=== PATIENT | female | born 1945 | race Caucasian/White ===

== ENCOUNTER 2016-12-29 17:15 | Inpatient (IN) | payer MEDICARE, OTHER ==
[2016-12-29] MEDS ORDERED: Diltiazem 25 MG/5 ML SDV IVPUSH ONE (17:26)
[2016-12-29] MEDS ORDERED: Diltiazem 100 MG in Sodium Chloride 0.9% 100 ML IV SCH (17:30)
[2016-12-29] MEDS: Sodium Chloride 0.9% 10 ML Syringe FLUSH PRN (18:00)
--- NOTE | 2016-12-29 19:02 | EDM.PDOC ---
ED HISTORY OF PRESENT ILLNESS - General Chief Complaint: Cardiovascular Problem Stated Complaint: [facility] Time Seen by Provider: 12/29/16 17:20 Source of Information: Reports: Patient, Family, Provider History Limitations: Reports: No limitations - History of Present Illness INITIAL COMMENTS - FREE TEXT/NARRATIVE: The patient presents with shortness of breath and generalized weakness for about 3 days. She went to [facility] and they found she has new onset A-fib at a rapid rate. They sent her here for further management and treatment. She denies any chest pain. She has no fever, chills or cough. She has no congestion or runny nose. She has no abdominal pain, nausea or vomiting. She has no other medical problems. She has never had trouble with her heart. Timing/Duration: Reports: Day(s): (3) Severity: moderate Improves with: Reports: None Worsens with: Reports: None Associated Symptoms (General): Reports: shortness of breath. 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 Denies: fever, chills HEENT: Reports: No symptoms Respiratory: Reports: shortness of breath Cardiovascular: Reports: No symptoms Endocrine: Reports: no symptoms GI/Abdominal: Reports: No symptoms : Reports: no symptoms Musculoskeletal: Reports: no symptoms Skin: Reports: no symptoms Neurological: Reports: no symptoms ED EXAM, GENERAL - Physical Exam Exam: See Below Exam Limited By: No limitations General Appearance: alert, no apparent distress Ears: normal external exam Nose: normal inspection Head: atraumatic, normocephalic Neck: normal inspection Respiratory/Chest: no respiratory distress, lungs clear, normal breath sounds Cardiovascular: no edema, no murmur, irregularly irregular GI/Abdominal: soft, non tender, no organomegaly, no mass Back Exam: normal inspection Extremities: normal inspection Neurological: alert, oriented, no motor/sensory deficits EKG INTERPRETATION EKG Date: 12/29/16 Time: 17:22 Rhythm: a-fib Rate (beats/min): 123 [place]: normal P-wave: absent QRS: normal ST-T: depressed (V1-V3) QT: normal Course - Vital Signs Last Recorded V/S: Last Vital Signs Temp 97.6 F 12/29/16 17:21 Pulse 114 H 12/29/16 18:01 Resp 31 H 12/29/16 17:21 BP 124/75 12/29/16 18:01 Pulse Ox 93 L 12/29/16 17:28 - Orders/Labs/Meds Orders: Active Orders 24 hr Category Date Time Status Cardiac Monitoring [RC] . DIRECTED Care 12/29/16 17:20 Active EKG Documentation Completion [RC] STAT Care 12/29/16 17:21 Active Oxygen Therapy [RC] PRN Care 12/29/16 17:20 Active Peripheral IV Care [RC] . DIRECTED Care 12/29/16 17:21 Active Ang Chest [CT] Stat Exams 12/29/16 19:18 Taken Chest 1V Frontal [CR] Stat Exams 12/29/16 17:21 Taken UA W/MICROSCOPIC [URIN] Stat Lab 12/29/16 17:20 Uncollected Diltiazem [Cardizem] 100 mg Med 12/29/16 17:30 Active Sodium Chloride 0.9% [Normal Saline] 100 ml IV TITRATE Diltiazem [Cardizem] 100 mg Med 12/29/16 19:15 Active Sodium Chloride 0.9% [Normal Saline] 100 ml IV TITRATE Sodium Chloride 0.9% [Normal Saline] 100 ml Med 12/29/16 20:00 Active IV ASDIRECTED Sodium Chloride 0.9% [Saline Flush] Med 12/29/16 17:20 Active 10 ml FLUSH ASDIRECTED PRN Sodium Chloride 0.9% [Saline Flush] Med 12/29/16 19:46 Active 10 ml FLUSH ONETIME PRN Peripheral IV Insertion Adult [OM.PC] Stat Oth 12/29/16 17:20 Ordered Medication Orders Diltiazem HCl 100 mg/ Sodium (Chloride) 100 mls @ 10 mls/hr IV TITRATE MIRNA; 10 MG/HR PRN Reason: Protocol Last Admin: 12/29/16 18:01 Dose: 10 mg/hr, 10 mls/hr Diltiazem HCl 100 mg/ Sodium (Chloride) 100 mls @ 5 mls/hr IV TITRATE MIRNA; 5 MG /HR PRN Reason: Protocol Sodium Chloride (Normal Saline) 100 mls @ 65 mls/hr IV ASDIRECTED MIRNA Last Admin: 12/29/16 20:11 Dose: 65 mls/hr Sodium Chloride (Saline Flush) 10 ml FLUSH ASDIRECTED PRN PRN Reason: Keep Vein Open Last Admin: 12/29/16 18:00 Dose: 10 ml Sodium Chloride (Saline Flush) 10 ml FLUSH ONETIME PRN PRN Reason: IV FLUSH Last Admin: 12/29/16 20:11 Dose: 10 ml Labs: Laboratory Tests 12/29/16 12/29/16 12/29/16 Range/Units 18:20 18:20 18:30 WBC 13.30 H (3.98-10.04) K/mm3 RBC 5.51 H (3.98-5.22) M/mm3 Hgb 15.8 H (11.2-15.7) gm/L Hct 50.9 H (34.1-44.9) % MCV 92.4 (79.4-94.8) fl MCH 28.7 (25.6-32.2) pg MCHC 31.0 L (32.2-35.5) g/dl RDW Std Deviation 47.4 H (36.4-46.3) fL Plt Count 350 (182-369) K/mm3 MPV 11.6 (9.4-12.3) fl Neut % (Auto) 81.6 H (34.0-71.1) % Lymph % (Auto) 9.8 L (19.3-51.7) % [place] % (Auto) 8.0 (4.7-12.5) % Eos % (Auto) 0.2 L (0.7-5.8) Baso % (Auto) 0.2 (0.1-1.2) % Neut # 10.85 H (1.56-6.13) K/mm3 Lymph # 1.30 (1.18-3.74) K/mm3 [place] # 1.07 H (0.24-0.36) K/mm3 Eos # 0.03 L (0.04-0.36) K/mm3 Baso # 0.02 (0.01-0.08) K/mm3 Manual Slide Review Abnormal smear D-Dimer, Quantitative 0.77 H (0.19-0.59) mg/L Sodium 140 (136-145) mEq/L Potassium 4.0 (3.5-5.1) mEq/L Chloride 97 L (98-107) mEq/L Carbon Dioxide 37 H (21-32) mEq/L Anion Gap 10.0 (5-15) BUN 23 H (7-18) mg/dL Creatinine 0.9 (0.55-1.02) mg/dL Est Cr Clr Drug Dosing 50.94 mL/min Estimated GFR (MDRD) > 60 (>60) mL/min BUN/Creatinine Ratio 25.6 H (14-18) Glucose 120 H (80-115) mg/dL Calcium 9.0 (8.5-10.1) mg/dL Total Bilirubin 0.4 (0.2-1.0) mg/dL AST 23 (15-37) U/L ALT 33 (14-59) U/L Alkaline Phosphatase 99 (46-116) U/L Troponin I 0.019 (0.00-0.056) ng/mL Total Protein 7.3 (6.4-8.2) g/dl Albumin 3.3 L (3.4-5.0) g/dl Globulin 4.0 gm/dL Albumin/Globulin Ratio 0.8 L (1-2) TSH 3rd Generation 3.406 (0.358-3.74) uIU/mL Meds: Medications Generic Name Dose Route Start Last Admin Trade Name Freq PRN Reason Stop Dose Admin Diltiazem HCl 100 mg/ Sodium 100 mls @ 10 mls/hr 12/29/16 17:30 12/29/16 18: 01 Chloride IV 10 mg/hr TITRATE MIRNA 10 mls/hr Protocol Administration 10 MG/HR Diltiazem HCl 100 mg/ Sodium 100 mls @ 5 mls/hr 12/29/16 19:15 Chloride IV TITRATE MIRNA Protocol 5 MG/HR Sodium Chloride 100 mls @ 65 mls/hr 12/29/16 20:00 12/29/16 20:11 Normal Saline IV 65 mls/hr ASDIRECTED MIRNA Administration Sodium Chloride 10 ml 12/29/16 17:20 12/29/16 18:00 Saline Flush FLUSH 10 ml ASDIRECTED PRN Administration Keep Vein Open Sodium Chloride 10 ml 12/29/16 19:46 12/29/16 20:11 Saline Flush FLUSH 10 ml ONETIME PRN Administration IV FLUSH Discontinued Medications Generic Name Dose Route Start Last Admin Trade Name Freq PRN Reason Stop Dose Admin Diltiazem HCl 10 mg 12/29/16 17:26 12/29/16 17:48 Diltiazem IVPUSH 12/29/16 17:27 10 mg ONETIME ONE Administration Iopamidol 100 ml 12/29/16 19:46 12/29/16 20:11 [id number] (76%) IVPUSH 12/29/16 19:47 100 ml ONETIME ONE Administration Iopamidol 50 ml 12/29/16 19:46 12/29/16 20:11 Isovue-370 (76%) IVPUSH 12/29/16 19:47 50 ml ONETIME ONE Administration - Re-Assessments/Exams Free Text/Narrative Re-Assessment/Exam: 12/29/16 19:02 I ordered oxygen and an IV. Her EKG shows she is in A-fib with no acute changes but at a rapid rate. I ordered a cardizem bolus of 10mg IV and a drip at 10mg/her. Her CXR shows cardiomegaly. 12/29/16 20:36 Her WBC was elevated at 13.3. Her Hgb was elevated at 15.8. Her D-dimer is elevated at 0.77. Her creatinine is good at 0.9. Her glucose was 120. Her troponin and TSH are negative. I have ordered a CT angio of her chest. Her rate is better in the low 100s. Her BP went down in the 90s so I slowed her cardizem rate to 5mg/hr. 12/29/16 21:[address] angio shows no PE. Moderate size right pleural effusion and compressive atelectasis. Suspected mild vascular congestion, correlate clinically. I feel she needs to be admitted. I called Dr Penny and he agreed to the admission. Departure - Departure Time of Disposition: 21:05 Disposition: Admitted As Inpatient 68 Condition: fair Clinical Impression: Atrial fibrillation with RVR, Pleural effusion, right Forms: ED Department Discharge - My Orders Last 24 Hours: My Active Orders 12/29/16 17:20 Cardiac Monitoring [RC] . DIRECTED Oxygen Therapy [RC] PRN UA W/MICROSCOPIC [URIN] Stat Sodium Chloride 0.9% [Saline Flush] 10 ml FLUSH ASDIRECTED PRN Peripheral IV Insertion Adult [OM.PC] Stat 12/29/16 17:21 EKG Documentation Completion [RC] STAT Peripheral IV Care [RC] . DIRECTED Chest 1V Frontal [CR] Stat 12/29/16 17:30 Diltiazem [Cardizem] 100 mg Sodium Chloride 0.9% [Normal Saline] 100 ml IV TITRATE 12/29/16 19:15 Diltiazem [Cardizem] 100 mg Sodium Chloride 0.9% [Normal Saline] 100 ml IV TITRATE 12/29/16 19:18 Ang Chest [CT] Stat 12/29/16 19:46 Sodium Chloride 0.9% [Saline Flush] 10 ml FLUSH ONETIME PRN 12/29/16 20:00 Sodium Chloride 0.9% [Normal Saline] 100 ml IV ASDIRECTED - Assessment/Plan Last 24 Hours: My Active Orders 12/29/16 17:20 Cardiac Monitoring [RC] . DIRECTED Oxygen Therapy [RC] PRN UA W/MICROSCOPIC [URIN] Stat Sodium Chloride 0.9% [Saline Flush] 10 ml FLUSH ASDIRECTED PRN Peripheral IV Insertion Adult [OM.PC] Stat 12/29/16 17:21 EKG Documentation Completion [RC] STAT Peripheral IV Care [RC] . DIRECTED Chest 1V Frontal [CR] Stat 12/29/16 17:30 Diltiazem [Cardizem] 100 mg Sodium Chloride 0.9% [Normal Saline] 100 ml IV TITRATE 12/29/16 19:15 Diltiazem [Cardizem] 100 mg Sodium Chloride 0.9% [Normal Saline] 100 ml IV TITRATE 12/29/16 19:18 Ang Chest [CT] Stat 12/29/16 19:46 Sodium Chloride 0.9% [Saline Flush] 10 ml FLUSH ONETIME PRN 12/29/16 20:00 Sodium Chloride 0.9% [Normal Saline] 100 ml IV ASDIRECTED
[2016-12-29] MEDS ORDERED: Iopamidol 755 Mg/ML 100 ML Bottle IVPUSH ONE (19:46)
[2016-12-29] MEDS ORDERED: Sodium Chloride 0.9% 10 ML Syringe FLUSH PRN (19:46)
[2016-12-29] MEDS ORDERED: Iopamidol 755 MG/ML 50 ML Bottle IVPUSH ONE (19:46)
[2016-12-29] MEDS ORDERED: Sodium Chloride 0.9% 100 ML IV SCH (20:00)
--- NOTE | 2016-12-29 22:45 | PCM.HP ---
H&P History of Present Illness - General Date of Service: 12/29/16 Admit Problem/Dx: Admission Diagnosis/Problem Admission Diagnosis/Problem Atrial fibrillation Source of Information: Patient, Old records, Provider, RN notes reviewed History Limitations: Reports: No limitations - History of Present Illness Initial Comments - Free Text/Narative: This is a 71 yo Morbidly Obese white female with no significant past medical hx/ o except for OA, Anxiety and Depression who comes to us with c/o 3 day hx/o shortness of breath associated with generalized weakness. She was initially seen at a local clinic in [place] and was diagnosed with new onset of A-fib with RVR in the 130s. Patient was sent to ED for further evaluation and management. Patient reports no previous hx/o it in the past. She has no active cardiac or lung disease. She denies any fever, chills or coughs. No nausea, vomiting or diarrhea. She further denies taking any OTC decongestant or drinks caffeinated products. Her initial work up in ED shows WBC 13.30, Hgb 15.8, Hct 50.9, and Platelet 350. Her chemistry is remarkable for Cl 97, CO2 37, BUN 23, Cr 0.9, BS 120, Albumin 3.3. D-Dimer 0.77 and TSH 3.4. Her initial EKG shows A-fib with rate of 123. Chest CTA shows no PE but with mild size right sided pleural effusion and compressive atelectasis. CXR shows pulmonary vascular congestion. Patient received initial treatment in ED before she was sent to me for further medical treatment. She is full code. 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 Denies: fever, chills HEENT: Reports: no symptoms Pulmonary: Reports: shortness of breath Cardiovascular: Reports: edema. Denies: chest pain, palpitations, dyspnea on exertion, lightheadedness, syncope Gastrointestinal: Denies: Abdominal pain, Constipation, Diarrhea, Nausea, Vomiting Genitourinary: Reports: no symptoms Musculoskeletal: Reports: no symptoms Skin: Reports: no symptoms. Denies: cyanosis, pruritis, rash, erythema Psychiatric: Denies: depression, anxiety Neurological: Denies: confusion Hematologic/Lymphatic: Reports: no symptoms Immunologic: Reports: no symptoms Exam - Exam Exam: See Below - Vital Signs Vital Signs: Last Vital Signs Temp 36.4 C 12/29/16 17:21 Pulse 114 H 12/29/16 18:01 Resp 31 H 12/29/16 17:21 BP 124/75 12/29/16 18:01 Pulse Ox 93 L 12/29/16 17:28 Weight: 155.401 kg - Exam General: alert, oriented, cooperative, other (Morbidly Obese). No: mild distress HEENT: Conjunctiva clear, EACs clear, Mucosa moist & pink, Nares patent, Posterior pharynx clear, Pupils equal Neck: supple, trachea midline, 2+ carotid pulse wo bruit, full range of motion, other (Short and thick) Lungs: Normal respiratory effort, Decreased breath sounds, Crackles Cardiovascular: irregular rhythm, other (irregular rate) Abdomen: normal bowel sounds, soft, other (Obese). No: organomegaly (Female) Exam: Deferred Rectal (Female) Exam: Deferred Back Exam: normal inspection, decreased range of motion Extremities: normal inspection, normal pulses, edema. No: clubbing, cyanosis, calf tenderness Peripheral Pulses: 2+: dorsalis pedis (L), dorsalis pedis (R) Skin: warm, dry, intact Neuro Extensive - Mental Status: oriented x3, normal cognition, memory intact Neuro Extensive - Motor, Sensory, Reflexes: CN II-XII intact, normal gait Psychiatric: alert, normal affect, normal mood - Patient Data Result Diagrams: 12/29/16 18:20 12/29/16 18:20 EKG INTERPRETATION EKG Date: 12/29/16 Time: 17:22 Rhythm: a-fib Rate (beats/min): 123 P-wave: absent *Q Meaningful Use (ADM) - VTE *Q VTE Criteria *Q: - Stroke *Q Stroke Criteria *Q: - AMI *Q AMI Criteria *Q: Problem List Initiated/Reviewed/Updated: Yes Orders Last 24hrs: Medication Orders Diltiazem HCl 100 mg/ Sodium (Chloride) 100 mls @ 10 mls/hr IV TITRATE MIRNA; 10 MG/HR PRN Reason: Protocol Last Admin: 12/29/16 18:01 Dose: 10 mg/hr, 10 mls/hr Diltiazem HCl 100 mg/ Sodium (Chloride) 100 mls @ 5 mls/hr IV TITRATE MIRNA; 5 MG /HR PRN Reason: Protocol Sodium Chloride (Normal Saline) 100 mls @ 65 mls/hr IV ASDIRECTED MIRNA Last Admin: 12/29/16 20:11 Dose: 65 mls/hr Sodium Chloride (Saline Flush) 10 ml FLUSH ASDIRECTED PRN PRN Reason: Keep Vein Open Last Admin: 12/29/16 18:00 Dose: 10 ml Sodium Chloride (Saline Flush) 10 ml FLUSH ONETIME PRN PRN Reason: IV FLUSH Last Admin: 12/29/16 20:11 Dose: 10 ml Assessment/Plan Comment:: Assessment/Plan Acute: A-Fib with RVR at 130s - No previous hx in the past - LAVONNE VASC Score: 0 Low risk of thromboembolic event. 1.9% risk of event per year if no coumadin. The adjusted stroke rate was the expected stroke rate per 100 person-years derived from the multivariable model assuming that aspirin was not taken - Currently on Cardizem drip - Cardizem 360 mg po daily once off drip - FT4 in am - 2D echo in AM Right Sided Pleural Effusion - Small-Moderate Size - 2D echo to assess cardiac function - Monitor - Medical management for now Leukoctyosis - WBC 13.30 - Likely stress - She likely has MICHAEL Secondary Polycythemia - Hgb 15.8 - This likely related to extreme obesity and MICHAEL/OHS - Monitor Morbid Obesity with BMI 58.8 - Dietary consult for weight management Chronic: OA/DJD Anxiety Depression Plan: Admit to ICU Routine AM Labs Resume Home Meds Fall Precautions Discussed anticoagulations PT/TO consult SW/CM for d/c planning Code Status: 1
[2016-12-29] MEDS ORDERED: Acetaminophen/HYDROcodone 325-5 MG Tab PO PRN (23:15)
[2016-12-29] MEDS ORDERED: HYDROmorphone 1 MG/ML Syringe IVPUSH PRN (23:15)
[2016-12-29] MEDS ORDERED: Ondansetron 4 MG/2 ML SDV IV PRN (23:15)
[2016-12-29] MEDS ORDERED: Temazepam 15 MG Cap PO PRN (23:15)
[2016-12-29] MEDS ORDERED: LORazepam 2 MG/ML MDV IV PRN (23:15)
[2016-12-29] MEDS ORDERED: Polyethylene Glycol 3350 Powder 17 GM Packet PO PRN (23:15)
[2016-12-29] MEDS ORDERED: Promethazine 12.5 MG in Sodium Chloride 0.9% 50 ML IV PRN (23:15)
[2016-12-29] MEDS ORDERED: Acetaminophen 325 MG Tab PO PRN (23:15)
[2016-12-29] MEDS ORDERED: Enoxaparin 150 MG/1 ML Syringe SUBCUT ONE (23:20)
--- NOTE | 2016-12-30 07:21 | CT ---
CT chest Technique: Multiple axial sections through the chest were obtained. Intravenous contrast was utilized. Study performed as a pulmonary angiogram protocol. Findings: Pulmonary arteries are well-opacified. No filling defects are seen to indicate pulmonary embolism. Visualized upper abdominal structures are within normal limits. Heart is mildly enlarged. No pericardial thickening is identified. Mediastinum and hilar regions show no adenopathy or mass. Small right sided pleural effusion is seen with adjacent compressive type atelectasis. Minimal scattered ground-glass appearance is seen raising the possibility of mild pulmonary vascular congestion. Bone window settings show scattered degenerative endplate spurring within the spine. Impression: 1. No findings of pulmonary embolism. 2. Small right sided pleural effusion with adjacent compressive type atelectasis. 3. Minimal ground-glass appearance raising the possibility of mild pulmonary vascular congestion. Diagnostic code #3 I agree with preliminary report issued by [employer] (preliminary report dictated on 12/29/16, 9:59 PM Central Time)
--- NOTE | 2016-12-30 07:21 | CR ---
Chest: Portable view of the chest was obtained. Comparison: No previous study. Heart is mildly enlarged. Pulmonary vessels are minimally congested. Lungs otherwise are clear. Bony structures are grossly intact. Impression: 1. Heart mildly enlarged with minimal pulmonary vascular congestion. Diagnostic code #3
[2016-12-30] MEDS ORDERED: Enoxaparin 40 MG/0.4 ML Syringe SUBCUT SCH (09:00)
[2016-12-30] MEDS ORDERED: Sertraline 50 MG Tab PO SCH (09:00)
[2016-12-30] MEDS ORDERED: Enoxaparin 150 MG/1 ML Syringe SUBCUT SCH (10:04)
[2016-12-30] MEDS: Sertraline 50 MG Tab PO SCH (10:08)
[2016-12-30] MEDS: Hydrochlorothiazide/Triamterene 25-37.5 Tab PO SCH (10:08)
[2016-12-30] MEDS: Diltiazem 100 MG in Sodium Chloride 0.9% 100 ML IV SCH ×2 (10:09→20:14)
[2016-12-30] MEDS: ALPRAZolam 0.5 MG Tab PO SCH ×4 (10:09→20:09)
[2016-12-30] MEDS ORDERED: HYDROmorphone 0.5 MG/0.5 ML Syringe IVPUSH PRN (12:18)
[2016-12-30] MEDS: BRINZOLAMIDE EYEBOTH SCH ×2 (12:40→20:10)
[2016-12-30] MEDS: Diltiazem 180 MG Cap.CD PO SCH (15:59)
--- NOTE | 2016-12-30 17:00 | PCM.PN ---
- General Info Date of Service: 12/30/16 Admission Dx/Problem (Free Text): Admission Diagnosis/Problem Admission Diagnosis/Problem Atrial fibrillation Subjective Update: Follow Up Functional Status: Reports: pain controlled, tolerating diet, urinating. Denies : new symptoms - Review of Systems General: Denies: fever, malaise HEENT: Reports: no symptoms Pulmonary: Denies: shortness of breath Cardiovascular: Denies: chest pain, palpitations, dyspnea on exertion, edema Gastrointestinal: Denies: Abdominal pain, Nausea, Vomiting Genitourinary: Reports: no symptoms Musculoskeletal: Reports: no symptoms Skin: Reports: no symptoms Neurological: Denies: confusion Psychiatric: Denies: confusion, anxiety Systems Review Comment:: No overnight or acute issues. She did not sleep well, she just could not get comfortable. She is still on cardizem drip. She has no new complaints. - Patient Data Vitals - most recent: Last Vital Signs Temp 36.6 C 12/30/16 03:00 Pulse 124 H 12/30/16 10:09 Resp 27 H 12/30/16 08:00 BP 121/86 12/30/16 10:09 Pulse Ox 95 12/30/16 08:00 Weight - most recent: 155.401 kg I&O - last 24 hours: Intake & Output 12/30/16 12/30/16 12/30/16 06:59 14:59 22:59 Intake Total 29 120 320 Output Total 650 Balance -621 120 320 Lab Results last 24 hrs: Laboratory Results - last 24 hr 12/30/16 12/30/16 12/30/16 Range/Units 05:53 05:53 05:53 WBC 12.24 H (3.98-10.04) K/mm3 RBC 5.38 H (3.98-5.22) M/mm3 Hgb 15.6 (11.2-15.7) gm/L Hct 50.9 H (34.1-44.9) % MCV 94.6 (79.4-94.8) fl MCH 29.0 (25.6-32.2) pg MCHC 30.6 L (32.2-35.5) g/dl RDW Std Deviation 49.3 H (36.4-46.3) fL Plt Count 330 (182-369) K/mm3 MPV 11.7 (9.4-12.3) fl Neut % (Auto) 74.0 H (34.0-71.1) % Lymph % (Auto) 11.4 L (19.3-51.7) % [place] % (Auto) 13.2 H (4.7-12.5) % Eos % (Auto) 1.0 (0.7-5.8) Baso % (Auto) 0.2 (0.1-1.2) % Neut # 9.06 H (1.56-6.13) K/mm3 Lymph # 1.40 (1.18-3.74) K/mm3 [place] # 1.61 H (0.24-0.36) K/mm3 Eos # 0.12 (0.04-0.36) K/mm3 Baso # 0.02 (0.01-0.08) K/mm3 Manual Slide Review Normal smear Sodium 141 (136-145) mEq/L Potassium 3.7 (3.5-5.1) mEq/L Chloride 96 L (98-107) mEq/L Carbon Dioxide 38 H (21-32) mEq/L Anion Gap 10.7 (5-15) BUN 24 H (7-18) mg/dL Creatinine 0.9 (0.55-1.02) mg/dL Est Cr Clr Drug Dosing 50.94 mL/min Estimated GFR (MDRD) > 60 (>60) mL/min BUN/Creatinine Ratio 26.7 H (14-18) Glucose 105 (80-115) mg/dL Hemoglobin A1c 6.20 (4.50-6.20) % Calcium 8.8 (8.5-10.1) mg/dL Magnesium 2.3 (1.8-2.4) mg/dl B-Natriuretic Peptide (0-100) pg/mL Free T4 1.00 (0.76-1.46) ng/dL 12/30/16 Range/Units 05:53 WBC (3.98-10.04) K/mm3 RBC (3.98-5.22) M/mm3 Hgb (11.2-15.7) gm/L Hct (34.1-44.9) % MCV (79.4-94.8) fl MCH (25.6-32.2) pg MCHC (32.2-35.5) g/dl RDW Std Deviation (36.4-46.3) fL Plt Count (182-369) K/mm3 MPV (9.4-12.3) fl Neut % (Auto) (34.0-71.1) % Lymph % (Auto) (19.3-51.7) % [place] % (Auto) (4.7-12.5) % Eos % (Auto) (0.7-5.8) Baso % (Auto) (0.1-1.2) % Neut # (1.56-6.13) K/mm3 Lymph # (1.18-3.74) K/mm3 [place] # (0.24-0.36) K/mm3 Eos # (0.04-0.36) K/mm3 Baso # (0.01-0.08) K/mm3 Manual Slide Review Sodium (136-145) mEq/L Potassium (3.5-5.1) mEq/L Chloride (98-107) mEq/L Carbon Dioxide (21-32) mEq/L Anion Gap (5-15) BUN (7-18) mg/dL Creatinine (0.55-1.02) mg/dL Est Cr Clr Drug Dosing mL/min Estimated GFR (MDRD) (>60) mL/min BUN/Creatinine Ratio (14-18) Glucose (80-115) mg/dL Hemoglobin A1c (4.50-6.20) % Calcium (8.5-10.1) mg/dL Magnesium (1.8-2.4) mg/dl B-Natriuretic Peptide 334 H (0-100) pg/mL Free T4 (0.76-1.46) ng/dL Med Orders - Current: Current Medications Acetaminophen (Tylenol) 650 mg PO Q4H PRN PRN Reason: Pain (Mild 1-3)/fever Acetaminophen/Hydrocodone Bitart ([place] 325-5 Mg) 1 tab PO Q4H PRN PRN Reason: Pain (moderate 4-6) Albuterol/Ipratropium (Duoneb 3.0-0.5 Mg/3 Ml) 3 ml NEB Q4H PRN PRN Reason: Shortness Of Breath/wheezing Alprazolam (Xanax) 0.5 mg PO QID PENDING SALE TO [facility] Last Admin: 12/30/16 16:04 Dose: 0.5 mg Apixaban (Eliquis) 5 mg PO BID PENDING S[facility] TO [facility] Bisacodyl (Dulcolax) 5 mg PO DAILY PRN PRN Reason: Constipation Diltiazem HCl (Cardizem Cd) 360 mg PO DAILY PENDING [facility] TO [facility] Last Admin: 12/30/16 15:59 Dose: Not Given Hydromorphone HCl (Dilaudid) 0.25 mg IVPUSH Q2H PRN PRN Reason: Pain (severe 7-10) Diltiazem HCl 100 mg/ Sodium (Chloride) 100 mls @ 5 mls/hr IV TITRATE MIRNA; 5 MG /HR PRN Reason: Protocol Last Titration: 12/30/16 10:35 Dose: 7.5 mg/hr, 7.5 mls/hr Promethazine HCl 12.5 mg/ (Sodium Chloride) 50.5 mls @ 100 mls/hr IV Q6H PRN PRN Reason: Nausea/Vomiting Lorazepam (Ativan) 1 mg IV Q6H PRN PRN Reason: Nausea/Vomiting Ondansetron HCl (Zofran) 4 mg IV Q6H PRN PRN Reason: Nausea/Vomiting Brinzolamide (Azopt (Opth Suspension)) 0 each EYEBOTH BID PENDING [facility]ALE TO [facility] Last Admin: 12/30/16 12:40 Dose: 1 each Polyethylene Glycol (Miralax) 17 gm PO DAILY PRN PRN Reason: Constipation Senna/Docusate Sodium (Senna Plus) 1 tab PO BID PRN PRN Reason: Constipation Sertraline HCl (Zoloft) 100 mg PO DAILY [facility] Last Admin: 12/30/16 10:08 Dose: 100 mg Sodium Chloride (Saline Flush) 10 ml FLUSH ASDIRECTED PRN PRN Reason: Keep Vein Open Last Admin: 12/29/16 18:00 Dose: 10 ml Sodium Chloride (Saline Flush) 10 ml FLUSH ONETIME PRN PRN Reason: IV FLUSH Last Admin: 12/29/16 20:11 Dose: 10 ml Temazepam (Restoril) 30 mg PO BEDTIME PRN PRN Reason: Sleep Triamterene/HCTZ (Maxzide 25-37.5 Mg) 1 each PO DAILY [facility]ENDING [facility] TO [facility] Last Admin: 12/30/16 10:08 Dose: 1 each Discontinued Medications Diltiazem HCl (Diltiazem) 10 mg IVPUSH ONETIME ONE Stop: 12/29/16 17:27 Last Admin: 12/29/16 17:48 Dose: 10 mg Enoxaparin Sodium (Lovenox) 150 mg SUBCUT Q12HR MIRNA Enoxaparin Sodium (Lovenox) 150 mg SUBCUT ONETIME ONE Stop: 12/29/16 23:21 Last Admin: 12/29/16 23:41 Dose: 150 mg Enoxaparin Sodium (Lovenox) 150 mg SUBCUT Q12HR [facility]ENDING [facility] TO [facility] Last Admin: 12/30/16 10:36 Dose: 150 mg Hydromorphone HCl (Dilaudid) 0.25 mg IVPUSH Q2H PRN PRN Reason: Pain (severe 7-10) Diltiazem HCl 100 mg/ Sodium (Chloride) 100 mls @ 10 mls/hr IV TITRATE MIRNA; 10 MG/HR PRN Reason: Protocol Last Admin: 12/29/16 18:01 Dose: 10 mg/hr, 10 mls/hr Sodium Chloride (Normal Saline) 100 mls @ 65 mls/hr IV ASDIRECTED MIRNA Last Admin: 12/29/16 20:11 Dose: 65 mls/hr Iopamidol (Isovue-370 (76%)) 100 ml IVPUSH ONETIME ONE Stop: 12/29/16 19:47 Last Admin: 12/29/16 20:11 Dose: 100 ml Iopamidol (Isovue-370 (76%)) 50 ml IVPUSH ONETIME ONE Stop: 12/29/16 19:47 Last Admin: 12/29/16 20:11 Dose: 50 ml Sertraline HCl (Zoloft) 100 mg PO QID MIRNA Temazepam (Restoril) 30 mg PO BEDTIME PRN PRN Reason: Sleep - Exam General: alert, oriented, cooperative, no acute distress HEENT: Pupils equal, Pupils reactive, EOMI, Mucous membr. moist/pink Neck: supple, trachea midline, no JVD, no thyromegaly Lungs: Normal respiratory effort, Decreased breath sounds Cardiovascular: irregular rhythm Abdomen: bowel sounds present, soft, no tenderness, no distension (Female) Exam: Deferred Back Exam: decreased range of motion Extremities: normal pulses, no tenderness/swelling, no clubbing, no cyanosis, edema Peripheral Pulses: 2+: dorsalis pedis (L), dorsalis pedis (R) Skin: warm, dry, intact Neurological: no new focal deficit Psy/Mental Status: alert, normal affect, normal mood - Problem List Review Problem List Initiated/Reviewed/Updated: Yes - My Orders Last 24 Hours: My Active Orders 12/29/16 23:12 Height and Weight [RC] 04 Up With Assistance [RC] ASDIRECTED Up ad Shani [RC] ASDIRECTED Resuscitation Status Routine 12/29/16 23:14 Intake and Output [RC] 04,16 12/29/16 23:15 VTE/DVT Education [RC] PER UNIT ROUTINE Consult to Case Management [CONS] Routine Consult to Lab Systems Analyst [CONS] Routine Consult to [employer]olesale Parts Advisor [CONS] Routine OT Evaluation and Treatment [CONS] Routine PT Evaluation and Treatment [CONS] Routine Acetaminophen [Tylenol] 650 mg PO Q4H PRN Acetaminophen/HYDROcodone [[place] 325-5 MG] 1 tab PO Q4H PRN Albuterol/Ipratropium [DuoNeb 3.0-0.5 MG/3 ML] 3 ml NEB Q4H PRN Bisacodyl [Dulcolax] 5 mg PO DAILY PRN Docusate Sodium/Sennosides [Senna Plus] 1 tab PO BID PRN LORazepam [Ativan] 1 mg IV Q6H PRN Ondansetron [Zofran] 4 mg IV Q6H PRN Polyethylene Glycol 3350 [MiraLAX] 17 gm PO DAILY PRN Promethazine [Phenergan] 12.5 mg Sodium Chloride 0.9% [Normal Saline] 50 ml IV Q6H 12/29/16 23:16 RT Aerosol Therapy [RC] ASDIRECTED 12/29/16 Dinner Regular Diet [DIET] 12/30/16 09:00 ALPRAZolam [Xanax] 0.5 mg PO QID Diltiazem [Cardizem CD] 360 mg PO DAILY HCTZ/Triamterene [Maxzide 25-37.5 MG] 1 each PO DAILY Patient's Own Medication [Ptom] 0 each EYEBOTH BID 12/30/16 09:15 Sertraline [Zoloft] 100 mg PO DAILY 12/30/16 12:18 HYDROmorphone [Dilaudid] 0.25 mg IVPUSH Q2H PRN 12/30/16 12:19 Temazepam [Restoril] 30 mg PO BEDTIME PRN 12/30/16 21:00 Apixaban [Eliquis] 5 mg PO BID 12/31/16 07:00 CBC W/O DIFF,HEMOGRAM [HEME] MOTH@00 01/04/17 07:00 CBC W/O DIFF,HEMOGRAM [HEME] MOTH@69901/07/17 07:00 CBC W/O DIFF,HEMOGRAM [HEME] MOTH@69901/11/17 07:00 CBC W/O DIFF,HEMOGRAM [HEME] MOTH@69901/14/17 07:00 CBC W/O DIFF,HEMOGRAM [HEME] MOTH@69901/18/17 07:00 CBC W/O DIFF,HEMOGRAM [HEME] MOTH@699 - Plan Plan:: Assessment/Plan Acute: A-Fib with RVR at 130s, HR now in the low teens to 120s - No previous hx in the past - LAVONNE VASC Score: 0 Low risk of thromboembolic event. 1.9% risk of event per year if no coumadin. The adjusted stroke rate was the expected stroke rate per 100 person-years derived from the multivariable model assuming that aspirin was not taken - Still on Cardizem drip - Cardizem 360 mg po daily once off drip - FT4 is 1: wnl - 2D echo: Pending Right Sided Pleural Effusion - Small-Moderate Size - 2D echo to assess cardiac function - Medical management for now - Follow up CXR in AM Leukoctyosis - WBC 13.30--> 12.24 - Likely stress - She likely has MICHAEL Secondary Polycythemia - Hgb 15.8--> 15.6: wnl - This likely related to extreme obesity and MICHAEL/OHS - Monitor Morbid Obesity with BMI 58.8 - Dietary consult for weight management Chronic: OA/DJD Anxiety Depression Plan: Continue current treatment Routine AM Labs Fall Precautions Metoprolol 25 mg po BID first dose tonight Discussed anticoagulations: she elected camelia, pharmacy to dose for stroke ppx Continue PT/TO SW/CM for d/c planning Additional orders as above Code Status: 1
[2016-12-30] MEDS: Apixaban 5 MG Tab PO SCH (20:09)
[2016-12-30] MEDS: Metoprolol Tartrate 25 MG Tab PO SCH (20:09)
[2016-12-30] MEDS: cefTRIAXone 1 GM in Sodium Chloride 0.9% 100 ML IV SCH (21:35)
[2016-12-31] MEDS: ALPRAZolam 0.5 MG Tab PO SCH (09:26)
[2016-12-31] MEDS: Diltiazem 180 MG Cap.CD PO SCH (09:26)
[2016-12-31] MEDS: Metoprolol Tartrate 25 MG Tab PO SCH ×3 (09:27→20:26)
[2016-12-31] MEDS: Hydrochlorothiazide/Triamterene 25-37.5 Tab PO SCH (09:27)
[2016-12-31] MEDS: Apixaban 5 MG Tab PO SCH ×3 (09:32→20:27)
[2016-12-31] MEDS: BRINZOLAMIDE EYEBOTH SCH ×2 (09:42→20:26)
[2016-12-31] MEDS: Modafinil 200 MG Tab PO SCH (10:02)
--- NOTE | 2016-12-31 12:18 | CR ---
Chest: Two views of the chest were obtained. Comparison: Previous chest CT dated 12/29/16 and chest x-ray performed on 12/29/16. Heart is enlarged. Lungs are clear with no acute infiltrates. Pleural effusion noted on prior chest CT is small to see by chest x-ray. Bony structures are grossly intact. Impression: 1. Cardiomegaly. Nothing acute is appreciated on two-view chest x-ray. No pleural effusion is seen. Diagnostic code #2
[2016-12-31] MEDS: Sertraline 50 MG Tab PO SCH ×3 (14:40→20:26)
--- NOTE | 2016-12-31 17:04 | PCM.PN ---
- General Info Date of Service: 12/31/16 Admission Dx/Problem (Free Text): Admission Diagnosis/Problem Admission Diagnosis/Problem Atrial fibrillation Subjective Update: Follow Up Functional Status: Reports: pain controlled, tolerating diet, urinating. Denies : new symptoms - Review of Systems General: Reports: fatigue. Denies: fever, weakness, malaise, chills HEENT: Denies: contact lenses Pulmonary: Reports: shortness of breath Cardiovascular: Reports: dyspnea on exertion, edema. Denies: chest pain, palpitations Gastrointestinal: Denies: Abdominal pain, Nausea, Vomiting Genitourinary: Reports: no symptoms Musculoskeletal: Reports: neck pain Skin: Reports: no symptoms Neurological: Denies: confusion, weakness Psychiatric: Denies: depression, anxiety, hallucinations Systems Review Comment:: No overnight or acute issues. She is doing relatively well. Her heart rate is now in the 80s to low teens. Her 2D echo has competed. reports she appears slow and somewhat confused w/ a blank stare at times. - Patient Data Vitals - most recent: Last Vital Signs Temp 37.1 C 12/31/16 16:15 Pulse 99 12/31/16 16:15 Resp 18 12/31/16 16:15 BP 108/79 12/31/16 16:15 Pulse Ox 96 12/31/16 16:15 Weight - most recent: 155.384 kg I&O - last 24 hours: Intake & Output 12/31/16 12/31/16 12/31/16 06:59 14:59 22:59 Intake Total 433 780 888 Output Total 50 850 Balance 383 780 38 Lab Results last 24 hrs: Laboratory Results - last 24 hr 12/30/16 12/31/16 12/31/16 Range/Units 16:40 06:16 09:26 WBC 13.59 H (3.98-10.04) K/mm3 RBC 5.51 H (3.98-5.22) M/mm3 Hgb 15.8 H (11.2-15.7) gm/L Hct 53.0 H (34.1-44.9) % MCV 96.2 H (79.4-94.8) fl MCH 28.7 (25.6-32.2) pg MCHC 29.8 L (32.2-35.5) g/dl RDW Std Deviation 49.3 H (36.4-46.3) fL Plt Count 344 (182-369) K/mm3 MPV 11.4 (9.4-12.3) fl Sodium 139 (136-145) mEq/L Potassium 4.6 (3.5-5.1) mEq/L Chloride 94 L (98-107) mEq/L Carbon Dioxide 36 H (21-32) mEq/L Anion Gap 13.6 (5-15) BUN 31 H (7-18) mg/dL Creatinine 1.1 H (0.55-1.02) mg/dL Est Cr Clr Drug Dosing 41.68 mL/min Estimated GFR (MDRD) 49 (>60) mL/min BUN/Creatinine Ratio 28.2 H (14-18) Glucose 126 H (80-115) mg/dL Calcium 9.0 (8.5-10.1) mg/dL Magnesium 2.6 H (1.8-2.4) mg/dl C-Reactive Protein < 0.2 (<1.0) mg/dL Urine Color Yellow (Yellow) Urine Appearance Slt cloudy H (Clear) Urine pH 6.0 (5.0-8.0) Ur Specific [place] 1.025 (1.005-1.030) Urine Protein 1+ H (Negative) Urine Glucose (UA) Negative (Negative) Urine Ketones Negative (Negative) Urine Occult Blood 2+ H (Negative) Urine Nitrite Negative (Negative) Urine Bilirubin Negative (Negative) Urine Urobilinogen 0.2 (0.2-1.0) Ur Leukocyte Esterase 1+ H (Negative) Urine RBC 5-10 H (0-5) /hpf Urine WBC 5-10 H (0-5) /hpf Urine WBC Clumps Not seen (NOT SEEN) /hpf Ur Epithelial Cells 10-20 H (0-5) /hpf Ur Transition Epith Cell 5-10 H (0-5) Ur Renal Epithelial Cell 0-5 (0-5) /hpf Amorphous Sediment Few H (NOT SEEN) /hpf Urine Bacteria Many H (FEW) /hpf Urine Mucus Not seen (FEW) /hpf Urine Yeast Not seen (NOT SEEN) Med Orders - Current: Current Medications Acetaminophen (Tylenol) 650 mg PO Q4H PRN PRN Reason: Pain (Mild 1-3)/fever Acetaminophen/Hydrocodone Bitart ([place] 325-5 Mg) 1 tab PO Q4H PRN PRN Reason: Pain (moderate 4-6) Albuterol/Ipratropium (Duoneb 3.0-0.5 Mg/3 Ml) 3 ml NEB Q4H PRN PRN Reason: Shortness Of Breath/wheezing Alprazolam (Xanax) 0.5 mg PO QID [facility] Last Admin: 12/31/16 09:26 Dose: Not Given Apixaban (Eliquis) 5 mg PO BID [facility] Last Admin: 12/31/16 09:32 Dose: 5 mg Bisacodyl (Dulcolax) 5 mg PO DAILY PRN PRN Reason: Constipation Diltiazem HCl (Cardizem Cd) 360 mg PO DAILY [facility] Last Admin: 12/31/16 09:26 Dose: 360 mg Flunisolide (Nasalide Nasal [place]) 0 ml NASBOTH BID [facility] Last Admin: 12/31/16 11:42 Dose: 1 squirt Hydromorphone HCl (Dilaudid) 0.25 mg IVPUSH Q2H PRN PRN Reason: Pain (severe 7-10) Diltiazem HCl 100 mg/ Sodium (Chloride) 100 mls @ 5 mls/hr IV TITRATE MIRNA; 5 MG /HR PRN Reason: Protocol Last Titration: 12/31/16 10:03 Dose: 0 mg/hr, 0 mls/hr Promethazine HCl 12.5 mg/ (Sodium Chloride) 50.5 mls @ 100 mls/hr IV Q6H PRN PRN Reason: Nausea/Vomiting Ceftriaxone Sodium 1 gm/ (Sodium Chloride) 100 mls @ 200 mls/hr IV Q24H [facility] Last Admin: 12/30/16 21:35 Dose: 200 mls/hr Metoprolol Tartrate (Lopressor) 25 mg PO Q12HR [facility] Last Admin: 12/31/16 09:27 Dose: 25 mg Modafinil (Provigil) 200 mg PO DAILY [facility] Last Admin: 12/31/16 10:02 Dose: 200 mg Ondansetron HCl (Zofran) 4 mg IV Q6H PRN PRN Reason: Nausea/Vomiting Brinzolamide (Azopt (Opth Suspension)) 0 each EYEBOTH BID [facility] Last Admin: 12/31/16 09:42 Dose: 1 each Polyethylene Glycol (Miralax) 17 gm PO DAILY PRN PRN Reason: Constipation Senna/Docusate Sodium (Senna Plus) 1 tab PO BID PRN PRN Reason: Constipation Sertraline HCl (Zoloft) 100 mg PO BEDTIME MIRNA Sodium Chloride (Saline Flush) 10 ml FLUSH ASDIRECTED PRN PRN Reason: Keep Vein Open Last Admin: 12/29/16 18:00 Dose: 10 ml Sodium Chloride (Saline Flush) 10 ml FLUSH ONETIME PRN PRN Reason: IV FLUSH Last Admin: 12/29/16 20:11 Dose: 10 ml Temazepam (Restoril) 30 mg PO BEDTIME PRN PRN Reason: Sleep Triamterene/HCTZ (Maxzide 25-37.5 Mg) 1 each PO DAILY MIRNA Last Admin: 12/31/16 09:27 Dose: 1 each Discontinued Medications Diltiazem HCl (Diltiazem) 10 mg IVPUSH ONETIME ONE Stop: 12/29/16 17:27 Last Admin: 12/29/16 17:48 Dose: 10 mg Enoxaparin Sodium (Lovenox) 150 mg SUBCUT Q12HR MIRNA Last Admin: 12/30/16 20:09 Dose: Not Given Enoxaparin Sodium (Lovenox) 150 mg SUBCUT ONETIME ONE Stop: 12/29/16 23:21 Last Admin: 12/29/16 23:41 Dose: 150 mg Enoxaparin Sodium (Lovenox) 150 mg SUBCUT Q12HR MIRNA Last Admin: 12/30/16 10:36 Dose: 150 mg Hydromorphone HCl (Dilaudid) 0.25 mg IVPUSH Q2H PRN PRN Reason: Pain (severe 7-10) Diltiazem HCl 100 mg/ Sodium (Chloride) 100 mls @ 10 mls/hr IV TITRATE MIRNA; 10 MG/HR PRN Reason: Protocol Last Admin: 12/29/16 18:01 Dose: 10 mg/hr, 10 mls/hr Sodium Chloride (Normal Saline) 100 mls @ 65 mls/hr IV ASDIRECTED MIRNA Last Admin: 12/29/16 20:11 Dose: 65 mls/hr Iopamidol (Isovue-370 (76%)) 100 ml IVPUSH ONETIME ONE Stop: 12/29/16 19:47 Last Admin: 12/29/16 20:11 Dose: 100 ml Iopamidol (Isovue-370 (76%)) 50 ml IVPUSH ONETIME ONE Stop: 12/29/16 19:47 Last Admin: 12/29/16 20:11 Dose: 50 ml Lorazepam (Ativan) 1 mg IV Q6H PRN PRN Reason: Nausea/Vomiting Sertraline HCl (Zoloft) 100 mg PO QID [facility] Last Admin: 12/30/16 20:10 Dose: Not Given Sertraline HCl (Zoloft) 100 mg PO DAILY [facility] Last Admin: 12/31/16 14:40 Dose: Not Given Temazepam (Restoril) 30 mg PO BEDTIME PRN PRN Reason: Sleep - Exam Quality Assessment: supplemental oxygen General: alert, oriented, cooperative, no acute distress, other (Morbidly Obese) HEENT: Pupils equal, Pupils reactive, EOMI, Mucous membr. moist/pink Neck: supple, trachea midline, no JVD, no thyromegaly, other (short and thick) Lungs: Normal respiratory effort, Decreased breath sounds, Crackles Cardiovascular: regular rate, regular rhythm Abdomen: bowel sounds present, soft, no tenderness, no distension, other (Obese) (Female) Exam: Deferred Back Exam: normal inspection, decreased range of motion Extremities: normal pulses, no tenderness/swelling, no clubbing, no cyanosis, no calf tenderness, edema Peripheral Pulses: 2+: dorsalis pedis (L), dorsalis pedis (R) Skin: warm, dry, intact Neurological: no new focal deficit Psy/Mental Status: alert, normal affect, normal mood - Problem List Review Problem List Initiated/Reviewed/Updated: Yes - My Orders Last 24 Hours: My Active Orders 12/30/16 20:30 cefTRIAXone [Rocephin] 1 gm Sodium Chloride 0.9% [Normal Saline] 100 ml IV Q24H 12/30/16 21:00 Apixaban [Eliquis] 5 mg PO BID Metoprolol Tartrate [Lopressor] 25 mg PO Q12HR 12/31/16 09:04 CULTURE URINE [RM] Stat 12/31/16 10:00 Modafinil [Provigil] 200 mg PO DAILY 12/31/16 10:45 Flunisolide [Nasalide Nasal [place]] 0 ml NASBOTH BID 12/31/16 13:19 Admission Status [Patient Status] [ADT] Routine 12/31/16 21:00 Sertraline [Zoloft] 100 mg PO BEDTIME 01/01/17 05:11 BMP [BASIC METABOLIC PANEL,BMP] [CHEM] AM CRP [C-REACTIVE PROTEIN] [CHEM] AM MG [MAGNESIUM] [CHEM] AM 01/02/17 05:11 BMP [BASIC METABOLIC PANEL,BMP] [CHEM] AM CRP [C-REACTIVE PROTEIN] [CHEM] AM MG [MAGNESIUM] [CHEM] AM 01/03/17 05:11 BMP [BASIC METABOLIC PANEL,BMP] [CHEM] AM CRP [C-REACTIVE PROTEIN] [CHEM] AM MG [MAGNESIUM] [CHEM] AM 01/04/17 05:11 BMP [BASIC METABOLIC PANEL,BMP] [CHEM] AM CRP [C-REACTIVE PROTEIN] [CHEM] AM MG [MAGNESIUM] [CHEM] AM 01/04/17 07:00 CBC W/O DIFF,HEMOGRAM [HEME] MOTH@0700 01/07/17 07:00 CBC W/O DIFF,HEMOGRAM [HEME] MOTH@0700 01/11/17 07:00 CBC W/O DIFF,HEMOGRAM [HEME] MOTH@0700 01/14/17 07:00 CBC W/O DIFF,HEMOGRAM [HEME] MOTH@0700 01/18/17 07:00 CBC W/O DIFF,HEMOGRAM [HEME] MOTH@0700 - Plan Plan:: Assessment/Plan Acute: New onset of A-Fib - No previous hx in the past - LAVONNE VASC Score: 0 Low risk of thromboembolic event. 1.9% risk of event per year if no coumadin. The adjusted stroke rate was the expected stroke rate per 100 person-years derived from the multivariable model assuming that aspirin was not taken - Now off Cardizem drip - Continue Cardizem 360 mg po daily and Metoprolol 25 mg po BID - She is on Eliquis 5 mg po BID for stroke prophylaxis - FT4 is 1: wnl - 2D echo: LVEF 35-40% Acute Heart Failure with Reduced EF at 35-40% - Right Sided Pleural Effusion on CT scan - Small-Moderate Size - 2D echo: as noted above - Follow up CXR: persistent pleural effusion - HF: protocol: salt/fluid restriction, daily weights, lasix and acei - Follow up Cardiology after discharge Leukoctyosis - WBC 13.30--> 12.24--> 13.59 - Likely stress - She likely has MICHAEL Secondary Polycythemia - Hgb 15.8--> 15.6: wnl--> 15.8 - This likely related to extreme obesity and MICHAEL/OHS - Monitor Morbid Obesity with BMI 58.8 - Dietary consult for weight management Mental Sluggishness/Slow Attention Span - On Xanax Q4 daily, will d/c it - Thyroid panel is normal - Provigil 200 mg po daily Probable MICHAEL - Recommend Sleep Study after discharge - Advised to lose weight Mild Left Sided Nose Bleed - Will trim nasal prongs - She is on mckenna-supplemental O2 - Saline spray BID on each nostril Chronic: OA/DJD Anxiety Depression Plan: Continue current treatment Routine AM Labs Fall Precautions Continue PT/TO SW/CM for d/c planning Additional orders as above Code Status: 1
[2016-12-31] MEDS: cefTRIAXone 1 GM in Sodium Chloride 0.9% 100 ML IV SCH (19:53)
[2016-12-31] MEDS: Temazepam 30 MG Cap PO PRN (22:44)
[2017-01-01] MEDS: Furosemide 40 MG Tab PO SCH ×2 (06:23→14:38)
[2017-01-01] MEDS: Modafinil 200 MG Tab PO SCH (09:23)
[2017-01-01] MEDS: Diltiazem 180 MG Cap.CD PO SCH (09:23)
[2017-01-01] MEDS: Metoprolol Tartrate 25 MG Tab PO SCH ×2 (09:24→20:20)
[2017-01-01] MEDS: Lisinopril 10 MG Tab PO SCH (09:24)
[2017-01-01] MEDS: Apixaban 5 MG Tab PO SCH ×2 (09:24→20:20)
[2017-01-01] MEDS: BRINZOLAMIDE EYEBOTH SCH ×2 (09:25→20:24)
--- NOTE | 2017-01-01 12:50 | PCM.PN ---
- General Info Date of Service: 01/01/17 Admission Dx/Problem (Free Text): Admission Diagnosis/Problem Admission Diagnosis/Problem Atrial fibrillation Subjective Update: Follow Up Functional Status: Reports: pain controlled, tolerating diet, ambulating, urinating. Denies: new symptoms - Review of Systems General: Denies: fever, weakness, fatigue, malaise, chills HEENT: Reports: no symptoms Pulmonary: Denies: shortness of breath Cardiovascular: Reports: edema. Denies: chest pain, palpitations, dyspnea on exertion, lightheadedness Gastrointestinal: Denies: Abdominal pain, Nausea, Vomiting Genitourinary: Reports: no symptoms Musculoskeletal: Reports: no symptoms Skin: Reports: bruising. Denies: rash Neurological: Denies: confusion, dizziness, headache, seizure, syncope, difficulty walking, gait disturbance Psychiatric: Denies: depression, anxiety, hallucinations Systems Review Comment:: No overnight or acute issues. - Patient Data Vitals - most recent: Last Vital Signs Temp 36.4 C 01/01/17 12:09 Pulse 92 01/01/17 09:24 Resp 22 H 01/01/17 12:09 BP 107/49 L 01/01/17 12:09 Pulse Ox 93 L 01/01/17 12:09 Weight - most recent: 156.092 kg I&O - last 24 hours: Intake & Output 12/31/16 01/01/17 01/01/17 22:59 06:59 14:59 Intake Total 1208 280 0 Output Total 850 100 Balance 358 180 0 Lab Results last 24 hrs: Laboratory Results - last 24 hr 01/01/17 Range/Units 07:30 Sodium 135 L (136-145) mEq/L Potassium 4.9 (3.5-5.1) mEq/L Chloride 94 L (98-107) mEq/L Carbon Dioxide 37 H (21-32) mEq/L Anion Gap 8.9 (5-15) BUN 42 H (7-18) mg/dL Creatinine 1.5 H (0.55-1.02) mg/dL Est Cr Clr Drug Dosing 30.79 mL/min Estimated GFR (MDRD) 34 (>60) mL/min BUN/Creatinine Ratio 28.0 H (14-18) Glucose 125 H (80-115) mg/dL Calcium 8.7 (8.5-10.1) mg/dL Magnesium 2.8 H (1.8-2.4) mg/dl C-Reactive Protein 1.5 H* (<1.0) mg/dL Charly Results last 24 hrs: Microbiology 12/30/16 16:40 Urine Culture - Preliminary Urine, Clean Catch Proteus Species Gram Positive Cocci Med Orders - Current: Current Medications Acetaminophen (Tylenol) 650 mg PO Q4H PRN PRN Reason: Pain (Mild 1-3)/fever Acetaminophen/Hydrocodone Bitart ([place] 325-5 Mg) 1 tab PO Q4H PRN PRN Reason: Pain (moderate 4-6) Albuterol/Ipratropium (Duoneb 3.0-0.5 Mg/3 Ml) 3 ml NEB Q4H PRN PRN Reason: Shortness Of Breath/wheezing Alprazolam (Xanax) 0.5 mg PO QID [facility] Last Admin: 12/31/16 09:26 Dose: Not Given Apixaban (Eliquis) 5 mg PO BID [facility] Last Admin: 01/01/17 09:24 Dose: 5 mg Bisacodyl (Dulcolax) 5 mg PO DAILY PRN PRN Reason: Constipation Diltiazem HCl (Cardizem Cd) 360 mg PO DAILY [facility] Last Admin: 01/01/17 09:23 Dose: 360 mg Flunisolide (Nasalide Nasal [place]) 0 ml NASBOTH BID [facility] Last Admin: 01/01/17 09:24 Dose: 1 squirt Furosemide (Lasix) 40 mg PO BIDDIURETIC [facility] Last Admin: 01/01/17 06:23 Dose: 40 mg Hydromorphone HCl (Dilaudid) 0.25 mg IVPUSH Q2H PRN PRN Reason: Pain (severe 7-10) Promethazine HCl 12.5 mg/ (Sodium Chloride) 50.5 mls @ 100 mls/hr IV Q6H PRN PRN Reason: Nausea/Vomiting Ceftriaxone Sodium 1 gm/ (Sodium Chloride) 100 mls @ 200 mls/hr IV Q24H [facility] Last Admin: 12/31/16 19:53 Dose: 200 mls/hr Lisinopril (Prinivil) 20 mg PO DAILY [facility] Last Admin: 01/01/17 09:24 Dose: 20 mg Metoprolol Tartrate (Lopressor) 25 mg PO Q12HR [facility] Last Admin: 01/01/17 09:24 Dose: 25 mg Modafinil (Provigil) 200 mg PO DAILY [facility] Last Admin: 01/01/17 09:23 Dose: 200 mg Ondansetron HCl (Zofran) 4 mg IV Q6H PRN PRN Reason: Nausea/Vomiting Brinzolamide (Azopt (Opth Suspension)) 0 each EYEBOTH BID [facility] Last Admin: 01/01/17 09:25 Dose: 1 each Polyethylene Glycol (Miralax) 17 gm PO DAILY PRN PRN Reason: Constipation Senna/Docusate Sodium (Senna Plus) 1 tab PO BID PRN PRN Reason: Constipation Sertraline HCl (Zoloft) 100 mg PO BEDTIME [facility] Last Admin: 12/31/16 20:26 Dose: Not Given Sodium Chloride (Saline Flush) 10 ml FLUSH ASDIRECTED PRN PRN Reason: Keep Vein Open Last Admin: 12/29/16 18:00 Dose: 10 ml Temazepam (Restoril) 30 mg PO BEDTIME PRN PRN Reason: Sleep Last Admin: 12/31/16 22:44 Dose: 30 mg Discontinued Medications Diltiazem HCl (Diltiazem) 10 mg IVPUSH ONETIME ONE Stop: 12/29/16 17:27 Last Admin: 12/29/16 17:48 Dose: 10 mg Enoxaparin Sodium (Lovenox) 150 mg SUBCUT Q12HR [facility] Last Admin: 12/30/16 20:09 Dose: Not Given Enoxaparin Sodium (Lovenox) 150 mg SUBCUT ONETIME ONE Stop: 12/29/16 23:21 Last Admin: 12/29/16 23:41 Dose: 150 mg Enoxaparin Sodium (Lovenox) 150 mg SUBCUT Q12HR [facility] Last Admin: 12/30/16 10:36 Dose: 150 mg Hydromorphone HCl (Dilaudid) 0.25 mg IVPUSH Q2H PRN PRN Reason: Pain (severe 7-10) Diltiazem HCl 100 mg/ Sodium (Chloride) 100 mls @ 10 mls/hr IV TITRATE MIRNA; 10 MG/HR PRN Reason: Protocol Last Admin: 12/29/16 18:01 Dose: 10 mg/hr, 10 mls/hr Diltiazem HCl 100 mg/ Sodium (Chloride) 100 mls @ 5 mls/hr IV TITRATE MIRNA; 5 MG /HR PRN Reason: Protocol Last Titration: 12/31/16 10:03 Dose: 0 mg/hr, 0 mls/hr Sodium Chloride (Normal Saline) 100 mls @ 65 mls/hr IV ASDIRECTED [facility] Last Admin: 12/29/16 20:11 Dose: 65 mls/hr Iopamidol (Isovue-370 (76%)) 100 ml IVPUSH ONETIME ONE Stop: 12/29/16 19:47 Last Admin: 12/29/16 20:11 Dose: 100 ml Iopamidol (Isovue-370 (76%)) 50 ml IVPUSH ONETIME ONE Stop: 12/29/16 19:47 Last Admin: 12/29/16 20:11 Dose: 50 ml Lorazepam (Ativan) 1 mg IV Q6H PRN PRN Reason: Nausea/Vomiting Sertraline HCl (Zoloft) 100 mg PO QID [facility] Last Admin: 12/30/16 20:10 Dose: Not Given Sertraline HCl (Zoloft) 100 mg PO DAILY [facility] Last Admin: 12/31/16 14:40 Dose: Not Given Sodium Chloride (Saline Flush) 10 ml FLUSH ONETIME PRN PRN Reason: IV FLUSH Last Admin: 12/29/16 20:11 Dose: 10 ml Temazepam (Restoril) 30 mg PO BEDTIME PRN PRN Reason: Sleep Triamterene/HCTZ (Maxzide 25-37.5 Mg) 1 each PO DAILY [facility] Last Admin: 12/31/16 09:27 Dose: 1 each - Exam Quality Assessment: supplemental oxygen General: alert, oriented, cooperative, no acute distress, other (Morbdily Obese) HEENT: Pupils equal, Pupils reactive, EOMI, Mucous membr. moist/pink Neck: supple, trachea midline, no JVD, no thyromegaly, other (short and thick) Lungs: Clear to auscultation, Normal respiratory effort Cardiovascular: irregular rhythm, other (irregular rate) Abdomen: bowel sounds present, soft, no tenderness, no distension (Female) Exam: Deferred Back Exam: normal inspection, decreased range of motion Extremities: normal pulses, no tenderness/swelling, no clubbing, no cyanosis, no calf tenderness, edema Peripheral Pulses: 2+: dorsalis pedis (L), dorsalis pedis (R) Skin: warm, dry, intact Neurological: no new focal deficit Psy/Mental Status: alert, normal affect, normal mood - Problem List Review Problem List Initiated/Reviewed/Updated: Yes - My Orders Last 24 Hours: My Active Orders 12/31/16 13:19 Admission Status [Patient Status] [ADT] Routine 12/31/16 21:00 Sertraline [Zoloft] 100 mg PO BEDTIME 01/01/17 06:00 Furosemide [Lasix] 40 mg PO BIDDIURETIC 01/01/17 09:00 Lisinopril [Prinivil] 20 mg PO DAILY 01/02/17 05:11 BMP [BASIC METABOLIC PANEL,BMP] [CHEM] AM CRP [C-REACTIVE PROTEIN] [CHEM] AM MG [MAGNESIUM] [CHEM] AM 01/03/17 05:11 BMP [BASIC METABOLIC PANEL,BMP] [CHEM] AM CRP [C-REACTIVE PROTEIN] [CHEM] AM MG [MAGNESIUM] [CHEM] AM 01/04/17 05:11 BMP [BASIC METABOLIC PANEL,BMP] [CHEM] AM CRP [C-REACTIVE PROTEIN] [CHEM] AM MG [MAGNESIUM] [CHEM] AM 01/04/17 07:00 CBC W/O DIFF,HEMOGRAM [HEME] MOTH@0700 01/07/17 07:00 CBC W/O DIFF,HEMOGRAM [HEME] MOTH@0700 01/11/17 07:00 CBC W/O DIFF,HEMOGRAM [HEME] MOTH@0700 01/14/17 07:00 CBC W/O DIFF,HEMOGRAM [HEME] MOTH@0700 01/18/17 07:00 CBC W/O DIFF,HEMOGRAM [HEME] MOTH@0700 - Plan Plan:: Assessment/Plan Acute: New onset of A-Fib, HR is controlled - No previous hx in the past - LAVONNE VASC Score: 0 Low risk of thromboembolic event. 1.9% risk of event per year if no coumadin. The adjusted stroke rate was the expected stroke rate per 100 person-years derived from the multivariable model assuming that aspirin was not taken - Now off Cardizem drip - Continue Cardizem 360 mg po daily and Metoprolol 25 mg po BID - She is on Eliquis 5 mg po BID for stroke prophylaxis - FT4 is 1: wnl - 2D echo: LVEF 35-40% Acute Heart Failure with Reduced EF at 35-40% - Right Sided Pleural Effusion on CT scan - Small-Moderate Size - 2D echo: as noted above - Follow up CXR: persistent pleural effusion - HF: protocol: salt/fluid restriction, daily weights, lasix and acei - Follow up Cardiology after discharge Leukoctyosis - WBC 13.30--> 12.24--> 13.59 - Likely stress vs UTI - She likely has MICHAEL Acute Cystitis - UA pos UTI - On IV Rocephin 1 gram daily - CRP 1.5 - CX: GPC Secondary Polycythemia - Hgb 15.8--> 15.6: wnl--> 15.8 - This likely related to extreme obesity and MICHAEL/OHS - Monitor Morbid Obesity with BMI 58.8 - Dietary consult for weight management Mental Sluggishness/Slow Attention Span - On Xanax Q4 daily, will resume it bid - Thyroid panel is normal - Provigil 200 mg po daily - Improved Probable MICHAEL - Recommend Sleep Study after discharge - Advised to lose weight Resolved: S/p Mild Left Sided Nose Bleed - Will trim nasal prongs - She is on mckenna-supplemental O2 - Saline spray BID on each nostril Chronic: OA/DJD Anxiety Depression Plan: Continue current treatment Routine AM Labs Fall Precautions Continue PT/TO SW/CM for d/c planning Additional orders as above D/c Pending UA Cx/Sx Code Status: 1
[2017-01-01] MEDS ORDERED: Midodrine 5 MG Tab PO ONE (15:06)
[2017-01-01] MEDS ORDERED: Sodium Chloride 0.9% 1,000 ML ONE (15:21)
[2017-01-01] MEDS ORDERED: Sodium Chloride 0.9% 500 ML IV ONE (15:29)
[2017-01-01] MEDS: Norepinephrine 4 MG in Dextrose 5% in Water 246 ML IV SCH ×2 (16:48)
[2017-01-01] MEDS: ALPRAZolam 0.5 MG Tab PO SCH ×2 (16:59→20:25)
[2017-01-01] MEDS ORDERED: Sodium Chloride 0.9% 1,000 ML IV SCH (18:00)
[2017-01-01] MEDS: cefTRIAXone 1 GM in Sodium Chloride 0.9% 100 ML IV SCH (20:20)
[2017-01-01] MEDS: Sertraline 50 MG Tab PO SCH (20:26)
[2017-01-02] MEDS: Temazepam 30 MG Cap PO PRN (01:15)
[2017-01-02] MEDS: Albuterol/Ipratropium 3.0-0.5 MG/3 ML Neb Soln NEB PRN (01:35)
[2017-01-02] MEDS: Furosemide 40 MG Tab PO SCH (05:01)
--- NOTE | 2017-01-02 07:56 | PCM.PN ---
- General Info Date of Service: 01/02/17 Admission Dx/Problem (Free Text): Admission Diagnosis/Problem Admission Diagnosis/Problem Atrial fibrillation Subjective Update: Follow Up Functional Status: Reports: pain controlled, tolerating diet, ambulating, urinating. Denies: new symptoms - Review of Systems General: Denies: fever, chills HEENT: Reports: no symptoms Pulmonary: Reports: shortness of breath (on 1L NC) Cardiovascular: Denies: chest pain, palpitations, dyspnea on exertion Gastrointestinal: Denies: Abdominal pain, Decreased appetite, Diarrhea, Difficulty swallowing, Nausea, Vomiting Genitourinary: Reports: no symptoms Musculoskeletal: Reports: no symptoms Skin: Reports: bruising Neurological: Reports: confusion, other (lethargic and slow attention life span) Psychiatric: Denies: depression, anxiety, hallucinations, suicidal ideation Systems Review Comment:: Her BP still on the borderline low range on pressor. She is lethargic this am but arousable. She got Restoril at about 1 am this morning as well as her morning scheduled low dose Xanax. No no other acute issues. Her sodium 134, Cr is 2.7 (1.5), Mg 2.8, and CRP 1.2. Her UA shows GPC but still w/o Sx. - Patient Data Vitals - most recent: Last Vital Signs Temp 36.2 C 01/02/17 04:00 Pulse 69 01/01/17 20:20 Resp 18 01/02/17 05:00 BP 110/95 H 01/02/17 07:00 Pulse Ox 92 L 01/02/17 07:00 Weight - most recent: 160.345 kg I&O - last 24 hours: Intake & Output 01/01/17 01/02/17 01/02/17 22:59 06:59 14:59 Intake Total 120 495 Balance 120 495 Lab Results last 24 hrs: Laboratory Results - last 24 hr 01/02/17 Range/Units 07:05 Sodium 134 L (136-145) mEq/L Potassium 4.8 (3.5-5.1) mEq/L Chloride 93 L (98-107) mEq/L Carbon Dioxide 34 H (21-32) mEq/L Anion Gap 11.8 (5-15) BUN 57 H (7-18) mg/dL Creatinine 2.7 H (0.55-1.02) mg/dL Est Cr Clr Drug Dosing 16.98 mL/min Estimated GFR (MDRD) 17 (>60) mL/min BUN/Creatinine Ratio 21.1 H (14-18) Glucose 124 H (80-115) mg/dL Calcium 8.3 L (8.5-10.1) mg/dL Magnesium 2.8 H (1.8-2.4) mg/dl C-Reactive Protein 1.2 H* (<1.0) mg/dL Charly Results last 24 hrs: Microbiology 12/30/16 16:40 Urine Culture - Preliminary Urine, Clean Catch Proteus Species Gram Positive Cocci Med Orders - Current: Current Medications Acetaminophen (Tylenol) 650 mg PO Q4H PRN PRN Reason: Pain (Mild 1-3)/fever Acetaminophen/Hydrocodone Bitart ([place] 325-5 Mg) 1 tab PO Q4H PRN PRN Reason: Pain (moderate 4-6) Albuterol/Ipratropium (Duoneb 3.0-0.5 Mg/3 Ml) 3 ml NEB Q4H PRN PRN Reason: Shortness Of Breath/wheezing Last Admin: 01/02/17 01:35 Dose: 3 ml Alprazolam (Xanax) 0.5 mg PO BID [facility] Last Admin: 01/01/17 20:25 Dose: Not Given Apixaban (Eliquis) 5 mg PO BID [facility] Last Admin: 01/01/17 20:20 Dose: 5 mg Bisacodyl (Dulcolax) 5 mg PO DAILY PRN PRN Reason: Constipation Diltiazem HCl (Cardizem Cd) 300 mg PO DAILY [facility] Flunisolide (Nasalide Nasal [place]) 0 ml NASBOTH BID [facility] Last Admin: 01/01/17 20:23 Dose: 1 squirt Furosemide (Lasix) 40 mg PO DAILY [facility] Hydromorphone HCl (Dilaudid) 0.25 mg IVPUSH Q2H PRN PRN Reason: Pain (severe 7-10) Promethazine HCl 12.5 mg/ (Sodium Chloride) 50.5 mls @ 100 mls/hr IV Q6H PRN PRN Reason: Nausea/Vomiting Ceftriaxone Sodium 1 gm/ (Sodium Chloride) 100 mls @ 200 mls/hr IV Q24H [facility] Last Admin: 01/01/17 20:20 Dose: 200 mls/hr Norepinephrine Bitartrate 4 mg (/ Dextrose/Water) 250 mls @ 7.5 mls/hr IV TITRATE MIRNA; 2 MCG/MIN PRN Reason: Protocol Last Titration: 01/02/17 07:20 Dose: 0 mcg/min, 0 mls/hr Sodium Chloride (Normal Saline) 1,000 mls @ 25 mls/hr IV ASDIRECTED [facility] Last Admin: 01/01/17 18:30 Dose: 25 mls/hr Lisinopril (Prinivil) 20 mg PO DAILY [facility] Last Admin: 01/01/17 09:24 Dose: 20 mg Metoprolol Tartrate (Lopressor) 25 mg PO Q12HR [facility] Last Admin: 01/01/17 20:20 Dose: Not Given Modafinil (Provigil) 200 mg PO DAILY [facility] Last Admin: 01/01/17 09:23 Dose: 200 mg Ondansetron HCl (Zofran) 4 mg IV Q6H PRN PRN Reason: Nausea/Vomiting Brinzolamide (Azopt (Opth Suspension)) 0 each EYEBOTH BID [facility] Last Admin: 01/01/17 20:24 Dose: 1 each Polyethylene Glycol (Miralax) 17 gm PO DAILY PRN PRN Reason: Constipation Senna/Docusate Sodium (Senna Plus) 1 tab PO BID PRN PRN Reason: Constipation Sertraline HCl (Zoloft) 100 mg PO BEDTIME [facility] Last Admin: 01/01/17 20:26 Dose: 100 mg Sodium Chloride (Saline Flush) 10 ml FLUSH ASDIRECTED PRN PRN Reason: Keep Vein Open Last Admin: 12/29/16 18:00 Dose: 10 ml Temazepam (Restoril) 30 mg PO BEDTIME PRN PRN Reason: Sleep Last Admin: 01/02/17 01:15 Dose: 30 mg Discontinued Medications Alprazolam (Xanax) 0.5 mg PO QID [facility] Last Admin: 12/31/16 09:26 Dose: Not Given Diltiazem HCl (Diltiazem) 10 mg IVPUSH ONETIME ONE Stop: 12/29/16 17:27 Last Admin: 12/29/16 17:48 Dose: 10 mg Diltiazem HCl (Cardizem Cd) 360 mg PO DAILY [facility] Last Admin: 01/01/17 09:23 Dose: 360 mg Enoxaparin Sodium (Lovenox) 150 mg SUBCUT Q12HR [facility] Last Admin: 12/30/16 20:09 Dose: Not Given Enoxaparin Sodium (Lovenox) 150 mg SUBCUT ONETIME ONE Stop: 12/29/16 23:21 Last Admin: 12/29/16 23:41 Dose: 150 mg Enoxaparin Sodium (Lovenox) 150 mg SUBCUT Q12HR [facility] Last Admin: 12/30/16 10:36 Dose: 150 mg Furosemide (Lasix) 40 mg PO BIDDIURETIC [facility] Last Admin: 01/02/17 05:01 Dose: 40 mg Hydromorphone HCl (Dilaudid) 0.25 mg IVPUSH Q2H PRN PRN Reason: Pain (severe 7-10) Diltiazem HCl 100 mg/ Sodium (Chloride) 100 mls @ 10 mls/hr IV TITRATE MIRNA; 10 MG/HR PRN Reason: Protocol Last Admin: 12/29/16 18:01 Dose: 10 mg/hr, 10 mls/hr Diltiazem HCl 100 mg/ Sodium (Chloride) 100 mls @ 5 mls/hr IV TITRATE MIRNA; 5 MG /HR PRN Reason: Protocol Last Titration: 12/31/16 10:03 Dose: 0 mg/hr, 0 mls/hr Sodium Chloride (Normal Saline) 100 mls @ 65 mls/hr IV ASDIRECTED [facility] Last Admin: 12/29/16 20:11 Dose: 65 mls/hr Sodium Chloride (Normal Saline) Confirm Administered Dose 1,000 mls @ as directed .ROUTE .STK-MED ONE Stop: 01/01/17 15:22 Last Admin: 01/01/17 15:31 Dose: 250 ml Sodium Chloride (Normal Saline) 500 mls @ 250 mls/hr IV .BOLUS ONE Stop: 01/01/17 17:28 Last Admin: 01/01/17 16:59 Dose: 250 mls/hr Iopamidol (Isovue-370 (76%)) 100 ml IVPUSH ONETIME ONE Stop: 12/29/16 19:47 Last Admin: 12/29/16 20:11 Dose: 100 ml Iopamidol (Isovue-370 (76%)) 50 ml IVPUSH ONETIME ONE Stop: 12/29/16 19:47 Last Admin: 12/29/16 20:11 Dose: 50 ml Lorazepam (Ativan) 1 mg IV Q6H PRN PRN Reason: Nausea/Vomiting Midodrine (Midodrine) 5 mg PO STAT ONE Stop: 01/01/17 15:07 Last Admin: 01/01/17 15:10 Dose: 5 mg Sertraline HCl (Zoloft) 100 mg PO QID [facility] Last Admin: 12/30/16 20:10 Dose: Not Given Sertraline HCl (Zoloft) 100 mg PO DAILY [facility] Last Admin: 12/31/16 14:40 Dose: Not Given Sodium Chloride (Saline Flush) 10 ml FLUSH ONETIME PRN PRN Reason: IV FLUSH Last Admin: 12/29/16 20:11 Dose: 10 ml Temazepam (Restoril) 30 mg PO BEDTIME PRN PRN Reason: Sleep Triamterene/HCTZ (Maxzide 25-37.5 Mg) 1 each PO DAILY [facility] Last Admin: 12/31/16 09:27 Dose: 1 each - Exam Quality Assessment: supplemental oxygen General: no acute distress, lethargic, other (Morbidly Obese) HEENT: Pupils equal, Pupils reactive (but sluggish) Neck: supple, trachea midline, no JVD, no thyromegaly, +2 carotid pulse wo bruit Lungs: Clear to auscultation, Normal respiratory effort Cardiovascular: irregular rhythm Abdomen: bowel sounds present, soft, no tenderness, no distension, other (Obese) (Female) Exam: Deferred Back Exam: normal inspection, decreased range of motion Extremities: normal pulses, no tenderness/swelling, no clubbing, no cyanosis, no calf tenderness, edema (improved) Peripheral Pulses: 2+: dorsalis pedis (L), dorsalis pedis (R) Skin: warm, dry, intact Neurological: no new focal deficit Psy/Mental Status: depressed, other (she is somnolent) - Problem List Review Problem List Initiated/Reviewed/Updated: Yes - My Orders Last 24 Hours: My Active Orders 01/01/17 09:00 Lisinopril [Prinivil] 20 mg PO DAILY 01/01/17 15:14 ALPRAZolam [Xanax] 0.5 mg PO BID 01/01/17 16:26 Patient Status [ADT] Routine Cardiac Monitoring [RC] . DIRECTED 01/01/17 16:30 Norepinephrine [Levophed] 4 mg Dextrose 5% in Water 246 ml IV TITRATE 01/01/17 18:00 Sodium Chloride 0.9% [Normal Saline] 1,000 ml IV ASDIRECTED 01/02/17 09:00 Diltiazem [Cardizem CD] 300 mg PO DAILY Furosemide [Lasix] 40 mg PO DAILY 01/03/17 05:11 BMP [BASIC METABOLIC PANEL,BMP] [CHEM] AM CRP [C-REACTIVE PROTEIN] [CHEM] AM MG [MAGNESIUM] [CHEM] AM 01/04/17 05:11 BMP [BASIC METABOLIC PANEL,BMP] [CHEM] AM CRP [C-REACTIVE PROTEIN] [CHEM] AM MG [MAGNESIUM] [CHEM] AM 01/04/17 07:00 CBC W/O DIFF,HEMOGRAM [HEME] MOTH@0700 01/07/17 07:00 CBC W/O DIFF,HEMOGRAM [HEME] MOTH@0700 01/11/17 07:00 CBC W/O DIFF,HEMOGRAM [HEME] MOTH@0700 01/14/17 07:00 CBC W/O DIFF,HEMOGRAM [HEME] MOTH@0700 01/18/17 07:00 CBC W/O DIFF,HEMOGRAM [HEME] MOTH@0700 - Plan Plan:: Assessment/Plan Acute: New onset of A-Fib, HR is controlled in the 60s-70s - No previous hx in the past - LAVONNE VASC Score: 0 Low risk of thromboembolic event. 1.9% risk of event per year if no coumadin. The adjusted stroke rate was the expected stroke rate per 100 person-years derived from the multivariable model assuming that aspirin was not taken - Now off Cardizem drip - Continue Cardizem 240 mg po daily and Metoprolol 25 mg po BID - She is on Eliquis 5 mg po BID for stroke prophylaxis - FT4 is 1: wnl - 2D echo: LVEF 35-40% Acute Heart Failure with Reduced EF at 35-40% - Right Sided Pleural Effusion on CT scan - Small-Moderate Size - 2D echo: as noted above - Follow up CXR: persistent pleural effusion - HF: protocol: salt/fluid restriction, daily weights, lasix and acei - Follow up Cardiology after discharge - Follow Up CXR this am Right Sided Pleural Effusion - Stable - Follow CXR this am Acute Kidney Injury - 2/2 Intravscualr Volume Depletion: poor oral intake, fluid restriction and over diurese - Will re-start IVF - May consider giving her 500 ml bolus x 1 if her CXR is stable w/o worsening Pleural Effusion Acute Cystitis - UA pos UTI - On IV Rocephin 1 gram daily - CRP 1.5 - CX: GPC, awaiting Sx Leukoctyosis - WBC 13.30--> 12.24--> 13.59 - Likely stress vs UTI - She likely has MICHAEL Hypotension - Drug Induced vs Sepsis - Currently on IV pressor - Will trim down dose of her current BP/Rate control medications - Blood Culture and LA AMS/Slow Attention Span - Likely from cobined Restoril and Xanax she got - On Xanax Q4 daily, will resume it bid - Thyroid panel is normal - Provigil 200 mg po daily - Head CT scan to r/o Stroke - D/c Restoril Secondary Polycythemia - Hgb 15.8--> 15.6: wnl--> 15.8 - This likely related to extreme obesity and MICHAEL/OHS - Monitor Morbid Obesity with BMI 58.8 - Dietary consult for weight management Probable MICHAEL - Recommend Sleep Study after discharge - Advised to lose weight Resolved: S/p Mild Left Sided Nose Bleed - Will trim nasal prongs - She is on mckenna-supplemental O2 - Saline spray BID on each nostril Chronic: OA/DJD Anxiety Depression Plan: Continue current treatment Routine AM Labs Blood Culture ro r/o Sepsis Fall Precautions Continue PT/TO SW/CM for d/c planning Additional orders as above Code Status: 1 LOS > 96 hrs due to complexity current medical illness, patient requires more time with treatment
[2017-01-02] MEDS ORDERED: Furosemide 40 MG Tab PO SCH (09:00)
[2017-01-02] MEDS ORDERED: Diltiazem 300 MG Cap.CD PO SCH (09:00)
[2017-01-02] MEDS: Modafinil 200 MG Tab PO SCH (09:07)
[2017-01-02] MEDS: Apixaban 5 MG Tab PO SCH ×2 (09:09→20:04)
[2017-01-02] MEDS: ALPRAZolam 0.5 MG Tab PO SCH ×2 (09:09→20:05)
[2017-01-02] MEDS: Lisinopril 10 MG Tab PO SCH (09:10)
[2017-01-02] MEDS: BRINZOLAMIDE EYEBOTH SCH ×2 (09:11→20:08)
[2017-01-02] MEDS: Metoprolol Tartrate 25 MG Tab PO SCH ×2 (09:44→20:06)
--- NOTE | 2017-01-02 11:07 | CT ---
Head CT Technique: Multiple axial sections through the brain were obtained. Intravenous contrast was not utilized. Comparison: No previous intracranial imaging. Findings: Ventricles along with basal cisterns and sulci over the convexities are within normal limits for the patient's age. No abnormal parenchymal densities are seen. No evidence of intracranial hemorrhage. No midline shift or mass effect is seen. Bone window settings were reviewed which shows the visualized sinuses to appear clear. Mastoid sinuses and middle ear cavities are also clear. No acute calvarial abnormality is appreciated. Impression: 1. No acute intracranial abnormality is appreciated on noncontrast head CT study. Diagnostic code #1
--- NOTE | 2017-01-02 12:36 | CR ---
Chest: Portable view of the chest was obtained. Comparison: Previous chest x-ray of 12/31/16. Film technique is light causing accentuation of the lung markings. Findings are felt to be stable from prior exam. Heart is enlarged. Bony structures are grossly intact. Impression: 1. Light technique. Within this limitation, no significant change is felt to be present from prior chest x-ray. Diagnostic code #2
[2017-01-02] MEDS ORDERED: Sodium Chloride 0.9% 500 ML IV SCH (13:30)
[2017-01-02] MEDS: Norepinephrine 4 MG in Dextrose 5% in Water 246 ML IV SCH ×2 (15:16)
[2017-01-02] MEDS: Sertraline 50 MG Tab PO SCH (20:04)
[2017-01-02] MEDS: cefTRIAXone 1 GM in Sodium Chloride 0.9% 100 ML IV SCH (20:21)
[2017-01-02] MEDS: Sodium Chloride 0.9% 1,000 ML IV SCH (20:38)
[2017-01-03] MEDS: Sodium Chloride 0.9% 1,000 ML IV SCH ×5 (01:55→23:20)
[2017-01-03] MEDS: Albuterol/Ipratropium 3.0-0.5 MG/3 ML Neb Soln NEB PRN ×2 (05:23→20:07)
--- NOTE | 2017-01-03 07:36 | PCM.PN ---
- General Info Date of Service: 01/03/17 Admission Dx/Problem (Free Text): Admission Diagnosis/Problem Admission Diagnosis/Problem Atrial fibrillation Subjective Update: Follow Up Functional Status: Reports: pain controlled, tolerating diet, urinating. Denies : new symptoms - Review of Systems General: Denies: fever, weakness, fatigue, malaise, chills HEENT: Reports: no symptoms Pulmonary: Denies: shortness of breath Cardiovascular: Denies: chest pain Gastrointestinal: Denies: Abdominal pain, Nausea, Vomiting Genitourinary: Reports: retention Musculoskeletal: Denies: neck pain Skin: Reports: bruising. Denies: cyanosis, jaundice, mottled, pallor Neurological: Reports: confusion, weakness Psychiatric: Denies: depression, anxiety Systems Review Comment:: She id not rest all night. Her renal function further decreased despite fluid challenge (1250 ml bolus plus IVS at 125cc/hr). UOP is zero. She has not voided. per nurse patient had 2 episode of bloody vaginal discharge which normal to her per . She is still on levophed at 6.5 ml. UA sensitivity is now available for review. She is less responsive this am. She is trying to sleep from being up most of the night. - Patient Data Vitals - most recent: Last Vital Signs Temp 35.8 C 01/03/17 03:15 Pulse 89 01/03/17 02:00 Resp 15 01/03/17 05:00 BP 105/90 01/03/17 05:00 Pulse Ox 96 01/03/17 05:25 Weight - most recent: 162.023 kg I&O - last 24 hours: Intake & Output 01/02/17 01/03/17 01/03/17 22:59 06:59 14:59 Intake Total 858 2784 Balance 858 2784 Lab Results last 24 hrs: Laboratory Results - last 24 hr 01/02/17 01/02/17 01/02/17 Range/Units 07:05 17:25 17:55 Sodium 134 L 133 L (136-145) mEq/L Potassium 4.8 4.8 (3.5-5.1) mEq/L Chloride 93 L 94 L (98-107) mEq/L Carbon Dioxide 34 H 35 H (21-32) mEq/L Anion Gap 11.8 8.8 (5-15) BUN 57 H 60 H (7-18) mg/dL Creatinine 2.7 H 2.8 H (0.55-1.02) mg/dL Est Cr Clr Drug Dosing 16.98 16.37 mL/min Estimated GFR (MDRD) 17 17 (>60) mL/min BUN/Creatinine Ratio 21.1 H 21.4 H (14-18) Glucose 124 H 135 H (80-115) mg/dL Lactic Acid 1.3 (0.4-2.0) mmol/L Calcium 8.3 L 8.5 (8.5-10.1) mg/dL Magnesium 2.8 H 2.8 H (1.8-2.4) mg/dl C-Reactive Protein 1.2 H* (<1.0) mg/dL Charly Results last 24 hrs: Microbiology 12/30/16 16:40 Urine Culture - Preliminary Urine, Clean Catch Proteus Mirabilis Gram Positive Cocci Med Orders - Current: Current Medications Acetaminophen (Tylenol) 650 mg PO Q4H PRN PRN Reason: Pain (Mild 1-3)/fever Acetaminophen/Hydrocodone Bitart ([place] 325-5 Mg) 1 tab PO Q4H PRN PRN Reason: Pain (moderate 4-6) Albuterol/Ipratropium (Duoneb 3.0-0.5 Mg/3 Ml) 3 ml NEB Q4H PRN PRN Reason: Shortness Of Breath/wheezing Last Admin: 01/03/17 05:23 Dose: 3 ml Alprazolam (Xanax) 0.5 mg PO BID [facility] Last Admin: 01/02/17 20:05 Dose: Not Given Apixaban (Eliquis) 5 mg PO BID [facility] Last Admin: 01/02/17 20:04 Dose: 5 mg Bisacodyl (Dulcolax) 5 mg PO DAILY PRN PRN Reason: Constipation Diltiazem HCl (Dilacor Xr) 240 mg PO DAILY [facility] Flunisolide (Nasalide Nasal [place]) 0 ml NASBOTH BID [facility] Last Admin: 01/02/17 20:05 Dose: 1 squirt Furosemide (Lasix) 20 mg PO DAILY [facility] Hydromorphone HCl (Dilaudid) 0.25 mg IVPUSH Q2H PRN PRN Reason: Pain (severe 7-10) Promethazine HCl 12.5 mg/ (Sodium Chloride) 50.5 mls @ 100 mls/hr IV Q6H PRN PRN Reason: Nausea/Vomiting Ceftriaxone Sodium 1 gm/ (Sodium Chloride) 100 mls @ 200 mls/hr IV Q24H [facility] Last Admin: 01/02/17 20:21 Dose: 200 mls/hr Norepinephrine Bitartrate 4 mg (/ Dextrose/Water) 250 mls @ 7.5 mls/hr IV TITRATE MIRNA; 2 MCG/MIN PRN Reason: Protocol Last Titration: 01/03/17 07:30 Dose: 5.5 mcg/min, 20.62 mls/hr Sodium Chloride (Normal Saline) 1,000 mls @ 25 mls/hr IV ASDIRECTED [facility] Last Admin: 01/01/17 18:30 Dose: 25 mls/hr Sodium Chloride (Normal Saline) 1,000 mls @ 125 mls/hr IV ASDIRECTED [facility] Last Admin: 01/03/17 01:55 Dose: 125 mls/hr Lisinopril (Prinivil) 20 mg PO DAILY [facility] Last Admin: 01/02/17 09:10 Dose: Not Given Metoprolol Tartrate (Lopressor) 25 mg PO Q12HR [facility] Last Admin: 01/02/17 20:06 Dose: Not Given Modafinil (Provigil) 200 mg PO DAILY [facility] Last Admin: 01/02/17 09:07 Dose: 200 mg Ondansetron HCl (Zofran) 4 mg IV Q6H PRN PRN Reason: Nausea/Vomiting Brinzolamide (Azopt (Opth Suspension)) 0 each EYEBOTH BID [facility] Last Admin: 01/02/17 20:08 Dose: 1 each Polyethylene Glycol (Miralax) 17 gm PO DAILY PRN PRN Reason: Constipation Senna/Docusate Sodium (Senna Plus) 1 tab PO BID PRN PRN Reason: Constipation Sertraline HCl (Zoloft) 100 mg PO BEDTIME [facility] Last Admin: 01/02/17 20:04 Dose: 100 mg Sodium Chloride (Saline Flush) 10 ml FLUSH ASDIRECTED PRN PRN Reason: Keep Vein Open Last Admin: 12/29/16 18:00 Dose: 10 ml Discontinued Medications Alprazolam (Xanax) 0.5 mg PO QID [facility] Last Admin: 12/31/16 09:26 Dose: Not Given Diltiazem HCl (Diltiazem) 10 mg IVPUSH ONETIME ONE Stop: 12/29/16 17:27 Last Admin: 12/29/16 17:48 Dose: 10 mg Diltiazem HCl (Cardizem Cd) 360 mg PO DAILY MIRNA Last Admin: 01/01/17 09:23 Dose: 360 mg Diltiazem HCl (Cardizem Cd) 300 mg PO DAILY MIRNA Last Admin: 01/02/17 09:45 Dose: 300 mg Enoxaparin Sodium (Lovenox) 150 mg SUBCUT Q12HR MIRNA Last Admin: 12/30/16 20:09 Dose: Not Given Enoxaparin Sodium (Lovenox) 150 mg SUBCUT ONETIME ONE Stop: 12/29/16 23:21 Last Admin: 12/29/16 23:41 Dose: 150 mg Enoxaparin Sodium (Lovenox) 150 mg SUBCUT Q12HR MIRNA Last Admin: 12/30/16 10:36 Dose: 150 mg Furosemide (Lasix) 40 mg PO BIDDIURETIC MIRNA Last Admin: 01/02/17 05:01 Dose: 40 mg Furosemide (Lasix) 40 mg PO DAILY MIRNA Furosemide (Lasix) 40 mg PO DAILY MIRNA Hydromorphone HCl (Dilaudid) 0.25 mg IVPUSH Q2H PRN PRN Reason: Pain (severe 7-10) Diltiazem HCl 100 mg/ Sodium (Chloride) 100 mls @ 10 mls/hr IV TITRATE MIRNA; 10 MG/HR PRN Reason: Protocol Last Admin: 12/29/16 18:01 Dose: 10 mg/hr, 10 mls/hr Diltiazem HCl 100 mg/ Sodium (Chloride) 100 mls @ 5 mls/hr IV TITRATE MIRNA; 5 MG /HR PRN Reason: Protocol Last Titration: 12/31/16 10:03 Dose: 0 mg/hr, 0 mls/hr Sodium Chloride (Normal Saline) 100 mls @ 65 mls/hr IV ASDIRECTED MIRNA Last Admin: 12/29/16 20:11 Dose: 65 mls/hr Sodium Chloride (Normal Saline) Confirm Administered Dose 1,000 mls @ as directed .ROUTE .STK-MED ONE Stop: 01/01/17 15:22 Last Admin: 01/01/17 15:31 Dose: 250 ml Sodium Chloride (Normal Saline) 500 mls @ 250 mls/hr IV .BOLUS ONE Stop: 01/01/17 17:28 Last Admin: 01/01/17 16:59 Dose: 250 mls/hr Sodium Chloride (Normal Saline) 500 mls @ 500 mls/hr IV ASDIRECTED MIRNA Stop: 01/02/17 14:29 Last Admin: 01/02/17 13:35 Dose: 500 mls/hr Iopamidol (Isovue-370 (76%)) 100 ml IVPUSH ONETIME ONE Stop: 12/29/16 19:47 Last Admin: 12/29/16 20:11 Dose: 100 ml Iopamidol (Isovue-370 (76%)) 50 ml IVPUSH ONETIME ONE Stop: 12/29/16 19:47 Last Admin: 12/29/16 20:11 Dose: 50 ml Lorazepam (Ativan) 1 mg IV Q6H PRN PRN Reason: Nausea/Vomiting Midodrine (Midodrine) 5 mg PO STAT ONE Stop: 01/01/17 15:07 Last Admin: 01/01/17 15:10 Dose: 5 mg Sertraline HCl (Zoloft) 100 mg PO QID [facility] Last Admin: 12/30/16 20:10 Dose: Not Given Sertraline HCl (Zoloft) 100 mg PO DAILY [facility] Last Admin: 12/31/16 14:40 Dose: Not Given Sodium Chloride (Saline Flush) 10 ml FLUSH ONETIME PRN PRN Reason: IV FLUSH Last Admin: 12/29/16 20:11 Dose: 10 ml Temazepam (Restoril) 30 mg PO BEDTIME PRN PRN Reason: Sleep Temazepam (Restoril) 30 mg PO BEDTIME PRN PRN Reason: Sleep Last Admin: 01/02/17 01:15 Dose: 30 mg Triamterene/HCTZ (Maxzide 25-37.5 Mg) 1 each PO DAILY [facility] Last Admin: 12/31/16 09:27 Dose: 1 each - Exam Quality Assessment: supplemental oxygen General: cooperative, no acute distress, other (Morbidly Obese) HEENT: Pupils equal, Mucous membr. moist/pink Neck: supple, trachea midline, no JVD Cardiovascular: irregular rhythm Abdomen: bowel sounds present, soft, no tenderness, no distension, other (Obese) (Female) Exam: Deferred Back Exam: normal inspection, decreased range of motion Extremities: normal pulses, no tenderness/swelling, no clubbing, no cyanosis, no calf tenderness, edema Peripheral Pulses: 2+: dorsalis pedis (L), dorsalis pedis (R) Skin: warm, dry, intact Neurological: no new focal deficit Psy/Mental Status: other (lethargic but arousable) - Problem List Review Problem List Initiated/Reviewed/Updated: Yes - My Orders Last 24 Hours: My Active Orders 01/02/17 09:41 CULTURE BLOOD [BC] Stat Blood Culture x2 Reflex Set [OM.PC] Stat 01/02/17 09:42 Consult to Physician [CONS] Routine 01/02/17 09:43 Notify Provider Consults [RC] ASDIRECTED 01/02/17 19:45 Sodium Chloride 0.9% [Normal Saline] 1,000 ml IV ASDIRECTED 01/03/17 06:45 BMP [BASIC METABOLIC PANEL,BMP] [CHEM] AM CRP [C-REACTIVE PROTEIN] [CHEM] AM MG [MAGNESIUM] [CHEM] AM 01/03/17 09:00 Diltiazem [Dilacor XR] 240 mg PO DAILY Furosemide [Lasix] 20 mg PO DAILY 01/04/17 05:11 BMP [BASIC METABOLIC PANEL,BMP] [CHEM] AM CRP [C-REACTIVE PROTEIN] [CHEM] AM MG [MAGNESIUM] [CHEM] AM 01/04/17 07:00 CBC W/O DIFF,HEMOGRAM [HEME] MOTH@0700 01/07/17 07:00 CBC W/O DIFF,HEMOGRAM [HEME] MOTH@0700 01/11/17 07:00 CBC W/O DIFF,HEMOGRAM [HEME] MOTH@0700 01/14/17 07:00 CBC W/O DIFF,HEMOGRAM [HEME] MOTH@0700 01/18/17 07:00 CBC W/O DIFF,HEMOGRAM [HEME] MOTH@0700 - Plan Plan:: Assessment/Plan Acute: New onset of A-Fib, HR is controlled in the 60s-70s - No previous hx in the past - LAVONNE VASC Score: 0 Low risk of thromboembolic event. 1.9% risk of event per year if no coumadin. The adjusted stroke rate was the expected stroke rate per 100 person-years derived from the multivariable model assuming that aspirin was not taken - Now off Cardizem drip - Discontinue Cardizem 240 mg po daily and continue Metoprolol 25 mg po BID - Change Eliquis to 2.5 mg po BID for stroke prophylaxis due to decreased renal function - FT4 is 1: wnl - 2D echo: LVEF 35-40% Acute Heart Failure with Reduced EF at 35-40% - Right Sided Pleural Effusion on CT scan - Small-Moderate Size - 2D echo: as noted above - Follow up CXR: persistent pleural effusion - HF: protocol: salt/fluid restriction, daily weights, lasix and acei - Follow up Cardiology after discharge Right Sided Pleural Effusion - Stable - Follow CXR in am Oliguric-Acute Kidney Injury w/ Urinary Retention - 2/2 Intravascular Volume Depletion: poor oral intake, fluid restriction and over diurese - Received 1250 ml bolus and was on 125 cc/hr overnight - Will bolus 2L NS and run maintenance at 150 cc/hr - Renal U/S - Atkins catheter for strict Is/OS - Repeat lab this afternoon Acute Cystitis - UA pos UTI - CRP 1.5 - CX: Proteus Mirabilis and Group B Strep - Group B Strep sensitive to Levaquin - D/c Rocephin and will Start Low dose Levaquin Leukoctyosis - WBC 13.30--> 12.24--> 13.59 - Likely stress vs UTI - She likely has MICHAEL Hypotension - Drug Induced vs Sepsis - Currently on IV pressor - Will trim down dose of her current BP/Rate control medications - Blood Culture and LA (normal) AMS/Slow Attention Span - Likely from cobined Restoril and Xanax she got - On Xanax Q4 daily, will resume it bid - Thyroid panel is normal - Provigil 200 mg po daily - Head CT scan to r/o Stroke - D/c Restoril Secondary Polycythemia - Hgb 15.8--> 15.6: wnl--> 15.8 - This likely related to extreme obesity and MICHAEL/OHS - Monitor Morbid Obesity with BMI 58.8 - Dietary consult for weight management Probable MICHAEL - Recommend Sleep Study after discharge - Advised to lose weight Resolved: S/p Mild Left Sided Nose Bleed - Will trim nasal prongs - She is on mckenna-supplemental O2 - Saline spray BID on each nostril Chronic: OA/DJD Anxiety Depression Plan: Continue current treatment Routine AM Labs D/c Cardizem and ACEI Continue BB for rate control Blood Culture ro r/o Sepsis Fall Precautions Continue PT/TO SW/CM for d/c planning Additional orders as above Code Status: 1 Prognosis: Serious-Critical LOS > 96 hrs due to complexity current medical illness, patient requires more time with treatment
[2017-01-03] MEDS: Sodium Chloride 0.9% 1,000 ML IV ONE ×2 (08:15→09:10)
[2017-01-03] MEDS ORDERED: Furosemide 40 MG Tab PO SCH (09:00)
[2017-01-03] MEDS ORDERED: Diltiazem 240 MG Cap.ER PO SCH (09:00)
[2017-01-03] MEDS ORDERED: Furosemide 20 MG Tab PO SCH (09:00)
[2017-01-03] MEDS: Metoprolol Tartrate 25 MG Tab PO SCH ×2 (09:30→21:03)
[2017-01-03] MEDS: Apixaban 5 MG Tab PO SCH ×2 (09:30→21:04)
[2017-01-03] MEDS: Modafinil 200 MG Tab PO SCH (09:30)
[2017-01-03] MEDS: BRINZOLAMIDE EYEBOTH SCH ×2 (09:30→21:05)
--- NOTE | 2017-01-03 10:25 | US ---
Renal ultrasound: Multiple real-time images of the kidneys were obtained. Comparison: No previous renal imaging. Technologist's note: Very limited study due to body habitus and patient inability to cooperate or communicate Bladder is empty with Atkins catheter in place. Kidneys show no hydronephrosis. Parapelvic cyst is identified within the upper right kidney measuring 2.5 cm in size. Cortices of the kidneys are somewhat echogenic suggesting nonspecific renal medical disease. Right kidney length: 10.4 cm Left kidney length: 11.6 cm Impression: 1. No hydronephrosis. Other findings as described above. Diagnostic code #2
[2017-01-03] MEDS: Levofloxacin/Dextrose 5%-Water 250 MG in Premix Bag 1 BAG IV SCH (13:37)
[2017-01-03] MEDS: Norepinephrine 4 MG in Dextrose 5% in Water 246 ML IV SCH ×2 (15:38)
[2017-01-03] MEDS: Sertraline 50 MG Tab PO SCH (21:03)
[2017-01-03] MEDS: Sodium Chloride 0.9% 10 ML Syringe FLUSH PRN (21:06)
[2017-01-04] MEDS: Sodium Chloride 0.9% 1,000 ML IV SCH (06:22)
[2017-01-04] MEDS: Apixaban 5 MG Tab PO SCH ×2 (08:16→20:39)
[2017-01-04] MEDS: Modafinil 200 MG Tab PO SCH (08:16)
[2017-01-04] MEDS: BRINZOLAMIDE EYEBOTH SCH ×2 (08:17→20:41)
--- NOTE | 2017-01-04 08:35 | PCM.PN ---
- General Info Date of Service: 01/04/17 Admission Dx/Problem (Free Text): Admission Diagnosis/Problem Admission Diagnosis/Problem Atrial fibrillation Subjective Update: Follow Up Functional Status: Reports: pain controlled, tolerating diet, urinating. Denies : ambulating, new symptoms - Review of Systems General: Denies: fever, weakness, fatigue, malaise, chills HEENT: Reports: no symptoms Pulmonary: Denies: shortness of breath Cardiovascular: Reports: edema. Denies: chest pain, dyspnea on exertion, lightheadedness Gastrointestinal: Denies: Abdominal pain, Nausea, Vomiting Genitourinary: Reports: no symptoms Musculoskeletal: Reports: no symptoms Skin: Denies: cyanosis Neurological: Reports: other Psychiatric: Denies: anxiety, hallucinations Systems Review Comment:: No overnight issues. She is less alert this am. Her HR fluctuates in the 90s- low teens. Her BB was held. Her urine had picked up. She is not longer on pressor and her BPs are hold up real well. Her urine output has started to pick up attendant really good. - Patient Data Vitals - most recent: Last Vital Signs Temp 36.6 C 01/04/17 08:00 Pulse 95 01/03/17 21:03 Resp 14 01/04/17 08:00 BP 120/89 01/04/17 08:00 Pulse Ox 95 01/04/17 08:00 Weight - most recent: 166.922 kg I&O - last 24 hours: Intake & Output 01/03/17 01/04/17 01/04/17 22:59 06:59 14:59 Intake Total 3695 2676 Output Total 185 300 100 Balance 3510 2376 -100 Lab Results last 24 hrs: Laboratory Results - last 24 hr 01/03/17 01/03/17 01/03/17 Range/Units 11:35 18:25 18:38 WBC 14.07 H (3.98-10.04) K/mm3 RBC 5.13 (3.98-5.22) M/mm3 Hgb 14.9 (11.2-15.7) gm/L Hct 49.7 H (34.1-44.9) % MCV 96.9 H (79.4-94.8) fl MCH 29.0 (25.6-32.2) pg MCHC 30.0 L (32.2-35.5) g/dl RDW Std Deviation 51.3 H (36.4-46.3) fL Plt Count 307 (182-369) K/mm3 MPV 11.3 (9.4-12.3) fl Neut % (Auto) 86.8 H (34.0-71.1) % Lymph % (Auto) 3.9 L (19.3-51.7) % Greenlee % (Auto) 8.8 (4.7-12.5) % Eos % (Auto) 0.1 L (0.7-5.8) Baso % (Auto) 0.1 (0.1-1.2) % Neut # 12.21 H (1.56-6.13) K/mm3 Lymph # 0.55 L (1.18-3.74) K/mm3 Greenlee # 1.24 H (0.24-0.36) K/mm3 Eos # 0.02 L (0.04-0.36) K/mm3 Baso # 0.01 (0.01-0.08) K/mm3 Manual Slide Review Normal smear Sodium 132 L (136-145) mEq/L Potassium 4.9 (3.5-5.1) mEq/L Chloride 95 L (98-107) mEq/L Carbon Dioxide 28 (21-32) mEq/L Anion Gap 13.9 (5-15) BUN 66 H (7-18) mg/dL Creatinine 3.0 H (0.55-1.02) mg/dL Est Cr Clr Drug Dosing 15.28 mL/min Estimated GFR (MDRD) 15 (>60) mL/min BUN/Creatinine Ratio 22.0 H (14-18) Glucose 116 H (80-115) mg/dL Lactic Acid 1.4 (0.4-2.0) mmol/L Calcium 8.0 L (8.5-10.1) mg/dL Phosphorus 7.2 H (2.6-4.7) mg/dL Magnesium (1.8-2.4) mg/dl C-Reactive Protein (<1.0) mg/dL Albumin 2.9 L (3.4-5.0) g/dl 01/04/17 01/04/17 Range/Units 07:15 07:15 WBC 11.48 H (3.98-10.04) K/mm3 RBC 5.10 (3.98-5.22) M/mm3 Hgb 14.7 (11.2-15.7) gm/L Hct 48.8 H (34.1-44.9) % MCV 95.7 H (79.4-94.8) fl MCH 28.8 (25.6-32.2) pg MCHC 30.1 L (32.2-35.5) g/dl RDW Std Deviation 49.9 H (36.4-46.3) fL Plt Count 283 (182-369) K/mm3 MPV 11.4 (9.4-12.3) fl Neut % (Auto) (34.0-71.1) % Lymph % (Auto) (19.3-51.7) % Greenlee % (Auto) (4.7-12.5) % Eos % (Auto) (0.7-5.8) Baso % (Auto) (0.1-1.2) % Neut # (1.56-6.13) K/mm3 Lymph # (1.18-3.74) K/mm3 Greenlee # (0.24-0.36) K/mm3 Eos # (0.04-0.36) K/mm3 Baso # (0.01-0.08) K/mm3 Manual Slide Review Sodium 133 L (136-145) mEq/L Potassium 4.9 (3.5-5.1) mEq/L Chloride 95 L (98-107) mEq/L Carbon Dioxide 29 (21-32) mEq/L Anion Gap 13.9 (5-15) BUN 63 H (7-18) mg/dL Creatinine 2.9 H (0.55-1.02) mg/dL Est Cr Clr Drug Dosing 15.81 mL/min Estimated GFR (MDRD) 16 (>60) mL/min BUN/Creatinine Ratio 21.7 H (14-18) Glucose 108 (80-115) mg/dL Lactic Acid (0.4-2.0) mmol/L Calcium 8.1 L (8.5-10.1) mg/dL Phosphorus (2.6-4.7) mg/dL Magnesium 2.6 H (1.8-2.4) mg/dl C-Reactive Protein 1.6 H* (<1.0) mg/dL Albumin (3.4-5.0) g/dl Charly Results last 24 hrs: Microbiology 01/02/17 09:41 Aerobic Blood Culture - Preliminary Blood - Venous NO GROWTH AFTER 1 DAY Anaerobic Blood Culture - Final 12/30/16 16:40 Urine Culture - Preliminary Urine, Clean Catch Proteus Mirabilis Streptococcus Agalactiae Grp B Med Orders - Current: Current Medications Acetaminophen (Tylenol) 650 mg PO Q4H PRN PRN Reason: Pain (Mild 1-3)/fever Acetaminophen/Hydrocodone Bitart ([place] 325-5 Mg) 1 tab PO Q4H PRN PRN Reason: Pain (moderate 4-6) Albuterol/Ipratropium (Duoneb 3.0-0.5 Mg/3 Ml) 3 ml NEB Q4H PRN PRN Reason: Shortness Of Breath/wheezing Last Admin: 01/03/17 20:07 Dose: 3 ml Alprazolam (Xanax) 0.5 mg PO BID [facility] Last Admin: 01/02/17 20:05 Dose: Not Given Apixaban (Eliquis) 2.5 mg PO BID [facility] Last Admin: 01/04/17 08:16 Dose: 2.5 mg Bisacodyl (Dulcolax) 5 mg PO DAILY PRN PRN Reason: Constipation Flunisolide (Nasalide Nasal [place]) 0 ml NASBOTH BID [facility] Last Admin: 01/04/17 08:18 Dose: 1 squirt Hydromorphone HCl (Dilaudid) 0.25 mg IVPUSH Q2H PRN PRN Reason: Pain (severe 7-10) Promethazine HCl 12.5 mg/ (Sodium Chloride) 50.5 mls @ 100 mls/hr IV Q6H PRN PRN Reason: Nausea/Vomiting Norepinephrine Bitartrate 4 mg (/ Dextrose/Water) 250 mls @ 7.5 mls/hr IV TITRATE MIRNA; 2 MCG/MIN PRN Reason: Protocol Last Titration: 01/04/17 03:09 Dose: 0 mcg/min, 0 mls/hr Sodium Chloride (Normal Saline) 1,000 mls @ 150 mls/hr IV ASDIRECTED [facility] Last Admin: 01/04/17 06:22 Dose: 150 mls/hr Levofloxacin/Dextrose 250 mg/ (Premix) 50 mls @ 50 mls/hr IV Q48H [facility] Last Admin: 01/03/17 13:37 Dose: 50 mls/hr Metoprolol Tartrate (Lopressor) 25 mg PO Q12HR [facility] Last Admin: 01/03/17 21:03 Dose: 25 mg Modafinil (Provigil) 200 mg PO DAILY [facility] Last Admin: 01/04/17 08:16 Dose: 200 mg Ondansetron HCl (Zofran) 4 mg IV Q6H PRN PRN Reason: Nausea/Vomiting Brinzolamide (Azopt (Opth Suspension)) 0 each EYEBOTH BID [facility] Last Admin: 01/04/17 08:17 Dose: 1 each Polyethylene Glycol (Miralax) 17 gm PO DAILY PRN PRN Reason: Constipation Senna/Docusate Sodium (Senna Plus) 1 tab PO BID PRN PRN Reason: Constipation Sertraline HCl (Zoloft) 100 mg PO BEDTIME [facility] Last Admin: 01/03/17 21:03 Dose: 100 mg Sodium Chloride (Saline Flush) 10 ml FLUSH ASDIRECTED PRN PRN Reason: Keep Vein Open Last Admin: 01/03/17 21:06 Dose: 10 ml Discontinued Medications Alprazolam (Xanax) 0.5 mg PO QID [facility] Last Admin: 12/31/16 09:26 Dose: Not Given Apixaban (Eliquis) 5 mg PO BID [facility] Last Admin: 01/02/17 20:04 Dose: 5 mg Diltiazem HCl (Diltiazem) 10 mg IVPUSH ONETIME ONE Stop: 12/29/16 17:27 Last Admin: 12/29/16 17:48 Dose: 10 mg Diltiazem HCl (Cardizem Cd) 360 mg PO DAILY [facility] Last Admin: 01/01/17 09:23 Dose: 360 mg Diltiazem HCl (Cardizem Cd) 300 mg PO DAILY [facility] Last Admin: 01/02/17 09:45 Dose: 300 mg Diltiazem HCl (Dilacor Xr) 240 mg PO DAILY [facility] Enoxaparin Sodium (Lovenox) 150 mg SUBCUT Q12HR [facility] Last Admin: 12/30/16 20:09 Dose: Not Given Enoxaparin Sodium (Lovenox) 150 mg SUBCUT ONETIME ONE Stop: 12/29/16 23:21 Last Admin: 12/29/16 23:41 Dose: 150 mg Enoxaparin Sodium (Lovenox) 150 mg SUBCUT Q12HR [facility] Last Admin: 12/30/16 10:36 Dose: 150 mg Furosemide (Lasix) 40 mg PO BIDDIURETIC [facility] Last Admin: 01/02/17 05:01 Dose: 40 mg Furosemide (Lasix) 40 mg PO DAILY [facility] Furosemide (Lasix) 40 mg PO DAILY [facility] Furosemide (Lasix) 20 mg PO DAILY [facility] Hydromorphone HCl (Dilaudid) 0.25 mg IVPUSH Q2H PRN PRN Reason: Pain (severe 7-10) Diltiazem HCl 100 mg/ Sodium (Chloride) 100 mls @ 10 mls/hr IV TITRATE MIRNA; 10 MG/HR PRN Reason: Protocol Last Admin: 12/29/16 18:01 Dose: 10 mg/hr, 10 mls/hr Diltiazem HCl 100 mg/ Sodium (Chloride) 100 mls @ 5 mls/hr IV TITRATE MIRNA; 5 MG /HR PRN Reason: Protocol Last Titration: 12/31/16 10:03 Dose: 0 mg/hr, 0 mls/hr Sodium Chloride (Normal Saline) 100 mls @ 65 mls/hr IV ASDIRECTED [facility] Last Admin: 12/29/16 20:11 Dose: 65 mls/hr Ceftriaxone Sodium 1 gm/ (Sodium Chloride) 100 mls @ 200 mls/hr IV Q24H [facility] Last Admin: 01/02/17 20:21 Dose: 200 mls/hr Sodium Chloride (Normal Saline) Confirm Administered Dose 1,000 mls @ as directed .ROUTE .STK-MED ONE Stop: 01/01/17 15:22 Last Admin: 01/01/17 15:31 Dose: 250 ml Sodium Chloride (Normal Saline) 500 mls @ 250 mls/hr IV .BOLUS ONE Stop: 01/01/17 17:28 Last Admin: 01/01/17 16:59 Dose: 250 mls/hr Sodium Chloride (Normal Saline) 1,000 mls @ 25 mls/hr IV ASDIRECTED [facility] Last Admin: 01/01/17 18:30 Dose: 25 mls/hr Sodium Chloride (Normal Saline) 500 mls @ 500 mls/hr IV ASDIRECTED [facility] Stop: 01/02/17 14:29 Last Admin: 01/02/17 13:35 Dose: 500 mls/hr Sodium Chloride (Normal Saline) 1,000 mls @ 125 mls/hr IV ASDIRECTED [facility] Last Admin: 01/03/17 10:10 Dose: 125 mls/hr Sodium Chloride (Normal Saline) 1,000 mls @ 999 mls/hr IV ONETIME ONE Stop: 01/03/17 09:08 Last Admin: 01/03/17 09:10 Dose: 999 mls/hr Iopamidol (Isovue-370 (76%)) 100 ml IVPUSH ONETIME ONE Stop: 12/29/16 19:47 Last Admin: 12/29/16 20:11 Dose: 100 ml Iopamidol (Isovue-370 (76%)) 50 ml IVPUSH ONETIME ONE Stop: 12/29/16 19:47 Last Admin: 12/29/16 20:11 Dose: 50 ml Lisinopril (Prinivil) 20 mg PO DAILY [facility] Last Admin: 01/02/17 09:10 Dose: Not Given Lorazepam (Ativan) 1 mg IV Q6H PRN PRN Reason: Nausea/Vomiting Midodrine (Midodrine) 5 mg PO STAT ONE Stop: 01/01/17 15:07 Last Admin: 01/01/17 15:10 Dose: 5 mg Sertraline HCl (Zoloft) 100 mg PO QID [facility] Last Admin: 12/30/16 20:10 Dose: Not Given Sertraline HCl (Zoloft) 100 mg PO DAILY [facility] Last Admin: 12/31/16 14:40 Dose: Not Given Sodium Chloride (Saline Flush) 10 ml FLUSH ONETIME PRN PRN Reason: IV FLUSH Last Admin: 12/29/16 20:11 Dose: 10 ml Temazepam (Restoril) 30 mg PO BEDTIME PRN PRN Reason: Sleep Temazepam (Restoril) 30 mg PO BEDTIME PRN PRN Reason: Sleep Last Admin: 01/02/17 01:15 Dose: 30 mg Triamterene/HCTZ (Maxzide 25-37.5 Mg) 1 each PO DAILY [facility] Last Admin: 12/31/16 09:27 Dose: 1 each - Exam General: cooperative, no acute distress, other (Morbidly Obese) HEENT: Pupils equal, Pupils reactive, EOMI, Mucous membr. moist/pink Neck: supple, trachea midline Lungs: Normal respiratory effort, Decreased breath sounds Cardiovascular: irregular rhythm, other (irregular rate) Abdomen: bowel sounds present, soft, no tenderness, no distension, other (Obese) (Female) Exam: Other (indwelling garcia catheter) Back Exam: normal inspection, decreased range of motion Extremities: normal pulses, no tenderness/swelling, no clubbing, no cyanosis, no calf tenderness, edema Peripheral Pulses: 2+: dorsalis pedis (L), dorsalis pedis (R) Skin: warm, dry, intact Neurological: no new focal deficit Psy/Mental Status: other (lethargic) - Problem List Review Problem List Initiated/Reviewed/Updated: Yes - My Orders Last 24 Hours: My Active Orders 01/03/17 08:10 Apixaban [Eliquis] 2.5 mg PO BID 01/03/17 08:25 Urinary Catheter Assessment [RC] Q4HR 01/03/17 08:30 Insert Urinary Catheter [OM.PC] Q24H 01/03/17 11:00 Sodium Chloride 0.9% [Normal Saline] 1,000 ml IV ASDIRECTED 01/03/17 12:18 Levofloxacin/Dextrose 5%-Water [Levaquin in D5W 250 MG/50 ML] 250 mg Premix Bag 1 bag IV Q48H 01/07/17 07:00 CBC W/O DIFF,HEMOGRAM [HEME] MOTH@0700 01/11/17 07:00 CBC W/O DIFF,HEMOGRAM [HEME] MOTH@0700 01/14/17 07:00 CBC W/O DIFF,HEMOGRAM [HEME] MOTH@0700 01/18/17 07:00 CBC W/O DIFF,HEMOGRAM [HEME] MOTH@0700 - Plan Plan:: Assessment/Plan Acute: Sepsis with Hypotension - 2/2 UA - Proteus Mirabilis and Group B strep - Both sensitive to Levaquin - Continue Levaquin - Patient just came off pressor New onset of A-Fib, HR is is starting to creep up in the low 100s - No previous hx in the past - LAVONNE VASC Score: 0 Low risk of thromboembolic event. 1.9% risk of event per year if no coumadin. The adjusted stroke rate was the expected stroke rate per 100 person-years derived from the multivariable model assuming that aspirin was not taken - Now off Cardizem drip - Her Metoprolol 25 mg po BID was inadvertently put on hold - Change Eliquis to 2.5 mg po BID for stroke prophylaxis due to decreased renal function - FT4 is 1: wnl - 2D echo: LVEF 35-40% - Resume Metoprolol Acute Heart Failure with Reduced EF at 35-40% - Right Sided Pleural Effusion on CT scan - Small-Moderate Size - 2D echo: as noted above - Follow up CXR: persistent pleural effusion - HF: protocol: salt/fluid restriction, daily weights, lasix and acei - Follow up Cardiology after discharge - Bumex 0.5 mg IVP x1, she is picking up more edema now Right Sided Pleural Effusion - Stable - Follow CXR in am Acute Kidney Injury w/ Urinary Retention - 2/2 Intravascular Volume Depletion: poor oral intake, fluid restriction and over diurese - Will decrease IVF rate to prevent volume overload - Renal U/S: noted for medical renal disease - Garcia catheter for strict Is/OS - Her urine output is picking up as expected Acute Cystitis - UA pos UTI - CRP 1.5 - CX: Proteus Mirabilis and Group B Strep - Group B Strep sensitive to Levaquin - D/c Rocephin and will Start Low dose Levaquin Leukoctyosis - WBC 13.30--> 12.24--> 13.59--> 11.48 - Likely stress vs UTI - She likely has MICHAEL - Improving AMS/Slow Attention Span/Delirium - This is now 2/2 critical illness - On Xanax Q4 daily, will resume it bid - Thyroid panel is normal - Provigil 200 mg po daily - Head CT scan to r/o Stroke - D/c Restoril Morbid Obesity with BMI 58.8 - Dietary consult for weight management Probable MICHAEL - Recommend Sleep Study after discharge - Advised to lose weight Resolved: S/p Mild Left Sided Nose Bleed - Will trim nasal prongs - She is on mckenna-supplemental O2 - Saline spray BID on each nostril S/p Secondary Polycythemia - Hgb 15.8--> 15.6: wnl--> 15.8--> 14/7 - This likely related to extreme obesity and MICHAEL/OHS - Monitor S/p Hypotension - Drug Induced vs Sepsis - Currently on IV pressor - Will trim down dose of her current BP/Rate control medications - Blood Culture and LA (normal) Chronic: OA/DJD Anxiety Depression Plan: She is clinically improving but slowly Continue current treatment Routine AM Labs Continue BB for rate control Blood Culture: negative so far Fall Precautions Continue PT/TO SW/CM for d/c planning Recommend SNF/Rehab after discharge Additional orders as above Code Status: 1 Prognosis: Guarded LOS > 96 hrs due to complexity of current medical illness, patient requires more time with treatment
[2017-01-04] MEDS ORDERED: Bumetanide 1 MG/4 ML MDV IVPUSH ONE (11:48)
[2017-01-04] MEDS: Metoprolol Tartrate 25 MG Tab PO SCH ×2 (11:55→20:40)
[2017-01-04] MEDS ORDERED: Sodium Chloride 0.9% 1,000 ML IV SCH (12:00)
[2017-01-04] MEDS: Metoprolol Tartrate 5 MG/5 ML SDV IVPUSH PRN (13:18)
[2017-01-04] MEDS ORDERED: ALPRAZolam 0.5 MG Tab PO PRN (16:45)
[2017-01-04] MEDS: Bisacodyl 5 MG Tab PO PRN (17:07)
[2017-01-04] MEDS ORDERED: Flumazenil 0.1 MG/ML 5 ML MDV IVPUSH ONE (19:45)
[2017-01-04] MEDS: Sertraline 50 MG Tab PO SCH (20:40)
--- NOTE | 2017-01-05 06:44 | PCM.PN ---
- General Info Date of Service: 01/05/17 Admission Dx/Problem (Free Text): Admission Diagnosis/Problem Admission Diagnosis/Problem Atrial fibrillation Subjective Update: Follow Up Functional Status: Reports: pain controlled, tolerating diet, urinating. Denies : new symptoms - Review of Systems General: Denies: fever, chills HEENT: Reports: no symptoms Pulmonary: Reports: shortness of breath. Denies: cough Cardiovascular: Reports: edema. Denies: chest pain, palpitations, dyspnea on exertion Gastrointestinal: Denies: Abdominal pain, Nausea, Vomiting Genitourinary: Reports: no symptoms Musculoskeletal: Reports: no symptoms Skin: Denies: bruising, pruritis, rash Neurological: Reports: confusion Psychiatric: Denies: other (She is lethargic ) Systems Review Comment:: No overnight issues. She is now off pressor drip. Her labs are painting a good clinical impression. Her total output is over 24hrs 1365 ml. She is lethargic this am. - Patient Data Vitals - most recent: Last Vital Signs Temp 36.4 C 01/05/17 04:00 Pulse 113 H 01/05/17 05:58 Resp 20 01/05/17 04:00 BP 94/65 01/05/17 05:58 Pulse Ox 95 01/05/17 04:00 Weight - most recent: 171.775 kg I&O - last 24 hours: Intake & Output 01/04/17 01/04/17 01/05/17 14:59 22:59 06:59 Intake Total 1036 1180 620 Output Total 700 425 240 Balance 336 755 380 Lab Results last 24 hrs: Laboratory Results - last 24 hr 01/04/17 01/04/17 Range/Units 07:15 07:15 WBC 11.48 H (3.98-10.04) K/mm3 RBC 5.10 (3.98-5.22) M/mm3 Hgb 14.7 (11.2-15.7) gm/L Hct 48.8 H (34.1-44.9) % MCV 95.7 H (79.4-94.8) fl MCH 28.8 (25.6-32.2) pg MCHC 30.1 L (32.2-35.5) g/dl RDW Std Deviation 49.9 H (36.4-46.3) fL Plt Count 283 (182-369) K/mm3 MPV 11.4 (9.4-12.3) fl Sodium 133 L (136-145) mEq/L Potassium 4.9 (3.5-5.1) mEq/L Chloride 95 L (98-107) mEq/L Carbon Dioxide 29 (21-32) mEq/L Anion Gap 13.9 (5-15) BUN 63 H (7-18) mg/dL Creatinine 2.9 H (0.55-1.02) mg/dL Est Cr Clr Drug Dosing 15.81 mL/min Estimated GFR (MDRD) 16 (>60) mL/min BUN/Creatinine Ratio 21.7 H (14-18) Glucose 108 (80-115) mg/dL Calcium 8.1 L (8.5-10.1) mg/dL Magnesium 2.6 H (1.8-2.4) mg/dl C-Reactive Protein 1.6 H* (<1.0) mg/dL Charly Results last 24 hrs: Microbiology 01/02/17 09:41 Aerobic Blood Culture - Preliminary Blood - Venous NO GROWTH AFTER 2 DAYS Anaerobic Blood Culture - Final 12/30/16 16:40 Urine Culture - Final Urine, Clean Catch Proteus Mirabilis Beta Streptococcus Group B Med Orders - Current: Current Medications Acetaminophen (Tylenol) 650 mg PO Q4H PRN PRN Reason: Pain (Mild 1-3)/fever Acetaminophen/Hydrocodone Bitart ([place] 325-5 Mg) 1 tab PO Q4H PRN PRN Reason: Pain (moderate 4-6) Albuterol/Ipratropium (Duoneb 3.0-0.5 Mg/3 Ml) 3 ml NEB Q4H PRN PRN Reason: Shortness Of Breath/wheezing Last Admin: 01/03/17 20:07 Dose: 3 ml Alprazolam (Xanax) 0.5 mg PO BID [facility] Last Admin: 01/02/17 20:05 Dose: Not Given Apixaban (Eliquis) 2.5 mg PO BID [facility] Last Admin: 01/04/17 20:39 Dose: 2.5 mg Bisacodyl (Dulcolax) 5 mg PO DAILY PRN PRN Reason: Constipation Last Admin: 01/04/17 17:07 Dose: 5 mg Flunisolide (Nasalide Nasal [place]) 0 ml NASBOTH BID [facility] Last Admin: 01/04/17 20:41 Dose: 1 squirt Hydromorphone HCl (Dilaudid) 0.25 mg IVPUSH Q2H PRN PRN Reason: Pain (severe 7-10) Promethazine HCl 12.5 mg/ (Sodium Chloride) 50.5 mls @ 100 mls/hr IV Q6H PRN PRN Reason: Nausea/Vomiting Norepinephrine Bitartrate 4 mg (/ Dextrose/Water) 250 mls @ 7.5 mls/hr IV TITRATE MIRNA; 2 MCG/MIN PRN Reason: Protocol Last Titration: 01/05/17 04:28 Dose: 0 mcg/min, 0 mls/hr Levofloxacin/Dextrose 250 mg/ (Premix) 50 mls @ 50 mls/hr IV Q48H [facility] Last Admin: 01/03/17 13:37 Dose: 50 mls/hr Sodium Chloride (Normal Saline) 1,000 mls @ 100 mls/hr IV ASDIRECTED [facility] Last Admin: 01/04/17 13:22 Dose: 100 mls/hr Metoprolol Tartrate (Lopressor) 25 mg PO Q12HR [facility] Last Admin: 01/04/17 20:40 Dose: 25 mg Metoprolol Tartrate (Lopressor) 5 mg IVPUSH Q4H PRN PRN Reason: Tachycardia Last Admin: 01/04/17 13:18 Dose: 5 mg Modafinil (Provigil) 200 mg PO DAILY [facility] Last Admin: 01/04/17 08:16 Dose: 200 mg Ondansetron HCl (Zofran) 4 mg IV Q6H PRN PRN Reason: Nausea/Vomiting Brinzolamide (Azopt (Opth Suspension)) 0 each EYEBOTH BID [facility] Last Admin: 01/04/17 20:41 Dose: 1 each Polyethylene Glycol (Miralax) 17 gm PO DAILY PRN PRN Reason: Constipation Senna/Docusate Sodium (Senna Plus) 1 tab PO BID PRN PRN Reason: Constipation Sertraline HCl (Zoloft) 150 mg PO BEDTIME [facility] Last Admin: 01/04/17 20:40 Dose: 150 mg Sodium Chloride (Saline Flush) 10 ml FLUSH ASDIRECTED PRN PRN Reason: Keep Vein Open Last Admin: 01/03/17 21:06 Dose: 10 ml Discontinued Medications Alprazolam (Xanax) 0.5 mg PO QID [facility] Last Admin: 12/31/16 09:26 Dose: Not Given Alprazolam (Xanax) 0.5 mg PO BID PRN PRN Reason: Anxiety Last Admin: 01/04/17 17:08 Dose: 0.5 mg Apixaban (Eliquis) 5 mg PO BID [facility] Last Admin: 01/02/17 20:04 Dose: 5 mg Bumetanide (Bumex) 0.5 mg IVPUSH ONETIME ONE Stop: 01/04/17 11:49 Last Admin: 01/04/17 12:11 Dose: 0.5 mg Diltiazem HCl (Diltiazem) 10 mg IVPUSH ONETIME ONE Stop: 12/29/16 17:27 Last Admin: 12/29/16 17:48 Dose: 10 mg Diltiazem HCl (Cardizem Cd) 360 mg PO DAILY [facility] Last Admin: 01/01/17 09:23 Dose: 360 mg Diltiazem HCl (Cardizem Cd) 300 mg PO DAILY [facility] Last Admin: 01/02/17 09:45 Dose: 300 mg Diltiazem HCl (Dilacor Xr) 240 mg PO DAILY [facility] Enoxaparin Sodium (Lovenox) 150 mg SUBCUT Q12HR [facility] Last Admin: 12/30/16 20:09 Dose: Not Given Enoxaparin Sodium (Lovenox) 150 mg SUBCUT ONETIME ONE Stop: 12/29/16 23:21 Last Admin: 12/29/16 23:41 Dose: 150 mg Enoxaparin Sodium (Lovenox) 150 mg SUBCUT Q12HR [facility] Last Admin: 12/30/16 10:36 Dose: 150 mg Flumazenil (Romazicon) 0.2 mg IVPUSH ONETIME ONE Stop: 01/04/17 19:46 Last Admin: 01/04/17 20:41 Dose: 0.2 mg Furosemide (Lasix) 40 mg PO BIDDIURETIC [facility] Last Admin: 01/02/17 05:01 Dose: 40 mg Furosemide (Lasix) 40 mg PO DAILY [facility] Furosemide (Lasix) 40 mg PO DAILY [facility] Furosemide (Lasix) 20 mg PO DAILY [facility] Hydromorphone HCl (Dilaudid) 0.25 mg IVPUSH Q2H PRN PRN Reason: Pain (severe 7-10) Diltiazem HCl 100 mg/ Sodium (Chloride) 100 mls @ 10 mls/hr IV TITRATE MIRNA; 10 MG/HR PRN Reason: Protocol Last Admin: 12/29/16 18:01 Dose: 10 mg/hr, 10 mls/hr Diltiazem HCl 100 mg/ Sodium (Chloride) 100 mls @ 5 mls/hr IV TITRATE MIRNA; 5 MG /HR PRN Reason: Protocol Last Titration: 12/31/16 10:03 Dose: 0 mg/hr, 0 mls/hr Sodium Chloride (Normal Saline) 100 mls @ 65 mls/hr IV ASDIRECTED MIRNA Last Admin: 12/29/16 20:11 Dose: 65 mls/hr Ceftriaxone Sodium 1 gm/ (Sodium Chloride) 100 mls @ 200 mls/hr IV Q24H MIRNA Last Admin: 01/02/17 20:21 Dose: 200 mls/hr Sodium Chloride (Normal Saline) Confirm Administered Dose 1,000 mls @ as directed .ROUTE .STK-MED ONE Stop: 01/01/17 15:22 Last Admin: 01/01/17 15:31 Dose: 250 ml Sodium Chloride (Normal Saline) 500 mls @ 250 mls/hr IV .BOLUS ONE Stop: 01/01/17 17:28 Last Admin: 01/01/17 16:59 Dose: 250 mls/hr Sodium Chloride (Normal Saline) 1,000 mls @ 25 mls/hr IV ASDIRECTED MIRNA Last Admin: 01/01/17 18:30 Dose: 25 mls/hr Sodium Chloride (Normal Saline) 500 mls @ 500 mls/hr IV ASDIRECTED MIRNA Stop: 01/02/17 14:29 Last Admin: 01/02/17 13:35 Dose: 500 mls/hr Sodium Chloride (Normal Saline) 1,000 mls @ 125 mls/hr IV ASDIRECTED MIRNA Last Admin: 01/03/17 10:10 Dose: 125 mls/hr Sodium Chloride (Normal Saline) 1,000 mls @ 999 mls/hr IV ONETIME ONE Stop: 01/03/17 09:08 Last Admin: 01/03/17 09:10 Dose: 999 mls/hr Sodium Chloride (Normal Saline) 1,000 mls @ 150 mls/hr IV ASDIRECTED [facility] Last Infusion: 01/04/17 11:59 Dose: 100 mls/hr Iopamidol (Isovue-370 (76%)) 100 ml IVPUSH ONETIME ONE Stop: 12/29/16 19:47 Last Admin: 12/29/16 20:11 Dose: 100 ml Iopamidol (Isovue-370 (76%)) 50 ml IVPUSH ONETIME ONE Stop: 12/29/16 19:47 Last Admin: 12/29/16 20:11 Dose: 50 ml Lisinopril (Prinivil) 20 mg PO DAILY [facility] Last Admin: 01/02/17 09:10 Dose: Not Given Lorazepam (Ativan) 1 mg IV Q6H PRN PRN Reason: Nausea/Vomiting Metoprolol Tartrate (Lopressor) 25 mg PO Q12HR [facility] Last Admin: 01/03/17 21:03 Dose: 25 mg Midodrine (Midodrine) 5 mg PO STAT ONE Stop: 01/01/17 15:07 Last Admin: 01/01/17 15:10 Dose: 5 mg Sertraline HCl (Zoloft) 100 mg PO QID [facility] Last Admin: 12/30/16 20:10 Dose: Not Given Sertraline HCl (Zoloft) 100 mg PO DAILY [facility] Last Admin: 12/31/16 14:40 Dose: Not Given Sertraline HCl (Zoloft) 100 mg PO BEDTIME [facility] Last Admin: 01/03/17 21:03 Dose: 100 mg Sodium Chloride (Saline Flush) 10 ml FLUSH ONETIME PRN PRN Reason: IV FLUSH Last Admin: 12/29/16 20:11 Dose: 10 ml Temazepam (Restoril) 30 mg PO BEDTIME PRN PRN Reason: Sleep Temazepam (Restoril) 30 mg PO BEDTIME PRN PRN Reason: Sleep Last Admin: 01/02/17 01:15 Dose: 30 mg Triamterene/HCTZ (Maxzide 25-37.5 Mg) 1 each PO DAILY [facility] Last Admin: 12/31/16 09:27 Dose: 1 each - Exam General: no acute distress, lethargic, other (Obese) HEENT: Pupils equal, Pupils reactive Neck: supple, trachea midline, no JVD Lungs: Normal respiratory effort, Decreased breath sounds, Rales Cardiovascular: irregular rhythm, other (irregular rate) Abdomen: bowel sounds present, soft, no tenderness, no distension, other (Obese) (Female) Exam: Other (indwelling garcia catheter) Back Exam: normal inspection, decreased range of motion Extremities: normal pulses, no tenderness/swelling, no clubbing, no cyanosis, no calf tenderness, edema Peripheral Pulses: 2+: dorsalis pedis (L), dorsalis pedis (R) Skin: warm, dry, intact Neurological: no new focal deficit Psy/Mental Status: other (lethargic) - Problem List Review Problem List Initiated/Reviewed/Updated: Yes - My Orders Last 24 Hours: My Active Orders 01/04/17 12:00 Metoprolol Tartrate [Lopressor] 25 mg PO Q12HR Sodium Chloride 0.9% [Normal Saline] 1,000 ml IV ASDIRECTED 01/04/17 12:39 Metoprolol Tartrate [Lopressor] 5 mg IVPUSH Q4H PRN 01/04/17 15:31 Sertraline [Zoloft] 150 mg PO BEDTIME 01/05/17 06:43 BMP [BASIC METABOLIC PANEL,BMP] [CHEM] Urgent 01/05/17 06:44 MG [MAGNESIUM] [CHEM] Urgent 01/06/17 05:11 BMP [BASIC METABOLIC PANEL,BMP] [CHEM] AM MG [MAGNESIUM] [CHEM] AM 01/07/17 05:11 BMP [BASIC METABOLIC PANEL,BMP] [CHEM] AM MG [MAGNESIUM] [CHEM] AM 01/07/17 07:00 CBC W/O DIFF,HEMOGRAM [HEME] MOTH@0700 01/11/17 07:00 CBC W/O DIFF,HEMOGRAM [HEME] MOTH@0700 01/14/17 07:00 CBC W/O DIFF,HEMOGRAM [HEME] MOTH@0700 01/18/17 07:00 CBC W/O DIFF,HEMOGRAM [HEME] MOTH@0700 - Plan Plan:: Assessment/Plan Acute: Sepsis with Hypotension - 2/2 UA - Proteus Mirabilis and Group B strep - Both sensitive to Levaquin - D/c Levaquin - PRN pressor if needed - Stable at the moment New onset of A-Fib, HR is controlled in the 90s to low 100s - No previous hx in the past - LAVONNE VASC Score: 0 Low risk of thromboembolic event. 1.9% risk of event per year if no coumadin. The adjusted stroke rate was the expected stroke rate per 100 person-years derived from the multivariable model assuming that aspirin was not taken - Continue Eliquis to 2.5 mg po BID for stroke prophylaxis due to decreased renal function - FT4 is 1: wnl - 2D echo: LVEF 35-40% - Resume Metoprolol for rate control Acute Heart Failure with Reduced EF at 35-40% - Right Sided Pleural Effusion on CT scan - Small-Moderate Size - 2D echo: as noted above - Follow up CXR: persistent pleural effusion - HF: protocol: salt/fluid restriction, daily weights, lasix and acei - Follow up Cardiology after discharge - Bumex 0.5 mg IVP x 1 for peripheral edema Right Sided Pleural Effusion - Stable - Follow CXR: stable mild cardiomegaly and pulmonary congestion Acute Kidney Injury w/ Urinary Retention - 2/2 Intravascular Volume Depletion: poor oral intake, fluid restriction and over diurese - Will decrease IVF rate to prevent volume overload - Renal U/S: noted for medical renal disease - Garcia catheter for strict Is/OS - Her urine output is picking up as expected - Renal function continuous to improve Leukoctyosis - WBC 13.30--> 12.24--> 13.59--> 11.48 - Likely stress vs UTI - She likely has MICHAEL - Improving AMS/Slow Attention Span/Delirium - This is now 2/2 critical illness - On Xanax Q4 daily, will resume it bid - Thyroid panel is normal - Provigil 200 mg po daily - Head CT scan to r/o Stroke - D/c Restoril Morbid Obesity with BMI 58.8 - Dietary consult for weight management Probable MICHAEL - Recommend Sleep Study after discharge - Advised to lose weight Resolved: S/p Mild Left Sided Nose Bleed - Will trim nasal prongs - She is on mckenna-supplemental O2 - Saline spray BID on each nostril S/p Secondary Polycythemia - Hgb 15.8--> 15.6: wnl--> 15.8--> 14/7 - This likely related to extreme obesity and MICHAEL/OHS - Monitor S/p Acute Cystitis - UA pos UTI - CRP 1.5 - CX: Proteus Mirabilis and Group B Strep - Group B Strep sensitive to Levaquin - D/c Rocephin and will Start Low dose Levaquin Chronic: OA/DJD Anxiety Depression Plan: She appears to be clinically improving Continue current treatment Routine AM Labs Fall Precautions Continue PT/TO SW/CM for d/c planning Recommend SNF/Rehab after discharge Additional orders as above Code Status: 1 Prognosis: Guarded LOS > 96 hrs due to complexity of current medical illness, patient requires more time with treatment
[2017-01-05] MEDS: BRINZOLAMIDE EYEBOTH SCH ×2 (08:50→20:48)
[2017-01-05] MEDS: Apixaban 5 MG Tab PO SCH ×2 (08:51→20:47)
[2017-01-05] MEDS: Modafinil 200 MG Tab PO SCH (08:51)
[2017-01-05] MEDS: Metoprolol Tartrate 25 MG Tab PO SCH (08:51)
[2017-01-05] MEDS: Sodium Chloride 0.9% 10 ML Syringe FLUSH PRN (08:52)
[2017-01-05] MEDS: Bisacodyl 5 MG Tab PO PRN (08:52)
[2017-01-05] MEDS ORDERED: Bumetanide 1 MG/4 ML MDV IVPUSH SCH (09:00)
--- NOTE | 2017-01-05 09:59 | CR ---
Chest: Portable view of the chest was obtained. Comparison: Previous chest x-ray of 12/31/16. Heart is mildly enlarged. Upper mediastinum is within normal limits for portable technique. Pulmonary vessels are felt to be slightly congested which appear to be fairly similar to prior study when allowing for differences in technique. No alveolar type infiltrates are seen. Bony structures are grossly intact. Impression: 1. Cardiomegaly and mild pulmonary vascular congestion. Diagnostic code #3
[2017-01-05] MEDS: Norepinephrine 4 MG in Dextrose 5% in Water 246 ML IV SCH ×2 (10:05)
[2017-01-05] MEDS: Levofloxacin/Dextrose 5%-Water 250 MG in Premix Bag 1 BAG IV SCH (11:41)
[2017-01-05] MEDS ORDERED: Sodium Chloride 0.9% 1,000 ML IV SCH (12:00)
[2017-01-05] MEDS: Sertraline 50 MG Tab PO SCH (20:48)
[2017-01-06] MEDS: BRINZOLAMIDE EYEBOTH SCH ×2 (09:30→21:00)
[2017-01-06] MEDS ORDERED: Phenylephrine/Normal Saline 100 MCG/ML 10 ML Syringe IV PRN (10:27)
[2017-01-06] MEDS ORDERED: Dextrose 5%-0.9% NaCl 1,000 ML IV SCH (10:45)
[2017-01-06] MEDS ORDERED: Enoxaparin 30 MG/0.3 ML Syringe SUBCUT SCH (10:45)
[2017-01-06] MEDS ORDERED: SODIUM CHLORIDE 0.9% IV SCH (11:30)
[2017-01-06] MEDS ORDERED: PHENYLEPHRINE IV SCH (11:30)
[2017-01-06] MEDS ORDERED: cefTRIAXone 1 GM in Sodium Chloride 0.9% 100 ML IV SCH (12:45)
[2017-01-06] MEDS ORDERED: Bumetanide 1 MG/4 ML MDV IVPUSH SCH (13:00)
[2017-01-06] MEDS: Insulin Aspart 100 Units/ML 3 ML Pen SUBCUT SCH ×3 (14:02→23:45)
[2017-01-06] MEDS ORDERED: Sodium Chloride 0.9% 50 ML SDV ONE ×3 (16:22→17:11)
--- NOTE | 2017-01-06 16:37 | PCM.PREANE ---
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 Respiratory: Reports: no symptoms Cardiovascular: Reports: no symptoms GI: Reports: no symptoms Other: Reports: none - PHYSICAL ASSESSMENT HR: 95 O2 Sat by Pulse Oximetry: 99 RR: 19 BP: 102/67 Temp: 35.9 C Vital Signs: Last Vital Signs Temp 35.9 C 01/06/17 08:00 Pulse 104 H 01/06/17 08:00 Resp 19 01/06/17 08:00 BP 94/49 L 01/06/17 08:00 Pulse Ox 99 01/06/17 08:00 Height: 1.63 m Weight: 170.188 kg NPO Status Date: 01/04/17 NPO Status Time: 12:00 ASA Class: 4E Mental Status: other Dentition: Reports: normal dentition ROM/Head Extension: full Respiratory Status: lungs clear to auscultation bilaterally Cardiovascular Status: blood pressure WNL, irregular pulse - LAB Values: Laboratory Last Values WBC 13.01 K/mm3 (3.98-10.04) H 01/06/17 05:30 RBC 4.92 M/mm3 (3.98-5.22) 01/06/17 05:30 Hgb 14.4 gm/L (11.2-15.7) 01/06/17 05:30 Hct 48.3 % (34.1-44.9) H 01/06/17 05:30 MCV 98.2 fl (79.4-94.8) H 01/06/17 05:30 MCH 29.3 pg (25.6-32.2) 01/06/17 05:30 MCHC 29.8 g/dl (32.2-35.5) L 01/06/17 05:30 RDW Std Deviation 51.4 fL (36.4-46.3) H 01/06/17 05:30 Plt Count 234 K/mm3 (182-369) 01/06/17 05:30 MPV 11.8 fl (9.4-12.3) 01/06/17 05:30 Neut % (Auto) 85.8 % (34.0-71.1) H 01/06/17 05:30 Lymph % (Auto) 3.8 % (19.3-51.7) L 01/06/17 05:30 [place] % (Auto) 9.6 % (4.7-12.5) 01/06/17 05:30 Eos % (Auto) 0.2 (0.7-5.8) L 01/06/17 05:30 Baso % (Auto) 0.1 % (0.1-1.2) 01/06/17 05:30 Neut # 11.16 K/mm3 (1.56-6.13) H 01/06/17 05:30 Lymph # 0.49 K/mm3 (1.18-3.74) L 01/06/17 05:30 [place] # 1.25 K/mm3 (0.24-0.36) H 01/06/17 05:30 Eos # 0.03 K/mm3 (0.04-0.36) L 01/06/17 05:30 Baso # 0.01 K/mm3 (0.01-0.08) 01/06/17 05:30 Manual Slide Review Abnormal smear 01/06/17 05:30 D-Dimer, Quantitative 0.77 mg/L (0.19-0.59) H 12/29/16 18:30 Puncture Site Rt radial 01/06/17 14:30 ABG pH 7.21 (7.35-7.45) L 01/06/17 14:30 ABG pCO2 77.1 mmHg (35.0-45.0) H* 01/06/17 14:30 ABG pO2 66.0 mmHg (80.0-100.0) L 01/06/17 14:30 ABG HCO3 29.8 meq/L (22.0-26.0) H 01/06/17 14:30 ABG O2 Saturation 92.0 % (96.0-97.0) L 01/06/17 14:30 ABG Base Excess -0.4 (-2-2.0) 01/06/17 14:30 A-a Gradient 40 mmHg 01/06/17 14:30 O2 Delivery Device Bipap 10/1301/06/17 14:30 Oxygen Flow Rate 2.0 01/06/17 12:31 FiO2 30.00 % (21.00-100.00) 01/06/17 14:30 Sodium 137 mEq/L (136-145) 01/06/17 05:30 Potassium 5.2 mEq/L (3.5-5.1) H 01/06/17 05:30 Chloride 99 mEq/L (98-107) 01/06/17 05:30 Carbon Dioxide 31 mEq/L (21-32) 01/06/17 05:30 Anion Gap 12.2 (5-15) 01/06/17 05:30 BUN 83 mg/dL (7-18) H 01/06/17 05:30 Creatinine 2.0 mg/dL (0.55-1.02) H 01/06/17 05:30 Est Cr Clr Drug Dosing 22.92 mL/min 01/06/17 05:30 Estimated GFR (MDRD) 25 mL/min (>60) 01/06/17 05:30 BUN/Creatinine Ratio 41.5 (14-18) H 01/06/17 05:30 Glucose 107 mg/dL (80-115) 01/06/17 05:30 POC Glucose 109 mg/dL (80-115) 01/06/17 13:28 Hemoglobin A1c 6.20 % (4.50-6.20) 12/30/16 05:53 Lactic Acid 1.4 mmol/L (0.4-2.0) 01/03/17 11:35 Calcium 8.3 mg/dL (8.5-10.1) L 01/06/17 05:30 Phosphorus 7.2 mg/dL (2.6-4.7) H 01/03/17 18:25 Magnesium 2.6 mg/dl (1.8-2.4) H 01/06/17 05:30 Total Bilirubin 0.4 mg/dL (0.2-1.0) 12/29/16 18:20 AST 23 U/L (15-37) 12/29/16 18:20 ALT 33 U/L (14-59) 12/29/16 18:20 Alkaline Phosphatase 99 U/L (46-116) 12/29/16 18:20 CK-MB (CK-2) 1.3 ng/ml (0-3.6) 01/06/17 09:46 Troponin I < 0.017 ng/mL (0.00-0.056) 01/06/17 09:47 C-Reactive Protein 2.1 mg/dL (<1.0) H* 01/06/17 09:46 B-Natriuretic Peptide 811 pg/mL (0-100) H 01/06/17 05:30 Total Protein 7.3 g/dl (6.4-8.2) 12/29/16 18:20 Albumin 2.9 g/dl (3.4-5.0) L 01/03/17 18:25 Globulin 4.0 gm/dL 12/29/16 18:20 Albumin/Globulin Ratio 0.8 (1-2) L 12/29/16 18:20 Free T4 1.00 ng/dL (0.76-1.46) 12/30/16 05:53 TSH 3rd Generation 3.406 uIU/mL (0.358-3.74) 12/29/16 18:20 Urine Color Yellow (Yellow) 01/06/17 13:50 Urine Appearance Clear (Clear) 01/06/17 13:50 Urine pH 6.0 (5.0-8.0) 01/06/17 13:50 Ur Specific [place] 1.020 (1.005-1.030) 01/06/17 13:50 Urine Protein 1+ (Negative) H 01/06/17 13:50 Urine Glucose (UA) Negative (Negative) 01/06/17 13:50 Urine Ketones Negative (Negative) 01/06/17 13:50 Urine Occult Blood 3+ (Negative) H 01/06/17 13:50 Urine Nitrite Negative (Negative) 01/06/17 13:50 Urine Bilirubin Negative (Negative) 01/06/17 13:50 Urine Urobilinogen 0.2 (0.2-1.0) 01/06/17 13:50 Ur Leukocyte Esterase 2+ (Negative) H 01/06/17 13:50 Urine RBC 40-50 /hpf (0-5) H 01/06/17 13:50 Urine WBC 20-30 /hpf (0-5) H 01/06/17 13:50 Urine WBC Clumps Few /hpf (NOT SEEN) 01/06/17 13:50 Ur Epithelial Cells Not seen /hpf (0-5) 01/06/17 13:50 Ur Squamous Epith Cells 0-5 /hpf (0-5) 01/06/17 13:50 Ur Transition Epith Cell 5-10 (0-5) H 12/30/16 16:40 Ur Renal Epithelial Cell 0-5 /hpf (0-5) 12/30/16 16:40 Amorphous Sediment Few /hpf (NOT SEEN) H 12/30/16 16:40 Urine Bacteria Few /hpf (FEW) 01/06/17 13:50 Urine Mucus Not seen /hpf (FEW) 01/06/17 13:50 Urine Yeast Not seen (NOT SEEN) 12/30/16 16:40 Ur Yeast w Hyphae Few (NOT SEEN) H 01/06/17 13:50 Urine Yeast (Budding) Few (NOT SEEN) H 01/06/17 13:50 - IMAGING/EKG Impressions: Atrial Fibrillation - ALLERGIES Allergies/Adverse Reactions: Allergies Allergy/AdvReac Type Severity Reaction Status Date / Time Penicillins Allergy Rash Verified 12/29/16 17:21 - BLOOD Blood Available: No - ANESTHESIA PLAN Preop Beta Hitesh: No Anesthesia Type Planned: MAC (patient confused and unable to answer questions, family answered questions, unable to do airway assessment with BIPAP in place ) - ACKNOWLEDGEMENTS Pt an appropriate candidate for the planned anesthesia: Yes Alternatives and risks of anesthesia discussed w pt/guardian: Yes Pt/Guardian understands and agree with anesthesia plan: Yes PreAnesthesia Questionnaire HEENT History: Reports: Cataract Cardiovascular History: Reports: High cholesterol, Hypertension 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: , 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 (see below) Other OB/BYN History: 2 c sections Musculoskeletal History: Reports: Arthritis Psychiatric History: Reports: Anxiety, Depression - Past Surgical History HEENT Surgical History: Reports: Cataract surgery Cardiovascular Surgical History: Reports: None GI Surgical History: Reports: Appendectomy, Cholecystectomy - SUBSTANCE USE Smoking Status *Q: Never Smoker Second Hand Smoke Exposure: No Recreational Drug Use History: No - HOME MEDS Home Medications: Home Meds ALPRAZolam [Xanax] 0.5 mg PO QID 12/30/16 [History] Brinzolamide [Azopt 1% Ophth Susp] 1 drop EYEBOTH BID 12/30/16 [History] HCTZ/Triamterene [Maxzide 25-37.5 MG] 25 - 37.5 mg PO DAILY 12/30/16 [History] Sertraline HCl [Zoloft] 100 mg PO DAILY 12/30/16 [History] - CURRENT (IN HOUSE) MEDS Current Meds: Current Medications Acetaminophen (Tylenol) 650 mg PO Q4H PRN PRN Reason: Pain (Mild 1-3)/fever Acetaminophen/Hydrocodone Bitart ([place] 325-5 Mg) 1 tab PO Q4H PRN PRN Reason: Pain (moderate 4-6) Albuterol/Ipratropium (Duoneb 3.0-0.5 Mg/3 Ml) 3 ml NEB Q4H PRN PRN Reason: Shortness Of Breath/wheezing Last Admin: 01/03/17 20:07 Dose: 3 ml Bisacodyl (Dulcolax) 5 mg PO DAILY PRN PRN Reason: Constipation Last Admin: 01/05/17 08:52 Dose: 5 mg Bumetanide (Bumex) 0.5 mg IVPUSH Q12HR [facility] Enoxaparin Sodium (Lovenox) 30 mg SUBCUT DAILY [facility] Last Admin: 01/06/17 11:40 Dose: 30 mg Flunisolide (Nasalide Nasal [place]) 0 ml NASBOTH BID [facility] Last Admin: 01/06/17 14:02 Dose: Not Given Hydromorphone HCl (Dilaudid) 0.25 mg IVPUSH Q2H PRN PRN Reason: Pain (severe 7-10) Dextrose/Sodium Chloride (Dextrose 5%-Normal Saline) 1,000 mls @ 70 mls/hr IV ASDIRECTED [facility] Last Admin: 01/06/17 13:16 Dose: 70 mls/hr Phenylephrine HCl 50 mg/ (Sodium Chloride) 250 mls @ 2 mls/min IV ASDIRECTED [facility] Ceftriaxone Sodium 1 gm/ (Sodium Chloride) 100 mls @ 200 mls/hr IV Q24H [facility] Last Admin: 01/06/17 13:27 Dose: 200 mls/hr Insulin Aspart (Novolog) 0 unit SUBCUT Q6H MIRNA PRN Reason: Protocol Last Admin: 01/06/17 14:02 Dose: Not Given Metoprolol Tartrate (Lopressor) 5 mg IVPUSH Q4H PRN PRN Reason: Tachycardia Last Admin: 01/04/17 13:18 Dose: 5 mg Ondansetron HCl (Zofran) 4 mg IV Q6H PRN PRN Reason: Nausea/Vomiting Brinzolamide (Azopt (Opth Suspension)) 0 each EYEBOTH BID [facility] Last Admin: 01/06/17 09:30 Dose: 1 each Polyethylene Glycol (Miralax) 17 gm PO DAILY PRN PRN Reason: Constipation Senna/Docusate Sodium (Senna Plus) 1 tab PO BID PRN PRN Reason: Constipation Last Admin: 01/05/17 08:52 Dose: 1 tab Sertraline HCl (Zoloft) 150 mg PO BEDTIME [facility] Last Admin: 01/05/17 20:48 Dose: 150 mg Sodium Chloride (Saline Flush) 10 ml FLUSH ASDIRECTED PRN PRN Reason: Keep Vein Open Last Admin: 01/05/17 08:52 Dose: 10 ml Discontinued Medications Alprazolam (Xanax) 0.5 mg PO QID [facility] Last Admin: 12/31/16 09:26 Dose: Not Given Alprazolam (Xanax) 0.5 mg PO BID [facility] Last Admin: 01/02/17 20:05 Dose: Not Given Alprazolam (Xanax) 0.5 mg PO BID PRN PRN Reason: Anxiety Last Admin: 01/04/17 17:08 Dose: 0.5 mg Apixaban (Eliquis) 5 mg PO BID [facility] Last Admin: 01/02/17 20:04 Dose: 5 mg Apixaban (Eliquis) 2.5 mg PO BID [facility] Last Admin: 01/05/17 20:47 Dose: 2.5 mg Bumetanide (Bumex) 0.5 mg IVPUSH ONETIME ONE Stop: 01/04/17 11:49 Last Admin: 01/04/17 12:11 Dose: 0.5 mg Bumetanide (Bumex) 0.5 mg IVPUSH DAILY [facility] Last Admin: 01/05/17 09:14 Dose: 0.5 mg Bumetanide (Bumex) 0.5 mg IVPUSH DAILY@1300 [facility] Last Admin: 01/06/17 13:27 Dose: 0.5 mg Diltiazem HCl (Diltiazem) 10 mg IVPUSH ONETIME ONE Stop: 12/29/16 17:27 Last Admin: 12/29/16 17:48 Dose: 10 mg Diltiazem HCl (Cardizem Cd) 360 mg PO DAILY [facility] Last Admin: 01/01/17 09:23 Dose: 360 mg Diltiazem HCl (Cardizem Cd) 300 mg PO DAILY [facility] Last Admin: 01/02/17 09:45 Dose: 300 mg Diltiazem HCl (Dilacor Xr) 240 mg PO DAILY [facility] Enoxaparin Sodium (Lovenox) 150 mg SUBCUT Q12HR MIRNA Last Admin: 12/30/16 20:09 Dose: Not Given Enoxaparin Sodium (Lovenox) 150 mg SUBCUT ONETIME ONE Stop: 12/29/16 23:21 Last Admin: 12/29/16 23:41 Dose: 150 mg Enoxaparin Sodium (Lovenox) 150 mg SUBCUT Q12HR MIRNA Last Admin: 12/30/16 10:36 Dose: 150 mg Flumazenil (Romazicon) 0.2 mg IVPUSH ONETIME ONE Stop: 01/04/17 19:46 Last Admin: 01/04/17 20:41 Dose: 0.2 mg Furosemide (Lasix) 40 mg PO BIDDIURETIC MIRNA Last Admin: 01/02/17 05:01 Dose: 40 mg Furosemide (Lasix) 40 mg PO DAILY [facility] Furosemide (Lasix) 40 mg PO DAILY [facility] Furosemide (Lasix) 20 mg PO DAILY [facility]NA Hydromorphone HCl (Dilaudid) 0.25 mg IVPUSH Q2H PRN PRN Reason: Pain (severe 7-10) Diltiazem HCl 100 mg/ Sodium (Chloride) 100 mls @ 10 mls/hr IV TITRATE MIRNA; 10 MG/HR PRN Reason: Protocol Last Admin: 12/29/16 18:01 Dose: 10 mg/hr, 10 mls/hr Diltiazem HCl 100 mg/ Sodium (Chloride) 100 mls @ 5 mls/hr IV TITRATE MIRNA; 5 MG /HR PRN Reason: Protocol Last Titration: 12/31/16 10:03 Dose: 0 mg/hr, 0 mls/hr Sodium Chloride (Normal Saline) 100 mls @ 65 mls/hr IV ASDIRECTED [facility]NA Last Admin: 12/29/16 20:11 Dose: 65 mls/hr Promethazine HCl 12.5 mg/ (Sodium Chloride) 50.5 mls @ 100 mls/hr IV Q6H PRN PRN Reason: Nausea/Vomiting Ceftriaxone Sodium 1 gm/ (Sodium Chloride) 100 mls @ 200 mls/hr IV Q24H [facility] Last Admin: 01/02/17 20:21 Dose: 200 mls/hr Sodium Chloride (Normal Saline) Confirm Administered Dose 1,000 mls @ as directed .ROUTE .STK-MED ONE Stop: 01/01/17 15:22 Last Admin: 01/01/17 15:31 Dose: 250 ml Sodium Chloride (Normal Saline) 500 mls @ 250 mls/hr IV .BOLUS ONE Stop: 01/01/17 17:28 Last Admin: 01/01/17 16:59 Dose: 250 mls/hr Norepinephrine Bitartrate 4 mg (/ Dextrose/Water) 250 mls @ 7.5 mls/hr IV TITRATE MIRNA; 2 MCG/MIN PRN Reason: Protocol Last Titration: 01/05/17 17:22 Dose: 0 mcg/min, 0 mls/hr Sodium Chloride (Normal Saline) 1,000 mls @ 25 mls/hr IV ASDIRECTED MIRNA Last Admin: 01/01/17 18:30 Dose: 25 mls/hr Sodium Chloride (Normal Saline) 500 mls @ 500 mls/hr IV ASDIRECTED MIRNA Stop: 01/02/17 14:29 Last Admin: 01/02/17 13:35 Dose: 500 mls/hr Sodium Chloride (Normal Saline) 1,000 mls @ 125 mls/hr IV ASDIRECTED MIRNA Last Admin: 01/03/17 10:10 Dose: 125 mls/hr Sodium Chloride (Normal Saline) 1,000 mls @ 999 mls/hr IV ONETIME ONE Stop: 01/03/17 09:08 Last Admin: 01/03/17 09:10 Dose: 999 mls/hr Sodium Chloride (Normal Saline) 1,000 mls @ 150 mls/hr IV ASDIRECTED MIRNA Last Infusion: 01/04/17 11:59 Dose: 100 mls/hr Levofloxacin/Dextrose 250 mg/ (Premix) 50 mls @ 50 mls/hr IV Q48H [facility]NA Last Admin: 01/05/17 11:41 Dose: 50 mls/hr Sodium Chloride (Normal Saline) 1,000 mls @ 100 mls/hr IV ASDIRECTED MIRNA Last Admin: 01/04/17 13:22 Dose: 100 mls/hr Sodium Chloride (Normal Saline) 1,000 mls @ 25 mls/hr IV ASDIRECTED [facility] Iopamidol (Isovue-370 (76%)) 100 ml IVPUSH ONETIME ONE Stop: 12/29/16 19:47 Last Admin: 12/29/16 20:11 Dose: 100 ml Iopamidol (Isovue-370 (76%)) 50 ml IVPUSH ONETIME ONE Stop: 12/29/16 19:47 Last Admin: 12/29/16 20:11 Dose: 50 ml Lisinopril (Prinivil) 20 mg PO DAILY [facility] Last Admin: 01/02/17 09:10 Dose: Not Given Lorazepam (Ativan) 1 mg IV Q6H PRN PRN Reason: Nausea/Vomiting Metoprolol Tartrate (Lopressor) 25 mg PO Q12HR [facility] Last Admin: 01/03/17 21:03 Dose: 25 mg Metoprolol Tartrate (Lopressor) 25 mg PO Q12HR [facility] Last Admin: 01/05/17 08:51 Dose: 25 mg Midodrine (Midodrine) 5 mg PO STAT ONE Stop: 01/01/17 15:07 Last Admin: 01/01/17 15:10 Dose: 5 mg Modafinil (Provigil) 200 mg PO DAILY [facility] Last Admin: 01/05/17 08:51 Dose: 200 mg Phenylephrine HCl (Phenylephrine In Ns 100 Mcg/Ml) 0 mg IV SEECOMMENT PRN; Protocol PRN Reason: Hypotension Sertraline HCl (Zoloft) 100 mg PO QID [facility] Last Admin: 12/30/16 20:10 Dose: Not Given Sertraline HCl (Zoloft) 100 mg PO DAILY [facility] Last Admin: 12/31/16 14:40 Dose: Not Given Sertraline HCl (Zoloft) 100 mg PO BEDTIME [facility] Last Admin: 01/03/17 21:03 Dose: 100 mg Sodium Chloride (Saline Flush) 10 ml FLUSH ONETIME PRN PRN Reason: IV FLUSH Last Admin: 12/29/16 20:11 Dose: 10 ml Temazepam (Restoril) 30 mg PO BEDTIME PRN PRN Reason: Sleep Temazepam (Restoril) 30 mg PO BEDTIME PRN PRN Reason: Sleep Last Admin: 01/02/17 01:15 Dose: 30 mg Triamterene/HCTZ (Maxzide 25-37.5 Mg) 1 each PO DAILY MIRNA Last Admin: 12/31/16 09:27 Dose: 1 each
[2017-01-06] MEDS ORDERED: Sodium Chloride 0.9% 1,000 ML ONE ×3 (17:14→22:21)
[2017-01-06] MEDS ORDERED: Lidocaine 1% 50 ML MDV ONE (17:36)
--- NOTE | 2017-01-06 18:50 | CR ---
Chest: Portable view of the chest was obtained. Comparison: Previous chest x-ray of 01/05/17. Heart is enlarged. Pulmonary vessels are mildly congested. No central line is appreciated. Impression: 1. Findings as noted above which are stable from previous study. 2. No central line is appreciated. No portable evidence of pneumothorax. Diagnostic code #3
--- NOTE | 2017-01-06 19:26 | PCM.PN ---
- General Info Date of Service: 01/06/17 Functional Status: Reports: urinating - Review of Systems General: Reports: No Symptoms HEENT: Reports: no symptoms Pulmonary: Reports: shortness of breath Cardiovascular: Reports: No Symptoms Gastrointestinal: Reports: No symptoms Genitourinary: Reports: no symptoms Musculoskeletal: Reports: no symptoms Skin: Reports: no symptoms Neurological: Reports: No Symptoms Psychiatric: Reports: no symptoms - Patient Data Vitals - most recent: Last Vital Signs Temp 35.9 C 01/06/17 16:38 Pulse 95 01/06/17 16:38 Resp 19 01/06/17 16:38 BP 102/67 01/06/17 16:38 Pulse Ox 99 01/06/17 16:38 Weight - most recent: 170.188 kg I&O - last 24 hours: Intake & Output 01/06/17 01/06/17 01/06/17 06:59 14:59 22:59 Intake Total 363 0 Output Total 195 610 210 Balance -195 -247 -210 Lab Results last 24 hrs: Laboratory Results - last 24 hr 01/06/17 01/06/17 01/06/17 Range/Units 05:30 05:30 05:30 WBC 13.01 H (3.98-10.04) K/mm3 RBC 4.92 (3.98-5.22) M/mm3 Hgb 14.4 (11.2-15.7) gm/L Hct 48.3 H (34.1-44.9) % MCV 98.2 H (79.4-94.8) fl MCH 29.3 (25.6-32.2) pg MCHC 29.8 L (32.2-35.5) g/dl RDW Std Deviation 51.4 H (36.4-46.3) fL Plt Count 234 (182-369) K/mm3 MPV 11.8 (9.4-12.3) fl Neut % (Auto) 85.8 H (34.0-71.1) % Lymph % (Auto) 3.8 L (19.3-51.7) % Wallace % (Auto) 9.6 (4.7-12.5) % Eos % (Auto) 0.2 L (0.7-5.8) Baso % (Auto) 0.1 (0.1-1.2) % Neut # 11.16 H (1.56-6.13) K/mm3 Lymph # 0.49 L (1.18-3.74) K/mm3 Wallace # 1.25 H (0.24-0.36) K/mm3 Eos # 0.03 L (0.04-0.36) K/mm3 Baso # 0.01 (0.01-0.08) K/mm3 Manual Slide Review Abnormal smear Puncture Site ABG pH (7.35-7.45) ABG pCO2 (35.0-45.0) mmHg ABG pO2 (80.0-100.0) mmHg ABG HCO3 (22.0-26.0) meq/L ABG O2 Saturation (96.0-97.0) % ABG Base Excess (-2-2.0) A-a Gradient mmHg O2 Delivery Device Oxygen Flow Rate FiO2 (21.00-100.00) % Sodium 137 (136-145) mEq/L Potassium 5.2 H (3.5-5.1) mEq/L Chloride 99 (98-107) mEq/L Carbon Dioxide 31 (21-32) mEq/L Anion Gap 12.2 (5-15) BUN 83 H (7-18) mg/dL Creatinine 2.0 H (0.55-1.02) mg/dL Est Cr Clr Drug Dosing 22.92 mL/min Estimated GFR (MDRD) 25 (>60) mL/min BUN/Creatinine Ratio 41.5 H (14-18) Glucose 107 (80-115) mg/dL POC Glucose (80-115) mg/dL Calcium 8.3 L (8.5-10.1) mg/dL Magnesium 2.6 H (1.8-2.4) mg/dl CK-MB (CK-2) (0-3.6) ng/ml Troponin I (0.00-0.056) ng/mL C-Reactive Protein (<1.0) mg/dL B-Natriuretic Peptide 811 H (0-100) pg/mL Urine Color (Yellow) Urine Appearance (Clear) Urine pH (5.0-8.0) Ur Specific [place] (1.005-1.030) Urine Protein (Negative) Urine Glucose (UA) (Negative) Urine Ketones (Negative) Urine Occult Blood (Negative) Urine Nitrite (Negative) Urine Bilirubin (Negative) Urine Urobilinogen (0.2-1.0) Ur Leukocyte Esterase (Negative) Urine RBC (0-5) /hpf Urine WBC (0-5) /hpf Urine WBC Clumps (NOT SEEN) /hpf Ur Epithelial Cells (0-5) /hpf Ur Squamous Epith Cells (0-5) /hpf Urine Bacteria (FEW) /hpf Urine Mucus (FEW) /hpf Ur Yeast w Hyphae (NOT SEEN) Urine Yeast (Budding) (NOT SEEN) 01/06/17 01/06/17 01/06/17 Range/Units 09:46 09:46 09:47 WBC (3.98-10.04) K/mm3 RBC (3.98-5.22) M/mm3 Hgb (11.2-15.7) gm/L Hct (34.1-44.9) % MCV (79.4-94.8) fl MCH (25.6-32.2) pg MCHC (32.2-35.5) g/dl RDW Std Deviation (36.4-46.3) fL Plt Count (182-369) K/mm3 MPV (9.4-12.3) fl Neut % (Auto) (34.0-71.1) % Lymph % (Auto) (19.3-51.7) % Wallace % (Auto) (4.7-12.5) % Eos % (Auto) (0.7-5.8) Baso % (Auto) (0.1-1.2) % Neut # (1.56-6.13) K/mm3 Lymph # (1.18-3.74) K/mm3 Wallace # (0.24-0.36) K/mm3 Eos # (0.04-0.36) K/mm3 Baso # (0.01-0.08) K/mm3 Manual Slide Review Puncture Site ABG pH (7.35-7.45) ABG pCO2 (35.0-45.0) mmHg ABG pO2 (80.0-100.0) mmHg ABG HCO3 (22.0-26.0) meq/L ABG O2 Saturation (96.0-97.0) % ABG Base Excess (-2-2.0) A-a Gradient mmHg O2 Delivery Device Oxygen Flow Rate FiO2 (21.00-100.00) % Sodium (136-145) mEq/L Potassium (3.5-5.1) mEq/L Chloride (98-107) mEq/L Carbon Dioxide (21-32) mEq/L Anion Gap (5-15) BUN (7-18) mg/dL Creatinine (0.55-1.02) mg/dL Est Cr Clr Drug Dosing mL/min Estimated GFR (MDRD) (>60) mL/min BUN/Creatinine Ratio (14-18) Glucose (80-115) mg/dL POC Glucose (80-115) mg/dL Calcium (8.5-10.1) mg/dL Magnesium (1.8-2.4) mg/dl CK-MB (CK-2) 1.3 (0-3.6) ng/ml Troponin I < 0.017 (0.00-0.056) ng/mL C-Reactive Protein 2.1 H* (<1.0) mg/dL B-Natriuretic Peptide (0-100) pg/mL Urine Color (Yellow) Urine Appearance (Clear) Urine pH (5.0-8.0) Ur Specific [place] (1.005-1.030) Urine Protein (Negative) Urine Glucose (UA) (Negative) Urine Ketones (Negative) Urine Occult Blood (Negative) Urine Nitrite (Negative) Urine Bilirubin (Negative) Urine Urobilinogen (0.2-1.0) Ur Leukocyte Esterase (Negative) Urine RBC (0-5) /hpf Urine WBC (0-5) /hpf Urine WBC Clumps (NOT SEEN) /hpf Ur Epithelial Cells (0-5) /hpf Ur Squamous Epith Cells (0-5) /hpf Urine Bacteria (FEW) /hpf Urine Mucus (FEW) /hpf Ur Yeast w Hyphae (NOT SEEN) Urine Yeast (Budding) (NOT SEEN) 01/06/17 01/06/17 01/06/17 Range/Units 12:31 13:28 13:50 WBC (3.98-10.04) K/mm3 RBC (3.98-5.22) M/mm3 Hgb (11.2-15.7) gm/L Hct (34.1-44.9) % MCV (79.4-94.8) fl MCH (25.6-32.2) pg MCHC (32.2-35.5) g/dl RDW Std Deviation (36.4-46.3) fL Plt Count (182-369) K/mm3 MPV (9.4-12.3) fl Neut % (Auto) (34.0-71.1) % Lymph % (Auto) (19.3-51.7) % Wallace % (Auto) (4.7-12.5) % Eos % (Auto) (0.7-5.8) Baso % (Auto) (0.1-1.2) % Neut # (1.56-6.13) K/mm3 Lymph # (1.18-3.74) K/mm3 Wallace # (0.24-0.36) K/mm3 Eos # (0.04-0.36) K/mm3 Baso # (0.01-0.08) K/mm3 Manual Slide Review Puncture Site Rt radial ABG pH 7.18 L* (7.35-7.45) ABG pCO2 82.9 H* (35.0-45.0) mmHg ABG pO2 75.0 L (80.0-100.0) mmHg ABG HCO3 29.5 H (22.0-26.0) meq/L ABG O2 Saturation 93.4 L (96.0-97.0) % ABG Base Excess -1.5 (-2-2.0) A-a Gradient 10 mmHg O2 Delivery Device Nasal cannula Oxygen Flow Rate 2.0 FiO2 28.00 (21.00-100.00) % Sodium (136-145) mEq/L Potassium (3.5-5.1) mEq/L Chloride (98-107) mEq/L Carbon Dioxide (21-32) mEq/L Anion Gap (5-15) BUN (7-18) mg/dL Creatinine (0.55-1.02) mg/dL Est Cr Clr Drug Dosing mL/min Estimated GFR (MDRD) (>60) mL/min BUN/Creatinine Ratio (14-18) Glucose (80-115) mg/dL POC Glucose 109 (80-115) mg/dL Calcium (8.5-10.1) mg/dL Magnesium (1.8-2.4) mg/dl CK-MB (CK-2) (0-3.6) ng/ml Troponin I (0.00-0.056) ng/mL C-Reactive Protein (<1.0) mg/dL B-Natriuretic Peptide (0-100) pg/mL Urine Color Yellow (Yellow) Urine Appearance Clear (Clear) Urine pH 6.0 (5.0-8.0) Ur Specific [place] 1.020 (1.005-1.030) Urine Protein 1+ H (Negative) Urine Glucose (UA) Negative (Negative) Urine Ketones Negative (Negative) Urine Occult Blood 3+ H (Negative) Urine Nitrite Negative (Negative) Urine Bilirubin Negative (Negative) Urine Urobilinogen 0.2 (0.2-1.0) Ur Leukocyte Esterase 2+ H (Negative) Urine RBC 40-50 H (0-5) /hpf Urine WBC 20-30 H (0-5) /hpf Urine WBC Clumps Few (NOT SEEN) /hpf Ur Epithelial Cells Not seen (0-5) /hpf Ur Squamous Epith Cells 0-5 (0-5) /hpf Urine Bacteria Few (FEW) /hpf Urine Mucus Not seen (FEW) /hpf Ur Yeast w Hyphae Few H (NOT SEEN) Urine Yeast (Budding) Few H (NOT SEEN) 01/06/17 01/06/17 Range/Units 14:30 18:42 WBC (3.98-10.04) K/mm3 RBC (3.98-5.22) M/mm3 Hgb (11.2-15.7) gm/L Hct (34.1-44.9) % MCV (79.4-94.8) fl MCH (25.6-32.2) pg MCHC (32.2-35.5) g/dl RDW Std Deviation (36.4-46.3) fL Plt Count (182-369) K/mm3 MPV (9.4-12.3) fl Neut % (Auto) (34.0-71.1) % Lymph % (Auto) (19.3-51.7) % Wallace % (Auto) (4.7-12.5) % Eos % (Auto) (0.7-5.8) Baso % (Auto) (0.1-1.2) % Neut # (1.56-6.13) K/mm3 Lymph # (1.18-3.74) K/mm3 Wallace # (0.24-0.36) K/mm3 Eos # (0.04-0.36) K/mm3 Baso # (0.01-0.08) K/mm3 Manual Slide Review Puncture Site Rt radial Rt radial ABG pH 7.21 L 7.21 L (7.35-7.45) ABG pCO2 77.1 H* 77.8 H* (35.0-45.0) mmHg ABG pO2 66.0 L 62.0 L (80.0-100.0) mmHg ABG HCO3 29.8 H 30.3 H (22.0-26.0) meq/L ABG O2 Saturation 92.0 L 91.9 L (96.0-97.0) % ABG Base Excess -0.4 0.0 (-2-2.0) A-a Gradient 40 43 mmHg O2 Delivery Device Bipap 12/6 Bipap 12/6 Oxygen Flow Rate FiO2 30.00 30.00 (21.00-100.00) % Sodium (136-145) mEq/L Potassium (3.5-5.1) mEq/L Chloride (98-107) mEq/L Carbon Dioxide (21-32) mEq/L Anion Gap (5-15) BUN (7-18) mg/dL Creatinine (0.55-1.02) mg/dL Est Cr Clr Drug Dosing mL/min Estimated GFR (MDRD) (>60) mL/min BUN/Creatinine Ratio (14-18) Glucose (80-115) mg/dL POC Glucose (80-115) mg/dL Calcium (8.5-10.1) mg/dL Magnesium (1.8-2.4) mg/dl CK-MB (CK-2) (0-3.6) ng/ml Troponin I (0.00-0.056) ng/mL C-Reactive Protein (<1.0) mg/dL B-Natriuretic Peptide (0-100) pg/mL Urine Color (Yellow) Urine Appearance (Clear) Urine pH (5.0-8.0) Ur Specific [place] (1.005-1.030) Urine Protein (Negative) Urine Glucose (UA) (Negative) Urine Ketones (Negative) Urine Occult Blood (Negative) Urine Nitrite (Negative) Urine Bilirubin (Negative) Urine Urobilinogen (0.2-1.0) Ur Leukocyte Esterase (Negative) Urine RBC (0-5) /hpf Urine WBC (0-5) /hpf Urine WBC Clumps (NOT SEEN) /hpf Ur Epithelial Cells (0-5) /hpf Ur Squamous Epith Cells (0-5) /hpf Urine Bacteria (FEW) /hpf Urine Mucus (FEW) /hpf Ur Yeast w Hyphae (NOT SEEN) Urine Yeast (Budding) (NOT SEEN) Charly Results last 24 hrs: Microbiology 01/02/17 09:41 Aerobic Blood Culture - Preliminary Blood - Venous NO GROWTH AFTER 4 DAYS Anaerobic Blood Culture - Final Med Orders - Current: Current Medications Acetaminophen (Tylenol) 650 mg PO Q4H PRN PRN Reason: Pain (Mild 1-3)/fever Acetaminophen/Hydrocodone Bitart ([place] 325-5 Mg) 1 tab PO Q4H PRN PRN Reason: Pain (moderate 4-6) Albuterol/Ipratropium (Duoneb 3.0-0.5 Mg/3 Ml) 3 ml NEB Q4H PRN PRN Reason: Shortness Of Breath/wheezing Last Admin: 01/03/17 20:07 Dose: 3 ml Bisacodyl (Dulcolax) 5 mg PO DAILY PRN PRN Reason: Constipation Last Admin: 01/05/17 08:52 Dose: 5 mg Bumetanide (Bumex) 0.5 mg IVPUSH Q12HR [facility] Enoxaparin Sodium (Lovenox) 30 mg SUBCUT DAILY [facility] Last Admin: 01/06/17 11:40 Dose: 30 mg Flunisolide (Nasalide Nasal Percy) 0 ml NASBOTH BID [facility] Last Admin: 01/06/17 14:02 Dose: Not Given Hydromorphone HCl (Dilaudid) 0.25 mg IVPUSH Q2H PRN PRN Reason: Pain (severe 7-10) Dextrose/Sodium Chloride (Dextrose 5%-Normal Saline) 1,000 mls @ 70 mls/hr IV ASDIRECTED [facility] Last Admin: 01/06/17 13:16 Dose: 70 mls/hr Phenylephrine HCl 50 mg/ (Sodium Chloride) 250 mls @ 2 mls/min IV ASDIRECTED [facility] Ceftriaxone Sodium 1 gm/ (Sodium Chloride) 100 mls @ 200 mls/hr IV Q24H [facility] Last Admin: 01/06/17 13:27 Dose: 200 mls/hr Insulin Aspart (Novolog) 0 unit SUBCUT Q6H MIRNA PRN Reason: Protocol Last Admin: 01/06/17 14:02 Dose: Not Given Metoprolol Tartrate (Lopressor) 5 mg IVPUSH Q4H PRN PRN Reason: Tachycardia Last Admin: 01/04/17 13:18 Dose: 5 mg Ondansetron HCl (Zofran) 4 mg IV Q6H PRN PRN Reason: Nausea/Vomiting Brinzolamide (Azopt (Opth Suspension)) 0 each EYEBOTH BID [facility] Last Admin: 01/06/17 09:30 Dose: 1 each Polyethylene Glycol (Miralax) 17 gm PO DAILY PRN PRN Reason: Constipation Senna/Docusate Sodium (Senna Plus) 1 tab PO BID PRN PRN Reason: Constipation Last Admin: 01/05/17 08:52 Dose: 1 tab Sertraline HCl (Zoloft) 150 mg PO BEDTIME [facility] Last Admin: 01/05/17 20:48 Dose: 150 mg Sodium Chloride (Saline Flush) 10 ml FLUSH ASDIRECTED PRN PRN Reason: Keep Vein Open Last Admin: 01/05/17 08:52 Dose: 10 ml Discontinued Medications Alprazolam (Xanax) 0.5 mg PO QID [facility] Last Admin: 12/31/16 09:26 Dose: Not Given Alprazolam (Xanax) 0.5 mg PO BID [facility] Last Admin: 01/02/17 20:05 Dose: Not Given Alprazolam (Xanax) 0.5 mg PO BID PRN PRN Reason: Anxiety Last Admin: 01/04/17 17:08 Dose: 0.5 mg Apixaban (Eliquis) 5 mg PO BID [facility] Last Admin: 01/02/17 20:04 Dose: 5 mg Apixaban (Eliquis) 2.5 mg PO BID [facility] Last Admin: 01/05/17 20:47 Dose: 2.5 mg Bumetanide (Bumex) 0.5 mg IVPUSH ONETIME ONE Stop: 01/04/17 11:49 Last Admin: 01/04/17 12:11 Dose: 0.5 mg Bumetanide (Bumex) 0.5 mg IVPUSH DAILY [facility] Last Admin: 01/05/17 09:14 Dose: 0.5 mg Bumetanide (Bumex) 0.5 mg IVPUSH DAILY@1300 MIRNA Last Admin: 01/06/17 13:27 Dose: 0.5 mg Diltiazem HCl (Diltiazem) 10 mg IVPUSH ONETIME ONE Stop: 12/29/16 17:27 Last Admin: 12/29/16 17:48 Dose: 10 mg Diltiazem HCl (Cardizem Cd) 360 mg PO DAILY [facility] Last Admin: 01/01/17 09:23 Dose: 360 mg Diltiazem HCl (Cardizem Cd) 300 mg PO DAILY [facility] Last Admin: 01/02/17 09:45 Dose: 300 mg Diltiazem HCl (Dilacor Xr) 240 mg PO DAILY [facility] Enoxaparin Sodium (Lovenox) 150 mg SUBCUT Q12HR [facility] Last Admin: 12/30/16 20:09 Dose: Not Given Enoxaparin Sodium (Lovenox) 150 mg SUBCUT ONETIME ONE Stop: 12/29/16 23:21 Last Admin: 12/29/16 23:41 Dose: 150 mg Enoxaparin Sodium (Lovenox) 150 mg SUBCUT Q12HR [facility] Last Admin: 12/30/16 10:36 Dose: 150 mg Flumazenil (Romazicon) 0.2 mg IVPUSH ONETIME ONE Stop: 01/04/17 19:46 Last Admin: 01/04/17 20:41 Dose: 0.2 mg Furosemide (Lasix) 40 mg PO BIDDIURETIC [facility] Last Admin: 01/02/17 05:01 Dose: 40 mg Furosemide (Lasix) 40 mg PO DAILY [facility]IR[facility] Furosemide (Lasix) 40 mg PO DAILY MIR[facility] Furosemide (Lasix) 20 mg PO DAILY [facility] Hydromorphone HCl (Dilaudid) 0.25 mg IVPUSH Q2H PRN PRN Reason: Pain (severe 7-10) Diltiazem HCl 100 mg/ Sodium (Chloride) 100 mls @ 10 mls/hr IV TITRATE MIRNA; 10 MG/HR PRN Reason: Protocol Last Admin: 12/29/16 18:01 Dose: 10 mg/hr, 10 mls/hr Diltiazem HCl 100 mg/ Sodium (Chloride) 100 mls @ 5 mls/hr IV TITRATE MIRNA; 5 MG /HR PRN Reason: Protocol Last Titration: 12/31/16 10:03 Dose: 0 mg/hr, 0 mls/hr Sodium Chloride (Normal Saline) 100 mls @ 65 mls/hr IV ASDIRECTED MIRNA Last Admin: 12/29/16 20:11 Dose: 65 mls/hr Promethazine HCl 12.5 mg/ (Sodium Chloride) 50.5 mls @ 100 mls/hr IV Q6H PRN PRN Reason: Nausea/Vomiting Ceftriaxone Sodium 1 gm/ (Sodium Chloride) 100 mls @ 200 mls/hr IV Q24H MIRNA Last Admin: 01/02/17 20:21 Dose: 200 mls/hr Sodium Chloride (Normal Saline) Confirm Administered Dose 1,000 mls @ as directed .ROUTE .STK-MED ONE Stop: 01/01/17 15:22 Last Admin: 01/01/17 15:31 Dose: 250 ml Sodium Chloride (Normal Saline) 500 mls @ 250 mls/hr IV .BOLUS ONE Stop: 01/01/17 17:28 Last Admin: 01/01/17 16:59 Dose: 250 mls/hr Norepinephrine Bitartrate 4 mg (/ Dextrose/Water) 250 mls @ 7.5 mls/hr IV TITRATE MIRNA; 2 MCG/MIN PRN Reason: Protocol Last Titration: 01/05/17 17:22 Dose: 0 mcg/min, 0 mls/hr Sodium Chloride (Normal Saline) 1,000 mls @ 25 mls/hr IV ASDIRECTED MIRNA Last Admin: 01/01/17 18:30 Dose: 25 mls/hr Sodium Chloride (Normal Saline) 500 mls @ 500 mls/hr IV ASDIRECTED MIRNA Stop: 01/02/17 14:29 Last Admin: 01/02/17 13:35 Dose: 500 mls/hr Sodium Chloride (Normal Saline) 1,000 mls @ 125 mls/hr IV ASDIRECTED MIRNA Last Admin: 01/03/17 10:10 Dose: 125 mls/hr Sodium Chloride (Normal Saline) 1,000 mls @ 999 mls/hr IV ONETIME ONE Stop: 01/03/17 09:08 Last Admin: 01/03/17 09:10 Dose: 999 mls/hr Sodium Chloride (Normal Saline) 1,000 mls @ 150 mls/hr IV ASDIRECTED MIRNA Last Infusion: 01/04/17 11:59 Dose: 100 mls/hr Levofloxacin/Dextrose 250 mg/ (Premix) 50 mls @ 50 mls/hr IV Q48H [facility] Last Admin: 01/05/17 11:41 Dose: 50 mls/hr Sodium Chloride (Normal Saline) 1,000 mls @ 100 mls/hr IV ASDIRECTED [facility] Last Admin: 01/04/17 13:22 Dose: 100 mls/hr Sodium Chloride (Normal Saline) 1,000 mls @ 25 mls/hr IV ASDIRECTED [facility] Sodium Chloride (Normal Saline) Confirm Administered Dose 1,000 mls @ as directed .ROUTE .[facility] ONE Stop: 01/06/17 17:15 Sodium Chloride (Normal Saline) Confirm Administered Dose 1,000 mls @ as directed .ROUTE .[facility] ONE Stop: 01/06/17 18:54 Iopamidol (Isovue-370 (76%)) 100 ml IVPUSH ONETIME ONE Stop: 12/29/16 19:47 Last Admin: 12/29/16 20:11 Dose: 100 ml Iopamidol (Isovue-370 (76%)) 50 ml IVPUSH ONETIME ONE Stop: 12/29/16 19:47 Last Admin: 12/29/16 20:11 Dose: 50 ml Lidocaine HCl (Xylocaine 1%) Confirm Administered Dose 50 ml .ROUTE .[facility] ONE Stop: 01/06/17 17:37 Lisinopril (Prinivil) 20 mg PO DAILY [facility] Last Admin: 01/02/17 09:10 Dose: Not Given Lorazepam (Ativan) 1 mg IV Q6H PRN PRN Reason: Nausea/Vomiting Metoprolol Tartrate (Lopressor) 25 mg PO Q12HR [facility] Last Admin: 01/03/17 21:03 Dose: 25 mg Metoprolol Tartrate (Lopressor) 25 mg PO Q12HR [facility] Last Admin: 01/05/17 08:51 Dose: 25 mg Midodrine (Midodrine) 5 mg PO STAT ONE Stop: 01/01/17 15:07 Last Admin: 01/01/17 15:10 Dose: 5 mg Modafinil (Provigil) 200 mg PO DAILY [facility] Last Admin: 01/05/17 08:51 Dose: 200 mg Phenylephrine HCl (Phenylephrine In Ns 100 Mcg/Ml) 0 mg IV SEECOMMENT PRN; Protocol PRN Reason: Hypotension Sertraline HCl (Zoloft) 100 mg PO QID [facility] Last Admin: 12/30/16 20:10 Dose: Not Given Sertraline HCl (Zoloft) 100 mg PO DAILY [facility] Last Admin: 12/31/16 14:40 Dose: Not Given Sertraline HCl (Zoloft) 100 mg PO BEDTIME [facility] Last Admin: 01/03/17 21:03 Dose: 100 mg Sodium Chloride (Saline Flush) 10 ml FLUSH ONETIME PRN PRN Reason: IV FLUSH Last Admin: 12/29/16 20:11 Dose: 10 ml Sodium Chloride (Normal Saline) Confirm Administered Dose 50 ml .ROUTE .STK-MED ONE Stop: 01/06/17 16:23 Sodium Chloride (Normal Saline) Confirm Administered Dose 50 ml .ROUTE .STK-MED ONE Stop: 01/06/17 16:56 Sodium Chloride (Normal Saline) Confirm Administered Dose 50 ml .ROUTE .STK-MED ONE Stop: 01/06/17 17:12 Temazepam (Restoril) 30 mg PO BEDTIME PRN PRN Reason: Sleep Temazepam (Restoril) 30 mg PO BEDTIME PRN PRN Reason: Sleep Last Admin: 01/02/17 01:15 Dose: 30 mg Triamterene/HCTZ (Maxzide 25-37.5 Mg) 1 each PO DAILY [facility] Last Admin: 12/31/16 09:27 Dose: 1 each - Exam Quality Assessment: supplemental oxygen, urine catheter, DVT prophylaxis General: lethargic HEENT: Pupils equal, Pupils reactive Neck: trachea midline Lungs: Decreased breath sounds, Rhonchi, Wheezing Cardiovascular: Irregular Rhythm, Tachycardia Abdomen: bowel sounds present, soft, tenderness (RUQ) (Female) Exam: Deferred Extremities: normal pulses, edema (bilatreal LE) Skin: warm Neurological: no new focal deficit Psy/Mental Status: other (spontaneous eye opening) - Problem List Review Problem List Initiated/Reviewed/Updated: Yes - My Orders Last 24 Hours: My Active Orders 01/06/17 07:04 CA 125 [REF] Routine 01/06/17 10:33 Antiembolic Devices [RC] PER UNIT ROUTINE Sequential Compression Device [OM.PC] Routine 01/06/17 10:34 Consult to Physician [CONS] Routine 01/06/17 10:35 Notify Provider Consults [RC] ASDIRECTED Abdomen Pelvis wo Cont [CT] Routine 01/06/17 10:36 Consult to Speech Language Pathology [FLIGHT MECHANIC Evaluation and Treatment] [CONS] Routine 01/06/17 10:45 Dextrose 5%-0.9% NaCl [Dextrose 5%-Normal Saline] 1,000 ml IV ASDIRECTED Enoxaparin [Lovenox] 30 mg SUBCUT DAILY 01/06/17 11:30 Phenylephrine [Shaw-Synephrine] 50 mg Sodium Chloride 0.9% [Normal Saline] 245 ml IV ASDIRECTED 01/06/17 12:00 Blood Glucose Check, Bedside [RC] Q6HR Insulin Aspart [NovoLOG] See Protocol SUBCUT Q6H 01/06/17 12:45 cefTRIAXone [Rocephin] 1 gm Sodium Chloride 0.9% [Normal Saline] 100 ml IV Q24H 01/06/17 13:40 BiPAP [RESPCARE] Routine 01/06/17 14:10 RT BiPAP/CPAP [RC] ASDIRECTED 01/06/17 18:00 CEA [REF] Routine D Dimer [D-DIMER QUANTITATIVE] [COAG] Routine 01/06/17 Lunch NPO [Nothing Per Oral Diet] [DIET] 01/07/17 01:00 Bumetanide [Bumex] 0.5 mg IVPUSH Q12HR 01/07/17 07:00 CBC W/O DIFF,HEMOGRAM [HEME] MOTH@0700 01/07/17 08:00 Transvaginal Non OB [US] Routine 01/11/17 07:00 CBC W/O DIFF,HEMOGRAM [HEME] MOTH@0700 01/14/17 07:00 CBC W/O DIFF,HEMOGRAM [HEME] MOTH@0700 01/18/17 07:00 CBC W/O DIFF,HEMOGRAM [HEME] MOTH@0700 01/21/17 07:00 CBC W/O DIFF,HEMOGRAM [HEME] MOTH@0700 01/25/17 07:00 CBC W/O DIFF,HEMOGRAM [HEME] MOTH@0700 - Plan Plan:: Assessment/Plan Acute: Sepsis with Hypotension - 2/2 UA - Proteus Mirabilis and Group B strep - Both sensitive to Levaquin - Pressor as needed, tittrate to MAP 65 New onset of A-Fib, HR is controlled in the 90s to low 100s - No previous hx in the past - LAVONNE VASC Score: 0 Low risk of thromboembolic event. 1.9% risk of event per year if no coumadin. The adjusted stroke rate was the expected stroke rate per 100 person-years derived from the multivariable model assuming that aspirin was not taken - Continue Eliquis to 2.5 mg po BID for stroke prophylaxis due to decreased renal function - FT4 is 1: wnl - 2D echo: LVEF 35-40% - Metoprolol for rate control Acute Heart Failure with Reduced EF at 35-40% - Right Sided Pleural Effusion on CT scan - Small-Moderate Size - 2D echo: as noted above - Follow up CXR: persistent pleural effusion - HF: protocol: - Follow up Cardiology after discharge - Bumex 0.5 mg IVP, support diuresis Right Sided Pleural Effusion - Stable - Follow CXR: stable mild cardiomegaly and pulmonary congestion Acute Kidney Injury w/ Urinary Retention - 2/2 Intravascular Volume Depletion: poor oral intake, fluid restriction and over diurese - Maintain IVF rate - Renal U/S: noted for medical renal disease - Atkins catheter for strict Is/OS Leukoctyosis - WBC 13.30--> 12.24--> 13.59--> 11.48 - UTI - MICHAEL AMS/Slow Attention Span/Delirium - This is now 2/2 critical illness - On Xanax Q4 daily, will resume it bid - Thyroid panel is normal - Provigil 200 mg po daily, stopped - Head CT scan to r/o Stroke - D/c Restoril Morbid Obesity with BMI 64.4 - Dietary consult for weight management Probable MICHAEL - Recommend Sleep Study after discharge - Advised to lose weight Resolved: S/p Mild Left Sided Nose Bleed - Will trim nasal prongs - She is on mckenna-supplemental O2 - Saline spray BID on each nostril S/p Secondary Polycythemia - Hgb 15.8--> 15.6: wnl--> 15.8--> 14/7 - This likely related to extreme obesity and MICHAEL/OHS - Monitor S/p Acute Cystitis - UA pos UTI - CRP 1.5 - CX: Proteus Mirabilis and Group B Strep - Group B Strep sensitive to Levaquin - D/c Rocephin and will Start Low dose Levaquin Chronic: OA/DJD Anxiety Depression Plan: Worsening hemodynamic picture, will call for possible transfer to [facility] Continue current treatment, stable as much as possible; address possibility of intubation with family. Family to be arranged. Routine AM Labs Continue PT/OT NPO for now except meds, aspiration precautions SW/CM for d/c planning Recommend SNF/Rehab after discharge Additional orders as above Code Status: 1 Prognosis: Guarded LOS > 96 hrs due to complexity of current medical illness, patient requires more time with treatment
--- NOTE | 2017-01-06 19:43 | PCM48HPAN ---
Post Anesthesia Note - EVALUATION WITHIN 48HRS OF ANESTHETIC Vital Signs in Normal Range: Yes Patient Participated in Evaluation: No (patient confused preoperatively ) Respiratory Function Stable: Yes (stable on bipap, same condition as preop ) Airway Patent: Yes Cardiovascular Function Stable: Yes (A.fib RVR preop ) Hydration Status Stable: Yes Pain Control Satisfactory: Yes Nausea and Vomiting Control Satisfactory: Yes Mental Status Recovered: Yes (same as preop )
[2017-01-06] MEDS: Metoprolol Tartrate 5 MG/5 ML SDV IVPUSH PRN (20:09)
[2017-01-06] MEDS: Sertraline 50 MG Tab PO SCH (21:00)
--- NOTE | 2017-01-06 21:30 | PCM.SN ---
- Free Text/Narrative Note: [id number] Multiple attempts under ultrasound guidance to place a PICC line right upper arm by 2 PERMIT AGENT's at bedside in patient's ICU room. Unable to get flash back of blood return. Provider requested arterial line. Pulse palpated. Flash back of blood with arrow catheter, threaded catheter. No waveform on monitor. Appeared to be in a vein. Unable to salvage catheter to utilize as a PIV. Pressure applied to site once catheter removed. Gauze with pressured tape applied to site. Informed at bedside of events that occurred and unability to secure venous or arterial access. - Baldo Ramos CRNA & Alycia Hernandez CRNA
[2017-01-06] MEDS ORDERED: Sodium Chloride 0.9% 1,000 ML IV SCH (22:30)
[2017-01-06] MEDS ORDERED: Succinylcholine 200 MG/10 ML MDV ONE (23:00)
[2017-01-06] MEDS ORDERED: Propofol 200 MG/20 ML SDV ONE (23:00)
[2017-01-06] MEDS ORDERED: Ketamine 500 mg/10 ML MDV ONE (23:00)
[2017-01-07] MEDS ORDERED: Bumetanide 1 MG/4 ML MDV IVPUSH SCH (01:00)
[2017-01-07 02:02] VITALS: BP 121/61
--- NOTE | 2017-01-07 08:22 | PCM.PRNOTE ---
- Free Text/Narrative Note: Procedure: Endotracheal intubation date of procedure: January 06, 2017 22:00 Indications: Respiratory failure, acidosis, marked CO2 retention, and anticipating transfer to a tertiary care center. Examination: Patient is tachycardic with pulse around 110 systolic blood pressure of around 100. Her urine output has been adequate recently but was diminished early on in her admission. The patient is morbidly obese. At the time of my exam she was on noninvasive ventilatory support. This was removed exam of the oropharynx revealed a Mallampati score of IV. Potentially difficult intubation was anticipated. Procedure: The patient had her oxygen in her right chest wall on noninvasive support and maintained 100% saturation for several minutes. The patient was positioned to optimize the situation with several rolls of towels behind her upper back. Rapid sequence intubation medications included ketamine and Succinylcholine . The patient had a peripheral IV and a IO at the left humerus. She was given 1 mg per kilogram of ketamine followed by a milligram per kilo of Succinylcholine . Initially satisfactory paralyzation was not obtained and a second dose had to be given. Using a #3 glidescope initially had some mucinous debris get caught in the lens while in the mouth, this was rapidly cleared reinserted cords visualized. 7.5 ET tube was placed with direct visualization. Stylette removed cuff inflated while still under direct visualization. Placement reconfirmed with color change and bilateral breath sounds. Complications: None. Patient tolerated the procedure without a significant drop in her blood pressure or other complications her O2 saturation remained satisfactory.
--- NOTE | 2017-01-07 10:01 | CR ---
Chest: Frontal view of the chest was obtained. Comparison: Previous chest x-ray of 01/06/17 at 6:29 PM Heart size mildly enlarged. Pulmonary vessels are congested. Slight atelectasis adjacent to the right minor fissure is noted. Endotracheal tube is seen with tip lying midway between the clavicle and bear. Nasogastric tube is seen with distal tip appearing within the proximal stomach and should be advanced. Impression: 1. Tip of endotracheal tube appears satisfactory in position. 2. Tip of nasogastric tube lies within the proximal stomach and should be advanced. 3. Mild cardiomegaly and mild pulmonary vascular congestion as well as minimal right midlung atelectasis. Diagnostic code #3 Agree with preliminary report issued by [facility] (with several additional nodes as noted above), ([facility] report dictated on 01/06/17, 11:45 PM Central Time)
--- NOTE | 2017-01-07 12:54 | CT ---
CT abdomen and pelvis Technique: Multiple axial sections were obtained from above the dome of the diaphragm inferiorly through the pubic symphysis. Intravenous and oral contrast not utilized which diminishes details of the study. Findings: Body wall edema identified mostly on the right side within the subcutaneous fat. Small bilateral pleural effusions are seen causing bibasilar atelectasis. Noncontrast appearance of the liver and spleen shows no discrete abnormality. Adrenal glands show no nodule. Slightly prominent fluid-filled structure within the right kidney most likely due to parapelvic cyst. No ureteral dilatation is seen. No pelvic mass or adenopathy noted. Scattered stool within the colon is incidentally noted. Degenerative change is seen throughout the spine. No ascites is seen. No bowel dilatation is seen. Several fat-containing anterior abdominal wall hernias are seen around the umbilicus area. Impression: 1. Small bilateral pleural effusions causing bibasilar atelectasis. 2. Other incidental findings as noted above. Nothing acute is definitely appreciated within the abdomen or pelvis on this exam. Diagnostic code #2 Agree with preliminary report issued by [facility] ([facility] report dictated on 01/06/17, 11:45 PM Central Time)
--- NOTE | 2017-01-08 10:17 | PCM.SN ---
- Free Text/Narrative Note: Note for Exam in OR 01/05/[address] Whittaker also attempting to place central line. I was asked to consult on patient by Dr Ríos, and Dr Whittaker offered and patient agreed to pelvic exam in OR while panniculus retracted back for central line placement. Exam revaeled vaginal bleeding. Unalble to feel cervix or uterus or adnexa due to body habitus. Patient was to be seen Wednesday01/06/2017 for completion of consult but transferred to [place] due to her medical condition. Postmenopausal bleeding N95.0
--- NOTE | 2017-01-09 12:41 | PCM.OPNOTE ---
- General Post-Op/Procedure Note Date of Surgery/Procedure: 01/06/17 Operative Procedure(s): Attempted central line placement Pre Op Diagnosis: Respiratory failure, tachyarrythmia, inability to obtain adequate IV access Anesthesia Technique: Local (20 mL), Other (see below) Primary Surgeon: Carina Whittaker Anesthesia Provider: Gibran Ramos Fluid Replacement, Intraop: 600 EBL in mLs: 15 Complications: None Condition: Good Free Text/Narrative:: Indication for procedure: Patient is a 71-year-old woman who I was asked to see in consultation by Dr. Priscilla Ríos for central venous access. The patient has been admitted for quite a few days and is extremely difficult IV start. She now has one peripheral IV. She has a tachyarrhythmia, suspected be atrial fibrillation with RVR, she also has respiratory failure and is currently on BiPAP. The patient is morbidly obese with a BMI of approximately 65. They are attempting to not have to intubate the patient, however they require improved IV access for further medical therapy. The patient is also essentially on therapeutic anticoagulation and she received Eliquis yesterday and has decreased creatinine clearance at this time as well as received a dose of Lovenox this morning. I discussed with the patient's family at length attempting to place a central venous catheter, we discussed risks including pain, bleeding, pneumothorax, hematoma, failure to obtain access, and they agreed to proceed. The provided written consent. We had the patient evaluated by anesthesia for a possible PICC line placement, however they did not feel the patient was a candidate. Due to patient's overall condition, Dr. Ríos I discussed placement of the line in the operating room. Description of procedure: Patient was taken to the operating room. She was left on her ICU bed. A sling was made for the patient's pannus and her pannus was elevated. The right groin was prepped and draped in usual sterile fashion. A femoral access, although not preferred for infectious reasons, in this patient was thought to be indicated due to the increased risk of bleeding and deleterious effect of a possible pneumothorax in an already respiratorily compromised patient. Ultrasound guidance was attempted to be utilized, however the patient's subcutaneous fat exceeded the ability of our ultrasound. The patient was not provided with sedation, as anesthesia felt that additional sedation would result in complete respiratory failure, and once again intubation was trying to be avoided. Local anesthetic was injected in the area of the planned insertion. The patient was moving independently frequently throughout this and would not follow commands. The right femoral vein was immediately accessed with nonpulsatile blood return, guidewire was placed, and a dilator was advanced, however once the triple lumen catheter was inserted, I was only able get return from the distal port. The medial and proximal ports did not draw. I then removed the catheter and held pressure for approximately 10 minutes. I made multiple attempts to access the vein on the left groin after prepping the area, I was able to enter the vein once, however the patient moved and access was lost. Ultimately, I abandoned the left groin and made one attempt for the right internal jugular. The area was prepped and draped in usual sterile fashion. Using ultrasound guidance I was able to visualize the right internal jugular. A needle was placed under direct visualization and I did obtain access on the initial stick, however the patient then moved her head and access was lost. I considered it unsafe to continue with further IJ attempts or subclavian attempts to the patient's ongoing unpredictable movements and increased risk of pneumothorax due to this. At that time I elected to cease further attempts at obtaining central venous access. The patient was returned to the intensive care unit. Bandages were placed over the areas of attempted access and there was no ongoing bleeding from the sites. Postoperative plan: I discussed with Dr. Ríos my intraoperative access attempts. A post procedural chest x-ray was obtained which I personally reviewed with Dr. Ríos. There is no evidence of pneumothorax. I discussed with the family that we had not been able to accomplish central access, but that would likely need to try again later and would give the patient a brief time to rest. Dr. Ríos and I discussed have anesthesia attempt PICC line placement.
--- NOTE | 2017-01-09 13:19 | PCM.CONS ---
H&P History of Present Illness - General Date of Service: 01/06/17 Admit Problem/Dx: Admission Diagnosis/Problem Admission Diagnosis/Problem Atrial fibrillation Source of Information: Family, Old records, Provider - History of Present Illness Initial Comments - Free Text/Narative: Patient is a 71-year-old woman who I was asked to see in consultation by Dr. Priscilla Ríos for central venous access. The patient has been admitted for quite a few days and is extremely difficult IV start. She now has one peripheral IV. She has a tachyarrhythmia, suspected be atrial fibrillation with RVR, she also has respiratory failure and is currently on BiPAP. The patient is morbidly obese with a BMI of approximately 65. They are attempting to not have to intubate the patient, however they require improved IV access for further medical therapy. The patient is also essentially on therapeutic anticoagulation and she received Eliquis yesterday and has decreased creatinine clearance at this time as well as received a dose of Lovenox this morning. I discussed with the patient's family at length attempting to place a central venous catheter, we discussed risks including pain, bleeding, pneumothorax, hematoma, failure to obtain access, and they agreed to proceed. The provided written consent. We had the patient evaluated by anesthesia for a possible PICC line placement, however they did not feel the patient was a candidate. Due to patient's overall condition, Dr. Ríos I discussed placement of the line in the operating room. - Related Data Allergies/Adverse Reactions: Allergies Allergy/AdvReac Type Severity Reaction Status Date / Time Penicillins Allergy Rash Verified 12/29/16 17:21 Home Medications: Home Meds Brinzolamide [Azopt 1% Ophth Susp] 1 drop EYEBOTH BID 12/30/16 [History] Albuterol/Ipratropium [DuoNeb 3.0-0.5 MG/3 ML] 3 ml NEB Q1H PRN #0 neb 01/06/17 [Rx] Bumetanide [Bumex] 0.5 mg IVPUSH Q12HR mdv 01/06/17 [Rx] Enoxaparin [Lovenox] 30 mg SUBCUT DAILY syringe 01/06/17 [Rx] Insulin Aspart [NovoLOG] 0 unit SUBCUT Q6H pen 01/06/17 [Rx] Metoprolol Tartrate [Lopressor] 5 mg IVPUSH Q1H PRN #0 vial 01/06/17 [Rx] Ondansetron [Zofran] 4 mg IV Q6H PRN #0 vial 01/06/17 [Rx] Phenylephrine [Shaw-Synephrine] 50 mg IV ASDIRECTED sdv 01/06/17 [Rx] Propofol [Diprivan 100 ML] 20 ml IV TITRATE #0 vial 01/06/17 [Rx] cefTRIAXone [Rocephin] 1 gm IV Q24H adv 01/06/17 [Rx] Past Medical History HEENT History: Reports: Cataract Cardiovascular History: Reports: Arrhythmia, High cholesterol, Hypertension Other Respiratory History: Suspected sleep apnea Genitourinary History: Reports: Acute renal failure, Renal disease CONTROL AND RECOVERY COMBAT RESCUE History: Reports: Dysfunctional uterine bleeding, , Other (see below) Other OB/BYN History: 2 c sections Musculoskeletal History: Reports: Arthritis Psychiatric History: Reports: Anxiety, Depression Endocrine/Metabolic History: Reports: Obesity/BMI 30+ (Morbid - BMI 65) - Past Surgical History HEENT Surgical History: Reports: Cataract surgery Cardiovascular Surgical History: Reports: None GI Surgical History: Reports: Appendectomy, Cholecystectomy Social & Family History - Family History Cardiac: Reports: High cholesterol, Hypertension - Tobacco Use Smoking Status *Q: Never Smoker Second Hand Smoke Exposure: No - Caffeine Use Caffeine Use: Reports: Tea - Recreational Drug Use Recreational Drug Use: No - Living Situation & Occupation Living situation: Reports: with spouse Occupation: unemployed H&P Review of Systems - Review of Systems: Review Of Systems: Unable To Obtain Exam - Exam Exam: See Below - Vital Signs Vital Signs: Last Vital Signs Temp 97.3 F 01/06/17 20:44 Pulse 110 H 01/06/17 21:00 Resp 15 01/06/17 22:45 BP 121/61 01/06/17 23:05 Pulse Ox 100 01/06/17 23:05 Weight: 375 lb 3.2 oz - Exam Quality Assessment: urinary catheter, other (on BiPAP) General: moderate distress, obtunded HEENT: Other (MM dry ). No: Scleral icterus Lungs: Other (Increased respiratory effort, breath sounds distant bilaterally ) Cardiovascular: irregular rhythm, tachycardia Abdomen: other (morbidly obese, pannicular edema ). No: guarding, rigidity (Female) Exam: Vaginal bleeding Rectal (Female) Exam: Deferred Extremities: No: cyanosis Skin: warm, dry - Patient Data Lab Results last 24 hrs: Laboratory Results - last 24 hr 01/02/17 Range/Units 07:04 CA 125 Antigen 132 H (0-38) U/mL Result Diagrams: 01/06/17 05:30 01/06/17 19:45 Charly Results last 24 hrs: Microbiology 01/02/17 09:41 Aerobic Blood Culture - Final Blood - Venous NO GROWTH AFTER 7 DAYS Anaerobic Blood Culture - Final Consult PN Assessment/Plan Procedures: Procedures AIRWAY INHALATION TREATMENT (12/29/16) ASSAY GLUCOSE BLOOD QUANT (12/29/16) ASSAY OF FREE THYROXINE (12/29/16) ASSAY OF LACTIC ACID (12/29/16) ASSAY OF MAGNESIUM (12/29/16) ASSAY OF NATRIURETIC PEPTIDE (12/29/16) ASSAY OF SERUM POTASSIUM (12/29/16) ASSAY OF TROPONIN QUANT (12/29/16) ASSAY THYROID STIM HORMONE (12/29/16) BLOOD CULTURE FOR BACTERIA (12/29/16) BLOOD GASES ANY COMBINATION (12/29/16) C-REACTIVE PROTEIN (12/29/16) CARCINOEMBRYONIC ANTIGEN (12/29/16) CHEST X-RAY 1 VIEW FRONTAL (12/29/16) CHEST X-RAY 2VW FRONTAL&LATL (12/29/16) COMPLETE CBC AUTOMATED (12/29/16) COMPLETE CBC W/AUTO DIFF WBC (12/29/16) COMPREHEN METABOLIC PANEL (12/29/16) CREATINE MB FRACTION (12/29/16) CT ABD & PELVIS W/O CONTRAST (12/29/16) CT ANGIOGRAPHY CHEST (12/29/16) CT HEAD/BRAIN W/O DYE (12/29/16) ELECTROCARDIOGRAM TRACING (12/29/16) EMERGENCY DEPT VISIT (12/29/16) EVALUATE PT USE OF INHALER (12/29/16) EVALUATE SWALLOWING FUNCTION (12/29/16) FIBRIN DEGRADATION QUANT (12/29/16) GAIT TRAINING THERAPY (12/29/16) GLUCOSE BLOOD TEST (12/29/16) GLYCOSYLATED HEMOGLOBIN TEST (12/29/16) IMMUNOASSAY TUMOR CA 125 (12/29/16) METABOLIC PANEL TOTAL CA (12/29/16) MICROBE SUSCEPTIBLE CHARLY (12/29/16) NEUROMUSCULAR REEDUCATION (12/29/16) OT EVAL LOW COMPLEX 30 MIN (12/29/16) POS AIRWAY PRESSURE CPAP (12/29/16) PT EVAL LOW COMPLEX 20 MIN (12/29/16) RENAL FUNCTION PANEL (12/29/16) ROUTINE VENIPUNCTURE (12/29/16) THER/PROPH/DIAG IV INF ADDON (12/29/16) THER/PROPH/DIAG IV INF INIT (12/29/16) THERAPEUTIC ACTIVITIES (12/29/16) THERAPEUTIC EXERCISES (12/29/16) TTE W/DOPPLER COMPLETE (12/29/16) TX/PRO/DX INJ SAME DRUG ONLINE JOURNALIST (12/29/16) URINALYSIS AUTO W/SCOPE (12/29/16) URINE BACTERIA CULTURE (12/29/16) URINE CULTURE/COLONY COUNT (12/29/16) US EXAM ABDO BACK WALL COMP (12/29/16) VENT MGMT INPAT INIT DAY (12/29/16) WITHDRAWAL OF ARTERIAL BLOOD (12/29/16) (1) Poor venous access SNOMED Code(s): 750562461 Code(s): I87.8 - OTHER SPECIFIED DISORDERS OF VEINS Problem List Initiated/Reviewed/Updated: Yes Plan: 71-year-old woman with need for emergent central venous accesss Multiple risk factors for complications from line placement, including bleeding that could be life threatening and possible complete respiratory failure. Risks deemed acceptable to patient's family. We discussed risks including pain, bleeding, pneumothorax, hematoma, failure to obtain access, and they agreed to proceed. The provided written consent. Will proceed with attempted line placement in the operating room.
--- NOTE | 2017-01-12 20:34 | PCM.PN ---
- General Info Date of Service: 01/06/17 - Patient Data Vitals - most recent: Last Vital Signs Temp 36.3 C 01/06/17 20:44 Pulse 110 H 01/06/17 21:00 Resp 15 01/06/17 22:45 BP 121/61 01/06/17 23:05 Pulse Ox 100 01/06/17 23:05 Weight - most recent: 170.188 kg Med Orders - Current: Current Medications Discontinued Medications Acetaminophen (Tylenol) 650 mg PO Q4H PRN PRN Reason: Pain (Mild 1-3)/fever Acetaminophen/Hydrocodone Bitart ([place] 325-5 Mg) 1 tab PO Q4H PRN PRN Reason: Pain (moderate 4-6) Albuterol/Ipratropium (Duoneb 3.0-0.5 Mg/3 Ml) 3 ml NEB Q4H PRN PRN Reason: Shortness Of Breath/wheezing Last Admin: 01/03/17 20:07 Dose: 3 ml Alprazolam (Xanax) 0.5 mg PO QID [facility] Last Admin: 12/31/16 09:26 Dose: Not Given Alprazolam (Xanax) 0.5 mg PO BID [facility] Last Admin: 01/02/17 20:05 Dose: Not Given Alprazolam (Xanax) 0.5 mg PO BID PRN PRN Reason: Anxiety Last Admin: 01/04/17 17:08 Dose: 0.5 mg Apixaban (Eliquis) 5 mg PO BID [facility] Last Admin: 01/02/17 20:04 Dose: 5 mg Apixaban (Eliquis) 2.5 mg PO BID [facility] Last Admin: 01/05/17 20:47 Dose: 2.5 mg Bisacodyl (Dulcolax) 5 mg PO DAILY PRN PRN Reason: Constipation Last Admin: 01/05/17 08:52 Dose: 5 mg Bumetanide (Bumex) 0.5 mg IVPUSH ONETIME ONE Stop: 01/04/17 11:49 Last Admin: 01/04/17 12:11 Dose: 0.5 mg Bumetanide (Bumex) 0.5 mg IVPUSH DAILY [facility] Last Admin: 01/05/17 09:14 Dose: 0.5 mg Bumetanide (Bumex) 0.5 mg IVPUSH DAILY@1300 [facility] Last Admin: 01/06/17 13:27 Dose: 0.5 mg Bumetanide (Bumex) 0.5 mg IVPUSH Q12HR [facility] Diltiazem HCl (Diltiazem) 10 mg IVPUSH ONETIME ONE Stop: 12/29/16 17:27 Last Admin: 12/29/16 17:48 Dose: 10 mg Diltiazem HCl (Cardizem Cd) 360 mg PO DAILY [facility] Last Admin: 01/01/17 09:23 Dose: 360 mg Diltiazem HCl (Cardizem Cd) 300 mg PO DAILY [facility] Last Admin: 01/02/17 09:45 Dose: 300 mg Diltiazem HCl (Dilacor Xr) 240 mg PO DAILY [facility] Enoxaparin Sodium (Lovenox) 150 mg SUBCUT Q12HR [facility] Last Admin: 12/30/16 20:09 Dose: Not Given Enoxaparin Sodium (Lovenox) 150 mg SUBCUT ONETIME ONE Stop: 12/29/16 23:21 Last Admin: 12/29/16 23:41 Dose: 150 mg Enoxaparin Sodium (Lovenox) 150 mg SUBCUT Q12HR [facility] Last Admin: 12/30/16 10:36 Dose: 150 mg Enoxaparin Sodium (Lovenox) 30 mg SUBCUT DAILY [facility] Last Admin: 01/06/17 11:40 Dose: 30 mg Flumazenil (Romazicon) 0.2 mg IVPUSH ONETIME ONE Stop: 01/04/17 19:46 Last Admin: 01/04/17 20:41 Dose: 0.2 mg Flunisolide (Nasalide Nasal [place]) 0 ml NASBOTH BID [facility] Last Admin: 01/06/17 21:00 Dose: Not Given Furosemide (Lasix) 40 mg PO BIDDIURETIC [facility] Last Admin: 01/02/17 05:01 Dose: 40 mg Furosemide (Lasix) 40 mg PO DAILY [facility] Furosemide (Lasix) 40 mg PO DAILY [facility] Furosemide (Lasix) 20 mg PO DAILY [facility] Hydromorphone HCl (Dilaudid) 0.25 mg IVPUSH Q2H PRN PRN Reason: Pain (severe 7-10) Hydromorphone HCl (Dilaudid) 0.25 mg IVPUSH Q2H PRN PRN Reason: Pain (severe 7-10) Diltiazem HCl 100 mg/ Sodium (Chloride) 100 mls @ 10 mls/hr IV TITRATE [facility]; 10 MG/HR PRN Reason: Protocol Last Admin: 12/29/16 18:01 Dose: 10 mg/hr, 10 mls/hr Diltiazem HCl 100 mg/ Sodium (Chloride) 100 mls @ 5 mls/hr IV TITRATE [facility]; 5 MG /HR PRN Reason: Protocol Last Titration: 12/31/16 10:03 Dose: 0 mg/hr, 0 mls/hr Sodium Chloride (Normal Saline) 100 mls @ 65 mls/hr IV ASDIRECTED [facility] Last Admin: 12/29/16 20:11 Dose: 65 mls/hr Promethazine HCl 12.5 mg/ (Sodium Chloride) 50.5 mls @ 100 mls/hr IV Q6H PRN PRN Reason: Nausea/Vomiting Ceftriaxone Sodium 1 gm/ (Sodium Chloride) 100 mls @ 200 mls/hr IV Q24H [facility] Last Admin: 01/02/17 20:21 Dose: 200 mls/hr Sodium Chloride (Normal Saline) Confirm Administered Dose 1,000 mls @ as directed .ROUTE .STK-MED ONE Stop: 01/01/17 15:22 Last Admin: 01/01/17 15:31 Dose: 250 ml Sodium Chloride (Normal Saline) 500 mls @ 250 mls/hr IV .BOLUS ONE Stop: 01/01/17 17:28 Last Admin: 01/01/17 16:59 Dose: 250 mls/hr Norepinephrine Bitartrate 4 mg (/ Dextrose/Water) 250 mls @ 7.5 mls/hr IV TITRATE [facility]; 2 MCG/MIN PRN Reason: Protocol Last Titration: 01/05/17 17:22 Dose: 0 mcg/min, 0 mls/hr Sodium Chloride (Normal Saline) 1,000 mls @ 25 mls/hr IV ASDIRECTED [facility] Last Admin: 01/01/17 18:30 Dose: 25 mls/hr Sodium Chloride (Normal Saline) 500 mls @ 500 mls/hr IV ASDIRECTED [facility] Stop: 01/02/17 14:29 Last Admin: 01/02/17 13:35 Dose: 500 mls/hr Sodium Chloride (Normal Saline) 1,000 mls @ 125 mls/hr IV ASDIRECTED [facility] Last Admin: 01/03/17 10:10 Dose: 125 mls/hr Sodium Chloride (Normal Saline) 1,000 mls @ 999 mls/hr IV ONETIME ONE Stop: 01/03/17 09:08 Last Admin: 01/03/17 09:10 Dose: 999 mls/hr Sodium Chloride (Normal Saline) 1,000 mls @ 150 mls/hr IV ASDIRECTED [facility] Last Infusion: 01/04/17 11:59 Dose: 100 mls/hr Levofloxacin/Dextrose 250 mg/ (Premix) 50 mls @ 50 mls/hr IV Q48H [facility] Last Admin: 01/05/17 11:41 Dose: 50 mls/hr Sodium Chloride (Normal Saline) 1,000 mls @ 100 mls/hr IV ASDIRECTED [facility] Last Admin: 01/04/17 13:22 Dose: 100 mls/hr Sodium Chloride (Normal Saline) 1,000 mls @ 25 mls/hr IV ASDIRECTED [facility] Dextrose/Sodium Chloride (Dextrose 5%-Normal Saline) 1,000 mls @ 70 mls/hr IV ASDIRECTED [facility] Last Admin: 01/06/17 13:16 Dose: 70 mls/hr Phenylephrine HCl 50 mg/ (Sodium Chloride) 250 mls @ 2 mls/min IV ASDIRECTED [facility] Last Infusion: 01/06/17 22:45 Dose: Infused Ceftriaxone Sodium 1 gm/ (Sodium Chloride) 100 mls @ 200 mls/hr IV Q24H [facility] Last Admin: 01/06/17 13:27 Dose: 200 mls/hr Sodium Chloride (Normal Saline) Confirm Administered Dose 1,000 mls @ as directed .ROUTE .STK-MED ONE Stop: 01/06/17 17:15 Sodium Chloride (Normal Saline) Confirm Administered Dose 1,000 mls @ as directed .ROUTE .STK-MED ONE Stop: 01/06/17 18:54 Last Admin: 01/06/17 22:48 Dose: Not Given Propofol (Diprivan 100 Ml) 100 mls @ 5.1 mls/hr IV TITRATE [facility]; 5 MCG/KG/MIN PRN Reason: Protocol Sodium Chloride (Normal Saline) Confirm Administered Dose 1,000 mls @ as directed .ROUTE .STK-MED ONE Stop: 01/06/17 22:22 Last Admin: 01/06/17 22:45 Dose: Not Given Sodium Chloride (Normal Saline) 1,000 mls @ 100 mls/hr IV ASDIRECTED [facility] Last Admin: 01/06/17 22:47 Dose: 100 mls/hr Insulin Aspart (Novolog) 0 unit SUBCUT Q6H [facility] PRN Reason: Protocol Last Admin: 01/06/17 23:45 Dose: Not Given Iopamidol (Isovue-370 (76%)) 100 ml IVPUSH ONETIME ONE Stop: 12/29/16 19:47 Last Admin: 12/29/16 20:11 Dose: 100 ml Iopamidol (Isovue-370 (76%)) 50 ml IVPUSH ONETIME ONE Stop: 12/29/16 19:47 Last Admin: 12/29/16 20:11 Dose: 50 ml Ketamine HCl (Ketalar) 500 mg .ROUTE .STK-MED ONE Stop: 01/06/17 23:01 Lidocaine HCl (Xylocaine 1%) Confirm Administered Dose 50 ml .ROUTE .STK-MED ONE Stop: 01/06/17 17:37 Last Admin: 01/06/17 16:49 Dose: 20 ml Lisinopril (Prinivil) 20 mg PO DAILY [facility] Last Admin: 01/02/17 09:10 Dose: Not Given Lorazepam (Ativan) 1 mg IV Q6H PRN PRN Reason: Nausea/Vomiting Metoprolol Tartrate (Lopressor) 25 mg PO Q12HR [facility] Last Admin: 01/03/17 21:03 Dose: 25 mg Metoprolol Tartrate (Lopressor) 25 mg PO Q12HR [facility] Last Admin: 01/05/17 08:51 Dose: 25 mg Metoprolol Tartrate (Lopressor) 5 mg IVPUSH Q4H PRN PRN Reason: Tachycardia Last Admin: 01/06/17 20:09 Dose: 5 mg Midodrine (Midodrine) 5 mg PO STAT ONE Stop: 01/01/17 15:07 Last Admin: 01/01/17 15:10 Dose: 5 mg Modafinil (Provigil) 200 mg PO DAILY [facility] Last Admin: 01/05/17 08:51 Dose: 200 mg Ondansetron HCl (Zofran) 4 mg IV Q6H PRN PRN Reason: Nausea/Vomiting Brinzolamide (Azopt (Opth Suspension)) 0 each EYEBOTH BID [facility] Last Admin: 01/06/17 21:00 Dose: Not Given Phenylephrine HCl (Phenylephrine In Ns 100 Mcg/Ml) 0 mg IV SEECOMMENT PRN; Protocol PRN Reason: Hypotension Polyethylene Glycol (Miralax) 17 gm PO DAILY PRN PRN Reason: Constipation Propofol (Diprivan 20 Ml) 200 mg .ROUTE .STK-MED ONE Stop: 01/06/17 23:01 Senna/Docusate Sodium (Senna Plus) 1 tab PO BID PRN PRN Reason: Constipation Last Admin: 01/05/17 08:52 Dose: 1 tab Sertraline HCl (Zoloft) 100 mg PO QID [facility] Last Admin: 12/30/16 20:10 Dose: Not Given Sertraline HCl (Zoloft) 100 mg PO DAILY [facility] Last Admin: 12/31/16 14:40 Dose: Not Given Sertraline HCl (Zoloft) 100 mg PO BEDTIME [facility] Last Admin: 01/03/17 21:03 Dose: 100 mg Sertraline HCl (Zoloft) 150 mg PO BEDTIME [facility] Last Admin: 01/06/17 21:00 Dose: Not Given Sodium Chloride (Saline Flush) 10 ml FLUSH ASDIRECTED PRN PRN Reason: Keep Vein Open Last Admin: 01/05/17 08:52 Dose: 10 ml Sodium Chloride (Saline Flush) 10 ml FLUSH ONETIME PRN PRN Reason: IV FLUSH Last Admin: 12/29/16 20:11 Dose: 10 ml Sodium Chloride (Normal Saline) Confirm Administered Dose 50 ml .ROUTE .STK-MED ONE Stop: 01/06/17 16:23 Sodium Chloride (Normal Saline) Confirm Administered Dose 50 ml .ROUTE .STK-MED ONE Stop: 01/06/17 16:56 Sodium Chloride (Normal Saline) Confirm Administered Dose 50 ml .ROUTE .STK-MED ONE Stop: 01/06/17 17:12 Succinylcholine Chloride (Quelicin) 400 mg .ROUTE .STK-MED ONE Stop: 01/06/17 23:01 Temazepam (Restoril) 30 mg PO BEDTIME PRN PRN Reason: Sleep Temazepam (Restoril) 30 mg PO BEDTIME PRN PRN Reason: Sleep Last Admin: 01/02/17 01:15 Dose: 30 mg Triamterene/HCTZ (Maxzide 25-37.5 Mg) 1 each PO DAILY [facility] Last Admin: 12/31/16 09:27 Dose: 1 each - Plan Plan:: Assessment/Plan Acute: Sepsis with Hypotension - 2/2 UA - Proteus Mirabilis and Group B strep - Both sensitive to Levaquin - D/c Levaquin - PRN pressor if needed - Stable at the moment New onset of A-Fib, HR is controlled in the 90s to low 100s - No previous hx in the past - LAVONNE VASC Score: 0 Low risk of thromboembolic event. 1.9% risk of event per year if no coumadin. The adjusted stroke rate was the expected stroke rate per 100 person-years derived from the multivariable model assuming that aspirin was not taken - Continue Eliquis to 2.5 mg po BID for stroke prophylaxis due to decreased renal function - FT4 is 1: wnl - 2D echo: LVEF 35-40% - Resume Metoprolol for rate control Acute Heart Failure with Reduced EF at 35-40% - Right Sided Pleural Effusion on CT scan - Small-Moderate Size - 2D echo: as noted above - Follow up CXR: persistent pleural effusion - HF: protocol: salt/fluid restriction, daily weights, lasix and acei - Follow up Cardiology after discharge - Bumex 0.5 mg IVP x 1 for peripheral edema Right Sided Pleural Effusion - Stable - Follow CXR: stable mild cardiomegaly and pulmonary congestion Acute Kidney Injury w/ Urinary Retention - 2/2 Intravascular Volume Depletion: poor oral intake, fluid restriction and over diurese - Will decrease IVF rate to prevent volume overload - Renal U/S: noted for medical renal disease - Atkins catheter for strict Is/OS - Her urine output is picking up as expected - Renal function continuous to improve Leukoctyosis - WBC 13.30--> 12.24--> 13.59--> 11.48 - Likely stress vs UTI - She likely has MICHAEL - Improving AMS/Slow Attention Span/Delirium - This is now 2/2 critical illness - On Xanax Q4 daily, will resume it bid - Thyroid panel is normal - Provigil 200 mg po daily - Head CT scan to r/o Stroke - D/c Restoril Morbid Obesity with BMI 64.4 - Dietary consult for weight management Probable MICHAEL - Recommend Sleep Study after discharge - Advised to lose weight Resolved: S/p Mild Left Sided Nose Bleed - Will trim nasal prongs - She is on mckenna-supplemental O2 - Saline spray BID on each nostril S/p Secondary Polycythemia - Hgb 15.8--> 15.6: wnl--> 15.8--> 14/7 - This likely related to extreme obesity and MICHAEL/OHS - Monitor S/p Acute Cystitis - UA pos UTI - CRP 1.5 - CX: Proteus Mirabilis and Group B Strep - Group B Strep sensitive to Levaquin - D/c Rocephin and will Start Low dose Levaquin Chronic: OA/DJD Anxiety Depression Plan: She appears to be clinically improving Continue current treatment Routine AM Labs Fall Precautions Continue PT/TO SW/CM for d/c planning Recommend SNF/Rehab after discharge Additional orders as above Code Status: 1 Prognosis: Guarded LOS > 96 hrs due to complexity of current medical illness, patient requires more time with treatment
--- NOTE | 2017-01-12 20:35 | PCM.DCSUM1 ---
Discharge Summary - Hospital Course Free Text/Narrative:: 71 year old female developed markedly elevated pCO2, acute respiratory failure was transferred to [facility]. A trial on non invasive ventilation was attempted at the family request. ABGs were performed improvement was marginal she was subsequently intubated. An IOs was placed in her left shoulder, PICC was attempted but could not be placed. General surgery had been consulted for a central line, she was taken to the OR to improve successful placement of the central line. A central line was placed successfully three times but after the patient moved during the procedure the line was no longer intravascular, and had to be pulled. The patient BMI is 64.4 which places her a risk for complications. BP support was maintained with fluid and pressors including levophed. IV antibiotics were given based on sensitivity. The family was kept updated throughout the morning, the final decision was to seek transfer to [facility] for a higher level of care. The patient was accepted by the inspector general career development consultant, she however was to go to the ED prior to her room for radiographic studies including a CT of the head. The patient's prognosis at the time of transfer was guarded. She was to be flown by fixed wing to [place]. Primary Dx Urosepsis UTI, Gp B and Proteus A Fib Acute Respiratory Failure Consultants General Surgery Anesthesia Meds Please see list in DC plan Follow up appts See list for original DC - Discharge Data Discharge Date: 01/06/17 Discharge Disposition: DC/Tfer to Acute Hospital 02 Condition: Good - Patient Summary/Data Operative Procedure(s) Performed: Attempted central line placement Consults: Consultations 12/29/16 23:15 Consult to Case Management [CONS] Routine Consult to Clinical Laboratory Technologist [CONS] Routine Consult to Supervisor [employer] [CONS] Routine PT Evaluation and Treatment [CONS] Routine 01/02/17 09:42 Consult to Physician [CONS] Routine 01/04/17 12:01 Consult to Occupational Therapy [OT Evaluation and Treatment] [CONS] Routine 01/06/17 10:34 Consult to Physician [CONS] Routine 01/06/17 10:36 Consult to Speech Language Pathology [BOOTMAKER HAND Evaluation and Treatment] [CONS] Routine - Patient Instructions Diet: NPO Activity: Bedrest Driving: Do Not Drive Showering/Bathing: March Shower Notify Provider of: Fever - Discharge Plan Home Medications: Home Meds Brinzolamide [Azopt 1% Ophth Susp] 1 drop EYEBOTH BID 12/30/16 [History] Albuterol/Ipratropium [DuoNeb 3.0-0.5 MG/3 ML] 3 ml NEB Q1H PRN #0 neb 01/06/17 [Rx] Bumetanide [Bumex] 0.5 mg IVPUSH Q12HR mdv 01/06/17 [Rx] Enoxaparin [Lovenox] 30 mg SUBCUT DAILY syringe 01/06/17 [Rx] Insulin Aspart [NovoLOG] 0 unit SUBCUT Q6H pen 01/06/17 [Rx] Metoprolol Tartrate [Lopressor] 5 mg IVPUSH Q1H PRN #0 vial 01/06/17 [Rx] Ondansetron [Zofran] 4 mg IV Q6H PRN #0 vial 01/06/17 [Rx] Phenylephrine [Shaw-Synephrine] 50 mg IV ASDIRECTED sdv 01/06/17 [Rx] Propofol [Diprivan 100 ML] 20 ml IV TITRATE #0 vial 01/06/17 [Rx] cefTRIAXone [Rocephin] 1 gm IV Q24H adv 01/06/17 [Rx] Patient Handouts: Atrial Fibrillation, [id number] Forms: ED Department Discharge Referrals: Lyubov Guzman PA-C [Primary Care Provider] - - Discharge Summary/Plan Comment DC Time >30 min.: Yes (Transfer arrangements including discussion with hospitalist and inspector general) - General Info Date of Service: 12/29/16 Subjective Update: Change in status with increasing lethargy with worsening respiratory status; patient will be transferred to [place] for higher level of care. Functional Status: Reports: new symptoms - Review of Systems General: Reports: No Symptoms HEENT: Reports: no symptoms Pulmonary: Reports: no symptoms Cardiovascular: Reports: No Symptoms Gastrointestinal: Reports: No symptoms Genitourinary: Reports: no symptoms Musculoskeletal: Reports: no symptoms Skin: Reports: no symptoms Neurological: Reports: No Symptoms Psychiatric: Reports: no symptoms - Patient Data Vitals - Most Recent: Last Vital Signs Temp 36.3 C 01/06/17 20:44 Pulse 110 H 01/06/17 21:00 Resp 15 01/06/17 22:45 BP 121/61 01/06/17 23:05 Pulse Ox 100 01/06/17 23:05 Weight - Most Recent: 170.188 kg Med Orders - Current: Current Medications Discontinued Medications Acetaminophen (Tylenol) 650 mg PO Q4H PRN PRN Reason: Pain (Mild 1-3)/fever Acetaminophen/Hydrocodone Bitart ([place] 325-5 Mg) 1 tab PO Q4H PRN PRN Reason: Pain (moderate 4-6) Albuterol/Ipratropium (Duoneb 3.0-0.5 Mg/3 Ml) 3 ml NEB Q4H PRN PRN Reason: Shortness Of Breath/wheezing Last Admin: 01/03/17 20:07 Dose: 3 ml Alprazolam (Xanax) 0.5 mg PO QID [facility] Last Admin: 12/31/16 09:26 Dose: Not Given Alprazolam (Xanax) 0.5 mg PO BID [facility] Last Admin: 01/02/17 20:05 Dose: Not Given Alprazolam (Xanax) 0.5 mg PO BID PRN PRN Reason: Anxiety Last Admin: 01/04/17 17:08 Dose: 0.5 mg Apixaban (Eliquis) 5 mg PO BID [facility] Last Admin: 01/02/17 20:04 Dose: 5 mg Apixaban (Eliquis) 2.5 mg PO BID [facility] Last Admin: 01/05/17 20:47 Dose: 2.5 mg Bisacodyl (Dulcolax) 5 mg PO DAILY PRN PRN Reason: Constipation Last Admin: 01/05/17 08:52 Dose: 5 mg Bumetanide (Bumex) 0.5 mg IVPUSH ONETIME ONE Stop: 01/04/17 11:49 Last Admin: 01/04/17 12:11 Dose: 0.5 mg Bumetanide (Bumex) 0.5 mg IVPUSH DAILY [facility] Last Admin: 01/05/17 09:14 Dose: 0.5 mg Bumetanide (Bumex) 0.5 mg IVPUSH DAILY@1300 [facility] Last Admin: 01/06/17 13:27 Dose: 0.5 mg Bumetanide (Bumex) 0.5 mg IVPUSH Q12HR [facility] Diltiazem HCl (Diltiazem) 10 mg IVPUSH ONETIME ONE Stop: 12/29/16 17:27 Last Admin: 12/29/16 17:48 Dose: 10 mg Diltiazem HCl (Cardizem Cd) 360 mg PO DAILY [facility] Last Admin: 01/01/17 09:23 Dose: 360 mg Diltiazem HCl (Cardizem Cd) 300 mg PO DAILY [facility] Last Admin: 01/02/17 09:45 Dose: 300 mg Diltiazem HCl (Dilacor Xr) 240 mg PO DAILY [facility] Enoxaparin Sodium (Lovenox) 150 mg SUBCUT Q12HR [facility] Last Admin: 12/30/16 20:09 Dose: Not Given Enoxaparin Sodium (Lovenox) 150 mg SUBCUT ONETIME ONE Stop: 12/29/16 23:21 Last Admin: 12/29/16 23:41 Dose: 150 mg Enoxaparin Sodium (Lovenox) 150 mg SUBCUT Q12HR [facility] Last Admin: 12/30/16 10:36 Dose: 150 mg Enoxaparin Sodium (Lovenox) 30 mg SUBCUT DAILY [facility] Last Admin: 01/06/17 11:40 Dose: 30 mg Flumazenil (Romazicon) 0.2 mg IVPUSH ONETIME ONE Stop: 01/04/17 19:46 Last Admin: 01/04/17 20:41 Dose: 0.2 mg Flunisolide (Nasalide Nasal [place]) 0 ml NASBOTH BID [facility] Last Admin: 01/06/17 21:00 Dose: Not Given Furosemide (Lasix) 40 mg PO BIDDIURETIC [facility] Last Admin: 01/02/17 05:01 Dose: 40 mg Furosemide (Lasix) 40 mg PO DAILY [facility] Furosemide (Lasix) 40 mg PO DAILY [facility] Furosemide (Lasix) 20 mg PO DAILY [facility] Hydromorphone HCl (Dilaudid) 0.25 mg IVPUSH Q2H PRN PRN Reason: Pain (severe 7-10) Hydromorphone HCl (Dilaudid) 0.25 mg IVPUSH Q2H PRN PRN Reason: Pain (severe 7-10) Diltiazem HCl 100 mg/ Sodium (Chloride) 100 mls @ 10 mls/hr IV TITRATE MIRNA; 10 MG/HR PRN Reason: Protocol Last Admin: 12/29/16 18:01 Dose: 10 mg/hr, 10 mls/hr Diltiazem HCl 100 mg/ Sodium (Chloride) 100 mls @ 5 mls/hr IV TITRATE MIRNA; 5 MG /HR PRN Reason: Protocol Last Titration: 12/31/16 10:03 Dose: 0 mg/hr, 0 mls/hr Sodium Chloride (Normal Saline) 100 mls @ 65 mls/hr IV ASDIRECTED MIRNA Last Admin: 12/29/16 20:11 Dose: 65 mls/hr Promethazine HCl 12.5 mg/ (Sodium Chloride) 50.5 mls @ 100 mls/hr IV Q6H PRN PRN Reason: Nausea/Vomiting Ceftriaxone Sodium 1 gm/ (Sodium Chloride) 100 mls @ 200 mls/hr IV Q24H MIRNA Last Admin: 01/02/17 20:21 Dose: 200 mls/hr Sodium Chloride (Normal Saline) Confirm Administered Dose 1,000 mls @ as directed .ROUTE .STK-MED ONE Stop: 01/01/17 15:22 Last Admin: 01/01/17 15:31 Dose: 250 ml Sodium Chloride (Normal Saline) 500 mls @ 250 mls/hr IV .BOLUS ONE Stop: 01/01/17 17:28 Last Admin: 01/01/17 16:59 Dose: 250 mls/hr Norepinephrine Bitartrate 4 mg (/ Dextrose/Water) 250 mls @ 7.5 mls/hr IV TITRATE MIRNA; 2 MCG/MIN PRN Reason: Protocol Last Titration: 01/05/17 17:22 Dose: 0 mcg/min, 0 mls/hr Sodium Chloride (Normal Saline) 1,000 mls @ 25 mls/hr IV ASDIRECTED MIRNA Last Admin: 01/01/17 18:30 Dose: 25 mls/hr Sodium Chloride (Normal Saline) 500 mls @ 500 mls/hr IV ASDIRECTED MIRNA Stop: 01/02/17 14:29 Last Admin: 01/02/17 13:35 Dose: 500 mls/hr Sodium Chloride (Normal Saline) 1,000 mls @ 125 mls/hr IV ASDIRECTED MIRNA Last Admin: 01/03/17 10:10 Dose: 125 mls/hr Sodium Chloride (Normal Saline) 1,000 mls @ 999 mls/hr IV ONETIME ONE Stop: 01/03/17 09:08 Last Admin: 01/03/17 09:10 Dose: 999 mls/hr Sodium Chloride (Normal Saline) 1,000 mls @ 150 mls/hr IV ASDIRECTED MIRNA Last Infusion: 01/04/17 11:59 Dose: 100 mls/hr Levofloxacin/Dextrose 250 mg/ (Premix) 50 mls @ 50 mls/hr IV Q48H MIRNA Last Admin: 01/05/17 11:41 Dose: 50 mls/hr Sodium Chloride (Normal Saline) 1,000 mls @ 100 mls/hr IV ASDIRECTED MIRNA Last Admin: 01/04/17 13:22 Dose: 100 mls/hr Sodium Chloride (Normal Saline) 1,000 mls @ 25 mls/hr IV ASDIRECTED MIRNA Dextrose/Sodium Chloride (Dextrose 5%-Normal Saline) 1,000 mls @ 70 mls/hr IV ASDIRECTED MIRNA Last Admin: 01/06/17 13:16 Dose: 70 mls/hr Phenylephrine HCl 50 mg/ (Sodium Chloride) 250 mls @ 2 mls/min IV ASDIRECTED MIRNA Last Infusion: 01/06/17 22:45 Dose: Infused Ceftriaxone Sodium 1 gm/ (Sodium Chloride) 100 mls @ 200 mls/hr IV Q24H MIRNA Last Admin: 01/06/17 13:27 Dose: 200 mls/hr Sodium Chloride (Normal Saline) Confirm Administered Dose 1,000 mls @ as directed .ROUTE .[facility] ONE Stop: 01/06/17 17:15 Sodium Chloride (Normal Saline) Confirm Administered Dose 1,000 mls @ as directed .ROUTE .[facility] ONE Stop: 01/06/17 18:54 Last Admin: 01/06/17 22:48 Dose: Not Given Propofol (Diprivan 100 Ml) 100 mls @ 5.1 mls/hr IV TITRATE MIRNA; 5 MCG/KG/MIN PRN Reason: Protocol Sodium Chloride (Normal Saline) Confirm Administered Dose 1,000 mls @ as directed .ROUTE .[facility]-MED ONE Stop: 01/06/17 22:22 Last Admin: 01/06/17 22:45 Dose: Not Given Sodium Chloride (Normal Saline) 1,000 mls @ 100 mls/hr IV ASDIRECTED MIRNA Last Admin: 01/06/17 22:47 Dose: 100 mls/hr Insulin Aspart (Novolog) 0 unit SUBCUT Q6H MIRNA PRN Reason: Protocol Last Admin: 01/06/17 23:45 Dose: Not Given Iopamidol (Isovue-370 (76%)) 100 ml IVPUSH ONETIME ONE Stop: 12/29/16 19:47 Last Admin: 12/29/16 20:11 Dose: 100 ml Iopamidol (Isovue-370 (76%)) 50 ml IVPUSH ONETIME ONE Stop: 12/29/16 19:47 Last Admin: 12/29/16 20:11 Dose: 50 ml Ketamine HCl (Ketalar) 500 mg .ROUTE .STK-MED ONE Stop: 01/06/17 23:01 Lidocaine HCl (Xylocaine 1%) Confirm Administered Dose 50 ml .ROUTE .STK-MED ONE Stop: 01/06/17 17:37 Last Admin: 01/06/17 16:49 Dose: 20 ml Lisinopril (Prinivil) 20 mg PO DAILY [facility] Last Admin: 01/02/17 09:10 Dose: Not Given Lorazepam (Ativan) 1 mg IV Q6H PRN PRN Reason: Nausea/Vomiting Metoprolol Tartrate (Lopressor) 25 mg PO Q12HR [facility] Last Admin: 01/03/17 21:03 Dose: 25 mg Metoprolol Tartrate (Lopressor) 25 mg PO Q12HR [facility] Last Admin: 01/05/17 08:51 Dose: 25 mg Metoprolol Tartrate (Lopressor) 5 mg IVPUSH Q4H PRN PRN Reason: Tachycardia Last Admin: 01/06/17 20:09 Dose: 5 mg Midodrine (Midodrine) 5 mg PO STAT ONE Stop: 01/01/17 15:07 Last Admin: 01/01/17 15:10 Dose: 5 mg Modafinil (Provigil) 200 mg PO DAILY [facility] Last Admin: 01/05/17 08:51 Dose: 200 mg Ondansetron HCl (Zofran) 4 mg IV Q6H PRN PRN Reason: Nausea/Vomiting Brinzolamide (Azopt (Opth Suspension)) 0 each EYEBOTH BID [facility] Last Admin: 01/06/17 21:00 Dose: Not Given Phenylephrine HCl (Phenylephrine In Ns 100 Mcg/Ml) 0 mg IV SEECOMMENT PRN; Protocol PRN Reason: Hypotension Polyethylene Glycol (Miralax) 17 gm PO DAILY PRN PRN Reason: Constipation Propofol (Diprivan 20 Ml) 200 mg .ROUTE .STK-MED ONE Stop: 01/06/17 23:01 Senna/Docusate Sodium (Senna Plus) 1 tab PO BID PRN PRN Reason: Constipation Last Admin: 01/05/17 08:52 Dose: 1 tab Sertraline HCl (Zoloft) 100 mg PO QID MIRNA Last Admin: 12/30/16 20:10 Dose: Not Given Sertraline HCl (Zoloft) 100 mg PO DAILY [facility] Last Admin: 12/31/16 14:40 Dose: Not Given Sertraline HCl (Zoloft) 100 mg PO BEDTIME [facility] Last Admin: 01/03/17 21:03 Dose: 100 mg Sertraline HCl (Zoloft) 150 mg PO BEDTIME MIRNA Last Admin: 01/06/17 21:00 Dose: Not Given Sodium Chloride (Saline Flush) 10 ml FLUSH ASDIRECTED PRN PRN Reason: Keep Vein Open Last Admin: 01/05/17 08:52 Dose: 10 ml Sodium Chloride (Saline Flush) 10 ml FLUSH ONETIME PRN PRN Reason: IV FLUSH Last Admin: 12/29/16 20:11 Dose: 10 ml Sodium Chloride (Normal Saline) Confirm Administered Dose 50 ml .ROUTE .STK-MED ONE Stop: 01/06/17 16:23 Sodium Chloride (Normal Saline) Confirm Administered Dose 50 ml .ROUTE .STK-MED ONE Stop: 01/06/17 16:56 Sodium Chloride (Normal Saline) Confirm Administered Dose 50 ml .ROUTE .STK-MED ONE Stop: 01/06/17 17:12 Succinylcholine Chloride (Quelicin) 400 mg .ROUTE .STK-MED ONE Stop: 01/06/17 23:01 Temazepam (Restoril) 30 mg PO BEDTIME PRN PRN Reason: Sleep Temazepam (Restoril) 30 mg PO BEDTIME PRN PRN Reason: Sleep Last Admin: 01/02/17 01:15 Dose: 30 mg Triamterene/HCTZ (Maxzide 25-37.5 Mg) 1 each PO DAILY [facility] Last Admin: 12/31/16 09:27 Dose: 1 each - Exam Quality Assessment: Reports: supplemental oxygen, central line/PICC (IO, left shoulder), urine catheter, DVT prophylaxis General: Reports: sedated HEENT: Reports: Pupils equal, Pupils reactive Neck: Reports: trachea midline Lungs: Reports: Decreased breath sounds, Rhonchi Cardiovascular: Reports: Regular Rate Abdomen: Reports: bowel sounds present, soft, no tenderness, no distension (Female) Exam: Deferred Rectal (Female) Exam: Deferred Extremities: Reports: normal pulses, edema Skin: Reports: warm Neurological: Reports: other (sedated) Psy/Mental Status: Reports: other (sedated, s/p intubation) *Q Meaningful Use (DIS) - VTE *Q VTE Criteria *Q: - Stroke *Q Stroke Criteria *Q: - AMI *Q AMI Criteria *Q:
== END 2017-01-06 23:45 | DRG 309 ==
LOC: JD.ED 17:15 → JD.ICU 21:17
PROVIDERS: ADMIT Internal Medicine; ATTEND Internal Medicine
PROC: 05HM33Z Insertion of Infusion Device into Right Internal Jugular Vein, Percutaneous Approach (ICD-10-PCS; principal; 2017-01-06)
DX: I48.91 Unspecified atrial fibrillation (principal); J90 Pleural effusion, not elsewhere classified; Z68.43 Body mass index [BMI] 50.0-59.9, adult; E66.01 Morbid (severe) obesity due to excess calories; D75.1 Secondary polycythemia; M19.90 Unspecified osteoarthritis, unspecified site; F32.9 Major depressive disorder, single episode, unspecified; F41.9 Anxiety disorder, unspecified; Z88.0 Allergy status to penicillin
CPT/HCPCS: 36415; 71010; 71275; 80053; 83880; 84443; 84484; 85025; 85379; 93005; 96365; 96366; 96376; 99285; J7030 ×2; J7050 ×2; Q9967 ×2; 31500; 36600; 70450; 70450-26; 71020; 71020-26; 74176; 74176-26; 76770; 76770-26; 80048; 80069; 81001; 82378; 82553; 82803; 82947; 82962; 83036; 83605; 83735; 84132; 84439; 85027; 86140; 86304; 87040; 87086; 87088; 87186; 92610-GN; 93306; 94002; 94640-76; 94660; 94664; 97110-GP; 97112-GP; 97116-GP; 97161-GP; 97165-GO; 97530-GO; 97530-GP; A9270-GY; J0330; J0696; J1650; J1956; J2370; J2704; J3490; J7040; J7042; J7060

== ENCOUNTER 2018-05-19 15:13 | Emergency (ER) | payer MEDICARE, OTHER ==
[2018-05-19 16:15] VITALS: BP 167/107
[2018-05-19] MEDS ORDERED: Lidocaine 2% Jelly 10 ML Urojet MUCMEM ONE (17:37)
--- NOTE | 2018-05-19 19:11 | EDM.PDOC ---
ED HPI GENERAL MEDICAL PROBLEM - General Chief Complaint: ENT Problem Stated Complaint: NOSE BLEED Time Seen by Provider: 05/19/18 17:25 Source of Information: Reports: Patient History Limitations: Reports: No Limitations - History of Present Illness INITIAL COMMENTS - FREE TEXT/NARRATIVE: 73 year old female presents for evaluation and treatment of a nose bleed. Reportedly the nose bleed started this morning . Bleed is coming from the left nare. No trauma to the head or face. Patient presented to the [place] [facility] where she was educated on how to hold pressure, given afrin spray and cautery was attempted but she continued to bleed. She was sent to us for definitive care. Patient is on Coumadin. INR today was 2.86. hgb today 14.6. Patient is not bleeding heavily upon my inspection but she reports nose continues to drip and is dripping down the back of her throat. She denies any lightheadedness, dizziness or syncope. Onset: Today - Related Data Allergies Allergy/AdvReac Type Severity Reaction Status Date / Time codeine Allergy Nausea Verified 05/19/18 16:16 Penicillins Allergy Rash Verified 05/19/18 16:16 Home Meds: Home Meds Brinzolamide [Azopt 1% Ophth Susp] 1 drop EYEBOTH BID 12/30/16 [History] Albuterol/Ipratropium [DuoNeb 3.0-0.5 MG/3 ML] 3 ml NEB Q1H PRN #0 neb 01/06/17 [Rx] Insulin Aspart [NovoLOG] 0 unit SUBCUT Q6H pen 01/06/17 [Rx] Ondansetron [Zofran] 4 mg IV Q6H PRN #0 vial 01/06/17 [Rx] Phenylephrine [Shaw-Synephrine] 50 mg IV ASDIRECTED sdv 01/06/17 [Rx] Acetaminophen/HYDROcodone [[place] 325-5 MG] 1 tab PO Q6H PRN #7 tablet 05/19/18 [ Rx] Past Medical History HEENT History: Reports: Cataract Cardiovascular History: Reports: Arrhythmia, High Cholesterol, Hypertension Other Respiratory History: Suspected sleep apnea Genitourinary History: Reports: Acute Renal Failure, Renal Disease S[employer]E [employer] SERVICE MECHANIC History: Reports: Dysfunctional Uterine Bleeding, , Other (See Below) Other [employer] SERVICE MECHANIC History: 2 c sections Musculoskeletal History: Reports: Arthritis Psychiatric History: Reports: Anxiety, Depression Endocrine/Metabolic History: Reports: Obesity/BMI 30+ - Past Surgical History HEENT Surgical History: Reports: Cataract Surgery GI Surgical History: Reports: Appendectomy, Cholecystectomy Social & Family History - Family History Cardiac: Reports: High Cholesterol, Hypertension - Tobacco Use Smoking Status *Q: Never Smoker Second Hand Smoke Exposure: No - Caffeine Use Caffeine Use: Reports: Coffee - Recreational Drug Use Recreational Drug Use: No - Living Situation & Occupation Living situation: Reports: with Spouse Occupation: Unemployed ED ROS ENT - Review of Systems Review Of Systems: See Below HEENT: Reports: Nosebleed (left) Cardiovascular: Denies: Lightheadedness Neurological: Denies: Dizziness, Syncope ED EXAM, ENT - Physical Exam Exam: See Below Exam Limited By: No Limitations General Appearance: Alert, WD/WN, No Apparent Distress Eye Exam: Bilateral Eye: Normal Inspection Ears: Normal External Exam Nose: Normal Inspection, Active Bleeding (dripping from the left nare, present in the posterior oropharynx) Mouth/Throat: Normal Inspection, Normal Lips, Normal Teeth Respiratory/Chest: No Respiratory Distress, Lungs Clear, Normal Breath Sounds Cardiovascular: Normal Peripheral Pulses, Regular Rate, Rhythm, No Murmur Neurological: Alert, Oriented, Normal Cognition Psychiatric: Normal Affect, Normal Mood Skin: Warm, Dry, Normal Color ED ENT PROCEDURES - Epistaxis Procedure Indication: Epistaxis Recent anticoagulants/antiplatlets: Yes Uncontrolled HTN: No Recent septal/nasal surgery: No Site of bleeding: Left Nare Clearing of clots: Patient Blew Nose Topical Meds: Other (topical 2% lidocaine) Ice pack to area: No Posterior packing: Long Nasal Tampon Complications: No Course - Vital Signs Last Recorded V/S: Last Vital Signs Temp 98.9 F 05/19/18 16:12 Pulse 100 05/19/18 16:12 Resp 16 05/19/18 16:12 BP 167/107 H 05/19/18 16:12 Pulse Ox 90 L 05/19/18 16:12 - Orders/Labs/Meds Meds: Medications Discontinued Medications Generic Name Dose Route Start Last Admin Trade Name Freq PRN Reason Stop Dose Admin Lidocaine HCl 10 ml 05/19/18 17:37 05/19/18 18:12 Xylocaine 2% Jelly MUCMEM 05/19/18 17:38 10 ml ONETIME ONE Administration - Re-Assessments/Exams Free Text/Narrative Re-Assessment/Exam: 05/19/18 19:05 Left nare packed with a long posterior nasal tampon. Patient tolerated well. Removal tomorrow afternoon at the [place] [facility] or return to the ER. Patient tolerated well. No complications. Pain medication given for discomfort. Discharge instructions as documented. Departure - Departure Time of Disposition: 19:09 Disposition: Home, Self-Care 01 Condition: Fair Clinical Impression: Epistaxis - Discharge Information *PRESCRIPTION DRUG MONITORING PROGRAM REVIEWED*: No *COPY OF PRESCRIPTION DRUG MONITORING REPORT IN PATIENT COOPER: No Prescriptions: Acetaminophen/HYDROcodone [[place] 325-5 MG] 1 tab PO Q6H PRN #7 tablet PRN Reason: Pain Instructions: Nosebleed, [id number] Referrals: Tata Tay SALES OPERATIONS MANAGER [Primary Care Provider] - Forms: ED Department Discharge Additional Instructions: Follow up in the [facility] [facility] later tomorrow afternoon or in the ED Wednesday night or Wednesday to have the Rhino Rocket removed. [place] one tablet every 6 hours as needed for pain. [place] is habit forming, take as few these as needed to control your pain. Do not drive or operate machinery within 12 hours of taking [place]. Please return to ER if your symptoms change or worsen.
== END 2018-05-19 19:15 | disposition home or self-care (01) ==
LOC: JD.ED 15:13
DX: R04.0 Epistaxis (principal); E78.00 Pure hypercholesterolemia, unspecified; I10 Essential (primary) hypertension; Z88.5 Allergy status to narcotic agent; Z88.0 Allergy status to penicillin; Z79.4 Long term (current) use of insulin
CPT/HCPCS: 30903; 30905; 99283-25

== ENCOUNTER 2019-01-18 12:48 | Inpatient (IN) | payer OTHER, MEDICARE ==
[2019-01-18] MEDS ORDERED: Sodium Chloride 0.9% 10 ML Syringe FLUSH PRN (13:25)
[2019-01-18] MEDS ORDERED: Furosemide 40 MG/4 ML VIAL IVPUSH ONE (13:40)
--- NOTE | 2019-01-18 14:33 | EDM.PDOC ---
ED HPI GENERAL MEDICAL PROBLEM - General Chief Complaint: Respiratory Problem Stated Complaint: LOW OXYGEN AND WATER RETENSION Time Seen by Provider: 01/18/19 12:54 Source of Information: Reports: Patient, RN Notes Reviewed - History of Present Illness INITIAL COMMENTS - FREE TEXT/NARRATIVE: 73-year-old lady [facility]-up visit. Was found to be very hypoxic with sats running in the very low 80s. On the top of her current swelling of her legs. She does have history of hypertension, CHF, obesity. Is at home with her , does not use oxygen. She is a nonsmoker. She is transferred here for admission the treatment for her hypoxia, congestive heart failure. Transferred here by ambulance. On arrival to ED she denies chest pain. She does not feel short of breath with oxygen although noted to be tachypneic. She denies recent cough fever chills. No abdominal pain nausea vomiting or diaphoresis. She is noted to be on Coumadin for chronic atrial fibrillation. - Related Data Allergies Allergy/AdvReac Type Severity Reaction Status Date / Time codeine Allergy Nausea Verified 01/18/19 17:15 Penicillins Allergy Rash Verified 01/18/19 17:15 Home Meds: Home Meds Brinzolamide [Azopt 1% Ophth Susp] 1 drop EYEBOTH BID 01/18/19 [History] Digoxin 125 mcg PO DAILY 01/18/19 [History] Lisinopril 5 mg PO DAILY 01/18/19 [History] Metoprolol Tartrate 75 mg PO BID 01/18/19 [History] Pantoprazole Sodium 40 mg PO ACBREAKFAST 01/18/19 [History] Sertraline HCl 200 mg PO DAILY 01/18/19 [History] Triamterene/Hydrochlorothiazid [Triamterene-HCTZ 37.5-25 MG] 1 tab PO DAILY [History] Warfarin Sodium [Jantoven] 7.5 mg PO ASDIRECTED 01/18/19 [History] Warfarin Sodium [Jantoven] 10 mg PO ASDIRECTED 01/18/19 [History] atorvaSTATin Calcium [Atorvastatin Calcium] 10 mg PO BEDTIME 01/18/19 [History] Past Medical History HEENT History: Reports: Cataract Cardiovascular History: Reports: Afib, Arrhythmia, High Cholesterol, Hypertension Respiratory History: Reports: SOB Other Respiratory History: Suspected sleep apnea Genitourinary History: Reports: Acute Renal Failure, Renal Disease MANAGER LAUNDRY History: Reports: Dysfunctional Uterine Bleeding, , Other (See Below) Other MANAGER LAUNDRY History: 2 c sections Musculoskeletal History: Reports: Arthritis Psychiatric History: Reports: Anxiety, Depression Endocrine/Metabolic History: Reports: Obesity/BMI 30+ - Past Surgical History HEENT Surgical History: Reports: Cataract Surgery GI Surgical History: Reports: Appendectomy, Cholecystectomy Social & Family History - Family History Family Medical History: Noncontributory Cardiac: Reports: High Cholesterol, Hypertension - Tobacco Use Smoking Status *Q: Never Smoker - Caffeine Use Caffeine Use: Reports: None - Recreational Drug Use Recreational Drug Use: No - Living Situation & Occupation Living situation: Reports: with Spouse Occupation: Unemployed ED ROS GENERAL - Review of Systems Review Of Systems: See Below Constitutional: Denies: Fever, Chills, Diaphoresis HEENT: Denies: Rhinitis, Sinus Problem, Throat Pain Respiratory: Reports: Shortness of Breath, Cough (occasional) Cardiovascular: Reports: Dyspnea on Exertion, Lightheadedness, Orthopnea. Denies: Chest Pain Endocrine: Reports: Fatigue GI/Abdominal: Denies: Abdominal Pain, Nausea, Stool Incontinence Musculoskeletal: Reports: No Symptoms Skin: Reports: No Symptoms Neurological: Reports: Dizziness, Difficulty Walking. Denies: Trouble Speaking ED EXAM, GENERAL - Physical Exam Exam: See Below General Appearance: Alert, Mild Distress Eye Exam: Bilateral Eye: PERRL Throat/Mouth: Normal Inspection, Normal Oropharynx Head: Atraumatic Neck: Supple Respiratory/Chest: Respiratory Distress, Rales (mild bilat). No: Rhonchi, Wheezing Cardiovascular: Irregularly Irregular GI/Abdominal: Soft, Non-Tender Extremities: Pedal Edema (moderate bilat. ) Neurological: Alert, Oriented, No Motor/Sensory Deficits Skin Exam: Warm, Dry, Normal Color EKG INTERPRETATION EKG Date: 01/18/19 Rhythm: A-Fib [place]: Normal P-Wave: Absent ST-T: Depressed (T-wave inversion and ST depression in multiple leads) Course - Vital Signs Last Recorded V/S: Last Vital Signs Temp 97.9 F 01/18/19 17:04 Pulse 69 01/18/19 17:07 Resp 20 01/18/19 17:04 BP 113/75 01/18/19 17:04 Pulse Ox 93 L 01/18/19 18:17 - Orders/Labs/Meds Orders: Active Orders 24 hr Category Date Time Status EKG 12 Lead [EKG Documentation Completion] [RC] STAT Care 01/18/19 13:26 Active Oxygen Therapy [RC] ASDIRECTED Care 01/18/19 13:26 Active Sodium Chloride 0.9% [Saline Flush] Med 01/18/19 13:25 Active 10 ml FLUSH ASDIRECTED PRN Peripheral IV Insertion Adult [OM.PC] Stat Oth 01/18/19 13:26 Ordered Medication Orders Acetaminophen (Tylenol) 650 mg PO Q4H PRN PRN Reason: Pain (Mild 1-3)/fever Hydrocodone Bitart/Acetaminophen ([place] 325-5 Mg) 1 tab PO Q4H PRN PRN Reason: Pain (moderate 4-6) Albuterol/Ipratropium (Duoneb 3.0-0.5 Mg/3 Ml) 3 ml NEB Q4H PRN PRN Reason: Shortness Of Breath/wheezing Bisacodyl (Dulcolax) 5 mg PO DAILY PRN PRN Reason: Constipation Digoxin (Lanoxin) 125 mcg PO DAILY@1200 MIRNA Docusate Sodium (Colace) 100 mg PO BID PRN PRN Reason: Constipation Dorzolamide HCl (Trusopt 2% Ophth Soln) 0 ml EYEBOTH BID MIRNA Famotidine (Pepcid) 20 mg PO BID MIRNA Furosemide (Lasix) 40 mg PO ACLUNCH MIRNA Hydralazine HCl (Apresoline) 20 mg IVPUSH Q4H PRN PRN Reason: Hypertension Hydromorphone HCl (Dilaudid) 0.5 mg IVPUSH Q2H PRN PRN Reason: Pain (severe 7-10) Promethazine HCl 6.25 mg/ (Sodium Chloride) 50.25 mls @ 100 mls/hr IV Q6H PRN PRN Reason: Nausea/Vomiting Lisinopril (Prinivil) 5 mg PO DAILY MIRNA Lorazepam (Ativan) 2 mg IVPUSH Q4H PRN PRN Reason: Seizures Lorazepam (Ativan) 0.5 mg IV Q6H PRN PRN Reason: Anxiety Magnesium Sulfate (Pharmacy To Dose - Magnesium Replacement) 1 dose .XX ASDIRECTED ON LICENSE OF [facility] Metoprolol Tartrate (Lopressor) 75 mg PO BID ON LICENSE OF [facility] Metoprolol Tartrate (Lopressor) 5 mg IVPUSH Q4H PRN PRN Reason: Tachycardia Ondansetron HCl (Zofran) 4 mg IV Q6H PRN PRN Reason: Nausea/Vomiting Pantoprazole Sodium (Protonix) 40 mg PO ACBREAKFAST ON LICENSE OF [facility] Polyethylene Glycol (Miralax) 17 gm PO DAILY PRN PRN Reason: Constipation Potassium Chloride (Klor-Con M20) 20 meq PO DAILY ON LICENSE OF [facility] Potassium Chloride (Pharmacy To Dose - Potassium Replacement) 1 dose .XX ASDIRECTED ON LICENSE OF [facility] Senna/Docusate Sodium (Senna Plus) 1 tab PO BID PRN PRN Reason: Constipation Sertraline HCl (Zoloft) 200 mg PO DAILY ON LICENSE OF [facility] Simvastatin (Zocor) 10 mg PO BEDTIME ON LICENSE OF [facility] Sodium Chloride (Saline Flush) 10 ml FLUSH ASDIRECTED PRN PRN Reason: Keep Vein Open Last Admin: 01/18/19 13:55 Dose: 10 ml Triamterene/HCTZ (Dyazide 25-37.5 Mg) 1 each PO DAILY ON LICENSE OF [facility] Warfarin Sodium (Coumadin) 5 mg PO ASDIRECTED ON LICENSE OF [facility] Labs: Laboratory Tests 01/18/19 01/18/19 01/18/19 Range/Units 13:55 13:55 13:55 WBC 12.35 H (3.98-10.04) K/mm3 RBC 5.32 H (3.98-5.22) M/mm3 Hgb 12.5 (11.2-15.7) gm/L Hct 42.9 (34.1-44.9) % MCV 80.6 (79.4-94.8) fl MCH 23.5 L (25.6-32.2) pg MCHC 29.1 L (32.2-35.5) g/dl RDW Std Deviation 54.7 H (36.4-46.3) fL Plt Count 358 (182-369) K/mm3 MPV 11.8 (9.4-12.3) fl Neut % (Auto) 78.4 H (34.0-71.1) % Lymph % (Auto) 11.9 L (19.3-51.7) % [place] % (Auto) 8.9 (4.7-12.5) % Eos % (Auto) 0.6 L (0.7-5.8) Baso % (Auto) 0.1 (0.1-1.2) % Neut # (Auto) 9.68 H (1.56-6.13) K/mm3 Lymph # (Auto) 1.47 (1.18-3.74) K/mm3 [place] # (Auto) 1.10 H (0.24-0.36) K/mm3 Eos # (Auto) 0.08 (0.04-0.36) K/mm3 Baso # (Auto) 0.01 (0.01-0.08) K/mm3 Manual Slide Review Abnormal smear PT (9.5-12.1) SECONDS INR D-Dimer, Quantitative (0.19-0.50) mg/L Sodium 140 (136-145) mEq/L Potassium 5.7 H (3.5-5.1) mEq/L Chloride 101 (98-107) mEq/L Carbon Dioxide 36 H (21-32) mEq/L Anion Gap 8.7 (5-15) BUN 29 H (7-18) mg/dL Creatinine 1.2 H (0.55-1.02) mg/dL Est Cr Clr Drug Dosing 37.13 mL/min Estimated GFR (MDRD) 44 (>60) mL/min BUN/Creatinine Ratio 24.2 H (14-18) Glucose 114 (83-115) mg/dL Hemoglobin A1c (4.50-6.20) % Calcium 9.2 (8.5-10.1) mg/dL Total Bilirubin 0.7 (0.2-1.0) mg/dL AST 38 H (15-37) U/L ALT 18 (14-59) U/L Alkaline Phosphatase 143 H (46-116) U/L Troponin I < 0.017 (0.00-0.056) ng/mL NT-Pro-B Natriuret Pep 4972 H (0-125) pg/mL Total Protein 7.7 (6.4-8.2) g/dl Albumin 3.1 L (3.4-5.0) g/dl Globulin 4.6 gm/dL Albumin/Globulin Ratio 0.7 L (1-2) TSH 3rd Generation (0.358-3.74) uIU/mL Digoxin (0.9-2.0) ng/mL 03/01/18/19 01/18/19 Range/Units 13:55 13:55 16:30 WBC (3.98-10.04) K/mm3 RBC (3.98-5.22) M/mm3 Hgb (11.2-15.7) gm/L Hct (34.1-44.9) % MCV (79.4-94.8) fl MCH (25.6-32.2) pg MCHC (32.2-35.5) g/dl RDW Std Deviation (36.4-46.3) fL Plt Count (182-369) K/mm3 MPV (9.4-12.3) fl Neut % (Auto) (34.0-71.1) % Lymph % (Auto) (19.3-51.7) % [place] % (Auto) (4.7-12.5) % Eos % (Auto) (0.7-5.8) Baso % (Auto) (0.1-1.2) % Neut # (Auto) (1.56-6.13) K/mm3 Lymph # (Auto) (1.18-3.74) K/mm3 [place] # (Auto) (0.24-0.36) K/mm3 Eos # (Auto) (0.04-0.36) K/mm3 Baso # (Auto) (0.01-0.08) K/mm3 Manual Slide Review PT 33.5 H (9.5-12.1) SECONDS INR 3.14 D-Dimer, Quantitative (0.19-0.50) mg/L Sodium (136-145) mEq/L Potassium (3.5-5.1) mEq/L Chloride (98-107) mEq/L Carbon Dioxide (21-32) mEq/L Anion Gap (5-15) BUN (7-18) mg/dL Creatinine (0.55-1.02) mg/dL Est Cr Clr Drug Dosing mL/min Estimated GFR (MDRD) (>60) mL/min BUN/Creatinine Ratio (14-18) Glucose (83-115) mg/dL Hemoglobin A1c 7.20 H (4.50-6.20) % Calcium (8.5-10.1) mg/dL Total Bilirubin (0.2-1.0) mg/dL AST (15-37) U/L ALT (14-59) U/L Alkaline Phosphatase (46-116) U/L Troponin I (0.00-0.056) ng/mL NT-Pro-B Natriuret Pep (0-125) pg/mL Total Protein (6.4-8.2) g/dl Albumin (3.4-5.0) g/dl Globulin gm/dL Albumin/Globulin Ratio (1-2) TSH 3rd Generation 3.057 (0.358-3.74) uIU/mL Digoxin (0.9-2.0) ng/mL 01/18/19 01/18/19 Range/Units 16:30 16:30 WBC (3.98-10.04) K/mm3 RBC (3.98-5.22) M/mm3 Hgb (11.2-15.7) gm/L Hct (34.1-44.9) % MCV (79.4-94.8) fl MCH (25.6-32.2) pg MCHC (32.2-35.5) g/dl RDW Std Deviation (36.4-46.3) fL Plt Count (182-369) K/mm3 MPV (9.4-12.3) fl Neut % (Auto) (34.0-71.1) % Lymph % (Auto) (19.3-51.7) % [place] % (Auto) (4.7-12.5) % Eos % (Auto) (0.7-5.8) Baso % (Auto) (0.1-1.2) % Neut # (Auto) (1.56-6.13) K/mm3 Lymph # (Auto) (1.18-3.74) K/mm3 [place] # (Auto) (0.24-0.36) K/mm3 Eos # (Auto) (0.04-0.36) K/mm3 Baso # (Auto) (0.01-0.08) K/mm3 Manual Slide Review PT (9.5-12.1) SECONDS INR D-Dimer, Quantitative < 0.19 L (0.19-0.50) mg/L Sodium (136-145) mEq/L Potassium (3.5-5.1) mEq/L Chloride (98-107) mEq/L Carbon Dioxide (21-32) mEq/L Anion Gap (5-15) BUN (7-18) mg/dL Creatinine (0.55-1.02) mg/dL Est Cr Clr Drug Dosing mL/min Estimated GFR (MDRD) (>60) mL/min BUN/Creatinine Ratio (14-18) Glucose (83-115) mg/dL Hemoglobin A1c (4.50-6.20) % Calcium (8.5-10.1) mg/dL Total Bilirubin (0.2-1.0) mg/dL AST (15-37) U/L ALT (14-59) U/L Alkaline Phosphatase (46-116) U/L Troponin I (0.00-0.056) ng/mL NT-Pro-B Natriuret Pep (0-125) pg/mL Total Protein (6.4-8.2) g/dl Albumin (3.4-5.0) g/dl Globulin gm/dL Albumin/Globulin Ratio (1-2) TSH 3rd Generation (0.358-3.74) uIU/mL Digoxin 1.3 (0.9-2.0) ng/mL Meds: Medications Generic Name Dose Route Start Last Admin Trade Name Freq PRN Reason Stop Dose Admin Acetaminophen 650 mg 01/18/19 17:04 Tylenol PO Q4H PRN Pain (Mild 1-3)/fever Hydrocodone Bitart/Acetaminophen 1 tab 01/18/19 17:04 [place] 325-5 Mg PO Q4H PRN Pain (moderate 4-6) Albuterol/Ipratropium 3 ml 01/18/19 17:04 Duoneb 3.0-0.5 Mg/3 Ml NEB Q4H PRN Shortness Of Breath/wheezing Bisacodyl 5 mg 01/18/19 17:04 Dulcolax PO DAILY PRN Constipation Digoxin 125 mcg 01/19/19 12:00 Lanoxin PO DAILY@1200 ON LICENSE OF [facility] Docusate Sodium 100 mg 01/18/19 17:04 Colace PO BID PRN Constipation Dorzolamide HCl 0 ml 01/18/19 21:00 Trusopt 2% Ophth Soln EYEBOTH BID ON LICENSE OF [facility] Famotidine 20 mg 01/18/19 21:00 Pepcid PO BID MIRNA Furosemide 40 mg 01/19/19 10:00 Lasix PO ACLUNCH ON LICENSE OF [facility] Hydralazine HCl 20 mg 01/18/19 17:04 Apresoline IVPUSH Q4H PRN Hypertension Hydromorphone HCl 0.5 mg 01/18/19 17:04 Dilaudid IVPUSH Q2H PRN Pain (severe 7-10) Promethazine HCl 6.25 mg/ 50.25 mls @ 100 mls/hr 01/18/19 17:04 Sodium Chloride IV Q6H PRN Nausea/Vomiting Lisinopril 5 mg 01/19/19 09:00 Prinivil PO DAILY ON LICENSE OF [facility] Lorazepam 2 mg 01/18/19 17:04 Ativan IVPUSH Q4H PRN Seizures Lorazepam 0.5 mg 01/18/19 17:04 Ativan IV Q6H PRN Anxiety Magnesium Sulfate 1 dose 01/18/19 17:15 Pharmacy To Dose - Magnesium Replacement .XX ASDIRECTED ON LICENSE OF [facility] Metoprolol Tartrate 75 mg 01/18/19 21:00 Lopressor PO BID ON LICENSE OF [facility] Metoprolol Tartrate 5 mg 01/18/19 17:04 Lopressor IVPUSH Q4H PRN Tachycardia Ondansetron HCl 4 mg 01/18/19 17:04 Zofran IV Q6H PRN Nausea/Vomiting Pantoprazole Sodium 40 mg 01/19/19 06:00 Protonix PO ACBREAKFAST ON LICENSE OF [facility] Polyethylene Glycol 17 gm 01/18/19 17:04 Miralax PO DAILY PRN Constipation Potassium Chloride 20 meq 01/19/19 09:00 Klor-Con M20 PO DAILY ON LICENSE OF [facility] Potassium Chloride 1 dose 01/18/19 17:15 Pharmacy To Dose - Potassium Replacement .XX ASDIRECTED ON LICENSE OF [facility] Senna/Docusate Sodium 1 tab 01/18/19 17:04 Senna Plus PO BID PRN Constipation Sertraline HCl 200 mg 01/19/19 09:00 Zoloft PO DAILY ON LICENSE OF [facility] Simvastatin 10 mg 01/18/19 21:00 Zocor PO BEDTIME ON LICENSE OF [facility] Sodium Chloride 10 ml 01/18/19 13:25 01/18/19 13:55 Saline Flush FLUSH 10 ml ASDIRECTED PRN Administration Keep Vein Open Triamterene/HCTZ 1 each 01/19/19 09:00 Dyazide 25-37.5 Mg PO DAILY ON LICENSE OF [facility] Warfarin Sodium 5 mg 01/18/19 17:00 Coumadin PO ASDIRECTED MIRNA Discontinued Medications Generic Name Dose Route Start Last Admin Trade Name Bernadette PRN Reason Stop Dose Admin Furosemide 40 mg 01/18/19 13:40 01/18/19 14:35 Lasix IVPUSH 01/18/19 13:41 40 mg NOW ONE Administration Heparin Sodium (Porcine) 5,000 units 01/18/19 18:00 01/18/19 18:51 Heparin Sodium SUBCUT 5,000 units Q8H MIRNA Administration - Re-Assessments/Exams Free Text/Narrative Re-Assessment/Exam: 01/18/19 16:25. Chest x-ray shows cardiomegaly mild pulmonary congestion. EKG shows atrial fib with ventricular rates running primarily in the 60s and 70s. troponin did come back negative. She was not anxious to come into the hospital but that is why she was sent here, for hospital admission, treatment, stabilization. I did take her O2 off for a few minutes and she quickly dropped her sats down to the mid 80s. That was at rest in a sitting position. Therefore arrangements have been made for admission, further treatment and evaluation as needed. Departure - Departure Time of Disposition: 16:11 Disposition: Admitted As Inpatient 68 Condition: Fair Clinical Impression: Hypoxia Congestive heart failure Qualifiers: Heart failure type: combined systolic and diastolic Heart failure chronicity: acute on chronic Qualified Code(s): I50.43 - Acute on chronic combined systolic (congestive) and diastolic (congestive) heart failure Atrial fibrillation Qualifiers: Atrial fibrillation type: chronic Qualified Code(s): I48.2 - Chronic atrial fibrillation - Discharge Information ED Communication - Discussed Case With (1) Discussed Case With (1): Admitting Provider (Dr Penny, decision to admit at about 16:05.) - My Orders Last 24 Hours: My Active Orders 01/18/19 13:25 Sodium Chloride 0.9% [Saline Flush] 10 ml FLUSH ASDIRECTED PRN 01/18/19 13:26 EKG 12 Lead [EKG Documentation Completion] [RC] STAT Oxygen Therapy [RC] ASDIRECTED Peripheral IV Insertion Adult [OM.PC] Stat - Assessment/Plan Last 24 Hours: My Active Orders 01/18/19 13:25 Sodium Chloride 0.9% [Saline Flush] 10 ml FLUSH ASDIRECTED PRN 01/18/19 13:26 EKG 12 Lead [EKG Documentation Completion] [RC] STAT Oxygen Therapy [RC] ASDIRECTED Peripheral IV Insertion Adult [OM.PC] Stat
[2019-01-18] MEDS ORDERED: Warfarin 5 MG Tab PO SCH (17:00)
[2019-01-18] MEDS ORDERED: HYDROmorphone 1 MG/ML Syringe IVPUSH PRN (17:04)
[2019-01-18] MEDS ORDERED: Bisacodyl 5 MG Tab PO PRN (17:04)
[2019-01-18] MEDS ORDERED: LORazepam 2 MG/ML SDV IVPUSH PRN (17:04)
[2019-01-18] MEDS ORDERED: Docusate Sodium 100 MG Cap PO PRN (17:04)
[2019-01-18] MEDS ORDERED: Acetaminophen 325 MG Tab PO PRN (17:04)
[2019-01-18] MEDS ORDERED: Polyethylene Glycol 3350 Powder 17 GM Packet PO PRN (17:04)
[2019-01-18] MEDS ORDERED: Metoprolol Tartrate 5 MG/5 ML SDV IVPUSH PRN (17:04)
[2019-01-18] MEDS ORDERED: Promethazine 6.25 MG in Sodium Chloride 0.9% 50 ML IV PRN (17:04)
[2019-01-18] MEDS ORDERED: hydrALAZINE 20 MG/ML SDV IVPUSH PRN (17:04)
[2019-01-18] MEDS ORDERED: LORazepam 2 MG/ML SDV IV PRN (17:04)
[2019-01-18] MEDS ORDERED: Ondansetron 4 MG/2 ML SDV IV PRN (17:04)
[2019-01-18] MEDS ORDERED: Acetaminophen/HYDROcodone 325-5 MG Tab PO PRN (17:04)
[2019-01-18] MEDS ORDERED: Albuterol/Ipratropium 3.0-0.5 MG/3 ML Neb Soln NEB PRN (17:04)
[2019-01-18 17:50] LABS: HEMOGLOBIN A1C 7.2 % (4.50-6.20)
[2019-01-18] MEDS ORDERED: Heparin Sodium 5,000 Units/ML Vial SUBCUT SCH (18:00)
[2019-01-18] MEDS: Metoprolol Tartrate 50 MG Tab PO SCH (21:31)
[2019-01-18] MEDS: Dorzolamide 2% Ophth Soln 10 ML Bottle EYEBOTH SCH (21:35)
[2019-01-18] MEDS: Simvastatin 10 MG Tab PO SCH (21:35)
[2019-01-18] MEDS: Famotidine 20 MG Tab PO SCH (21:35)
--- NOTE | 2019-01-18 23:07 | PCM.HP ---
H&P History of Present Illness - General Date of Service: 01/18/19 Admit Problem/Dx: Admission Diagnosis/Problem Admission Diagnosis/Problem Hypoxia Source of Information: Patient, Family, Old Records, Provider, RN Notes Reviewed History Limitations: Reports: Altered Mental Status, Other - History of Present Illness Initial Comments - Free Text/Narative: This is a 73 yo elderly white female with past medical hx/o Impaired Vision and Hearing, Atrial Fibrillation, on Warfarin, HTN, HLD, SOB on Exertion, Probable MICHAEL, CKD Stage 3, OA/DJD, Anxiety, Depression, and Morbid Obesity with BMI of 51.6 who comes in for evaluation of hypoxia with an O2 Sat in the low 80s associated with weight gain and increased leg edema. She was initially seen in [facility] for routine follow up appointment but was sent over here in ED for further evaluation. Patient denies feeling shortness or breath, chest pain, fever, chills, generalized aches or malaise. She further denies any GI or complaints. She is however a poor historian. Her supplied her HPI. Her initial work up in ED shows a CBC remarkable for WBC of 12.35, RBC of 5.32, MCH of 23.5, MCHC of 29.1, RDW of 54.7, Neutrophils of 78.4%, Lymphocytes of 11.9, Eosinophils of 0.6%. Her INR is therapeutic at 3.14. Her chemistry is significant for K of 5.7, CO2 of 36, BUN of 29, Cr of 1.2, BS of 114, A1C of 7.2 , AST of 38, Alk Phos of 143, ProBNP of 4972 and Albumin of 3.1. Her chest x- ray shows pulmonary vascular congestion. Patient id being admitted for medical management for Hypoxia likely 2/2 MICHAEL/OHS and acute heart failure. She is full code. - Related Data Allergies/Adverse Reactions: Allergies Allergy/AdvReac Type Severity Reaction Status Date / Time codeine Allergy Nausea Verified 01/18/19 17:15 Penicillins Allergy Rash Verified 01/18/19 17:15 Home Medications: Home Meds Brinzolamide [Azopt 1% Ophth Susp] 1 drop EYEBOTH BID 01/18/19 [History] Digoxin 125 mcg PO DAILY 01/18/19 [History] Lisinopril 5 mg PO DAILY 01/18/19 [History] Metoprolol Tartrate 75 mg PO BID 01/18/19 [History] Pantoprazole Sodium 40 mg PO ACBREAKFAST 01/18/19 [History] Sertraline HCl 200 mg PO DAILY 01/18/19 [History] Triamterene/Hydrochlorothiazid [Triamterene-HCTZ 37.5-25 MG] 1 tab PO DAILY [History] Warfarin Sodium [Jantoven] 7.5 mg PO ASDIRECTED 01/18/19 [History] Warfarin Sodium [Jantoven] 10 mg PO ASDIRECTED 01/18/19 [History] atorvaSTATin Calcium [Atorvastatin Calcium] 10 mg PO BEDTIME 01/18/19 [History] Furosemide [Lasix] 40 mg PO DAILY 01/19/19 [History] Potassium Chloride [Klor-Con M20] 20 meq PO DAILY 01/19/19 [History] Past Medical History HEENT History: Reports: Cataract Cardiovascular History: Reports: Afib, Arrhythmia, High Cholesterol, Hypertension Respiratory History: Reports: SOB Other Respiratory History: Suspected sleep apnea Gastrointestinal History: Reports: GERD Genitourinary History: Reports: Acute Renal Failure, Renal Disease [employer] History: Reports: Dysfunctional Uterine Bleeding, , Other (See Below) Other OB/BYN History: 2 c sections Musculoskeletal History: Reports: Arthritis Psychiatric History: Reports: Anxiety, Depression Endocrine/Metabolic History: Reports: Obesity/BMI 30+ - Infectious Disease History Infectious Disease History: Reports: Chicken Pox, Measles, Mumps - Past Surgical History HEENT Surgical History: Reports: Cataract Surgery GI Surgical History: Reports: Appendectomy, Cholecystectomy Social & Family History - Family History Family Medical History: Noncontributory Cardiac: Reports: High Cholesterol, Hypertension - Tobacco Use Smoking Status *Q: Never Smoker - Caffeine Use Caffeine Use: Reports: None - Recreational Drug Use Recreational Drug Use: No - Living Situation & Occupation Living situation: Reports: with Spouse Occupation: Unemployed H&P Review of Systems - Review of Systems: Review Of Systems: See Below General: Reports: Weight Gain. Denies: Fever, Chills, Malaise, Weakness, Fatigue HEENT: Reports: Other (Hearing impairment). Denies: Contact Lenses, Eye Pain, Headaches, Hearing Changes, Rhinitis, Post Nasal Drip, Sinus Congestion, Sore Throat, Visual Changes Pulmonary: Reports: Shortness of Breath, Cough Cardiovascular: Reports: Dyspnea on Exertion, Orthopnea, Edema, Lightheadedness. Denies: Chest Pain, Palpitations, PND, Syncope, Claudication, Blood Pressure Problem Gastrointestinal: Denies: Abdominal Pain, Decreased Appetite, Nausea, Vomiting Genitourinary: Reports: Frequency. Denies: Dysuria, Urgency, Retention Musculoskeletal: Denies: Neck Pain, Arm Pain, Back Pain, Hand Pain, Muscle Stiffness Skin: Denies: Cyanosis, Mottled, Pallor, Diaphoresis, Dryness, Bruising, Rash, Erythema Psychiatric: Denies: Depression, Anxiety, Agitation Neurological: Reports: Gait Disturbance. Denies: Confusion, Weakness Hematologic/Lymphatic: Reports: No Symptoms Immunologic: Reports: No Symptoms Exam - Exam Exam: See Below - Vital Signs Vital Signs: Last Vital Signs Temp 36.6 C 01/18/19 17:04 Pulse 78 01/18/19 21:31 Resp 20 01/18/19 17:04 BP 117/44 L 01/18/19 21:31 Pulse Ox 93 L 01/18/19 18:17 Weight: 136.395 kg - Exam Quality Assessment: Supplemental Oxygen General: Alert, Oriented, Cooperative, Other (Morbidly Obese) HEENT: Conjunctiva Clear, EACs Clear, EOMI, Hearing Intact, Mucosa Moist & [place] , Nares Patent, Normal Nasal Septum, Posterior Pharynx Clear, Pupils Equal, Pupils Reactive Neck: Supple, Trachea Midline, Full Range of Motion. No: JVD Lungs: Normal Respiratory Effort, Decreased Breath Sounds, Crackles (at the left base) Cardiovascular: Irregular Rhythm GI/Abdominal Exam: Normal Bowel Sounds, Soft, Non-Tender, No Organomegaly, No Distention, No Abnormal Bruit, Other (Obese) (Female) Exam: Deferred Rectal (Female) Exam: Deferred Back Exam: Normal Inspection, Decreased Range of Motion Extremities: Normal Inspection, Normal Range of Motion, Non-Tender, No Pedal Edema, Slow Capillary Refill Peripheral Pulses: 2+: Posterior Tibial (L), Posterior Tibial (R), Dorsalis Pedis (L), Dorsalis Pedis (R) Skin: Warm, Dry, Intact Neuro Extensive - Mental Status: Oriented x3, Normal Cognition, Memory Intact Neuro Extensive - Motor, Sensory, Reflexes: CN II-XII Intact (limited due to body habitus and impaired hearing ), Abnormal Gait Psychiatric: Alert, Normal Affect, Normal Mood - Patient Data Lab Results Last 24 hrs: Laboratory Results - last 24 hr 01/18/19 01/18/19 01/18/19 Range/Units 13:55 13:55 13:55 WBC 12.35 H (3.98-10.04) K/mm3 RBC 5.32 H (3.98-5.22) M/mm3 Hgb 12.5 (11.2-15.7) gm/L Hct 42.9 (34.1-44.9) % MCV 80.6 (79.4-94.8) fl MCH 23.5 L (25.6-32.2) pg MCHC 29.1 L (32.2-35.5) g/dl RDW Std Deviation 54.7 H (36.4-46.3) fL Plt Count 358 (182-369) K/mm3 MPV 11.8 (9.4-12.3) fl Neut % (Auto) 78.4 H (34.0-71.1) % Lymph % (Auto) 11.9 L (19.3-51.7) % [place] % (Auto) 8.9 (4.7-12.5) % Eos % (Auto) 0.6 L (0.7-5.8) Baso % (Auto) 0.1 (0.1-1.2) % Neut # (Auto) 9.68 H (1.56-6.13) K/mm3 Lymph # (Auto) 1.47 (1.18-3.74) K/mm3 [place] # (Auto) 1.10 H (0.24-0.36) K/mm3 Eos # (Auto) 0.08 (0.04-0.36) K/mm3 Baso # (Auto) 0.01 (0.01-0.08) K/mm3 Manual Slide Review Abnormal smear PT (9.5-12.1) SECONDS INR D-Dimer, Quantitative (0.19-0.50) mg/L Sodium 140 (136-145) mEq/L Potassium 5.7 H (3.5-5.1) mEq/L Chloride 101 (98-107) mEq/L Carbon Dioxide 36 H (21-32) mEq/L Anion Gap 8.7 (5-15) BUN 29 H (7-18) mg/dL Creatinine 1.2 H (0.55-1.02) mg/dL Est Cr Clr Drug Dosing 37.13 mL/min Estimated GFR (MDRD) 44 (>60) mL/min BUN/Creatinine Ratio 24.2 H (14-18) Glucose 114 (83-115) mg/dL Hemoglobin A1c (4.50-6.20) % Calcium 9.2 (8.5-10.1) mg/dL Total Bilirubin 0.7 (0.2-1.0) mg/dL AST 38 H (15-37) U/L ALT 18 (14-59) U/L Alkaline Phosphatase 143 H (46-116) U/L Troponin I < 0.017 (0.00-0.056) ng/mL NT-Pro-B Natriuret Pep 4972 H (0-125) pg/mL Total Protein 7.7 (6.4-8.2) g/dl Albumin 3.1 L (3.4-5.0) g/dl Globulin 4.6 gm/dL Albumin/Globulin Ratio 0.7 L (1-2) TSH 3rd Generation (0.358-3.74) uIU/mL Digoxin (0.9-2.0) ng/mL 01/18/19 01/18/19 01/18/19 Range/Units 13:55 13:55 16:30 WBC (3.98-10.04) K/mm3 RBC (3.98-5.22) M/mm3 Hgb (11.2-15.7) gm/L Hct (34.1-44.9) % MCV (79.4-94.8) fl MCH (25.6-32.2) pg MCHC (32.2-35.5) g/dl RDW Std Deviation (36.4-46.3) fL Plt Count (182-369) K/mm3 MPV (9.4-12.3) fl Neut % (Auto) (34.0-71.1) % Lymph % (Auto) (19.3-51.7) % [place] % (Auto) (4.7-12.5) % Eos % (Auto) (0.7-5.8) Baso % (Auto) (0.1-1.2) % Neut # (Auto) (1.56-6.13) K/mm3 Lymph # (Auto) (1.18-3.74) K/mm3 [place] # (Auto) (0.24-0.36) K/mm3 Eos # (Auto) (0.04-0.36) K/mm3 Baso # (Auto) (0.01-0.08) K/mm3 Manual Slide Review PT 33.5 H (9.5-12.1) SECONDS INR 3.14 D-Dimer, Quantitative (0.19-0.50) mg/L Sodium (136-145) mEq/L Potassium (3.5-5.1) mEq/L Chloride (98-107) mEq/L Carbon Dioxide (21-32) mEq/L Anion Gap (5-15) BUN (7-18) mg/dL Creatinine (0.55-1.02) mg/dL Est Cr Clr Drug Dosing mL/min Estimated GFR (MDRD) (>60) mL/min BUN/Creatinine Ratio (14-18) Glucose (83-115) mg/dL Hemoglobin A1c 7.20 H (4.50-6.20) % Calcium (8.5-10.1) mg/dL Total Bilirubin (0.2-1.0) mg/dL AST (15-37) U/L ALT (14-59) U/L Alkaline Phosphatase (46-116) U/L Troponin I (0.00-0.056) ng/mL NT-Pro-B Natriuret Pep (0-125) pg/mL Total Protein (6.4-8.2) g/dl Albumin (3.4-5.0) g/dl Globulin gm/dL Albumin/Globulin Ratio (1-2) TSH 3rd Generation 3.057 (0.358-3.74) uIU/mL Digoxin (0.9-2.0) ng/mL 01/18/19 01/18/19 Range/Units 16:30 16:30 WBC (3.98-10.04) K/mm3 RBC (3.98-5.22) M/mm3 Hgb (11.2-15.7) gm/L Hct (34.1-44.9) % MCV (79.4-94.8) fl MCH (25.6-32.2) pg MCHC (32.2-35.5) g/dl RDW Std Deviation (36.4-46.3) fL Plt Count (182-369) K/mm3 MPV (9.4-12.3) fl Neut % (Auto) (34.0-71.1) % Lymph % (Auto) (19.3-51.7) % [place] % (Auto) (4.7-12.5) % Eos % (Auto) (0.7-5.8) Baso % (Auto) (0.1-1.2) % Neut # (Auto) (1.56-6.13) K/mm3 Lymph # (Auto) (1.18-3.74) K/mm3 [place] # (Auto) (0.24-0.36) K/mm3 Eos # (Auto) (0.04-0.36) K/mm3 Baso # (Auto) (0.01-0.08) K/mm3 Manual Slide Review PT (9.5-12.1) SECONDS INR D-Dimer, Quantitative < 0.19 L (0.19-0.50) mg/L Sodium (136-145) mEq/L Potassium (3.5-5.1) mEq/L Chloride (98-107) mEq/L Carbon Dioxide (21-32) mEq/L Anion Gap (5-15) BUN (7-18) mg/dL Creatinine (0.55-1.02) mg/dL Est Cr Clr Drug Dosing mL/min Estimated GFR (MDRD) (>60) mL/min BUN/Creatinine Ratio (14-18) Glucose (83-115) mg/dL Hemoglobin A1c (4.50-6.20) % Calcium (8.5-10.1) mg/dL Total Bilirubin (0.2-1.0) mg/dL AST (15-37) U/L ALT (14-59) U/L Alkaline Phosphatase (46-116) U/L Troponin I (0.00-0.056) ng/mL NT-Pro-B Natriuret Pep (0-125) pg/mL Total Protein (6.4-8.2) g/dl Albumin (3.4-5.0) g/dl Globulin gm/dL Albumin/Globulin Ratio (1-2) TSH 3rd Generation (0.358-3.74) uIU/mL Digoxin 1.3 (0.9-2.0) ng/mL Result Diagrams: 01/19/19 06:10 01/19/19 06:10 Problem List Initiated/Reviewed/Updated: Yes Orders Last 24hrs: Active Orders 24 hr Category Date Time Status Admission Status [Patient Status] [ADT] Routine ADT 01/18/19 16:33 Active Cardiac Monitoring [RC] CONTINUOUS Care 01/18/19 17:05 Active EKG 12 Lead [EKG Documentation Completion] [RC] STAT Care 01/18/19 13:26 Active Height and Weight [RC] 04 Care 01/18/19 17:04 Active Intake and Output [RC] 04,16 Care 01/18/19 17:05 Active Oxygen Therapy [RC] ASDIRECTED Care 01/18/19 13:26 Active Oxygen Therapy [RC] PRN Care 01/18/19 17:05 Active Pulse Oximetry [RC] PRN Care 01/18/19 17:05 Active RT Aerosol Therapy [RC] ASDIRECTED Care 01/18/19 17:08 Active Up With Assistance [RC] ASDIRECTED Care 01/18/19 17:04 Active Up ad Shani [RC] ASDIRECTED Care 01/18/19 17:04 Active VTE/DVT Education [RC] PER UNIT ROUTINE Care 01/18/19 17:05 Active Vital Signs [RC] Q4H Care 01/18/19 17:05 Active Consult to Case Management/Media Coordinator [CONS] Cons 01/18/19 17:04 Active Routine Consult to Spiritual Care [CONS] Routine Cons 01/18/19 17:04 Active OT Evaluation and Treatment [CONS] Routine Cons 01/18/19 17:04 Active PT Evaluation and Treatment [CONS] Routine Cons 01/18/19 17:04 Active Respiratory Care Assess and Treatment [CONS] Routine Cons 01/18/19 17:04 Active 2 Gram Sodium Diet [DIET] Diet 01/18/19 Dinner Active Heart Healthy Diet [DIET] Diet 01/18/19 Dinner Active BASIC METABOLIC PANEL,BMP [CHEM] AM Lab 01/19/19 05:11 Ordered BASIC METABOLIC PANEL,BMP [CHEM] AM Lab 01/20/19 05:11 Ordered BASIC METABOLIC PANEL,BMP [CHEM] AM Lab 01/21/19 05:11 Ordered BASIC METABOLIC PANEL,BMP [CHEM] AM Lab 01/22/19 05:11 Ordered BASIC METABOLIC PANEL,BMP [CHEM] AM Lab 01/23/19 05:11 Ordered C-REACTIVE PROTEIN [CHEM] AM Lab 01/19/19 05:11 Ordered C-REACTIVE PROTEIN [CHEM] AM Lab 01/20/19 05:11 Ordered C-REACTIVE PROTEIN [CHEM] AM Lab 01/21/19 05:11 Ordered C-REACTIVE PROTEIN [CHEM] AM Lab 01/22/19 05:11 Ordered C-REACTIVE PROTEIN [CHEM] AM Lab 01/23/19 05:11 Ordered CBC WITH AUTO DIFF [HEME] AM Lab 01/19/19 05:11 Ordered CBC WITH AUTO DIFF [HEME] AM Lab 01/20/19 05:11 Ordered CBC WITH AUTO DIFF [HEME] AM Lab 01/21/19 05:11 Ordered CBC WITH AUTO DIFF [HEME] AM Lab 01/22/19 05:11 Ordered CBC WITH AUTO DIFF [HEME] AM Lab 01/23/19 05:11 Ordered CULTURE SPUTUM + SMEAR [RM] Stat Lab 01/18/19 17:04 Ordered INR,PT,PROTHROMBIN TIME [COAG] AM Lab 01/19/19 05:11 Ordered INR,PT,PROTHROMBIN TIME [COAG] AM Lab 01/20/19 05:11 Ordered INR,PT,PROTHROMBIN TIME [COAG] AM Lab 01/21/19 05:11 Ordered INR,PT,PROTHROMBIN TIME [COAG] AM Lab 01/22/19 05:11 Ordered INR,PT,PROTHROMBIN TIME [COAG] AM Lab 01/23/19 05:11 Ordered MAGNESIUM [CHEM] AM Lab 01/19/19 05:11 Ordered MAGNESIUM [CHEM] AM Lab 01/20/19 05:11 Ordered MAGNESIUM [CHEM] AM Lab 01/21/19 05:11 Ordered MAGNESIUM [CHEM] AM Lab 01/22/19 05:11 Ordered MAGNESIUM [CHEM] AM Lab 01/23/19 05:11 Ordered Acetaminophen [Tylenol] Med 01/18/19 17:04 Active 650 mg PO Q4H PRN Acetaminophen/HYDROcodone [[place] 325-5 MG] Med 01/18/19 17:04 Active 1 tab PO Q4H PRN Albuterol/Ipratropium [DuoNeb 3.0-0.5 MG/3 ML] Med 01/18/19 17:04 Active 3 ml NEB Q4H PRN Bisacodyl [Dulcolax] Med 01/18/19 17:04 Active 5 mg PO DAILY PRN Digoxin [Lanoxin] Med 01/19/19 12:00 Active 125 mcg PO DAILY@1200 Docusate Sodium [Colace] Med 01/18/19 17:04 Active 100 mg PO BID PRN Docusate Sodium/Sennosides [Senna Plus] Med 01/18/19 17:04 Active 1 tab PO BID PRN Dorzolamide [Trusopt 2% Ophth Soln] Med 01/18/19 21:00 Active 0 ml EYEBOTH BID Famotidine [Pepcid] Med 01/18/19 21:00 Active 20 mg PO BID Furosemide [Lasix] Med 01/19/19 10:00 Active 40 mg PO ACLUNCH HCTZ/Triamterene [Dyazide 25-37.5 MG] Med 01/19/19 09:00 Active 1 each PO DAILY HYDROmorphone [Dilaudid] Med 01/18/19 17:04 Active 0.5 mg IVPUSH Q2H PRN LORazepam [Ativan] Med 01/18/19 17:04 Active 0.5 mg IV Q6H PRN LORazepam [Ativan] Med 01/18/19 17:04 Active 2 mg IVPUSH Q4H PRN Lisinopril [Prinivil] Med 01/19/19 09:00 Active 5 mg PO DAILY Metoprolol Tartrate [Lopressor] Med 01/18/19 17:04 Active 5 mg IVPUSH Q4H PRN Metoprolol Tartrate [Lopressor] Med 01/18/19 21:00 Active 75 mg PO BID Ondansetron [Zofran] Med 01/18/19 17:04 Active 4 mg IV Q6H PRN Pantoprazole [ProTONIX] Med 01/19/19 06:00 Active 40 mg PO ACBREAKFAST Pharmacy to Dose - Magnesium R [Pharmacy to Dose - Med 01/18/19 17:15 Pending Magnesium Replacement] 1 dose .XX ASDIRECTED Pharmacy to Dose - Potassium R [Pharmacy to Dose - Med 01/18/19 17:15 Pending Potassium Replacement] 1 dose .XX ASDIRECTED Polyethylene Glycol 3350 [MiraLAX] Med 01/18/19 17:04 Active 17 gm PO DAILY PRN Potassium Chloride [Klor-Con M20] Med 01/19/19 09:00 Pending 20 meq PO DAILY Promethazine [Phenergan] 6.25 mg Med 01/18/19 17:04 Active Sodium Chloride 0.9% [Normal Saline] 50 ml IV Q6H Sertraline [Zoloft] Med 01/19/19 09:00 Active 200 mg PO DAILY Simvastatin [Zocor] Med 01/18/19 21:00 Active 10 mg PO BEDTIME Sodium Chloride 0.9% [Saline Flush] Med 01/18/19 13:25 Active 10 ml FLUSH ASDIRECTED PRN Warfarin [Coumadin] Med 01/18/19 17:00 Pending 5 mg PO ASDIRECTED hydrALAZINE [Apresoline] Med 01/18/19 17:04 Active 20 mg IVPUSH Q4H PRN Peripheral IV Insertion Adult [OM.PC] Stat Oth 01/18/19 13:26 Ordered Resuscitation Status Routine Resus Stat 01/18/19 17:25 Ordered Medication Orders Acetaminophen (Tylenol) 650 mg PO Q4H PRN PRN Reason: Pain (Mild 1-3)/fever Hydrocodone Bitart/Acetaminophen ([place] 325-5 Mg) 1 tab PO Q4H PRN PRN Reason: Pain (moderate 4-6) Albuterol/Ipratropium (Duoneb 3.0-0.5 Mg/3 Ml) 3 ml NEB Q4H PRN PRN Reason: Shortness Of Breath/wheezing Bisacodyl (Dulcolax) 5 mg PO DAILY PRN PRN Reason: Constipation Digoxin (Lanoxin) 125 mcg PO DAILY@1200 MIRNA Docusate Sodium (Colace) 100 mg PO BID PRN PRN Reason: Constipation Dorzolamide HCl (Trusopt 2% Ophth Soln) 0 ml EYEBOTH BID [facility] Last Admin: 01/18/19 21:35 Dose: 1 drop Famotidine (Pepcid) 20 mg PO BID [facility] Last Admin: 01/18/19 21:35 Dose: 20 mg Furosemide (Lasix) 40 mg PO ACLUNCH MIRNA Hydralazine HCl (Apresoline) 20 mg IVPUSH Q4H PRN PRN Reason: Hypertension Hydromorphone HCl (Dilaudid) 0.5 mg IVPUSH Q2H PRN PRN Reason: Pain (severe 7-10) Promethazine HCl 6.25 mg/ (Sodium Chloride) 50.25 mls @ 100 mls/hr IV Q6H PRN PRN Reason: Nausea/Vomiting Lisinopril (Prinivil) 5 mg PO DAILY [facility] Lorazepam (Ativan) 2 mg IVPUSH Q4H PRN PRN Reason: Seizures Lorazepam (Ativan) 0.5 mg IV Q6H PRN PRN Reason: Anxiety Magnesium Sulfate (Pharmacy To Dose - Magnesium Replacement) 1 dose .XX ASDIRECTED [facility] Metoprolol Tartrate (Lopressor) 75 mg PO BID [facility] Last Admin: 01/18/19 21:31 Dose: 75 mg Metoprolol Tartrate (Lopressor) 5 mg IVPUSH Q4H PRN PRN Reason: Tachycardia Ondansetron HCl (Zofran) 4 mg IV Q6H PRN PRN Reason: Nausea/Vomiting Pantoprazole Sodium (Protonix) 40 mg PO ACBREAKFAST [facility] Polyethylene Glycol (Miralax) 17 gm PO DAILY PRN PRN Reason: Constipation Potassium Chloride (Klor-Con M20) 20 meq PO DAILY [facility] Potassium Chloride (Pharmacy To Dose - Potassium Replacement) 1 dose .XX ASDIRECTED [facility] Senna/Docusate Sodium (Senna Plus) 1 tab PO BID PRN PRN Reason: Constipation Sertraline HCl (Zoloft) 200 mg PO DAILY [facility] Simvastatin (Zocor) 10 mg PO BEDTIME [facility] Last Admin: 01/18/19 21:35 Dose: 10 mg Sodium Chloride (Saline Flush) 10 ml FLUSH ASDIRECTED PRN PRN Reason: Keep Vein Open Last Admin: 01/18/19 13:55 Dose: 10 ml Triamterene/HCTZ (Dyazide 25-37.5 Mg) 1 each PO DAILY [facility] Warfarin Sodium (Coumadin) 5 mg PO ASDIRECTED [facility] Assessment/Plan Comment:: Assessment/Plan: Acute: Heart Failure - Hx/o HFrEF at 35-40% - Reports Orthopnea and increased weight gain - CXR shows pulmonary vascular congestion - ProBNP is 4972 - Considerable lower extremity edema - She is not on salt or fluid restrictions per - Heart Failure protocol: diuretics, salt/fluid restrictions, Is/Os and daily weight - 2D echo in AM Hypoxia - Has chronic SOB with Exertion - O2 Sat in the low 80s at the clinic - Risk Factors: HF, HTN and Morbid Obesity with BMI of 51.6 - Supplemental O2; diuretics; weight loss - Likely has MICHAEL/OHS - Will screen of MICHAEL Mild Hyperkalemia - She has underlying CKD Stage 3 - Will D/c Triamterene and Hold ACEI - Repeat Labs in AM Diabetes Type 2 - Not New on this Admission - A1C 6.6 back in 10/24/2018 via [facility] she was never told or started on diabetic agent(s); now 7.6 - Metformin 500 mg po BID if renal function permits - Accu-check AC/HS with Low dose ISS - Dietary consult and Diabetic Education Probable MICHAEL/OHS - Extremely Obese - Low O12 sat and CO2 is 36 (elevated) - Screen for MICHAEL (STOP BANG) - Recommend Weight loss and Sleep Study Chronic: Impaired Vision and Hearing Atrial Fibrillation, HR controlled on Warfarin, INR Therapeutic HTN HLD SOB CKD Stage 3 OA/DJD Anxiety Depression Probable Cognitive Deficits Morbid Obesity with BMI of 51.6 Plan: Admit to [facility] with Tele Resume Some Home Meds Routine AM Labs Fall Precautions Cognitive Eval Digoxin and TSH level Dietary and Diabetic Education PT/OT consult Recommend Sleep Study SW/CM for d/c planning Code status: 1
[2019-01-19] MEDS: Furosemide 20 MG/2 ML VIAL IVPUSH SCH ×2 (06:15→13:05)
[2019-01-19] MEDS: Hydrochlorothiazide 12.5 MG Cap PO SCH ×2 (06:17→13:05)
[2019-01-19] MEDS: Pantoprazole 40 MG Tab.CR PO SCH (06:18)
[2019-01-19] MEDS: Insulin Lispro 100 Units/ML 3 ML Vial SUBCUT SCH ×4 (06:20→21:01)
[2019-01-19] MEDS ORDERED: metFORMIN 500 MG Tab PO SCH (07:00)
[2019-01-19] MEDS ORDERED: Potassium Chloride 20 MEQ Tab.ER PO SCH (09:00)
[2019-01-19] MEDS ORDERED: Hydrochlorothiazide/Triamterene 25-37.5 MG Cap PO SCH (09:00)
[2019-01-19] MEDS ORDERED: Lisinopril 5 MG Tab PO SCH (09:00)
[2019-01-19] MEDS: Sertraline 50 MG Tab PO SCH (09:17)
[2019-01-19] MEDS: Metoprolol Tartrate 50 MG Tab PO SCH ×2 (09:18→20:47)
[2019-01-19] MEDS: Famotidine 20 MG Tab PO SCH ×2 (09:23→21:01)
[2019-01-19] MEDS: Dorzolamide 2% Ophth Soln 10 ML Bottle EYEBOTH SCH ×2 (09:23→21:01)
--- NOTE | 2019-01-19 09:23 | PCM.PN ---
- General Info Date of Service: 01/19/19 Admission Dx/Problem (Free Text): Admission Diagnosis/Problem Admission Diagnosis/Problem Hypoxia Subjective Update: Follow Up Functional Status: Reports: Pain Controlled, Tolerating Diet, Ambulating, Urinating. Denies: New Symptoms - Review of Systems General: Denies: Fever, Weakness, Fatigue, Chills HEENT: Reports: No Symptoms Pulmonary: Denies: Shortness of Breath, Pleuritic Chest Pain, Cough Cardiovascular: Denies: Chest Pain, Palpitations, Dyspnea on Exertion, Orthopnea , PND, Lightheadedness Gastrointestinal: Denies: Abdominal Pain, Decreased Appetite, Nausea, Vomiting Genitourinary: Reports: No Symptoms Musculoskeletal: Reports: No Symptoms Skin: Denies: Cyanosis, Jaundice, Mottled, Pallor, Diaphoresis, Bruising Neurological: Reports: Gait Disturbance. Denies: Confusion, Weakness Psychiatric: Denies: Depression, Anxiety, Agitation, Hallucinations Systems Review Comment:: No overnight or acute issues. She rested well last night. Her supplemental O2 is now down to 1 from 3 on admission. Her K level is now down to 4.6. - Patient Data Vitals - Most Recent: Last Vital Signs Temp 36.6 C 01/19/19 03:10 Pulse 64 01/19/19 03:10 Resp 18 01/19/19 03:10 BP 128/77 01/19/19 03:10 Pulse Ox 95 01/19/19 03:10 Weight - Most Recent: 135.261 kg I&O - Last 24 Hours: Intake & Output 01/18/19 01/19/19 01/19/19 22:59 06:59 14:59 Intake Total 240 250 Output Total 1100 Balance 240 -850 Lab Results Last 24 Hours: Laboratory Results - last 24 hr 01/18/19 01/18/19 01/18/19 Range/Units 13:55 13:55 13:55 WBC 12.35 H (3.98-10.04) K/mm3 RBC 5.32 H (3.98-5.22) M/mm3 Hgb 12.5 (11.2-15.7) gm/L Hct 42.9 (34.1-44.9) % MCV 80.6 (79.4-94.8) fl MCH 23.5 L (25.6-32.2) pg MCHC 29.1 L (32.2-35.5) g/dl RDW Std Deviation 54.7 H (36.4-46.3) fL Plt Count 358 (182-369) K/mm3 MPV 11.8 (9.4-12.3) fl Neut % (Auto) 78.4 H (34.0-71.1) % Lymph % (Auto) 11.9 L (19.3-51.7) % Door % (Auto) 8.9 (4.7-12.5) % Eos % (Auto) 0.6 L (0.7-5.8) Baso % (Auto) 0.1 (0.1-1.2) % Neut # (Auto) 9.68 H (1.56-6.13) K/mm3 Lymph # (Auto) 1.47 (1.18-3.74) K/mm3 Door # (Auto) 1.10 H (0.24-0.36) K/mm3 Eos # (Auto) 0.08 (0.04-0.36) K/mm3 Baso # (Auto) 0.01 (0.01-0.08) K/mm3 Manual Slide Review Abnormal smear PT (9.5-12.1) SECONDS INR D-Dimer, Quantitative (0.19-0.50) mg/L Sodium 140 (136-145) mEq/L Potassium 5.7 H (3.5-5.1) mEq/L Chloride 101 (98-107) mEq/L Carbon Dioxide 36 H (21-32) mEq/L Anion Gap 8.7 (5-15) BUN 29 H (7-18) mg/dL Creatinine 1.2 H (0.55-1.02) mg/dL Est Cr Clr Drug Dosing 37.13 mL/min Estimated GFR (MDRD) 44 (>60) mL/min BUN/Creatinine Ratio 24.2 H (14-18) Glucose 114 (83-115) mg/dL POC Glucose (83-110) mg/dL Hemoglobin A1c (4.50-6.20) % Calcium 9.2 (8.5-10.1) mg/dL Magnesium (1.8-2.4) mg/dl Total Bilirubin 0.7 (0.2-1.0) mg/dL AST 38 H (15-37) U/L ALT 18 (14-59) U/L Alkaline Phosphatase 143 H (46-116) U/L Troponin I < 0.017 (0.00-0.056) ng/mL C-Reactive Protein (<1.0) mg/dL NT-Pro-B Natriuret Pep 4972 H (0-125) pg/mL Total Protein 7.7 (6.4-8.2) g/dl Albumin 3.1 L (3.4-5.0) g/dl Globulin 4.6 gm/dL Albumin/Globulin Ratio 0.7 L (1-2) TSH 3rd Generation (0.358-3.74) uIU/mL Digoxin (0.9-2.0) ng/mL 01/18/19 01/18/19 01/18/19 Range/Units 13:55 13:55 16:30 WBC (3.98-10.04) K/mm3 RBC (3.98-5.22) M/mm3 Hgb (11.2-15.7) gm/L Hct (34.1-44.9) % MCV (79.4-94.8) fl MCH (25.6-32.2) pg MCHC (32.2-35.5) g/dl RDW Std Deviation (36.4-46.3) fL Plt Count (182-369) K/mm3 MPV (9.4-12.3) fl Neut % (Auto) (34.0-71.1) % Lymph % (Auto) (19.3-51.7) % Door % (Auto) (4.7-12.5) % Eos % (Auto) (0.7-5.8) Baso % (Auto) (0.1-1.2) % Neut # (Auto) (1.56-6.13) K/mm3 Lymph # (Auto) (1.18-3.74) K/mm3 Door # (Auto) (0.24-0.36) K/mm3 Eos # (Auto) (0.04-0.36) K/mm3 Baso # (Auto) (0.01-0.08) K/mm3 Manual Slide Review PT 33.5 H (9.5-12.1) SECONDS INR 3.14 D-Dimer, Quantitative (0.19-0.50) mg/L Sodium (136-145) mEq/L Potassium (3.5-5.1) mEq/L Chloride (98-107) mEq/L Carbon Dioxide (21-32) mEq/L Anion Gap (5-15) BUN (7-18) mg/dL Creatinine (0.55-1.02) mg/dL Est Cr Clr Drug Dosing mL/min Estimated GFR (MDRD) (>60) mL/min BUN/Creatinine Ratio (14-18) Glucose (83-115) mg/dL POC Glucose (83-110) mg/dL Hemoglobin A1c 7.20 H (4.50-6.20) % Calcium (8.5-10.1) mg/dL Magnesium (1.8-2.4) mg/dl Total Bilirubin (0.2-1.0) mg/dL AST (15-37) U/L ALT (14-59) U/L Alkaline Phosphatase (46-116) U/L Troponin I (0.00-0.056) ng/mL C-Reactive Protein (<1.0) mg/dL NT-Pro-B Natriuret Pep (0-125) pg/mL Total Protein (6.4-8.2) g/dl Albumin (3.4-5.0) g/dl Globulin gm/dL Albumin/Globulin Ratio (1-2) TSH 3rd Generation 3.057 (0.358-3.74) uIU/mL Digoxin (0.9-2.0) ng/mL 01/18/19 01/18/19 01/19/19 Range/Units 16:30 16:30 06:07 WBC (3.98-10.04) K/mm3 RBC (3.98-5.22) M/mm3 Hgb (11.2-15.7) gm/L Hct (34.1-44.9) % MCV (79.4-94.8) fl MCH (25.6-32.2) pg MCHC (32.2-35.5) g/dl RDW Std Deviation (36.4-46.3) fL Plt Count (182-369) K/mm3 MPV (9.4-12.3) fl Neut % (Auto) (34.0-71.1) % Lymph % (Auto) (19.3-51.7) % Door % (Auto) (4.7-12.5) % Eos % (Auto) (0.7-5.8) Baso % (Auto) (0.1-1.2) % Neut # (Auto) (1.56-6.13) K/mm3 Lymph # (Auto) (1.18-3.74) K/mm3 Door # (Auto) (0.24-0.36) K/mm3 Eos # (Auto) (0.04-0.36) K/mm3 Baso # (Auto) (0.01-0.08) K/mm3 Manual Slide Review PT (9.5-12.1) SECONDS INR D-Dimer, Quantitative < 0.19 L (0.19-0.50) mg/L Sodium (136-145) mEq/L Potassium (3.5-5.1) mEq/L Chloride (98-107) mEq/L Carbon Dioxide (21-32) mEq/L Anion Gap (5-15) BUN (7-18) mg/dL Creatinine (0.55-1.02) mg/dL Est Cr Clr Drug Dosing mL/min Estimated GFR (MDRD) (>60) mL/min BUN/Creatinine Ratio (14-18) Glucose (83-115) mg/dL POC Glucose 116 H (83-110) mg/dL Hemoglobin A1c (4.50-6.20) % Calcium (8.5-10.1) mg/dL Magnesium (1.8-2.4) mg/dl Total Bilirubin (0.2-1.0) mg/dL AST (15-37) U/L ALT (14-59) U/L Alkaline Phosphatase (46-116) U/L Troponin I (0.00-0.056) ng/mL C-Reactive Protein (<1.0) mg/dL NT-Pro-B Natriuret Pep (0-125) pg/mL Total Protein (6.4-8.2) g/dl Albumin (3.4-5.0) g/dl Globulin gm/dL Albumin/Globulin Ratio (1-2) TSH 3rd Generation (0.358-3.74) uIU/mL Digoxin 1.3 (0.9-2.0) ng/mL 0301/19/19 01/19/19 Range/Units 06:10 06:10 06:10 WBC 12.84 H (3.98-10.04) K/mm3 RBC 5.54 H (3.98-5.22) M/mm3 Hgb 12.9 (11.2-15.7) gm/L Hct 45.1 H (34.1-44.9) % MCV 81.4 (79.4-94.8) fl MCH 23.3 L (25.6-32.2) pg MCHC 28.6 L (32.2-35.5) g/dl RDW Std Deviation 56.8 H (36.4-46.3) fL Plt Count 329 (182-369) K/mm3 MPV 11.6 (9.4-12.3) fl Neut % (Auto) 78.7 H (34.0-71.1) % Lymph % (Auto) 9.9 L (19.3-51.7) % Door % (Auto) 9.8 (4.7-12.5) % Eos % (Auto) 1.2 (0.7-5.8) Baso % (Auto) 0.2 (0.1-1.2) % Neut # (Auto) 10.11 H (1.56-6.13) K/mm3 Lymph # (Auto) 1.27 (1.18-3.74) K/mm3 Door # (Auto) 1.26 H (0.24-0.36) K/mm3 Eos # (Auto) 0.16 (0.04-0.36) K/mm3 Baso # (Auto) 0.02 (0.01-0.08) K/mm3 Manual Slide Review Abnormal smear PT 31.3 H (9.5-12.1) SECONDS INR 2.93 D-Dimer, Quantitative (0.19-0.50) mg/L Sodium 142 (136-145) mEq/L Potassium 4.6 (3.5-5.1) mEq/L Chloride 102 (98-107) mEq/L Carbon Dioxide 36 H (21-32) mEq/L Anion Gap 8.6 (5-15) BUN 32 H (7-18) mg/dL Creatinine 1.3 H (0.55-1.02) mg/dL Est Cr Clr Drug Dosing 34.27 mL/min Estimated GFR (MDRD) 40 (>60) mL/min BUN/Creatinine Ratio 24.6 H (14-18) Glucose 115 (83-115) mg/dL POC Glucose (83-110) mg/dL Hemoglobin A1c (4.50-6.20) % Calcium 9.2 (8.5-10.1) mg/dL Magnesium 1.9 (1.8-2.4) mg/dl Total Bilirubin (0.2-1.0) mg/dL AST (15-37) U/L ALT (14-59) U/L Alkaline Phosphatase (46-116) U/L Troponin I (0.00-0.056) ng/mL C-Reactive Protein 1.6 H* (<1.0) mg/dL NT-Pro-B Natriuret Pep (0-125) pg/mL Total Protein (6.4-8.2) g/dl Albumin (3.4-5.0) g/dl Globulin gm/dL Albumin/Globulin Ratio (1-2) TSH 3rd Generation (0.358-3.74) uIU/mL Digoxin (0.9-2.0) ng/mL Med Orders - Current: Current Medications Acetaminophen (Tylenol) 650 mg PO Q4H PRN PRN Reason: Pain (Mild 1-3)/fever Hydrocodone Bitart/Acetaminophen ([place] 325-5 Mg) 1 tab PO Q4H PRN PRN Reason: Pain (moderate 4-6) Albuterol/Ipratropium (Duoneb 3.0-0.5 Mg/3 Ml) 3 ml NEB Q4H PRN PRN Reason: Shortness Of Breath/wheezing Bisacodyl (Dulcolax) 5 mg PO DAILY PRN PRN Reason: Constipation Digoxin (Lanoxin) 125 mcg PO DAILY@1200 [facility] Docusate Sodium (Colace) 100 mg PO BID PRN PRN Reason: Constipation Dorzolamide HCl (Trusopt 2% Ophth Soln) 0 ml EYEBOTH BID [facility] Last Admin: 01/18/19 21:35 Dose: 1 drop Famotidine (Pepcid) 20 mg PO BID [facility] Last Admin: 01/18/19 21:35 Dose: 20 mg Furosemide (Lasix) 10 mg IVPUSH BIDDIURETIC [facility] Stop: 01/21/19 14:01 Last Admin: 01/19/19 06:15 Dose: 10 mg Hydralazine HCl (Apresoline) 20 mg IVPUSH Q4H PRN PRN Reason: Hypertension Hydrochlorothiazide (Hydrochlorothiazide) 12.5 mg PO BIDDIURETIC [facility] Last Admin: 01/19/19 06:17 Dose: 12.5 mg Hydromorphone HCl (Dilaudid) 0.5 mg IVPUSH Q2H PRN PRN Reason: Pain (severe 7-10) Promethazine HCl 6.25 mg/ (Sodium Chloride) 50.25 mls @ 100 mls/hr IV Q6H PRN PRN Reason: Nausea/Vomiting Insulin Human Lispro (Humalog) 0 unit SUBCUT QIDACANDBED [facility]; Protocol Last Admin: 01/19/19 06:20 Dose: Not Given Lisinopril (Prinivil) 5 mg PO DAILY [facility] Lorazepam (Ativan) 2 mg IVPUSH Q4H PRN PRN Reason: Seizures Lorazepam (Ativan) 0.5 mg IV Q6H PRN PRN Reason: Anxiety Magnesium Sulfate (Pharmacy To Dose - Magnesium Replacement) 0 dose .XX ASDIRECTED PRN PRN Reason: RX TO WATCH MAG Metformin HCl (Glucophage) 500 mg PO BIDMEALS [facility] Metoprolol Tartrate (Lopressor) 75 mg PO BID [facility] Last Admin: 01/18/19 21:31 Dose: 75 mg Metoprolol Tartrate (Lopressor) 5 mg IVPUSH Q4H PRN PRN Reason: Tachycardia Ondansetron HCl (Zofran) 4 mg IV Q6H PRN PRN Reason: Nausea/Vomiting Pantoprazole Sodium (Protonix) 40 mg PO ACBREAKFAST [facility] Last Admin: 01/19/19 06:18 Dose: 40 mg Polyethylene Glycol (Miralax) 17 gm PO DAILY PRN PRN Reason: Constipation Potassium Chloride (Pharmacy To Dose - Potassium Replacement) 0 dose .XX ASDIRECTED PRN PRN Reason: RX TO WATCH K Senna/Docusate Sodium (Senna Plus) 1 tab PO BID PRN PRN Reason: Constipation Sertraline HCl (Zoloft) 200 mg PO DAILY [facility] Simvastatin (Zocor) 10 mg PO BEDTIME [facility] Last Admin: 01/18/19 21:35 Dose: 10 mg Sodium Chloride (Saline Flush) 10 ml FLUSH ASDIRECTED PRN PRN Reason: Keep Vein Open Last Admin: 01/18/19 13:55 Dose: 10 ml Warfarin Sodium (Coumadin) 5 mg PO ASDIRECTED [facility] Warfarin Sodium (Pharmacy To Dose - Warfarin) 0 dose .XX ASDIRECTED PRN PRN Reason: RX TO DOSE WARFARIN Warfarin Sodium (Coumadin) 7.5 mg PO ASDIRECTED [facility] Warfarin Sodium (Coumadin) 10 mg PO ASDIRECTED [facility] Discontinued Medications Furosemide (Lasix) 40 mg IVPUSH NOW ONE Stop: 01/18/19 13:41 Last Admin: 01/18/19 14:35 Dose: 40 mg Furosemide (Lasix) 40 mg PO ACLUNCH [facility] Heparin Sodium (Porcine) (Heparin Sodium) 5,000 units SUBCUT Q8H [facility] Last Admin: 01/18/19 18:51 Dose: 5,000 units Lisinopril (Prinivil) 5 mg PO DAILY [facility] Triamterene/HCTZ (Dyazide 25-37.5 Mg) 1 each PO DAILY [facility] - Exam General: Alert, Cooperative, No Acute Distress, Other (Morbidly Obese) HEENT: Pupils Equal, Pupils Reactive, EOMI, Mucous Membr. Moist/[place], Other ( bilateral eye proptosis; neck is short and thick) Neck: Supple Lungs: Clear to Auscultation, Normal Respiratory Effort Cardiovascular: Irregular Rhythm GI/Abdominal Exam: Normal Bowel Sounds, Soft, Non-Tender, No Organomegaly, No Distention, No Abnormal Bruit, No Mass (Female) Exam: Deferred Back Exam: Normal Inspection, Decreased Range of Motion Extremities: Normal Inspection, Normal Range of Motion, Non-Tender, Normal Capillary Refill, Pedal Edema (trace) Peripheral Pulses: 1+: Dorsalis Pedis (L), Dorsalis Pedis (R) Skin: Warm, Dry, Intact Neurological: No New Focal Deficit (limited due to body habitus and difficulty folliwng commands due to hearng impairment). No: Normal Gait Psy/Mental Status: Alert, Normal Affect, Normal Mood - Problem List Review Problem List Initiated/Reviewed/Updated: Yes - My Orders Last 24 Hours: My Active Orders 01/18/19 17:00 Warfarin [Coumadin] 5 mg PO ASDIRECTED 01/18/19 17:04 Height and Weight [RC] 04 Up With Assistance [RC] BID Up ad Shani [RC] BID Consult to Case Management/Capacity Analyst [CONS] Routine Consult to Spiritual Care [CONS] Routine OT Evaluation and Treatment [CONS] Routine PT Evaluation and Treatment [CONS] Routine Respiratory Care Assess and Treatment [CONS] Routine CULTURE SPUTUM + SMEAR [RM] Stat Acetaminophen [Tylenol] 650 mg PO Q4H PRN Acetaminophen/HYDROcodone [[place] 325-5 MG] 1 tab PO Q4H PRN Albuterol/Ipratropium [DuoNeb 3.0-0.5 MG/3 ML] 3 ml NEB Q4H PRN Bisacodyl [Dulcolax] 5 mg PO DAILY PRN Docusate Sodium [Colace] 100 mg PO BID PRN Docusate Sodium/Sennosides [Senna Plus] 1 tab PO BID PRN HYDROmorphone [Dilaudid] 0.5 mg IVPUSH Q2H PRN LORazepam [Ativan] 0.5 mg IV Q6H PRN LORazepam [Ativan] 2 mg IVPUSH Q4H PRN Metoprolol Tartrate [Lopressor] 5 mg IVPUSH Q4H PRN Ondansetron [Zofran] 4 mg IV Q6H PRN Polyethylene Glycol 3350 [MiraLAX] 17 gm PO DAILY PRN Promethazine [Phenergan] 6.25 mg Sodium Chloride 0.9% [Normal Saline] 50 ml IV Q6H hydrALAZINE [Apresoline] 20 mg IVPUSH Q4H PRN 01/18/19 17:05 Cardiac Monitoring [RC] CONTINUOUS Intake and Output [RC] 04,16 Oxygen Therapy [RC] PRN Pulse Oximetry [RC] PRN VTE/DVT Education [RC] DAILY Vital Signs [RC] Q4HR 01/18/19 17:08 RT Aerosol Therapy [RC] ASDIRECTED 01/18/19 17:15 Pharmacy to Dose - Magnesium R [Pharmacy to Dose - Magnesium Replacement] 0 dose .XX ASDIRECTED PRN Pharmacy to Dose - Potassium R [Pharmacy to Dose - Potassium Replacement] 0 dose .XX ASDIRECTED PRN 01/18/19 17:25 Resuscitation Status Routine 01/18/19 21:00 Dorzolamide [Trusopt 2% Ophth Soln] 0 ml EYEBOTH BID Famotidine [Pepcid] 20 mg PO BID Metoprolol Tartrate [Lopressor] 75 mg PO BID Simvastatin [Zocor] 10 mg PO BEDTIME 01/18/19 23:09 Consult to Diabetic Nurse Specialist [CONS] Routine Consult to Dietary [Consult to Factory Machine Computer Operator] [CONS] Routine 01/18/19 23:10 Accu Check [Blood Glucose Check, Bedside] [RC] QIDACANDBED 01/18/19 23:15 Pharmacy to Dose - Warfarin 0 dose .XX ASDIRECTED PRN Warfarin [Coumadin] 10 mg PO ASDIRECTED Warfarin [Coumadin] 7.5 mg PO ASDIRECTED 01/18/19 Dinner 2 Gram Sodium Diet [DIET] Heart Healthy Diet [DIET] 01/19/19 06:00 Furosemide [Lasix] 10 mg IVPUSH BIDDIURETIC Pantoprazole [ProTONIX] 40 mg PO ACBREAKFAST hydroCHLOROthiazide 12.5 mg PO BIDDIURETIC 01/19/19 07:00 Consult to Speech Language Pathology [OVEN TENDER Evaluation and Treatment] [CONS] Routine Echo Comp wo Cont [US] Routine Insulin Lispro [HumaLOG] See Protocol SUBCUT QIDACANDBED metFORMIN [Glucophage] 500 mg PO BIDMEALS 01/19/19 09:00 Sertraline [Zoloft] 200 mg PO DAILY 01/19/19 12:00 Digoxin [Lanoxin] 125 mcg PO DAILY@1200 01/19/19 Breakfast ADA Diabetic [[employer] Diet] [DIET] Fluid Restriction [DIET] 01/20/19 05:11 BASIC METABOLIC PANEL,BMP [CHEM] AM C-REACTIVE PROTEIN [CHEM] AM CBC WITH AUTO DIFF [HEME] AM INR,PT,PROTHROMBIN TIME [COAG] AM MAGNESIUM [CHEM] AM PRO B-TYPE NATRIUR PEPT,BNPPRO [CHEM] Routine 01/21/19 05:11 BASIC METABOLIC PANEL,BMP [CHEM] AM C-REACTIVE PROTEIN [CHEM] AM CBC WITH AUTO DIFF [HEME] AM INR,PT,PROTHROMBIN TIME [COAG] AM MAGNESIUM [CHEM] AM 01/21/19 23:12 Lisinopril [Prinivil] 5 mg PO DAILY 01/22/19 05:11 BASIC METABOLIC PANEL,BMP [CHEM] AM C-REACTIVE PROTEIN [CHEM] AM CBC WITH AUTO DIFF [HEME] AM INR,PT,PROTHROMBIN TIME [COAG] AM MAGNESIUM [CHEM] AM 01/23/19 05:11 BASIC METABOLIC PANEL,BMP [CHEM] AM C-REACTIVE PROTEIN [CHEM] AM CBC WITH AUTO DIFF [HEME] AM INR,PT,PROTHROMBIN TIME [COAG] AM MAGNESIUM [CHEM] AM - Plan Plan:: Assessment/Plan: Acute: Heart Failure - Hx/o HFrEF at 35-40% - Reports Orthopnea and increased weight gain - CXR shows pulmonary vascular congestion - ProBNP is 4972 - Considerable lower extremity edema - She is not on salt or fluid restrictions per - Heart Failure protocol: diuretics, salt/fluid restrictions, Is/Os and daily weight - 2D echo to be completed today Hypoxia, Improved - Has chronic SOB with Exertion - O2 Sat in the low 80s at the clinic; she is now down to 1L NC for O2 supplement - Risk Factors: HF, HTN and Morbid Obesity with BMI of 51.6 - Supplemental O2; diuretics; weight loss - Likely has MICHAEL/OHS - Will screen of MICHAEL Diabetes Type 2, Controlled - Not New on this Admission - A1C 6.6 back in 10/24/2018 via [facility]Nlion she was never told or started on diabetic agent(s); now 7.6 - Metformin 500 mg po BID if renal function permits; held due to insufficiency--> will d/c it - Start DDP4 and Glucotrol 2.5 mg po BID - Accu-check AC/HS with Low dose ISS - Dietary consult and Diabetic Education Probable MICHAEL/OHS - Extremely Obese - Low O12 sat and CO2 is 36 (elevated) - Screen for MICHAEL (STOP BANG) - Recommend Weight loss and Sleep Study Resolved S/p Mild Hyperkalemia - She has underlying CKD Stage 3 - Will D/c Triamterene and Hold ACEI - Repeat Labs in AM Chronic: Impaired Vision and Hearing Atrial Fibrillation, HR controlled on Warfarin, INR Therapeutic at 2.93 HTN HLD SOB CKD Stage 3 OA/DJD Anxiety Depression Probable Cognitive Deficits Morbid Obesity with BMI of 51.6 Plan: She is clinically stable Routine AM Labs Fall Precautions Cognitive Eval Cut down Metoprolol dose to 50 mg po daily Digoxin and TSH level- both within normal limits Dietary and Diabetic Education PT/OT consult if appropriate Recommend Sleep Study SW/CM for d/c planning Ambulate as tolerated with assistance Code status: 1 Met up with at bedside. We went over patient's clinical status, treatment and discharge care plan. Possible discharge in 1-2 days.
[2019-01-19] MEDS ORDERED: Furosemide 40 MG Tab PO SCH (10:00)
[2019-01-19] MEDS: Digoxin 125 MCG Tab PO SCH (11:50)
[2019-01-19] MEDS ORDERED: Warfarin 10 MG Tab PO SCH (18:00)
[2019-01-19] MEDS: Simvastatin 10 MG Tab PO SCH (21:01)
[2019-01-19] MEDS: glipiZIDE 2.5 MG Tab.ER PO SCH (21:01)
[2019-01-20] MEDS: Insulin Lispro 100 Units/ML 3 ML Vial SUBCUT SCH ×4 (06:15→21:42)
[2019-01-20] MEDS: Furosemide 20 MG/2 ML VIAL IVPUSH SCH ×2 (06:26→13:53)
[2019-01-20] MEDS: Pantoprazole 40 MG Tab.CR PO SCH (06:26)
[2019-01-20] MEDS: Hydrochlorothiazide 12.5 MG Cap PO SCH ×2 (06:26→13:53)
[2019-01-20] MEDS: Metoprolol Tartrate 50 MG Tab PO SCH ×2 (08:07→21:42)
[2019-01-20] MEDS: Famotidine 20 MG Tab PO SCH (08:07)
[2019-01-20] MEDS: Sertraline 50 MG Tab PO SCH (08:08)
[2019-01-20] MEDS: Dorzolamide 2% Ophth Soln 10 ML Bottle EYEBOTH SCH ×2 (08:08→21:57)
[2019-01-20] MEDS: glipiZIDE 2.5 MG Tab.ER PO SCH ×3 (08:08→21:58)
[2019-01-20] MEDS ORDERED: Modafinil 200 MG Tab PO SCH (09:00)
[2019-01-20] MEDS ORDERED: Potassium Chloride 20 MEQ Tab.ER PO SCH (09:00)
--- NOTE | 2019-01-20 09:11 | PCM.PN ---
- General Info Date of Service: 01/20/19 Admission Dx/Problem (Free Text): Admission Diagnosis/Problem Admission Diagnosis/Problem Hypoxia Subjective Update: Follow Up Functional Status: Reports: Pain Controlled, Tolerating Diet, Ambulating, Urinating. Denies: New Symptoms - Review of Systems General: Reports: Fatigue. Denies: Fever, Chills, Appetite HEENT: Reports: No Symptoms Pulmonary: Denies: Shortness of Breath, Cough, Wheezing Cardiovascular: Reports: Edema. Denies: Chest Pain, Palpitations, Orthopnea Gastrointestinal: Denies: Abdominal Pain, Nausea, Vomiting Genitourinary: Reports: No Symptoms Musculoskeletal: Reports: No Symptoms Skin: Denies: Cyanosis, Pallor, Diaphoresis, Dryness, Rash Neurological: Reports: Gait Disturbance. Denies: Difficulty Walking, Weakness Psychiatric: Denies: Anxiety, Agitation, Hallucinations Systems Review Comment:: No overnight or acute issues. She slept well last night. She denies chest pain, dyspnea or shortness of breath. She remains at 2L NC for supplemental O2. Her pCO2 has improved to 75 from 82. She has no complaints this AM. - Patient Data Vitals - Most Recent: Last Vital Signs Temp 36.7 C 01/20/19 08:00 Pulse 80 01/20/19 08:07 Resp 22 H 01/20/19 08:00 BP 130/116 H 01/20/19 08:07 Pulse Ox 95 01/20/19 08:00 Weight - Most Recent: 134.808 kg I&O - Last 24 Hours: Intake & Output 01/19/19 01/20/19 01/20/19 22:59 06:59 14:59 Intake Total 200 350 Output Total 900 325 Balance -700 25 Lab Results Last 24 Hours: Laboratory Results - last 24 hr 01/19/19 01/19/19 01/19/19 Range/Units 11:24 17:29 19:35 WBC (3.98-10.04) K/mm3 RBC (3.98-5.22) M/mm3 Hgb (11.2-15.7) gm/L Hct (34.1-44.9) % MCV (79.4-94.8) fl MCH (25.6-32.2) pg MCHC (32.2-35.5) g/dl RDW Std Deviation (36.4-46.3) fL Plt Count (182-369) K/mm3 MPV (9.4-12.3) fl Neut % (Auto) (34.0-71.1) % Lymph % (Auto) (19.3-51.7) % Bland % (Auto) (4.7-12.5) % Eos % (Auto) (0.7-5.8) Baso % (Auto) (0.1-1.2) % Neut # (Auto) (1.56-6.13) K/mm3 Lymph # (Auto) (1.18-3.74) K/mm3 Bland # (Auto) (0.24-0.36) K/mm3 Eos # (Auto) (0.04-0.36) K/mm3 Baso # (Auto) (0.01-0.08) K/mm3 Manual Slide Review PT (9.5-12.1) SECONDS INR Puncture Site Rt radial ABG pH 7.28 L (7.35-7.45) ABG pCO2 82.8 H* (35.0-45.0) mmHg ABG pO2 80.0 (80.0-100.0) mmHg ABG HCO3 38.0 H (22.0-26.0) meq/L ABG O2 Saturation 92.0 L (96.0-97.0) % ABG Base Excess 8.8 H (-2-2.0) Parveen Test Positive A-a Gradient mmHg O2 Delivery Device Nasal cannula Oxygen Flow Rate 1.0 Blood Gas Comments Folder Machine Sodium (136-145) mEq/L Potassium (3.5-5.1) mEq/L Chloride (98-107) mEq/L Carbon Dioxide (21-32) mEq/L Anion Gap (5-15) BUN (7-18) mg/dL Creatinine (0.55-1.02) mg/dL Est Cr Clr Drug Dosing mL/min Estimated GFR (MDRD) (>60) mL/min BUN/Creatinine Ratio (14-18) Glucose (83-115) mg/dL POC Glucose 145 H 102 (83-110) mg/dL Calcium (8.5-10.1) mg/dL Magnesium (1.8-2.4) mg/dl C-Reactive Protein (<1.0) mg/dL NT-Pro-B Natriuret Pep (0-125) pg/mL 01/19/19 01/20/19 01/20/19 Range/Units 21:00 05:57 06:05 WBC (3.98-10.04) K/mm3 RBC (3.98-5.22) M/mm3 Hgb (11.2-15.7) gm/L Hct (34.1-44.9) % MCV (79.4-94.8) fl MCH (25.6-32.2) pg MCHC (32.2-35.5) g/dl RDW Std Deviation (36.4-46.3) fL Plt Count (182-369) K/mm3 MPV (9.4-12.3) fl Neut % (Auto) (34.0-71.1) % Lymph % (Auto) (19.3-51.7) % Bland % (Auto) (4.7-12.5) % Eos % (Auto) (0.7-5.8) Baso % (Auto) (0.1-1.2) % Neut # (Auto) (1.56-6.13) K/mm3 Lymph # (Auto) (1.18-3.74) K/mm3 Bland # (Auto) (0.24-0.36) K/mm3 Eos # (Auto) (0.04-0.36) K/mm3 Baso # (Auto) (0.01-0.08) K/mm3 Manual Slide Review PT (9.5-12.1) SECONDS INR Puncture Site Rt radial ABG pH 7.33 L (7.35-7.45) ABG pCO2 75.4 H* (35.0-45.0) mmHg ABG pO2 79.0 L (80.0-100.0) mmHg ABG HCO3 38.3 H (22.0-26.0) meq/L ABG O2 Saturation 94.6 L (96.0-97.0) % ABG Base Excess 10.1 H (-2-2.0) Parveen Test Positive A-a Gradient 32 mmHg O2 Delivery Device Bipap Oxygen Flow Rate 3.0 Blood Gas Comments Sodium (136-145) mEq/L Potassium (3.5-5.1) mEq/L Chloride (98-107) mEq/L Carbon Dioxide (21-32) mEq/L Anion Gap (5-15) BUN (7-18) mg/dL Creatinine (0.55-1.02) mg/dL Est Cr Clr Drug Dosing mL/min Estimated GFR (MDRD) (>60) mL/min BUN/Creatinine Ratio (14-18) Glucose (83-115) mg/dL POC Glucose 108 69 L (83-110) mg/dL Calcium (8.5-10.1) mg/dL Magnesium (1.8-2.4) mg/dl C-Reactive Protein (<1.0) mg/dL NT-Pro-B Natriuret Pep (0-125) pg/mL 01/20/19 01/20/19 01/20/19 Range/Units 06:10 06:10 06:10 WBC 9.15 (3.98-10.04) K/mm3 RBC 5.23 H (3.98-5.22) M/mm3 Hgb 12.1 (11.2-15.7) gm/L Hct 42.7 (34.1-44.9) % MCV 81.6 (79.4-94.8) fl MCH 23.1 L (25.6-32.2) pg MCHC 28.3 L (32.2-35.5) g/dl RDW Std Deviation 56.1 H (36.4-46.3) fL Plt Count 260 (182-369) K/mm3 MPV 11.6 (9.4-12.3) fl Neut % (Auto) 73.2 H (34.0-71.1) % Lymph % (Auto) 14.0 L (19.3-51.7) % Bland % (Auto) 11.1 (4.7-12.5) % Eos % (Auto) 1.5 (0.7-5.8) Baso % (Auto) 0.1 (0.1-1.2) % Neut # (Auto) 6.69 H (1.56-6.13) K/mm3 Lymph # (Auto) 1.28 (1.18-3.74) K/mm3 Bland # (Auto) 1.02 H (0.24-0.36) K/mm3 Eos # (Auto) 0.14 (0.04-0.36) K/mm3 Baso # (Auto) 0.01 (0.01-0.08) K/mm3 Manual Slide Review Normal smear PT (9.5-12.1) SECONDS INR Puncture Site ABG pH (7.35-7.45) ABG pCO2 (35.0-45.0) mmHg ABG pO2 (80.0-100.0) mmHg ABG HCO3 (22.0-26.0) meq/L ABG O2 Saturation (96.0-97.0) % ABG Base Excess (-2-2.0) Parveen Test A-a Gradient mmHg O2 Delivery Device Oxygen Flow Rate Blood Gas Comments Sodium 147 H (136-145) mEq/L Potassium 3.8 (3.5-5.1) mEq/L Chloride 103 (98-107) mEq/L Carbon Dioxide 37 H (21-32) mEq/L Anion Gap 10.8 (5-15) BUN 38 H (7-18) mg/dL Creatinine 1.4 H (0.55-1.02) mg/dL Est Cr Clr Drug Dosing 31.83 mL/min Estimated GFR (MDRD) 37 (>60) mL/min BUN/Creatinine Ratio 27.1 H (14-18) Glucose 71 L (83-115) mg/dL POC Glucose (83-110) mg/dL Calcium 8.7 (8.5-10.1) mg/dL Magnesium 1.9 (1.8-2.4) mg/dl C-Reactive Protein 2.4 H* (<1.0) mg/dL NT-Pro-B Natriuret Pep 4628 H (0-125) pg/mL 01/20/19 01/20/19 Range/Units 06:30 07:45 WBC (3.98-10.04) K/mm3 RBC (3.98-5.22) M/mm3 Hgb (11.2-15.7) gm/L Hct (34.1-44.9) % MCV (79.4-94.8) fl MCH (25.6-32.2) pg MCHC (32.2-35.5) g/dl RDW Std Deviation (36.4-46.3) fL Plt Count (182-369) K/mm3 MPV (9.4-12.3) fl Neut % (Auto) (34.0-71.1) % Lymph % (Auto) (19.3-51.7) % Bland % (Auto) (4.7-12.5) % Eos % (Auto) (0.7-5.8) Baso % (Auto) (0.1-1.2) % Neut # (Auto) (1.56-6.13) K/mm3 Lymph # (Auto) (1.18-3.74) K/mm3 Bland # (Auto) (0.24-0.36) K/mm3 Eos # (Auto) (0.04-0.36) K/mm3 Baso # (Auto) (0.01-0.08) K/mm3 Manual Slide Review PT 40.1 H (9.5-12.1) SECONDS INR 3.78 Puncture Site ABG pH (7.35-7.45) ABG pCO2 (35.0-45.0) mmHg ABG pO2 (80.0-100.0) mmHg ABG HCO3 (22.0-26.0) meq/L ABG O2 Saturation (96.0-97.0) % ABG Base Excess (-2-2.0) Parveen Test A-a Gradient mmHg O2 Delivery Device Oxygen Flow Rate Blood Gas Comments Sodium (136-145) mEq/L Potassium (3.5-5.1) mEq/L Chloride (98-107) mEq/L Carbon Dioxide (21-32) mEq/L Anion Gap (5-15) BUN (7-18) mg/dL Creatinine (0.55-1.02) mg/dL Est Cr Clr Drug Dosing mL/min Estimated GFR (MDRD) (>60) mL/min BUN/Creatinine Ratio (14-18) Glucose (83-115) mg/dL POC Glucose 103 (83-110) mg/dL Calcium (8.5-10.1) mg/dL Magnesium (1.8-2.4) mg/dl C-Reactive Protein (<1.0) mg/dL NT-Pro-B Natriuret Pep (0-125) pg/mL Med Orders - Current: Current Medications Acetaminophen (Tylenol) 650 mg PO Q4H PRN PRN Reason: Pain (Mild 1-3)/fever Hydrocodone Bitart/Acetaminophen ([place] 325-5 Mg) 1 tab PO Q4H PRN PRN Reason: Pain (moderate 4-6) Albuterol/Ipratropium (Duoneb 3.0-0.5 Mg/3 Ml) 3 ml NEB Q4H PRN PRN Reason: Shortness Of Breath/wheezing Alogliptin Benzoate (Alogliptin) 25 mg PO DAILY [facility] Last Admin: 01/19/19 13:04 Dose: 25 mg Bisacodyl (Dulcolax) 5 mg PO DAILY PRN PRN Reason: Constipation Digoxin (Lanoxin) 125 mcg PO DAILY@1200 [facility] Last Admin: 01/19/19 11:50 Dose: Not Given Docusate Sodium (Colace) 100 mg PO BID PRN PRN Reason: Constipation Dorzolamide HCl (Trusopt 2% Ophth Soln) 0 ml EYEBOTH BID [facility] Last Admin: 01/20/19 08:08 Dose: 1 drop Famotidine (Pepcid) 20 mg PO BID [facility] Last Admin: 01/20/19 08:07 Dose: 20 mg Furosemide (Lasix) 10 mg IVPUSH BIDDIURETIC [facility] Stop: 01/21/19 14:01 Last Admin: 01/20/19 06:26 Dose: 10 mg Glipizide (Glucotrol Xl) 2.5 mg PO BID [facility] Last Admin: 01/19/19 21:01 Dose: 2.5 mg Hydralazine HCl (Apresoline) 20 mg IVPUSH Q4H PRN PRN Reason: Hypertension Hydrochlorothiazide (Hydrochlorothiazide) 12.5 mg PO BIDDIURETIC [facility] Last Admin: 01/20/19 06:26 Dose: 12.5 mg Hydromorphone HCl (Dilaudid) 0.5 mg IVPUSH Q2H PRN PRN Reason: Pain (severe 7-10) Promethazine HCl 6.25 mg/ (Sodium Chloride) 50.25 mls @ 100 mls/hr IV Q6H PRN PRN Reason: Nausea/Vomiting Insulin Human Lispro (Humalog) 0 unit SUBCUT QIDACANDBED [facility]; Protocol Last Admin: 01/20/19 06:15 Dose: Not Given Lisinopril (Prinivil) 5 mg PO DAILY [facility] Lorazepam (Ativan) 2 mg IVPUSH Q4H PRN PRN Reason: Seizures Lorazepam (Ativan) 0.5 mg IV Q6H PRN PRN Reason: Anxiety Magnesium Sulfate (Pharmacy To Dose - Magnesium Replacement) 0 dose .XX ASDIRECTED PRN PRN Reason: RX TO WATCH MAG Metoprolol Tartrate (Lopressor) 5 mg IVPUSH Q4H PRN PRN Reason: Tachycardia Metoprolol Tartrate (Lopressor) 50 mg PO BID [facility] Last Admin: 01/20/19 08:07 Dose: 50 mg Modafinil (Provigil) 100 mg PO DAILY [facility] Last Admin: 01/20/19 08:08 Dose: 100 mg Ondansetron HCl (Zofran) 4 mg IV Q6H PRN PRN Reason: Nausea/Vomiting Pantoprazole Sodium (Protonix) 40 mg PO ACBREAKFAST [facility] Last Admin: 01/20/19 06:26 Dose: 40 mg Polyethylene Glycol (Miralax) 17 gm PO DAILY PRN PRN Reason: Constipation Potassium Chloride (Pharmacy To Dose - Potassium Replacement) 0 dose .XX ASDIRECTED PRN PRN Reason: RX TO WATCH K Senna/Docusate Sodium (Senna Plus) 1 tab PO BID PRN PRN Reason: Constipation Sertraline HCl (Zoloft) 200 mg PO DAILY [facility] Last Admin: 01/20/19 08:08 Dose: 200 mg Simvastatin (Zocor) 10 mg PO BEDTIME [facility] Last Admin: 01/19/19 21:01 Dose: 10 mg Sodium Chloride (Saline Flush) 10 ml FLUSH ASDIRECTED PRN PRN Reason: Keep Vein Open Last Admin: 01/18/19 13:55 Dose: 10 ml Warfarin Sodium (Pharmacy To Dose - Warfarin) 0 dose .XX ASDIRECTED PRN PRN Reason: RX TO DOSE WARFARIN Warfarin Sodium (Coumadin) 7.5 mg PO SuTuWeFrSa@1800 [facility] Warfarin Sodium (Coumadin) 10 mg PO MoTh@1800 [facility] Last Admin: 01/19/19 17:31 Dose: 10 mg Discontinued Medications Furosemide (Lasix) 40 mg IVPUSH NOW ONE Stop: 01/18/19 13:41 Last Admin: 01/18/19 14:35 Dose: 40 mg Furosemide (Lasix) 40 mg PO ACLUNCH [facility] Heparin Sodium (Porcine) (Heparin Sodium) 5,000 units SUBCUT Q8H [facility] Last Admin: 01/18/19 18:51 Dose: 5,000 units Lisinopril (Prinivil) 5 mg PO DAILY [facility] Lisinopril (Prinivil) 5 mg PO DAILY [facility] Stop: 01/22/19 09:00 Metformin HCl (Glucophage) 500 mg PO BIDMEALS [facility] Last Admin: 01/19/19 12:15 Dose: Not Given Metoprolol Tartrate (Lopressor) 75 mg PO BID [facility] Last Admin: 01/19/19 09:18 Dose: 75 mg Triamterene/HCTZ (Dyazide 25-37.5 Mg) 1 each PO DAILY [facility] Warfarin Sodium (Coumadin) 5 mg PO ASDIRECTED [facility] - Exam Quality Assessment: Supplemental Oxygen General: Alert, Cooperative, No Acute Distress HEENT: Pupils Equal, Pupils Reactive, EOMI, Mucous Membr. Moist/[place], Other (b/ l eye proptosis) Lungs: Normal Respiratory Effort, Crackles (at the bases) Cardiovascular: Irregular Rhythm, Murmurs GI/Abdominal Exam: Normal Bowel Sounds, Soft, Non-Tender, No Organomegaly, No Distention, No Mass, Other (Obese) (Female) Exam: Deferred Back Exam: Normal Inspection, Decreased Range of Motion Extremities: Normal Inspection, Non-Tender, Slow Capillary Refill, Limited Range of Motion Peripheral Pulses: 1+: Dorsalis Pedis (L), Dorsalis Pedis (R) Skin: Warm, Dry, Intact Neurological: No New Focal Deficit (limited due to body habitus). No: Normal Gait Psy/Mental Status: Alert, Normal Affect, Normal Mood - Problem List Review Problem List Initiated/Reviewed/Updated: Yes - My Orders Last 24 Hours: My Active Orders 01/19/19 09:00 Sertraline [Zoloft] 200 mg PO DAILY 01/19/19 12:00 Digoxin [Lanoxin] 125 mcg PO DAILY@1200 01/19/19 12:15 Alogliptin Benzoate [Alogliptin] 25 mg PO DAILY 01/19/19 18:00 Warfarin [Coumadin] 10 mg PO MoTh@1800 01/19/19 20:06 Patient Status [ADT] Routine 01/19/19 21:00 Metoprolol Tartrate [Lopressor] 50 mg PO BID glipiZIDE [Glucotrol XL] 2.5 mg PO BID 01/20/19 09:00 Modafinil [Provigil] 100 mg PO DAILY 01/20/19 18:00 Warfarin [Coumadin] 7.5 mg PO Norma@1800 01/21/19 05:11 BASIC METABOLIC PANEL,BMP [CHEM] AM C-REACTIVE PROTEIN [CHEM] AM CBC WITH AUTO DIFF [HEME] AM INR,PT,PROTHROMBIN TIME [COAG] AM MAGNESIUM [CHEM] AM 01/22/19 05:11 BASIC METABOLIC PANEL,BMP [CHEM] AM C-REACTIVE PROTEIN [CHEM] AM CBC WITH AUTO DIFF [HEME] AM INR,PT,PROTHROMBIN TIME [COAG] AM MAGNESIUM [CHEM] AM 01/23/19 05:11 BASIC METABOLIC PANEL,BMP [CHEM] AM C-REACTIVE PROTEIN [CHEM] AM CBC WITH AUTO DIFF [HEME] AM INR,PT,PROTHROMBIN TIME [COAG] AM MAGNESIUM [CHEM] AM 01/23/19 09:00 Lisinopril [Prinivil] 5 mg PO DAILY - Plan Plan:: Assessment/Plan: Acute: Right Heart Failure/Core Pulmonale - Hx/o HFrEF at 35-40% now 55-60% - Reports Orthopnea and increased weight gain - CXR shows pulmonary vascular congestion - ProBNP is 4972--> 4628 - Considerable lower extremity edema - She is not on salt or fluid restrictions per - Heart Failure protocol: diuretics, salt/fluid restrictions, Is/Os and daily weight - 2D echo: EF 55-60%, Possible hypokinesia, severe biatrial dilation, moderate to severe tricuspid valve regurgitation, right ventricular systolic pressure of 61.8 mmHg Severe Pulmonary HTN - 2D echo: right ventricular systolic pressure of 61.8 mmHg - Risk factors: Morbid Obesity, Afib, MICHAEL/OHS - Discussed case with Dr. Leah Cain who read her echo; he recommended right heart cath to determine etiology and type of her disease (primary vs secondary) and treat associated symptoms and address co-morbid conditions - Will continue supplemental O2 and NIPPV, diuretics, salt/fluid restriction and daily weight check - Severe PH and/ or evidence of right heart failure have a poor prognosis-- her family is aware - Refer to cardiology after discharge MICHAEL/OHS, Unchanged - Has chronic SOB with Exertion - O2 Sat in the low 80s at the clinic; she is at 2L NC for O2 supplement - Risk Factors: HF, HTN and Morbid Obesity with BMI of 51.6 - Supplemental O2 and BIPAP; diuretics; weight loss - Scored high risk on STOP BANG screening Hypercapnea - 2/2 MICHAEL/OHS - Supplemental O2 and BIPAP - Stimulant so she is more alert awake during the day - Serial ABG as indicated Hypersomnolence - 2/2 MICHAEL/OHS from Morbid Obesity - Low dose stimulant maintain her level or alertness - Will avoid narcotics or sedation Diabetes Type 2, Controlled - Not New on this Admission - A1C 6.6 back in 10/24/2018 via [place] she was never told or started on diabetic agent(s); now 7.6 - Metformin 500 mg po BID if renal function permits; held due to insufficiency--> will d/c it - Start DDP4 and Glucotrol 2.5 mg po BID - Accu-check AC/HS with Low dose ISS - Dietary consult and Diabetic Education Probable MICHAEL/OHS - Extremely Obese - Low O12 sat and CO2 is 36 (elevated) - Screen for MICHAEL (STOP BANG) - Recommend Weight loss and Sleep Study Resolved S/p Mild Hyperkalemia - She has underlying CKD Stage 3 - Will D/c Triamterene and Hold ACEI - Repeat Labs in AM Chronic: Impaired Vision and Hearing Atrial Fibrillation, HR controlled on Warfarin, Supratherapeutic INR at 3.78 HTN HLD SOB CKD Stage 3, At baseline OA/DJD Anxiety Depression Probable Cognitive Deficits Morbid Obesity with BMI of 51.6 Plan: She remains clinically stable Routine AM Labs Fall Precautions Cognitive Eval-no deficits/impairment Repeat Digoxin level in AM Recommend Sleep Study SW/CM for d/c planning Ambulate as tolerated with assistance Code status: 1 Met up with at bedside. We went over patient's clinical status, treatment and discharge care plan. Possible discharge in 1-2 days. Attempted to reach her PCP but ended up speaking to Yasmine Galaviz-PAC. However I informed her that if patient ever comes over to them in [place] for follow up, they must re -iterate the importance of seeing a telegraph office telephone clerk in [place] for right heart catheterization due to severe pulmonary hypertension. She would also need sleep study done due to untreated Severe MICHAEL/OHS.
[2019-01-20] MEDS: Digoxin 125 MCG Tab PO SCH (11:19)
[2019-01-20] MEDS ORDERED: Warfarin 2.5 MG Tab PO SCH (18:00)
[2019-01-20] MEDS ORDERED: Warfarin 7.5 MG Tab PO SCH (18:00)
[2019-01-20] MEDS ORDERED: Furosemide 20 MG/2 ML VIAL IVPUSH ONE (21:00)
[2019-01-20] MEDS: Simvastatin 10 MG Tab PO SCH (21:57)
[2019-01-21] MEDS: Insulin Lispro 100 Units/ML 3 ML Vial SUBCUT SCH ×4 (06:00→21:45)
[2019-01-21] MEDS: Pantoprazole 40 MG Tab.CR PO SCH (06:05)
[2019-01-21] MEDS: Furosemide 20 MG/2 ML VIAL IVPUSH SCH ×3 (06:05→21:43)
[2019-01-21] MEDS: Hydrochlorothiazide 12.5 MG Cap PO SCH ×2 (06:05→14:04)
--- NOTE | 2019-01-21 08:30 | PCM.PN ---
- General Info Date of Service: 01/21/19 Admission Dx/Problem (Free Text): Admission Diagnosis/Problem Admission Diagnosis/Problem Hypoxia Subjective Update: Follow Up Functional Status: Reports: Pain Controlled, Tolerating Diet, Ambulating, Urinating. Denies: New Symptoms - Review of Systems General: Denies: Fever, Weakness, Fatigue, Malaise, Chills HEENT: Reports: No Symptoms Pulmonary: Denies: Shortness of Breath, Pleuritic Chest Pain Cardiovascular: Denies: Chest Pain, Palpitations, Dyspnea on Exertion, Orthopnea , Lightheadedness Gastrointestinal: Denies: Abdominal Pain, Decreased Appetite, Nausea, Vomiting Genitourinary: Reports: No Symptoms Musculoskeletal: Reports: No Symptoms Skin: Denies: Cyanosis, Mottled, Pallor, Diaphoresis Neurological: Reports: Gait Disturbance. Denies: Confusion, Difficulty Walking , Weakness Psychiatric: Denies: Depression, Anxiety, Agitation, Hallucinations Systems Review Comment:: No overnight or acute issues. She used her BIPAP from (estimated) [id number]. She has no complaints this morning. Her Bircarb is 40 but her ProBNP is 3822 this AM. - Patient Data Vitals - Most Recent: Last Vital Signs Temp 36.7 C 01/21/19 08:00 Pulse 78 01/21/19 08:00 Resp 23 H 01/21/19 08:00 BP 113/66 01/21/19 08:00 Pulse Ox 96 01/21/19 08:00 Weight - Most Recent: 134.808 kg I&O - Last 24 Hours: Intake & Output 01/20/19 01/21/19 01/21/19 22:59 06:59 14:59 Intake Total 760 150 Output Total 850 400 Balance -90 -250 Lab Results Last 24 Hours: Laboratory Results - last 24 hr 01/20/19 01/20/19 01/20/19 Range/Units 10:57 17:00 17:08 WBC (3.98-10.04) K/mm3 RBC (3.98-5.22) M/mm3 Hgb (11.2-15.7) gm/L Hct (34.1-44.9) % MCV (79.4-94.8) fl MCH (25.6-32.2) pg MCHC (32.2-35.5) g/dl RDW Std Deviation (36.4-46.3) fL Plt Count (182-369) K/mm3 MPV (9.4-12.3) fl Neut % (Auto) (34.0-71.1) % Lymph % (Auto) (19.3-51.7) % [place] % (Auto) (4.7-12.5) % Eos % (Auto) (0.7-5.8) Baso % (Auto) (0.1-1.2) % Neut # (Auto) (1.56-6.13) K/mm3 Lymph # (Auto) (1.18-3.74) K/mm3 [place] # (Auto) (0.24-0.36) K/mm3 Eos # (Auto) (0.04-0.36) K/mm3 Baso # (Auto) (0.01-0.08) K/mm3 Manual Slide Review PT (9.5-12.1) SECONDS INR Puncture Site Rt radial ABG pH 7.34 L (7.35-7.45) ABG pCO2 76.9 H* (35.0-45.0) mmHg ABG pO2 82.0 (80.0-100.0) mmHg ABG HCO3 40.2 H (22.0-26.0) meq/L ABG O2 Saturation 95.5 L (96.0-97.0) % ABG Base Excess 11.8 H (-2-2.0) A-a Gradient 1 mmHg O2 Delivery Device Nasal cannula Oxygen Flow Rate 2.0 FiO2 28.00 (21.00-100.00) % Sodium (136-145) mEq/L Potassium (3.5-5.1) mEq/L Chloride (98-107) mEq/L Carbon Dioxide (21-32) mEq/L Anion Gap (5-15) BUN (7-18) mg/dL Creatinine (0.55-1.02) mg/dL Est Cr Clr Drug Dosing mL/min Estimated GFR (MDRD) (>60) mL/min BUN/Creatinine Ratio (14-18) Glucose (83-115) mg/dL POC Glucose 88 84 (83-110) mg/dL Calcium (8.5-10.1) mg/dL Magnesium (1.8-2.4) mg/dl C-Reactive Protein (<1.0) mg/dL NT-Pro-B Natriuret Pep (0-125) pg/mL Digoxin (0.9-2.0) ng/mL 01/20/19 01/21/19 01/21/19 Range/Units 20:54 05:40 05:40 WBC 9.22 (3.98-10.04) K/mm3 RBC 5.15 (3.98-5.22) M/mm3 Hgb 12.1 (11.2-15.7) gm/L Hct 41.7 (34.1-44.9) % MCV 81.0 (79.4-94.8) fl MCH 23.5 L (25.6-32.2) pg MCHC 29.0 L (32.2-35.5) g/dl RDW Std Deviation 54.5 H (36.4-46.3) fL Plt Count 276 (182-369) K/mm3 MPV 11.1 (9.4-12.3) fl Neut % (Auto) 72.7 H (34.0-71.1) % Lymph % (Auto) 13.6 L (19.3-51.7) % [place] % (Auto) 11.8 (4.7-12.5) % Eos % (Auto) 1.5 (0.7-5.8) Baso % (Auto) 0.2 (0.1-1.2) % Neut # (Auto) 6.70 H (1.56-6.13) K/mm3 Lymph # (Auto) 1.25 (1.18-3.74) K/mm3 [place] # (Auto) 1.09 H (0.24-0.36) K/mm3 Eos # (Auto) 0.14 (0.04-0.36) K/mm3 Baso # (Auto) 0.02 (0.01-0.08) K/mm3 Manual Slide Review Normal smear PT 44.3 H (9.5-12.1) SECONDS INR 4.18 Puncture Site ABG pH (7.35-7.45) ABG pCO2 (35.0-45.0) mmHg ABG pO2 (80.0-100.0) mmHg ABG HCO3 (22.0-26.0) meq/L ABG O2 Saturation (96.0-97.0) % ABG Base Excess (-2-2.0) A-a Gradient mmHg O2 Delivery Device Oxygen Flow Rate FiO2 (21.00-100.00) % Sodium (136-145) mEq/L Potassium (3.5-5.1) mEq/L Chloride (98-107) mEq/L Carbon Dioxide (21-32) mEq/L Anion Gap (5-15) BUN (7-18) mg/dL Creatinine (0.55-1.02) mg/dL Est Cr Clr Drug Dosing mL/min Estimated GFR (MDRD) (>60) mL/min BUN/Creatinine Ratio (14-18) Glucose (83-115) mg/dL POC Glucose 92 (83-110) mg/dL Calcium (8.5-10.1) mg/dL Magnesium (1.8-2.4) mg/dl C-Reactive Protein (<1.0) mg/dL NT-Pro-B Natriuret Pep (0-125) pg/mL Digoxin (0.9-2.0) ng/mL 01/21/19 01/21/19 01/21/19 Range/Units 05:40 05:40 05:40 WBC (3.98-10.04) K/mm3 RBC (3.98-5.22) M/mm3 Hgb (11.2-15.7) gm/L Hct (34.1-44.9) % MCV (79.4-94.8) fl MCH (25.6-32.2) pg MCHC (32.2-35.5) g/dl RDW Std Deviation (36.4-46.3) fL Plt Count (182-369) K/mm3 MPV (9.4-12.3) fl Neut % (Auto) (34.0-71.1) % Lymph % (Auto) (19.3-51.7) % [place] % (Auto) (4.7-12.5) % Eos % (Auto) (0.7-5.8) Baso % (Auto) (0.1-1.2) % Neut # (Auto) (1.56-6.13) K/mm3 Lymph # (Auto) (1.18-3.74) K/mm3 [place] # (Auto) (0.24-0.36) K/mm3 Eos # (Auto) (0.04-0.36) K/mm3 Baso # (Auto) (0.01-0.08) K/mm3 Manual Slide Review PT (9.5-12.1) SECONDS INR Puncture Site ABG pH (7.35-7.45) ABG pCO2 (35.0-45.0) mmHg ABG pO2 (80.0-100.0) mmHg ABG HCO3 (22.0-26.0) meq/L ABG O2 Saturation (96.0-97.0) % ABG Base Excess (-2-2.0) A-a Gradient mmHg O2 Delivery Device Oxygen Flow Rate FiO2 (21.00-100.00) % Sodium 145 (136-145) mEq/L Potassium 3.5 (3.5-5.1) mEq/L Chloride 101 (98-107) mEq/L Carbon Dioxide 41 H* (21-32) mEq/L Anion Gap 6.5 (5-15) BUN 36 H (7-18) mg/dL Creatinine 1.4 H (0.55-1.02) mg/dL Est Cr Clr Drug Dosing 32.06 mL/min Estimated GFR (MDRD) 37 (>60) mL/min BUN/Creatinine Ratio 25.7 H (14-18) Glucose 95 (83-115) mg/dL POC Glucose (83-110) mg/dL Calcium 9.1 (8.5-10.1) mg/dL Magnesium 1.8 (1.8-2.4) mg/dl C-Reactive Protein 1.9 H* (<1.0) mg/dL NT-Pro-B Natriuret Pep 3822 H (0-125) pg/mL Digoxin 1.0 (0.9-2.0) ng/mL 01/21/19 Range/Units 05:43 WBC (3.98-10.04) K/mm3 RBC (3.98-5.22) M/mm3 Hgb (11.2-15.7) gm/L Hct (34.1-44.9) % MCV (79.4-94.8) fl MCH (25.6-32.2) pg MCHC (32.2-35.5) g/dl RDW Std Deviation (36.4-46.3) fL Plt Count (182-369) K/mm3 MPV (9.4-12.3) fl Neut % (Auto) (34.0-71.1) % Lymph % (Auto) (19.3-51.7) % [place] % (Auto) (4.7-12.5) % Eos % (Auto) (0.7-5.8) Baso % (Auto) (0.1-1.2) % Neut # (Auto) (1.56-6.13) K/mm3 Lymph # (Auto) (1.18-3.74) K/mm3 [place] # (Auto) (0.24-0.36) K/mm3 Eos # (Auto) (0.04-0.36) K/mm3 Baso # (Auto) (0.01-0.08) K/mm3 Manual Slide Review PT (9.5-12.1) SECONDS INR Puncture Site ABG pH (7.35-7.45) ABG pCO2 (35.0-45.0) mmHg ABG pO2 (80.0-100.0) mmHg ABG HCO3 (22.0-26.0) meq/L ABG O2 Saturation (96.0-97.0) % ABG Base Excess (-2-2.0) A-a Gradient mmHg O2 Delivery Device Oxygen Flow Rate FiO2 (21.00-100.00) % Sodium (136-145) mEq/L Potassium (3.5-5.1) mEq/L Chloride (98-107) mEq/L Carbon Dioxide (21-32) mEq/L Anion Gap (5-15) BUN (7-18) mg/dL Creatinine (0.55-1.02) mg/dL Est Cr Clr Drug Dosing mL/min Estimated GFR (MDRD) (>60) mL/min BUN/Creatinine Ratio (14-18) Glucose (83-115) mg/dL POC Glucose 96 (83-110) mg/dL Calcium (8.5-10.1) mg/dL Magnesium (1.8-2.4) mg/dl C-Reactive Protein (<1.0) mg/dL NT-Pro-B Natriuret Pep (0-125) pg/mL Digoxin (0.9-2.0) ng/mL Med Orders - Current: Current Medications Acetaminophen (Tylenol) 650 mg PO Q4H PRN PRN Reason: Pain (Mild 1-3)/fever Hydrocodone Bitart/Acetaminophen ([place] 325-5 Mg) 1 tab PO Q4H PRN PRN Reason: Pain (moderate 4-6) Albuterol/Ipratropium (Duoneb 3.0-0.5 Mg/3 Ml) 3 ml NEB Q4H PRN PRN Reason: Shortness Of Breath/wheezing Alogliptin Benzoate (Alogliptin) 25 mg PO DAILY [facility] Last Admin: 01/20/19 10:06 Dose: 25 mg Bisacodyl (Dulcolax) 5 mg PO DAILY PRN PRN Reason: Constipation Digoxin (Lanoxin) 125 mcg PO DAILY@1200 [facility] Last Admin: 01/20/19 11:19 Dose: 125 mcg Docusate Sodium (Colace) 100 mg PO BID PRN PRN Reason: Constipation Dorzolamide HCl (Trusopt 2% Ophth Soln) 0 ml EYEBOTH BID [facility] Last Admin: 01/20/19 21:57 Dose: 1 drop Famotidine (Pepcid) 20 mg PO DAILY [facility] Furosemide (Lasix) 20 mg IVPUSH BIDDIURETIC [facility] Stop: 01/21/19 14:01 Glipizide (Glucotrol Xl) 2.5 mg PO BID [facility] Last Admin: 01/20/19 21:58 Dose: Not Given Hydralazine HCl (Apresoline) 20 mg IVPUSH Q4H PRN PRN Reason: Hypertension Hydrochlorothiazide (Hydrochlorothiazide) 12.5 mg PO BIDDIURETIC [facility] Last Admin: 01/21/19 06:05 Dose: 12.5 mg Hydromorphone HCl (Dilaudid) 0.5 mg IVPUSH Q2H PRN PRN Reason: Pain (severe 7-10) Promethazine HCl 6.25 mg/ (Sodium Chloride) 50.25 mls @ 100 mls/hr IV Q6H PRN PRN Reason: Nausea/Vomiting Insulin Human Lispro (Humalog) 0 unit SUBCUT QIDACANDBED [facility]; Protocol Last Admin: 01/21/19 06:00 Dose: Not Given Lisinopril (Prinivil) 5 mg PO DAILY [facility] Lorazepam (Ativan) 2 mg IVPUSH Q4H PRN PRN Reason: Seizures Lorazepam (Ativan) 0.5 mg IV Q6H PRN PRN Reason: Anxiety Magnesium Sulfate (Pharmacy To Dose - Magnesium Replacement) 0 dose .XX ASDIRECTED PRN PRN Reason: RX TO WATCH MAG Metoprolol Tartrate (Lopressor) 5 mg IVPUSH Q4H PRN PRN Reason: Tachycardia Metoprolol Tartrate (Lopressor) 50 mg PO BID [facility] Last Admin: 01/20/19 21:42 Dose: Not Given Modafinil (Provigil) 200 mg PO DAILY [facility] Ondansetron HCl (Zofran) 4 mg IV Q6H PRN PRN Reason: Nausea/Vomiting Pantoprazole Sodium (Protonix) 40 mg PO ACBREAKFAST [facility] Last Admin: 01/21/19 06:05 Dose: 40 mg Polyethylene Glycol (Miralax) 17 gm PO DAILY PRN PRN Reason: Constipation Potassium Chloride (Pharmacy To Dose - Potassium Replacement) 0 dose .XX ASDIRECTED PRN PRN Reason: RX TO WATCH K Senna/Docusate Sodium (Senna Plus) 1 tab PO BID PRN PRN Reason: Constipation Sertraline HCl (Zoloft) 200 mg PO DAILY [facility] Last Admin: 01/20/19 08:08 Dose: 200 mg Simvastatin (Zocor) 10 mg PO BEDTIME [facility] Last Admin: 01/20/19 21:57 Dose: 10 mg Sodium Chloride (Saline Flush) 10 ml FLUSH ASDIRECTED PRN PRN Reason: Keep Vein Open Last Admin: 01/18/19 13:55 Dose: 10 ml Warfarin Sodium (Pharmacy To Dose - Warfarin) 0 dose .XX ASDIRECTED PRN PRN Reason: RX TO DOSE WARFARIN Discontinued Medications Famotidine (Pepcid) 20 mg PO BID [facility] Last Admin: 01/20/19 08:07 Dose: 20 mg Furosemide (Lasix) 40 mg IVPUSH NOW ONE Stop: 01/18/19 13:41 Last Admin: 01/18/19 14:35 Dose: 40 mg Furosemide (Lasix) 40 mg PO ACLUNCH [facility] Furosemide (Lasix) 10 mg IVPUSH BIDDIURETIC [facility] Stop: 01/21/19 14:01 Last Admin: 01/21/19 06:05 Dose: 10 mg Furosemide (Lasix) 10 mg IVPUSH ONETIME ONE Stop: 01/20/19 21:01 Last Admin: 01/20/19 21:57 Dose: 10 mg Heparin Sodium (Porcine) (Heparin Sodium) 5,000 units SUBCUT Q8H [facility] Last Admin: 01/18/19 18:51 Dose: 5,000 units Lisinopril (Prinivil) 5 mg PO DAILY [facility] Lisinopril (Prinivil) 5 mg PO DAILY [facility] Stop: 01/22/19 09:00 Lisinopril (Prinivil) 5 mg PO DAILY [facility] Metformin HCl (Glucophage) 500 mg PO BIDMEALS [facility] Last Admin: 01/19/19 12:15 Dose: Not Given Metoprolol Tartrate (Lopressor) 75 mg PO BID [facility] Last Admin: 01/19/19 09:18 Dose: 75 mg Modafinil (Provigil) 100 mg PO DAILY [facility] Last Admin: 01/20/19 08:08 Dose: 100 mg Triamterene/HCTZ (Dyazide 25-37.5 Mg) 1 each PO DAILY [facility] Warfarin Sodium (Coumadin) 5 mg PO ASDIRECTED [facility] Warfarin Sodium (Coumadin) 7.5 mg PO SuTuWeFrSa@1800 [facility] Warfarin Sodium (Coumadin) 10 mg PO MoTh@1800 [facility] Last Admin: 01/19/19 17:31 Dose: 10 mg Warfarin Sodium (Coumadin) 2.5 mg PO QPM [facility] Stop: 01/20/19 18:01 Last Admin: 01/20/19 17:20 Dose: 2.5 mg - Exam General: Alert, Oriented, Cooperative, No Acute Distress, Other (Morbid;y Obese ) HEENT: Pupils Equal, Pupils Reactive, EOMI, Mucous Membr. Moist/[place], Other ( Hard of Hearing) Neck: Supple Lungs: Normal Respiratory Effort, Decreased Breath Sounds, Crackles (at the bases) Cardiovascular: Irregular Rhythm, Murmurs GI/Abdominal Exam: Normal Bowel Sounds, Soft, Non-Tender, No Organomegaly, No Distention, No Abnormal Bruit (Female) Exam: Deferred Back Exam: Normal Inspection, Decreased Range of Motion Extremities: Normal Inspection, Non-Tender, No Pedal Edema, Normal Capillary Refill, Limited Range of Motion, Other (peripheral edema) Peripheral Pulses: 2+: Dorsalis Pedis (L), Dorsalis Pedis (R) Skin: Warm, Dry, Intact Neurological: No New Focal Deficit (limited due to body habitus), Normal Gait Psy/Mental Status: Alert, Normal Affect, Normal Mood - Problem List Review Problem List Initiated/Reviewed/Updated: Yes - My Orders Last 24 Hours: My Active Orders 01/20/19 20:48 BIPAP Adult [RT BiPAP/CPAP] [RC] ASDIRECTED 01/21/19 09:00 Famotidine [Pepcid] 20 mg PO DAILY Lisinopril [Prinivil] 5 mg PO DAILY Modafinil [Provigil] 200 mg PO DAILY 01/21/19 14:00 Furosemide [Lasix] 20 mg IVPUSH BIDDIURETIC 01/22/19 05:11 BASIC METABOLIC PANEL,BMP [CHEM] AM C-REACTIVE PROTEIN [CHEM] AM CBC WITH AUTO DIFF [HEME] AM INR,PT,PROTHROMBIN TIME [COAG] AM MAGNESIUM [CHEM] AM 01/23/19 05:11 BASIC METABOLIC PANEL,BMP [CHEM] AM C-REACTIVE PROTEIN [CHEM] AM CBC WITH AUTO DIFF [HEME] AM INR,PT,PROTHROMBIN TIME [COAG] AM MAGNESIUM [CHEM] AM - Plan Plan:: Assessment/Plan: Acute: Right Heart Failure/Core Pulmonale - Hx/o HFrEF at 35-40% now 55-60% - Reports Orthopnea and increased weight gain - CXR shows pulmonary vascular congestion - ProBNP is 4972--> 4628--> 3822 - Considerable lower extremity edema - She is not on salt or fluid restrictions per - Heart Failure protocol: diuretics, salt/fluid restrictions, Is/Os and daily weight - 2D echo: EF 55-60%, Possible hypokinesia, severe biatrial dilation, moderate to severe tricuspid valve regurgitation, right ventricular systolic pressure of 61.8 mmHg Severe Pulmonary HTN - 2D echo: right ventricular systolic pressure of 61.8 mmHg - Risk factors: Morbid Obesity, Afib, MICHAEL/OHS - Discussed case with Dr. Leah Cain who read her echo; he recommended right heart cath to determine etiology and type of her disease (primary vs secondary) and treat associated symptoms and address co-morbid conditions - Will continue supplemental O2 and NIPPV, diuretics, salt/fluid restriction and daily weight check - Severe PH and/ or evidence of right heart failure have a poor prognosis-- her family is aware - Refer to cardiology after discharge MICHAEL/OHS, Unchanged - Has chronic SOB with Exertion - O2 Sat in the low 80s at the clinic; she is at 2L NC for O2 supplement - Risk Factors: HF, HTN and Morbid Obesity with BMI of 51.6 - Supplemental O2 and BIPAP; diuretics; weight loss - Scored high risk on STOP BANG screening Hypercapnea - 2/2 MICHAEL/OHS - CO2 36--> 37 --> now 41 - Supplemental O2 and BIPAP Q4H with 2 hrs break plus meal time and QHS - Increased Provigil to 200 mg po daily - Serial ABG as indicated Hypersomnolence - 2/2 MICHAEL/OHS from Morbid Obesity - Continue stimulant to maintain level of alertness - Will avoid narcotics or sedation Diabetes Type 2, Controlled - Not New on this Admission - A1C 6.6 back in 10/24/2018 via adaffix she was never told or started on diabetic agent(s); now 7.6 - Metformin 500 mg po BID if renal function permits; held due to insufficiency--> will d/c it - Continue DDP4 and Glucotrol 2.5 mg po BID - Accu-check AC/HS with Low dose ISS - Dietary consult and Diabetic Education Severe Untreated MICHAEL/OHS - Extremely Obese - Low O12 sat and CO2 is 36 (elevated) - STOP BANG is 5- high risk - She would benefit with BIPAP; but may need sleep study for insurance to approve it - Recommend Weight loss and Sleep Study Resolved S/p Mild Hyperkalemia - She has underlying CKD Stage 3 - Will D/c Triamterene and Hold ACEI - Repeat Labs in AM Chronic: Impaired Vision and Hearing Atrial Fibrillation, HR controlled on Warfarin, Supratherapeutic INR at 3.78 HTN HLD SOB CKD Stage 3, At baseline OA/DJD Anxiety Depression Probable Cognitive Deficits Morbid Obesity with BMI of 51.6 Plan: She remains clinically stable Routine AM Labs Fall Precautions Resume low dose ACEI Lasix 10 mg IVP BID Digoxin level is normal Recommend Sleep Study SW/CM for d/c planning Ambulate as tolerated with assistance Code status: 1 LOS anticipate > 96hrs requires more treatment due to worsening CO2 level; also possible BIPAP to use on discharge
[2019-01-21] MEDS: Sertraline 50 MG Tab PO SCH (08:54)
[2019-01-21] MEDS: glipiZIDE 2.5 MG Tab.ER PO SCH ×2 (08:54→20:50)
[2019-01-21] MEDS: Modafinil 200 MG Tab PO SCH (08:54)
[2019-01-21] MEDS: Famotidine 20 MG Tab PO SCH (08:54)
[2019-01-21] MEDS: Lisinopril 5 MG Tab PO SCH (08:55)
[2019-01-21] MEDS: Metoprolol Tartrate 50 MG Tab PO SCH ×2 (08:55→20:51)
[2019-01-21] MEDS: Dorzolamide 2% Ophth Soln 10 ML Bottle EYEBOTH SCH ×2 (08:56→20:51)
[2019-01-21] MEDS: Digoxin 125 MCG Tab PO SCH (12:15)
[2019-01-21] MEDS ORDERED: Furosemide 20 MG/2 ML VIAL IVPUSH SCH (14:00)
[2019-01-21] MEDS: Simvastatin 10 MG Tab PO SCH (20:51)
[2019-01-21] MEDS ORDERED: Lisinopril 5 MG Tab PO SCH (23:12)
[2019-01-22] MEDS: Pantoprazole 40 MG Tab.CR PO SCH (05:48)
[2019-01-22] MEDS: Hydrochlorothiazide 12.5 MG Cap PO SCH ×2 (05:48→14:29)
[2019-01-22] MEDS: Insulin Lispro 100 Units/ML 3 ML Vial SUBCUT SCH ×4 (06:08→21:53)
[2019-01-22] MEDS: Lisinopril 5 MG Tab PO SCH (09:21)
[2019-01-22] MEDS: Famotidine 20 MG Tab PO SCH (09:21)
[2019-01-22] MEDS: Modafinil 200 MG Tab PO SCH (09:21)
[2019-01-22] MEDS: glipiZIDE 2.5 MG Tab.ER PO SCH ×2 (09:22→21:33)
[2019-01-22] MEDS: Dorzolamide 2% Ophth Soln 10 ML Bottle EYEBOTH SCH ×2 (09:22→21:34)
[2019-01-22] MEDS: Metoprolol Tartrate 50 MG Tab PO SCH ×2 (09:22→21:33)
[2019-01-22] MEDS: Furosemide 20 MG/2 ML VIAL IVPUSH SCH ×2 (09:22→21:32)
[2019-01-22] MEDS: Sertraline 50 MG Tab PO SCH (09:23)
[2019-01-22] MEDS: Potassium Chloride 20 MEQ Tab.ER PO SCH ×2 (11:50→14:28)
[2019-01-22] MEDS: Digoxin 125 MCG Tab PO SCH (11:51)
--- NOTE | 2019-01-22 12:48 | PCM.PN ---
- General Info Date of Service: 01/22/19 Admission Dx/Problem (Free Text): Admission Diagnosis/Problem Admission Diagnosis/Problem Hypoxia Subjective Update: Follow Up Functional Status: Reports: Pain Controlled, Tolerating Diet, Ambulating, Urinating. Denies: New Symptoms - Review of Systems General: Denies: Fever, Weakness, Fatigue, Malaise, Chills HEENT: Reports: No Symptoms Pulmonary: Denies: Shortness of Breath Cardiovascular: Denies: Chest Pain, Dyspnea on Exertion, Lightheadedness Gastrointestinal: Denies: Abdominal Pain, Nausea, Vomiting Musculoskeletal: Reports: No Symptoms Skin: Denies: Cyanosis, Mottled, Pallor, Diaphoresis Neurological: Reports: Gait Disturbance. Denies: Confusion, Difficulty Walking , Weakness Psychiatric: Denies: Depression, Anxiety, Agitation, Hallucinations Systems Review Comment:: She did not slept well last night. Her BIPAP gave her some trouble, the mask was uncomfortable and was not tight sealed. Otherwise she feels goods. Her CO2 is a littler higher this AM at 43 (41 yesterday). She lost about 3 kg since admission. She has no complaints this AM. Her K is slightly low at 3.2. - Patient Data Vitals - Most Recent: Last Vital Signs Temp 36.6 C 01/22/19 08:00 Pulse 86 01/22/19 11:51 Resp 18 01/22/19 08:00 BP 116/55 L 01/22/19 09:22 Pulse Ox 98 01/22/19 08:00 Weight - Most Recent: 133.039 kg I&O - Last 24 Hours: Intake & Output 01/21/19 01/22/19 01/22/19 22:59 06:59 14:59 Intake Total 180 200 180 Output Total 1750 300 Balance -1570 -100 180 Lab Results Last 24 Hours: Laboratory Results - last 24 hr 01/21/19 01/21/19 01/21/19 Range/Units 11:23 16:22 20:48 WBC (3.98-10.04) K/mm3 RBC (3.98-5.22) M/mm3 Hgb (11.2-15.7) gm/L Hct (34.1-44.9) % MCV (79.4-94.8) fl MCH (25.6-32.2) pg MCHC (32.2-35.5) g/dl RDW Std Deviation (36.4-46.3) fL Plt Count (182-369) K/mm3 MPV (9.4-12.3) fl Neut % (Auto) (34.0-71.1) % Lymph % (Auto) (19.3-51.7) % [place] % (Auto) (4.7-12.5) % Eos % (Auto) (0.7-5.8) Baso % (Auto) (0.1-1.2) % Neut # (Auto) (1.56-6.13) K/mm3 Lymph # (Auto) (1.18-3.74) K/mm3 [place] # (Auto) (0.24-0.36) K/mm3 Eos # (Auto) (0.04-0.36) K/mm3 Baso # (Auto) (0.01-0.08) K/mm3 Manual Slide Review PT (9.5-12.1) SECONDS INR Sodium (136-145) mEq/L Potassium (3.5-5.1) mEq/L Chloride (98-107) mEq/L Carbon Dioxide (21-32) mEq/L Anion Gap (5-15) BUN (7-18) mg/dL Creatinine (0.55-1.02) mg/dL Est Cr Clr Drug Dosing mL/min Estimated GFR (MDRD) (>60) mL/min BUN/Creatinine Ratio (14-18) Glucose (83-115) mg/dL POC Glucose 167 H 75 L 90 (83-110) mg/dL Calcium (8.5-10.1) mg/dL Magnesium (1.8-2.4) mg/dl C-Reactive Protein (<1.0) mg/dL 01/22/19 01/22/19 01/22/19 Range/Units 05:45 05:45 05:45 WBC 8.30 (3.98-10.04) K/mm3 RBC 4.97 (3.98-5.22) M/mm3 Hgb 11.5 (11.2-15.7) gm/L Hct 40.2 (34.1-44.9) % MCV 80.9 (79.4-94.8) fl MCH 23.1 L (25.6-32.2) pg MCHC 28.6 L (32.2-35.5) g/dl RDW Std Deviation 54.5 H (36.4-46.3) fL Plt Count 288 (182-369) K/mm3 MPV 11.3 (9.4-12.3) fl Neut % (Auto) 72.2 H (34.0-71.1) % Lymph % (Auto) 14.0 L (19.3-51.7) % [place] % (Auto) 12.2 (4.7-12.5) % Eos % (Auto) 1.4 (0.7-5.8) Baso % (Auto) 0.1 (0.1-1.2) % Neut # (Auto) 5.99 (1.56-6.13) K/mm3 Lymph # (Auto) 1.16 L (1.18-3.74) K/mm3 [place] # (Auto) 1.01 H (0.24-0.36) K/mm3 Eos # (Auto) 0.12 (0.04-0.36) K/mm3 Baso # (Auto) 0.01 (0.01-0.08) K/mm3 Manual Slide Review Abnormal smear PT 40.2 H (9.5-12.1) SECONDS INR 3.79 Sodium 145 (136-145) mEq/L Potassium 3.2 L (3.5-5.1) mEq/L Chloride 98 (98-107) mEq/L Carbon Dioxide 43 H* (21-32) mEq/L Anion Gap 7.2 (5-15) BUN 36 H (7-18) mg/dL Creatinine 1.3 H (0.55-1.02) mg/dL Est Cr Clr Drug Dosing 34.52 mL/min Estimated GFR (MDRD) 40 (>60) mL/min BUN/Creatinine Ratio 27.7 H (14-18) Glucose 93 (83-115) mg/dL POC Glucose (83-110) mg/dL Calcium 9.3 (8.5-10.1) mg/dL Magnesium 1.8 (1.8-2.4) mg/dl C-Reactive Protein 2.0 H* (<1.0) mg/dL 01/22/19 01/22/19 Range/Units 05:47 11:44 WBC (3.98-10.04) K/mm3 RBC (3.98-5.22) M/mm3 Hgb (11.2-15.7) gm/L Hct (34.1-44.9) % MCV (79.4-94.8) fl MCH (25.6-32.2) pg MCHC (32.2-35.5) g/dl RDW Std Deviation (36.4-46.3) fL Plt Count (182-369) K/mm3 MPV (9.4-12.3) fl Neut % (Auto) (34.0-71.1) % Lymph % (Auto) (19.3-51.7) % [place] % (Auto) (4.7-12.5) % Eos % (Auto) (0.7-5.8) Baso % (Auto) (0.1-1.2) % Neut # (Auto) (1.56-6.13) K/mm3 Lymph # (Auto) (1.18-3.74) K/mm3 [place] # (Auto) (0.24-0.36) K/mm3 Eos # (Auto) (0.04-0.36) K/mm3 Baso # (Auto) (0.01-0.08) K/mm3 Manual Slide Review PT (9.5-12.1) SECONDS INR Sodium (136-145) mEq/L Potassium (3.5-5.1) mEq/L Chloride (98-107) mEq/L Carbon Dioxide (21-32) mEq/L Anion Gap (5-15) BUN (7-18) mg/dL Creatinine (0.55-1.02) mg/dL Est Cr Clr Drug Dosing mL/min Estimated GFR (MDRD) (>60) mL/min BUN/Creatinine Ratio (14-18) Glucose (83-115) mg/dL POC Glucose 93 112 H (83-110) mg/dL Calcium (8.5-10.1) mg/dL Magnesium (1.8-2.4) mg/dl C-Reactive Protein (<1.0) mg/dL Med Orders - Current: Current Medications Acetaminophen (Tylenol) 650 mg PO Q4H PRN PRN Reason: Pain (Mild 1-3)/fever Hydrocodone Bitart/Acetaminophen ([place] 325-5 Mg) 1 tab PO Q4H PRN PRN Reason: Pain (moderate 4-6) Albuterol/Ipratropium (Duoneb 3.0-0.5 Mg/3 Ml) 3 ml NEB Q4H PRN PRN Reason: Shortness Of Breath/wheezing Alogliptin Benzoate (Alogliptin) 25 mg PO DAILY [facility] Last Admin: 01/22/19 09:21 Dose: 25 mg Bisacodyl (Dulcolax) 5 mg PO DAILY PRN PRN Reason: Constipation Digoxin (Lanoxin) 125 mcg PO DAILY@1200 [facility] Last Admin: 01/22/19 11:51 Dose: 125 mcg Docusate Sodium (Colace) 100 mg PO BID PRN PRN Reason: Constipation Dorzolamide HCl (Trusopt 2% Ophth Soln) 0 ml EYEBOTH BID [facility] Last Admin: 01/22/19 09:22 Dose: 1 drop Famotidine (Pepcid) 20 mg PO DAILY [facility] Last Admin: 01/22/19 09:21 Dose: 20 mg Furosemide (Lasix) 10 mg IVPUSH BID [facility] Last Admin: 01/22/19 09:22 Dose: 10 mg Glipizide (Glucotrol Xl) 2.5 mg PO BID [facility] Last Admin: 01/22/19 09:22 Dose: 2.5 mg Hydralazine HCl (Apresoline) 20 mg IVPUSH Q4H PRN PRN Reason: Hypertension Hydrochlorothiazide (Hydrochlorothiazide) 12.5 mg PO BIDDIURETIC [facility] Last Admin: 01/22/19 05:48 Dose: 12.5 mg Hydromorphone HCl (Dilaudid) 0.5 mg IVPUSH Q2H PRN PRN Reason: Pain (severe 7-10) Promethazine HCl 6.25 mg/ (Sodium Chloride) 50.25 mls @ 100 mls/hr IV Q6H PRN PRN Reason: Nausea/Vomiting Insulin Human Lispro (Humalog) 0 unit SUBCUT QIDACANDBED [facility]; Protocol Last Admin: 01/22/19 11:45 Dose: Not Given Lisinopril (Prinivil) 5 mg PO DAILY [facility] Last Admin: 01/22/19 09:21 Dose: 5 mg Lorazepam (Ativan) 2 mg IVPUSH Q4H PRN PRN Reason: Seizures Lorazepam (Ativan) 0.5 mg IV Q6H PRN PRN Reason: Anxiety Magnesium Sulfate (Pharmacy To Dose - Magnesium Replacement) 0 dose .XX ASDIRECTED PRN PRN Reason: RX TO WATCH MAG Metoprolol Tartrate (Lopressor) 5 mg IVPUSH Q4H PRN PRN Reason: Tachycardia Metoprolol Tartrate (Lopressor) 50 mg PO BID [facility] Last Admin: 01/22/19 09:22 Dose: 50 mg Modafinil (Provigil) 200 mg PO DAILY [facility] Last Admin: 01/22/19 09:21 Dose: 200 mg Ondansetron HCl (Zofran) 4 mg IV Q6H PRN PRN Reason: Nausea/Vomiting Polyethylene Glycol (Miralax) 17 gm PO DAILY PRN PRN Reason: Constipation Potassium Chloride (Pharmacy To Dose - Potassium Replacement) 0 dose .XX ASDIRECTED PRN PRN Reason: RX TO WATCH K Potassium Chloride (Klor-Con M20) 40 meq PO Q4H [facility] Stop: 01/22/19 14:16 Last Admin: 01/22/19 11:50 Dose: 40 meq Senna/Docusate Sodium (Senna Plus) 1 tab PO BID PRN PRN Reason: Constipation Sertraline HCl (Zoloft) 200 mg PO DAILY [facility] Last Admin: 01/22/19 09:23 Dose: 200 mg Simvastatin (Zocor) 10 mg PO BEDTIME [facility] Last Admin: 01/21/19 20:51 Dose: 10 mg Sodium Chloride (Saline Flush) 10 ml FLUSH ASDIRECTED PRN PRN Reason: Keep Vein Open Last Admin: 01/18/19 13:55 Dose: 10 ml Warfarin Sodium (Pharmacy To Dose - Warfarin) 0 dose .XX ASDIRECTED PRN PRN Reason: RX TO DOSE WARFARIN Warfarin Sodium (Coumadin) 2.5 mg PO ONETIME ONE Stop: 01/22/19 18:01 Discontinued Medications Famotidine (Pepcid) 20 mg PO BID [facility] Last Admin: 01/20/19 08:07 Dose: 20 mg Furosemide (Lasix) 40 mg IVPUSH NOW ONE Stop: 01/18/19 13:41 Last Admin: 01/18/19 14:35 Dose: 40 mg Furosemide (Lasix) 40 mg PO ACLUNCH [facility] Furosemide (Lasix) 10 mg IVPUSH BIDDIURETIC [facility] Stop: 01/21/19 14:01 Last Admin: 01/21/19 06:05 Dose: 10 mg Furosemide (Lasix) 10 mg IVPUSH ONETIME ONE Stop: 01/20/19 21:01 Last Admin: 01/20/19 21:57 Dose: 10 mg Furosemide (Lasix) 20 mg IVPUSH BIDDIURETIC [facility] Stop: 01/21/19 14:01 Last Admin: 01/21/19 14:04 Dose: 20 mg Heparin Sodium (Porcine) (Heparin Sodium) 5,000 units SUBCUT Q8H [facility] Last Admin: 01/18/19 18:51 Dose: 5,000 units Lisinopril (Prinivil) 5 mg PO DAILY [facility] Lisinopril (Prinivil) 5 mg PO DAILY [facility] Stop: 01/22/19 09:00 Lisinopril (Prinivil) 5 mg PO DAILY [facility] Metformin HCl (Glucophage) 500 mg PO BIDMEALS [facility] Last Admin: 01/19/19 12:15 Dose: Not Given Metoprolol Tartrate (Lopressor) 75 mg PO BID [facility] Last Admin: 01/19/19 09:18 Dose: 75 mg Modafinil (Provigil) 100 mg PO DAILY [facility] Last Admin: 01/20/19 08:08 Dose: 100 mg Pantoprazole Sodium (Protonix) 40 mg PO ACBREAKFAST [facility] Last Admin: 01/22/19 05:48 Dose: 40 mg Triamterene/HCTZ (Dyazide 25-37.5 Mg) 1 each PO DAILY [facility] Warfarin Sodium (Coumadin) 5 mg PO ASDIRECTED [facility] Warfarin Sodium (Coumadin) 7.5 mg PO SuTuWeFrSa@1800 [facility] Warfarin Sodium (Coumadin) 10 mg PO MoTh@1800 [facility] Last Admin: 01/19/19 17:31 Dose: 10 mg Warfarin Sodium (Coumadin) 2.5 mg PO QPM [facility] Stop: 01/20/19 18:01 Last Admin: 01/20/19 17:20 Dose: 2.5 mg - Exam Quality Assessment: Supplemental Oxygen, DVT Prophylaxis General: Alert, Oriented, Cooperative, No Acute Distress, Other (Morbid Obesity) HEENT: Pupils Equal, Pupils Reactive, EOMI, Mucous Membr. Moist/[place] Neck: Supple, Trachea Midline, No JVD, No Thyromegaly, Other (short and thick) Lungs: Normal Respiratory Effort, Decreased Breath Sounds, Crackles Cardiovascular: Irregular Rhythm, Murmurs GI/Abdominal Exam: Normal Bowel Sounds, Soft, Non-Tender, No Organomegaly, No Distention, No Abnormal Bruit, Other (Obese) (Female) Exam: Deferred Back Exam: Normal Inspection, Decreased Range of Motion Extremities: Normal Inspection, Normal Range of Motion, Non-Tender, No Pedal Edema, Normal Capillary Refill Peripheral Pulses: 1+: Dorsalis Pedis (L), Dorsalis Pedis (R) Skin: Warm, Dry, Intact Neurological: No New Focal Deficit. No: Normal Gait Psy/Mental Status: Alert, Normal Affect, Normal Mood - Problem List Review Problem List Initiated/Reviewed/Updated: Yes - My Orders Last 24 Hours: My Active Orders 01/21/19 18:00 Furosemide [Lasix] 10 mg IVPUSH BID 01/22/19 10:15 Potassium Chloride [Klor-Con M20] 40 meq PO Q4H 01/22/19 18:00 Warfarin [Coumadin] 2.5 mg PO ONETIME ONE 01/23/19 05:11 BASIC METABOLIC PANEL,BMP [CHEM] AM C-REACTIVE PROTEIN [CHEM] AM CBC WITH AUTO DIFF [HEME] AM INR,PT,PROTHROMBIN TIME [COAG] AM MAGNESIUM [CHEM] AM - Plan Plan:: Assessment/Plan: Acute: Right Heart Failure/Core Pulmonale - Hx/o HFrEF at 35-40% now 55-60% - Reports Orthopnea and increased weight gain - CXR shows pulmonary vascular congestion - ProBNP is 4972--> 4628--> 3822 - Considerable lower extremity edema - She is not on salt or fluid restrictions per - Heart Failure protocol: diuretics, salt/fluid restrictions, Is/Os and daily weight - 2D echo: EF 55-60%, Possible hypokinesia, severe biatrial dilation, moderate to severe tricuspid valve regurgitation, right ventricular systolic pressure of 61.8 mmHg Severe Pulmonary HTN - 2D echo: right ventricular systolic pressure of 61.8 mmHg - Risk factors: Morbid Obesity, Afib, MICHAEL/OHS - Discussed case with Dr. Leah Cain who read her echo; he recommended right heart cath to determine etiology and type of her disease (primary vs secondary) and treat associated symptoms and address co-morbid conditions - Will continue supplemental O2 and NIPPV, diuretics, salt/fluid restriction and daily weight check - Severe PH and/ or evidence of right heart failure have a poor prognosis-- her family is aware - Refer to cardiology after discharge MICHAEL/OHS, Unchanged - Has chronic SOB with Exertion - O2 Sat in the low 80s at the clinic; she is at 2L NC for O2 supplement - Risk Factors: HF, HTN and Morbid Obesity with BMI of 51.6 - Supplemental O2 and BIPAP; diuretics; weight loss - Scored high risk on STOP BANG screening Hypercapnea - 2/2 MICHAEL/OHS - CO2 36--> 37 --> 41--> 43 - Supplemental O2 and BIPAP Q4H with 2 hrs break plus meal time and QHS; had issues with BIPAP overnight - Increased Provigil to 200 mg po daily - BIPAP 10/13--> change to 21/06 - Serial ABG as indicated Diabetes Type 2, Controlled - Not New on this Admission - A1C 6.6 back in 10/24/2018 via [facility] she was never told or started on diabetic agent(s); now 7.6 - Metformin 500 mg po BID if renal function permits; held due to insufficiency--> will d/c it - Continue DDP4 and Glucotrol 2.5 mg po BID - Accu-check AC/HS with Low dose ISS - Dietary consult and Diabetic Education Severe Untreated MICHAEL/OHS - Extremely Obese - Low O12 sat and CO2 is 36 (elevated) - STOP BANG is 5- high risk - She would benefit with BIPAP; but may need sleep study for insurance to approve it - Recommend Weight loss and Sleep Study Hypokalemia - K 3.2 - 2/2 diuresis - Replete and monitor Resolved S/p Mild Hyperkalemia - She has underlying CKD Stage 3 - Will D/c Triamterene and Hold ACEI - Repeat Labs in AM S/p Hypersomnolence - 2/2 MICHAEL/OHS from Morbid Obesity - Continue stimulant to maintain level of alertness - Will avoid narcotics or sedation Chronic: Impaired Vision and Hearing Atrial Fibrillation, HR controlled on Warfarin, Supratherapeutic INR at 3.78 HTN HLD SOB CKD Stage 3, At baseline OA/DJD Anxiety Depression Probable Cognitive Deficits Morbid Obesity with BMI of 51.6 Plan: She remains clinically stable Routine AM Labs Fall Precautions Recommend Sleep Study SW/CM for d/c planning Ambulate as tolerated with assistance Code status: 1 LOS > 96hrs requires more treatment due to worsening CO2 level; also possible BIPAP to use on discharge Explained to patient and it might best to wait for CM/SW to help us how to proceed with procuring BIPAP. Uncertain if she qualifies since she has not gotten her outpatient sleep study, it might be costly if they have to get it on their own. Additionally, she needs cardiology appointment and sleep study right away after discharge. In the meantime, we will continue to diurese her and adjust her BIPAP to improve her serum CO2.
[2019-01-22] MEDS ORDERED: Warfarin 2.5 MG Tab PO ONE (18:00)
[2019-01-22] MEDS: Simvastatin 10 MG Tab PO SCH (21:32)
[2019-01-23] MEDS: Hydrochlorothiazide 12.5 MG Cap PO SCH ×2 (05:45→13:17)
[2019-01-23] MEDS: Insulin Lispro 100 Units/ML 3 ML Vial SUBCUT SCH ×2 (06:02→11:45)
[2019-01-23] MEDS ORDERED: Lisinopril 5 MG Tab PO SCH (09:00)
[2019-01-23] MEDS: Dorzolamide 2% Ophth Soln 10 ML Bottle EYEBOTH SCH (09:16)
[2019-01-23] MEDS: Furosemide 20 MG/2 ML VIAL IVPUSH SCH (09:17)
[2019-01-23] MEDS: Metoprolol Tartrate 50 MG Tab PO SCH (09:18)
[2019-01-23] MEDS: Lisinopril 5 MG Tab PO SCH (09:19)
[2019-01-23] MEDS: Famotidine 20 MG Tab PO SCH (09:19)
[2019-01-23] MEDS: Sertraline 50 MG Tab PO SCH (09:19)
[2019-01-23] MEDS: Modafinil 200 MG Tab PO SCH (09:20)
[2019-01-23] MEDS: glipiZIDE 2.5 MG Tab.ER PO SCH (09:20)
[2019-01-23] MEDS: Digoxin 125 MCG Tab PO SCH (12:13)
[2019-01-23 12:26] VITALS: BP 101/45
--- NOTE | 2019-01-23 15:43 | PCM.DCSUM1 ---
Discharge Summary - Hospital Course HPI Initial Comments: This is a 73 yo elderly white female with past medical hx/o Impaired Vision and Hearing, Atrial Fibrillation, on Warfarin, HTN, HLD, SOB on Exertion, Probable MICHAEL, CKD Stage 3, OA/DJD, Anxiety, Depression, and Morbid Obesity with BMI of 51.6 who comes in for evaluation of hypoxia with an O2 Sat in the low 80s associated with weight gain and increased leg edema. She was initially seen in [facility] for routine follow up appointment but was sent over here in ED for further evaluation. Patient denies feeling shortness or breath, chest pain, fever, chills, generalized aches or malaise. She further denies any GI or complaints. She is however a poor historian. Her supplied her HPI. Her initial work up in ED shows a CBC remarkable for WBC of 12.35, RBC of 5.32, MCH of 23.5, MCHC of 29.1, RDW of 54.7, Neutrophils of 78.4%, Lymphocytes of 11.9, Eosinophils of 0.6%. Her INR is therapeutic at 3.14. Her chemistry is significant for K of 5.7, CO2 of 36, BUN of 29, Cr of 1.2, BS of 114, A1C of 7.2 , AST of 38, Alk Phos of 143, ProBNP of 4972 and Albumin of 3.1. Her chest x- ray shows pulmonary vascular congestion. Patient id being admitted for medical management for Hypoxia likely 2/2 MICHAEL/OHS and acute heart failure. She is full code. Diagnosis: Stroke: No - Discharge Data Discharge Date: 01/23/19 Discharge Disposition: Home, Self-Care 01 Condition: Good - Discharge Diagnosis/Problem(s) (1) Cor pulmonale, acute SNOMED Code(s): 94018384 ICD Code: I26.09 - OTHER PULMONARY EMBOLISM WITH ACUTE COR PULMONALE Status : Acute Current Visit: Yes (2) Severe pulmonary arterial systolic hypertension SNOMED Code(s): 03651095 ICD Code: I27.21 - SECONDARY PULMONARY ARTERIAL HYPERTENSION Status: Acute Current Visit: Yes (3) MICHAEL treated with BiPAP SNOMED Code(s): 86274932 ICD Code: G47.33 - OBSTRUCTIVE SLEEP APNEA (ADULT) (PEDIATRIC) Status: Chronic Current Visit: Yes (4) Hypoventilation associated with obesity syndrome SNOMED Code(s): 884504450 ICD Code: E66.2 - MORBID (SEVERE) OBESITY WITH ALVEOLAR HYPOVENTILATION Status: Chronic Current Visit: Yes (5) DM2 (diabetes mellitus, type 2) SNOMED Code(s): 98508693 ICD Code: E11.9 - TYPE 2 DIABETES MELLITUS WITHOUT COMPLICATIONS Status: Acute Current Visit: Yes Qualifiers: Diabetes mellitus middle or intermediate school principal insulin use: without longterm use Diabetes mellitus complication status: without complication Qualified Code(s): E11.9 - Type 2 diabetes mellitus without complications (6) Hypokalemia due to inadequate potassium intake SNOMED Code(s): 40479445 ICD Code: E87.6 - HYPOKALEMIA Status: Resolved Current Visit: Yes (7) Hypersomnolence disorder SNOMED Code(s): 71337099 ICD Code: G47.10 - HYPERSOMNIA, UNSPECIFIED Status: Chronic Current Visit : Yes (8) Morbid obesity with BMI of 50.0-59.9, adult SNOMED Code(s): 443888448, 14497052523670 ICD Code: E66.01 - MORBID (SEVERE) OBESITY DUE TO EXCESS CALORIES; Z68.43 - BODY MASS INDEX (BMI) 50-59.9, ADULT Status: Chronic Current Visit: Yes (9) Atrial fibrillation SNOMED Code(s): 64963913 ICD Code: I48.91 - UNSPECIFIED ATRIAL FIBRILLATION Status: Chronic Current Visit: Yes Qualifiers: Atrial fibrillation type: chronic Qualified Code(s): I48.2 - Chronic atrial fibrillation (10) Hypercarbia SNOMED Code(s): 15474048 ICD Code: R06.89 - OTHER ABNORMALITIES OF BREATHING Status: Acute Current Visit: Yes - Patient Summary/Data Operative Procedure(s) Performed: None Complications: None Consults: Consultations 01/18/19 17:04 Consult to Case Management/Phlebotomist Supervisor/Instructor [CONS] Routine Consult to Spiritual Care [CONS] Routine OT Evaluation and Treatment [CONS] Routine PT Evaluation and Treatment [CONS] Routine Respiratory Care Assess and Treatment [CONS] Routine 01/18/19 23:09 Consult to Diabetic Nurse Specialist [CONS] Routine Consult to Dietary [Consult to Cover Marker] [CONS] Routine 01/19/19 07:00 Consult to Speech Language Pathology [CIG[employer] WRAPPER TENDER [employer]IC Evaluation and Treatment] [CONS] Routine Labs Pending at D/C: None Recommended Follow-up Testing/Procedures: None Planned Operative Procedure(s) after DC: None - Patient Instructions Diet: Heart Healthy Diet, Usual Diet as Tolerated, Low Sodium, Fluid Restriction , Diabetic Diet, Weight Loss Diet Fluid Restriction: 2000 mL Activity: As Tolerated Driving: Do Not Drive Showering/Bathing: May Shower Notify Provider of: Fever, Swelling and Redness, Nausea and/or Vomiting Other/Special Instructions: - Please take all new medications as directed. - Resume all home medications and routine home activities as tolerated. - Recommend see cardiology for right heart cathterization and get outpateint sleep study for unreated MICHAEL. - Use BIPAP as directed. - Call or follow up with your PCP for any questions or concerns after discharge. - Follow up with your PCP in 1 week with repeat BMP, Mg, Digoxin and INR Level. - Come back or seek immediate care should your symptoms persist or get worse - Discharge Plan *PRESCRIPTION DRUG MONITORING PROGRAM REVIEWED*: Not Applicable *COPY OF PRESCRIPTION DRUG MONITORING REPORT IN PATIENT COOPER: Not Applicable Prescriptions/Med Rec: Blood Sugar Diagnostic [Contour Next] 1 each QID #120 strip Blood-Glucose Meter [Contour Next One] 1 each DAILY #1 each glipiZIDE [Glucotrol XL] 2.5 mg PO BID #60 tab.er.24 Modafinil 200 mg PO DAILY #30 tablet sitaGLIPtin Phos/Metformin HCl [Janumet Xr 50-1,000 mg Tablet] 1 each PO DAILY # 30 tbmp.24hr Home Medications: Home Meds Brinzolamide [Azopt 1% Ophth Susp] 1 drop EYEBOTH BID 01/18/19 [History] Lisinopril 5 mg PO DAILY 01/18/19 [History] Pantoprazole Sodium 40 mg PO ACBREAKFAST 01/18/19 [History] Sertraline HCl 200 mg PO DAILY 01/18/19 [History] Warfarin Sodium [Jantoven] 7.5 mg PO ASDIRECTED 01/18/19 [History] Warfarin Sodium [Jantoven] 10 mg PO ASDIRECTED 01/18/19 [History] atorvaSTATin Calcium [Atorvastatin Calcium] 10 mg PO BEDTIME 01/18/19 [History] Potassium Chloride [Klor-Con M20] 20 meq PO DAILY 01/19/19 [History] Blood Sugar Diagnostic [Contour Next] 1 each QID #120 strip 01/23/19 [Rx] Blood-Glucose Meter [Contour Next One] 1 each MC DAILY #1 each 01/23/19 [Rx] Digoxin 125 mcg PO DAILY #0 01/23/19 [Rx] Furosemide [Lasix] 40 mg PO ASDIRECTED #60 01/23/19 [Rx] Metoprolol Tartrate 75 mg PO BID #0 01/23/19 [Rx] Modafinil 200 mg PO DAILY #30 tablet 01/23/19 [Rx] Triamterene/Hydrochlorothiazid [Triamterene-HCTZ 37.5-25 MG] 1 tab PO DAILY #0 01/23/19 [Rx] glipiZIDE [Glucotrol XL] 2.5 mg PO BID #60 tab.er.24 01/23/19 [Rx] sitaGLIPtin Phos/Metformin HCl [Janumet Xr 50-1,000 mg Tablet] 1 each PO DAILY # 30 tbmp.24hr 01/23/19 [Rx] Oxygen Therapy Mode: BiPAP Oxygen Flow Rate (L/min): 1 Patient Handouts: Hypoxia, Hypokalemia, Obesity Hypoventilation Syndrome, Pulmonary Hypertension, Sleep Apnea, [id number], Type 2 Diabetes Mellitus, Self Care, Adult, [id number]-[id number], Hypersomnia, Heart Failure, Zzbd-[id number], Obesity, Adult, [id number] Referrals: Tata Tay MACHINE CEMENTER AND FOLDER [Primary Care Provider] - 01/30/19 9:30 am (Please follow up with Tata Tay on January 30 at 0930. Request doctor to order an outpatient sleep study for obstructive sleep apnea so you can get a CPAP. ) Leah Mead MD [Ordering Only Provider] - 02/13/19 2:20 pm (Please arrive at 2 :20 p.m. LOCAL SALES MANAGER for labwork, and your apt. is at 3:20 p.m. LOCAL SALES MANAGER.) - Discharge Summary/Plan Comment DC Time >30 min.: Yes (45 mins) Discharge Summary/Plan Comment: Discharge Home - General Info Date of Service: 01/23/19 Admission Dx/Problem (Free Text: Admission Diagnosis/Problem Admission Diagnosis/Problem Hypoxia Subjective Update: Follow Up Functional Status: Reports: Pain Controlled, Tolerating Diet, Ambulating, Urinating. Denies: New Symptoms - Review of Systems General: Denies: Fever, Weakness, Fatigue, Malaise HEENT: Reports: No Symptoms Pulmonary: Denies: Shortness of Breath Cardiovascular: Denies: Chest Pain, Dyspnea on Exertion, Edema, Lightheadedness Gastrointestinal: Denies: Abdominal Pain, Nausea, Vomiting Genitourinary: Reports: No Symptoms Musculoskeletal: Reports: No Symptoms Skin: Denies: Cyanosis, Mottled, Pallor, Diaphoresis, Bruising, Other Neurological: Denies: Confusion, Dizziness, Numbness, Difficulty Walking, Weakness, Gait Disturbance Psychiatric: Denies: Depression, Anxiety, Agitation, Hallucinations Systems Review Comment: No overnight or acute issues. She is doing relatively well. She kept her BIPAP on on overnight. She is ready to go home. - Patient Data Vitals - Most Recent: Last Vital Signs Temp 36.1 C 01/23/19 12:00 Pulse 63 01/23/19 12:13 Resp 20 01/23/19 12:00 BP 101/45 L 01/23/19 12:00 Pulse Ox 98 01/23/19 12:00 Weight - Most Recent: 132.177 kg I&O - Last 24 hours: Intake & Output 01/23/19 01/23/19 01/23/19 06:59 14:59 22:59 Intake Total 400 560 Balance 400 560 Lab Results - Last 24 hrs: Laboratory Results - last 24 hr 01/22/19 01/22/19 01/22/19 Range/Units 17:48 17:56 21:40 WBC (3.98-10.04) K/mm3 RBC (3.98-5.22) M/mm3 Hgb (11.2-15.7) gm/L Hct (34.1-44.9) % MCV (79.4-94.8) fl MCH (25.6-32.2) pg MCHC (32.2-35.5) g/dl RDW Std Deviation (36.4-46.3) fL Plt Count (182-369) K/mm3 MPV (9.4-12.3) fl Neut % (Auto) (34.0-71.1) % Lymph % (Auto) (19.3-51.7) % Ford % (Auto) (4.7-12.5) % Eos % (Auto) (0.7-5.8) Baso % (Auto) (0.1-1.2) % Neut # (Auto) (1.56-6.13) K/mm3 Lymph # (Auto) (1.18-3.74) K/mm3 Ford # (Auto) (0.24-0.36) K/mm3 Eos # (Auto) (0.04-0.36) K/mm3 Baso # (Auto) (0.01-0.08) K/mm3 Manual Slide Review PT (9.5-12.1) SECONDS INR Puncture Site Rt radial ABG pH 7.44 (7.35-7.45) ABG pCO2 68.3 H (35.0-45.0) mmHg ABG pO2 64.0 L (80.0-100.0) mmHg ABG HCO3 45.3 H (22.0-26.0) meq/L ABG O2 Saturation 89.5 L (96.0-97.0) % ABG Base Excess 17.8 H (-2-2.0) Parveen Test Positive A-a Gradient 55 mmHg O2 Delivery Device Bipap Oxygen Flow Rate 3.0 Sodium (136-145) mEq/L Potassium (3.5-5.1) mEq/L Chloride (98-107) mEq/L Carbon Dioxide (21-32) mEq/L Anion Gap (5-15) BUN (7-18) mg/dL Creatinine (0.55-1.02) mg/dL Est Cr Clr Drug Dosing mL/min Estimated GFR (MDRD) (>60) mL/min BUN/Creatinine Ratio (14-18) Glucose (83-115) mg/dL POC Glucose 94 84 (83-110) mg/dL Calcium (8.5-10.1) mg/dL Magnesium (1.8-2.4) mg/dl C-Reactive Protein (<1.0) mg/dL NT-Pro-B Natriuret Pep (0-125) pg/mL 01/23/19 01/23/19 01/23/19 Range/Units 05:50 06:00 06:00 WBC 7.15 (3.98-10.04) K/mm3 RBC 5.09 (3.98-5.22) M/mm3 Hgb 11.9 (11.2-15.7) gm/L Hct 41.1 (34.1-44.9) % MCV 80.7 (79.4-94.8) fl MCH 23.4 L (25.6-32.2) pg MCHC 29.0 L (32.2-35.5) g/dl RDW Std Deviation 56.0 H (36.4-46.3) fL Plt Count 273 (182-369) K/mm3 MPV 11.2 (9.4-12.3) fl Neut % (Auto) 64.7 (34.0-71.1) % Lymph % (Auto) 19.3 (19.3-51.7) % Ford % (Auto) 13.8 H (4.7-12.5) % Eos % (Auto) 2.0 (0.7-5.8) Baso % (Auto) 0.1 (0.1-1.2) % Neut # (Auto) 4.62 (1.56-6.13) K/mm3 Lymph # (Auto) 1.38 (1.18-3.74) K/mm3 Ford # (Auto) 0.99 H (0.24-0.36) K/mm3 Eos # (Auto) 0.14 (0.04-0.36) K/mm3 Baso # (Auto) 0.01 (0.01-0.08) K/mm3 Manual Slide Review Abnormal smear PT 28.3 H (9.5-12.1) SECONDS INR 2.65 Puncture Site ABG pH (7.35-7.45) ABG pCO2 (35.0-45.0) mmHg ABG pO2 (80.0-100.0) mmHg ABG HCO3 (22.0-26.0) meq/L ABG O2 Saturation (96.0-97.0) % ABG Base Excess (-2-2.0) Parveen Test A-a Gradient mmHg O2 Delivery Device Oxygen Flow Rate Sodium (136-145) mEq/L Potassium (3.5-5.1) mEq/L Chloride (98-107) mEq/L Carbon Dioxide (21-32) mEq/L Anion Gap (5-15) BUN (7-18) mg/dL Creatinine (0.55-1.02) mg/dL Est Cr Clr Drug Dosing mL/min Estimated GFR (MDRD) (>60) mL/min BUN/Creatinine Ratio (14-18) Glucose (83-115) mg/dL POC Glucose 105 (83-110) mg/dL Calcium (8.5-10.1) mg/dL Magnesium (1.8-2.4) mg/dl C-Reactive Protein (<1.0) mg/dL NT-Pro-B Natriuret Pep (0-125) pg/mL 01/23/19 01/23/19 01/23/19 Range/Units 06:00 06:00 11:26 WBC (3.98-10.04) K/mm3 RBC (3.98-5.22) M/mm3 Hgb (11.2-15.7) gm/L Hct (34.1-44.9) % MCV (79.4-94.8) fl MCH (25.6-32.2) pg MCHC (32.2-35.5) g/dl RDW Std Deviation (36.4-46.3) fL Plt Count (182-369) K/mm3 MPV (9.4-12.3) fl Neut % (Auto) (34.0-71.1) % Lymph % (Auto) (19.3-51.7) % Ford % (Auto) (4.7-12.5) % Eos % (Auto) (0.7-5.8) Baso % (Auto) (0.1-1.2) % Neut # (Auto) (1.56-6.13) K/mm3 Lymph # (Auto) (1.18-3.74) K/mm3 [place] # (Auto) (0.24-0.36) K/mm3 Eos # (Auto) (0.04-0.36) K/mm3 Baso # (Auto) (0.01-0.08) K/mm3 Manual Slide Review PT (9.5-12.1) SECONDS INR Puncture Site ABG pH (7.35-7.45) ABG pCO2 (35.0-45.0) mmHg ABG pO2 (80.0-100.0) mmHg ABG HCO3 (22.0-26.0) meq/L ABG O2 Saturation (96.0-97.0) % ABG Base Excess (-2-2.0) Parveen Test A-a Gradient mmHg O2 Delivery Device Oxygen Flow Rate Sodium 144 (136-145) mEq/L Potassium 3.7 (3.5-5.1) mEq/L Chloride 102 (98-107) mEq/L Carbon Dioxide 42 H* (21-32) mEq/L Anion Gap 3.7 L (5-15) BUN 39 H (7-18) mg/dL Creatinine 1.4 H (0.55-1.02) mg/dL Est Cr Clr Drug Dosing 32.06 mL/min Estimated GFR (MDRD) 37 (>60) mL/min BUN/Creatinine Ratio 27.9 H (14-18) Glucose 92 (83-115) mg/dL POC Glucose 114 H (83-110) mg/dL Calcium 8.6 (8.5-10.1) mg/dL Magnesium 1.8 (1.8-2.4) mg/dl C-Reactive Protein 1.1 H* (<1.0) mg/dL NT-Pro-B Natriuret Pep 2205 H (0-125) pg/mL Med Orders - Current: Current Medications Acetaminophen (Tylenol) 650 mg PO Q4H PRN PRN Reason: Pain (Mild 1-3)/fever Hydrocodone Bitart/Acetaminophen ([place] 325-5 Mg) 1 tab PO Q4H PRN PRN Reason: Pain (moderate 4-6) Albuterol/Ipratropium (Duoneb 3.0-0.5 Mg/3 Ml) 3 ml NEB Q4H PRN PRN Reason: Shortness Of Breath/wheezing Alogliptin Benzoate (Alogliptin) 25 mg PO DAILY [facility] Last Admin: 01/23/19 09:21 Dose: 25 mg Bisacodyl (Dulcolax) 5 mg PO DAILY PRN PRN Reason: Constipation Digoxin (Lanoxin) 125 mcg PO DAILY@1200 [facility] Last Admin: 01/23/19 12:13 Dose: 125 mcg Docusate Sodium (Colace) 100 mg PO BID PRN PRN Reason: Constipation Dorzolamide HCl (Trusopt 2% Ophth Soln) 0 ml EYEBOTH BID [facility] Last Admin: 01/23/19 09:16 Dose: 1 drop Famotidine (Pepcid) 20 mg PO DAILY [facility] Last Admin: 01/23/19 09:19 Dose: 20 mg Furosemide (Lasix) 20 mg IVPUSH BID [facility] Last Admin: 01/23/19 09:17 Dose: 20 mg Glipizide (Glucotrol Xl) 2.5 mg PO BID [facility] Last Admin: 01/23/19 09:20 Dose: 2.5 mg Hydralazine HCl (Apresoline) 20 mg IVPUSH Q4H PRN PRN Reason: Hypertension Hydrochlorothiazide (Hydrochlorothiazide) 12.5 mg PO BIDDIURETIC [facility] Last Admin: 01/23/19 13:17 Dose: 12.5 mg Hydromorphone HCl (Dilaudid) 0.5 mg IVPUSH Q2H PRN PRN Reason: Pain (severe 7-10) Promethazine HCl 6.25 mg/ (Sodium Chloride) 50.25 mls @ 100 mls/hr IV Q6H PRN PRN Reason: Nausea/Vomiting Insulin Human Lispro (Humalog) 0 unit SUBCUT QIDACANDBED [facility]; Protocol Last Admin: 01/23/19 11:45 Dose: Not Given Lisinopril (Prinivil) 5 mg PO DAILY [facility] Last Admin: 01/23/19 09:19 Dose: 5 mg Lorazepam (Ativan) 2 mg IVPUSH Q4H PRN PRN Reason: Seizures Lorazepam (Ativan) 0.5 mg IV Q6H PRN PRN Reason: Anxiety Magnesium Sulfate (Pharmacy To Dose - Magnesium Replacement) 0 dose .XX ASDIRECTED PRN PRN Reason: RX TO WATCH MAG Metoprolol Tartrate (Lopressor) 5 mg IVPUSH Q4H PRN PRN Reason: Tachycardia Metoprolol Tartrate (Lopressor) 50 mg PO BID [facility] Last Admin: 01/23/19 09:18 Dose: 50 mg Modafinil (Provigil) 200 mg PO DAILY [facility] Last Admin: 01/23/19 09:20 Dose: 200 mg Ondansetron HCl (Zofran) 4 mg IV Q6H PRN PRN Reason: Nausea/Vomiting Polyethylene Glycol (Miralax) 17 gm PO DAILY PRN PRN Reason: Constipation Potassium Chloride (Pharmacy To Dose - Potassium Replacement) 0 dose .XX ASDIRECTED PRN PRN Reason: RX TO WATCH K Senna/Docusate Sodium (Senna Plus) 1 tab PO BID PRN PRN Reason: Constipation Sertraline HCl (Zoloft) 200 mg PO DAILY [facility] Last Admin: 01/23/19 09:19 Dose: 200 mg Simvastatin (Zocor) 10 mg PO BEDTIME [facility] Last Admin: 01/22/19 21:32 Dose: 10 mg Sodium Chloride (Saline Flush) 10 ml FLUSH ASDIRECTED PRN PRN Reason: Keep Vein Open Last Admin: 01/18/19 13:55 Dose: 10 ml Warfarin Sodium (Pharmacy To Dose - Warfarin) 0 dose .XX ASDIRECTED PRN PRN Reason: RX TO DOSE WARFARIN Warfarin Sodium (Coumadin) 7.5 mg PO QPM [facility] Stop: 01/23/19 18:01 Discontinued Medications Famotidine (Pepcid) 20 mg PO BID [facility] Last Admin: 01/20/19 08:07 Dose: 20 mg Furosemide (Lasix) 40 mg IVPUSH NOW ONE Stop: 01/18/19 13:41 Last Admin: 01/18/19 14:35 Dose: 40 mg Furosemide (Lasix) 40 mg PO ACLUNCH [facility] Furosemide (Lasix) 10 mg IVPUSH BIDDIURETIC [facility] Stop: 01/21/19 14:01 Last Admin: 01/21/19 06:05 Dose: 10 mg Furosemide (Lasix) 10 mg IVPUSH ONETIME ONE Stop: 01/20/19 21:01 Last Admin: 01/20/19 21:57 Dose: 10 mg Furosemide (Lasix) 20 mg IVPUSH BIDDIURETIC [facility] Stop: 01/21/19 14:01 Last Admin: 01/21/19 14:04 Dose: 20 mg Furosemide (Lasix) 10 mg IVPUSH BID [facility] Last Admin: 01/22/19 09:22 Dose: 10 mg Heparin Sodium (Porcine) (Heparin Sodium) 5,000 units SUBCUT Q8H [facility] Last Admin: 01/18/19 18:51 Dose: 5,000 units Lisinopril (Prinivil) 5 mg PO DAILY [facility] Lisinopril (Prinivil) 5 mg PO DAILY [facility] Stop: 01/22/19 09:00 Lisinopril (Prinivil) 5 mg PO DAILY [facility] Metformin HCl (Glucophage) 500 mg PO BIDMEALS [facility] Last Admin: 01/19/19 12:15 Dose: Not Given Metoprolol Tartrate (Lopressor) 75 mg PO BID [facility] Last Admin: 01/19/19 09:18 Dose: 75 mg Modafinil (Provigil) 100 mg PO DAILY [facility] Last Admin: 01/20/19 08:08 Dose: 100 mg Pantoprazole Sodium (Protonix) 40 mg PO ACBREAKFAST [facility] Last Admin: 01/22/19 05:48 Dose: 40 mg Potassium Chloride (Klor-Con M20) 40 meq PO Q4H [facility] Stop: 01/22/19 14:16 Last Admin: 01/22/19 14:28 Dose: 40 meq Triamterene/HCTZ (Dyazide 25-37.5 Mg) 1 each PO DAILY [facility] Warfarin Sodium (Coumadin) 5 mg PO ASDIRECTED [facility] Warfarin Sodium (Coumadin) 7.5 mg PO SuTuWeFrSa@1800 [facility] Warfarin Sodium (Coumadin) 10 mg PO MoTh@1800 [facility] Last Admin: 01/19/19 17:31 Dose: 10 mg Warfarin Sodium (Coumadin) 2.5 mg PO QPM [facility] Stop: 01/20/19 18:01 Last Admin: 01/20/19 17:20 Dose: 2.5 mg Warfarin Sodium (Coumadin) 2.5 mg PO ONETIME ONE Stop: 01/22/19 18:01 Last Admin: 01/22/19 18:11 Dose: 2.5 mg - Exam General: Reports: Alert, Oriented, Cooperative HEENT: Reports: Pupils Equal, Pupils Reactive, EOMI, Mucous Membr. Moist/[place] Neck: Reports: Supple, Trachea Midline Lungs: Reports: Clear to Auscultation, Normal Respiratory Effort Cardiovascular: Reports: Regular Rate, Regular Rhythm GI/Abdominal Exam: Normal Bowel Sounds, Soft, Non-Tender, No Organomegaly, No Distention, No Abnormal Bruit (Female) Exam: Deferred Rectal (Female) Exam: Deferred Back Exam: Reports: Normal Inspection, Decreased Range of Motion Extremities: Normal Inspection, Normal Range of Motion, Non-Tender, No Pedal Edema, Normal Capillary Refill Skin: Reports: Warm, Dry, Intact Neurological: Reports: No New Focal Deficit Psy/Mental Status: Reports: Alert, Normal Affect, Normal Mood
[2019-01-23] MEDS ORDERED: Warfarin 7.5 MG Tab PO SCH (18:00)
== END 2019-01-23 16:55 | disposition home or self-care (01) | DRG 291 ==
LOC: JD.ED 12:48 → JD.MS 16:33 → JD.ICU 01-19 20:18 → JD.MS 01-22 19:36
PROVIDERS: ADMIT Internal Medicine; ATTEND Internal Medicine
PROC: 5A09357 Assistance with Respiratory Ventilation, Less than 24 Consecutive Hours, Continuous Positive Airway Pressure (ICD-10-PCS; principal; 2019-01-19)
DX: I13.0 Hypertensive heart and chronic kidney disease with heart failure and stage 1 through stage 4 chronic kidney disease, or unspecified chronic kidney disease (principal); I50.23 Acute on chronic systolic (congestive) heart failure; Z68.43 Body mass index [BMI] 50.0-59.9, adult; E66.2 Morbid (severe) obesity with alveolar hypoventilation; I50.811 Acute right heart failure; I27.81 Cor pulmonale (chronic); N18.3 Chronic kidney disease, stage 3 (moderate); I27.21 Secondary pulmonary arterial hypertension; E78.5 Hyperlipidemia, unspecified; M19.90 Unspecified osteoarthritis, unspecified site; F41.9 Anxiety disorder, unspecified; F32.9 Major depressive disorder, single episode, unspecified; E11.22 Type 2 diabetes mellitus with diabetic chronic kidney disease; E87.6 Hypokalemia; I48.2 Chronic atrial fibrillation; E78.00 Pure hypercholesterolemia, unspecified; K21.9 Gastro-esophageal reflux disease without esophagitis; E87.5 Hyperkalemia; H54.7 Unspecified visual loss; H91.90 Unspecified hearing loss, unspecified ear; Z90.49 Acquired absence of other specified parts of digestive tract; Z98.891 History of uterine scar from previous surgery; Z79.899 Other long term (current) drug therapy; Z88.5 Allergy status to narcotic agent; Z88.0 Allergy status to penicillin; Z79.01 Long term (current) use of anticoagulants
CPT/HCPCS: 36415; 36600; 80048; 80053; 80162; 82803; 82962; 83036; 83735; 83880; 84443; 84484; 85025; 85379; 85610; 86140; 93005; 93010; 93306; 94660; 94760; 94761; 96125-GN; 96374; 97110-GP; 97116-GP; 97162-GP; 97165-GO; 97530-GO; 99285; 99285-25; A9270-GY; J1644; J1815-GY; J1940

== ENCOUNTER 2021-10-09 12:25 | Inpatient (IN) | payer MEDICARE, OTHER ==
--- NOTE | 2021-10-09 12:41 | EDM.PDOC ---
ED HPI GENERAL MEDICAL PROBLEM - General Chief Complaint: General Stated Complaint: ALEXANDER AMBUALNCE Time Seen by Provider: 10/09/21 12:40 - History of Present Illness INITIAL COMMENTS - FREE TEXT/NARRATIVE: 76-year-old female brought in by [facility] with worsening shortness of breath. Patient has significant hearing loss does not have her hearing aids in place right now she is somewhat somnolent but does wake up easily. According to the patient's over the last 2 weeks patient is getting more and more short of breath. Over the last week with the bolster behind her back she could not sleep in bed she had to go out and sit in chair she has not been using her CPAP. Her O2 saturation at home has been as low as 80% according to the . He is not aware of any fevers. Patient has worsening swelling in her legs over the last couple weeks as well this is progressively gotten worse without any improvement. The is not aware that the patient's any chest pain is mostly been breathing difficulties. Patient has had a Covid vaccine, the Moderna series however has not had the booster. I discussed CODE STATUS with the and they have some paperwork filled out on this but he cannot recall exactly what that said. He will check on it when he gets home - Related Data Allergies Allergy/AdvReac Type Severity Reaction Status Date / Time Penicillins Allergy Rash Verified 01/18/19 17:15 codeine AdvReac Nausea Verified 01/24/19 07:02 Home Meds: Home Meds Brinzolamide [Azopt 1% Ophth Susp] 1 drop EYEBOTH BID 10/09/21 [History] Calcium Carbonate [Calcium] 600 mg PO TID 10/09/21 [History] Cholecalciferol (Vitamin D3) [Vitamin D3] 25 mcg PO DAILY 10/09/21 [History] Levothyroxine 25 mcg PO ACBREAKFAST 10/09/21 [History] Metoprolol Tartrate 25 mg PO BID 10/09/21 [History] Multivit,Calc,Mins/Iron/Folic [Thera-M] 1 tab PO QPM 10/09/21 [History] Rosuvastatin [Crestor] 20 mg PO DAILY 10/09/21 [History] Sertraline [Zoloft] 100 mg PO 0800,1200 10/09/21 [History] SitaGLIPtin [Januvia] 100 mg PO DAILY 10/09/21 [History] Spironolactone [Aldactone] 100 mg PO DAILY 10/09/21 [History] Sucralfate 1 gm PO TID PRN 10/09/21 [History] Torsemide 20 mg PO DAILY 10/09/21 [History] Warfarin [Coumadin] 5 mg PO ASDIRECTED 10/09/21 [History] allopurinoL [Zyloprim] 100 mg PO BID 10/09/21 [History] Past Medical History HEENT History: Reports: Cataract Cardiovascular History: Reports: Afib, Arrhythmia, High Cholesterol, Hypertension Respiratory History: Reports: SOB Other Respiratory History: Suspected sleep apnea Gastrointestinal History: Reports: GERD Genitourinary History: Reports: Acute Renal Failure, Renal Disease CATTLE EXAMINER History: Reports: Dysfunctional Uterine Bleeding, , Other (See Below) Other CATTLE EXAMINER History: 2 c sections Musculoskeletal History: Reports: Arthritis Psychiatric History: Reports: Anxiety, Depression Endocrine/Metabolic History: Reports: Obesity/BMI 30+ - Infectious Disease History Infectious Disease History: Reports: Chicken Pox, Measles, Mumps - Past Surgical History HEENT Surgical History: Reports: Cataract Surgery GI Surgical History: Reports: Appendectomy, Cholecystectomy Social & Family History - Family History Family Medical History: No Pertinent Family History Cardiac: Reports: High Cholesterol, Hypertension - Caffeine Use Caffeine Use: Reports: None - Living Situation & Occupation Living situation: Reports: with Spouse Occupation: Unemployed ED ROS GENERAL - Review of Systems Review Of Systems: See Below Reason Not Obtained: Patient is having hard time communicating secondary to hearing ED EXAM, GENERAL - Physical Exam Exam: See Below Exam Limited By: Other (Patient has significant hearing loss does not have her hearing aids in having a hard time communicating she can answer simple questions) General Appearance: Alert, No Apparent Distress, Obese (Morbid obesity limits exam quality) Eye Exam: Bilateral Eye: Normal Inspection Ears: Normal External Exam, Normal Canal, Hearing Grossly Normal, Normal TMs Nose: Normal Inspection, Normal Mucosa, No Blood Throat/Mouth: No: Normal Teeth (She has partial dentures in place) Head: Atraumatic, Normocephalic Neck: Normal Inspection, Supple, Non-Tender, Full Range of Motion. No: Lymphadenopathy (L), Lymphadenopathy (R) Respiratory/Chest: No Respiratory Distress, Lungs Clear, Normal Breath Sounds Cardiovascular: No Murmur, Irregularly Irregular. No: No Edema (She has significant edema in both lower extremities right more so than left) GI/Abdominal: Normal Bowel Sounds, Soft, Non-Tender #2 Interpretation EKG Date: 10/09/21 Rhythm: A-Fib Rate (Beats/Min): 107 [place]: RAD-Right [place] Deviation P-Wave: Absent QRS: Other (Intraventricular conduction delay) ST-T: Other (Line repolarization abnormality) QT: Prolonged (Borderline prolonged) Comparison: No Change (No significant change from 01/18/2019) EKG Interpretation Comments: Abnormal EKG Course - Vital Signs Last Recorded V/S: Last Vital Signs Temp 35.6 C L 10/09/21 12:56 Pulse 92 10/09/21 12:56 Resp 22 H 10/09/21 12:56 BP 136/107 H 10/09/21 12:56 Pulse Ox 92 L 10/09/21 18:49 - Orders/Labs/Meds Orders: Active Orders 24 hr Category Date Time Status BIPAP Adult [RT BiPAP/CPAP] [RC] ASDIRECTED Care 10/09/21 13:53 Active Atkins Catheter Insertion [Insert Urinary Catheter] [OM. Care 10/09/21 17:30 Ordered PC] Q24H Oxygen Therapy [RC] ASDIRECTED Care 10/09/21 12:52 Active Oxygen Therapy [RC] ASDIRECTED Care 10/09/21 12:53 Active Peripheral IV Care [RC] . DIRECTED Care 10/09/21 12:54 Active RT Aerosol Therapy [RC] ASDIRECTED Care 10/09/21 18:49 Active RT BiPAP/CPAP [RC] ASDIRECTED Care 10/09/21 13:58 Active Urinary Catheter Assessment [RC] ASDIRECTED Care 10/09/21 19:27 Active BLOOD CULTURE [MREF] Stat Lab 10/09/21 13:25 Received BLOOD CULTURE [MREF] Stat Lab 10/09/21 13:55 Received Sodium Chloride 0.9% [Saline Flush] Med 10/09/21 12:53 Active 10 ml FLUSH ASDIRECTED PRN Blood Culture x2 Reflex Set [OM.PC] Stat Oth 10/09/21 12:53 Ordered Peripheral IV Insertion Adult [OM.PC] Stat Oth 10/09/21 12:53 Ordered Medication Orders Sodium Chloride (Sodium Chloride 0.9% 10 Ml Syringe) 10 ml FLUSH ASDIRECTED PRN PRN Reason: Keep Vein Open Last Admin: 10/09/21 13:36 Dose: 10 ml Documented by: SANDIE Labs: Laboratory Tests 10/09/21 10/09/21 10/09/21 Range/Units 12:27 12:53 13:55 WBC 12.17 H (3.98-10.04) K/mm3 RBC 4.85 (3.98-5.22) M/mm3 Hgb 14.3 (11.2-15.7) gm/dl Hct 47.3 H (34.1-44.9) % MCV 97.5 H (79.4-94.8) fl MCH 29.5 (25.6-32.2) pg MCHC 30.2 L (32.2-35.5) g/dl RDW Std Deviation 55.4 H (36.4-46.3) fL Plt Count 208 (182-369) K/mm3 MPV 11.8 (9.4-12.3) fl Neutrophils % (Manual) 80 H (40-60) % Band Neutrophils % 0 (0-10) % Lymphocytes % (Manual) 9 L (20-40) % Atypical Lymphs % 0 % Monocytes % (Manual) 11 H (2-10) % Eosinophils % (Manual) 0 L (0.7-5.8) % Basophils % (Manual) 0 L (0.1-1.2) Platelet Estimate Adequate RBC Morph Comment Normal PT (9.7-12.0) SECONDS INR APTT (21.7-31.4) SECONDS D-Dimer, Quantitative (0.19-0.50) mg/L Puncture Site Lt radial ABG pH 7.26 L (7.35-7.45) ABG pCO2 84.7 H* (35.0-45.0) mmHg ABG pO2 103.0 H (80.0-100.0) mmHg ABG HCO3 36.9 H (22.0-26.0) meq/L ABG O2 Saturation 95.2 L (96.0-97.0) % ABG Base Excess 6.4 H (-2-2.0) Parveen Test Positive O2 Delivery Device Nasal cannula Oxygen Flow Rate 3.0 PEEP cmH20 Pressure Support cmH2O Sodium (136-145) mEq/L Potassium (3.5-5.1) mEq/L Chloride (98-107) mEq/L Carbon Dioxide (21-32) mEq/L Anion Gap (5-15) BUN (7-18) mg/dL Creatinine (0.55-1.02) mg/dL Est Cr Clr Drug Dosing Estimated GFR (MDRD) (>60) mL/min BUN/Creatinine Ratio (14-18) Glucose (70-99) mg/dL Lactic Acid (0.4-2.0) mmol/L Calcium (8.5-10.1) mg/dL Total Bilirubin (0.2-1.0) mg/dL AST (15-37) U/L ALT (14-59) U/L Alkaline Phosphatase (46-116) U/L Troponin I (0.00-0.056) ng/mL C-Reactive Protein (<1.0) mg/dL NT-Pro-B Natriuret Pep (0-125) pg/mL Total Protein (6.4-8.2) g/dl Albumin (3.4-5.0) g/dl Globulin gm/dL Albumin/Globulin Ratio (1-2) Digoxin (0.9-2.0) ng/mL Influenza Type A RNA Negative (NEGATIVE) Influenza Type B RNA Negative (NEGATIVE) SARS-CoV-2 RNA (RADHIKA) Negative (NEGATIVE) 10/09/21 10/09/21 10/09/21 Range/Units 13:55 13:55 13:55 WBC (3.98-10.04) K/mm3 RBC (3.98-5.22) M/mm3 Hgb (11.2-15.7) gm/dl Hct (34.1-44.9) % MCV (79.4-94.8) fl MCH (25.6-32.2) pg MCHC (32.2-35.5) g/dl RDW Std Deviation (36.4-46.3) fL Plt Count (182-369) K/mm3 MPV (9.4-12.3) fl Neutrophils % (Manual) (40-60) % Band Neutrophils % (0-10) % Lymphocytes % (Manual) (20-40) % Atypical Lymphs % % Monocytes % (Manual) (2-10) % Eosinophils % (Manual) (0.7-5.8) % Basophils % (Manual) (0.1-1.2) Platelet Estimate RBC Morph Comment PT (9.7-12.0) SECONDS INR APTT (21.7-31.4) SECONDS D-Dimer, Quantitative 0.21 (0.19-0.50) mg/L Puncture Site ABG pH (7.35-7.45) ABG pCO2 (35.0-45.0) mmHg ABG pO2 (80.0-100.0) mmHg ABG HCO3 (22.0-26.0) meq/L ABG O2 Saturation (96.0-97.0) % ABG Base Excess (-2-2.0) Parveen Test O2 Delivery Device Oxygen Flow Rate PEEP cmH20 Pressure Support cmH2O Sodium (136-145) mEq/L Potassium (3.5-5.1) mEq/L Chloride (98-107) mEq/L Carbon Dioxide (21-32) mEq/L Anion Gap (5-15) BUN (7-18) mg/dL Creatinine (0.55-1.02) mg/dL Est Cr Clr Drug Dosing Estimated GFR (MDRD) (>60) mL/min BUN/Creatinine Ratio (14-18) Glucose (70-99) mg/dL Lactic Acid (0.4-2.0) mmol/L Calcium (8.5-10.1) mg/dL Total Bilirubin (0.2-1.0) mg/dL AST (15-37) U/L ALT (14-59) U/L Alkaline Phosphatase (46-116) U/L Troponin I < 0.017 (0.00-0.056) ng/mL C-Reactive Protein (<1.0) mg/dL NT-Pro-B Natriuret Pep 7137 H (0-125) pg/mL Total Protein (6.4-8.2) g/dl Albumin (3.4-5.0) g/dl Globulin gm/dL Albumin/Globulin Ratio (1-2) Digoxin (0.9-2.0) ng/mL Influenza Type A RNA (NEGATIVE) Influenza Type B RNA (NEGATIVE) SARS-CoV-2 RNA (RADHIKA) (NEGATIVE) 10/09/21 10/09/21 10/09/21 Range/Units 13:55 13:55 13:55 WBC (3.98-10.04) K/mm3 RBC (3.98-5.22) M/mm3 Hgb (11.2-15.7) gm/dl Hct (34.1-44.9) % MCV (79.4-94.8) fl MCH (25.6-32.2) pg MCHC (32.2-35.5) g/dl RDW Std Deviation (36.4-46.3) fL Plt Count (182-369) K/mm3 MPV (9.4-12.3) fl Neutrophils % (Manual) (40-60) % Band Neutrophils % (0-10) % Lymphocytes % (Manual) (20-40) % Atypical Lymphs % % Monocytes % (Manual) (2-10) % Eosinophils % (Manual) (0.7-5.8) % Basophils % (Manual) (0.1-1.2) Platelet Estimate RBC Morph Comment PT 50.8 H* D (9.7-12.0) SECONDS INR 4.86 APTT 43.4 H (21.7-31.4) SECONDS D-Dimer, Quantitative (0.19-0.50) mg/L Puncture Site ABG pH (7.35-7.45) ABG pCO2 (35.0-45.0) mmHg ABG pO2 (80.0-100.0) mmHg ABG HCO3 (22.0-26.0) meq/L ABG O2 Saturation (96.0-97.0) % ABG Base Excess (-2-2.0) Parveen Test O2 Delivery Device Oxygen Flow Rate PEEP cmH20 Pressure Support cmH2O Sodium 145 (136-145) mEq/L Potassium 4.0 (3.5-5.1) mEq/L Chloride 101 (98-107) mEq/L Carbon Dioxide 38 H (21-32) mEq/L Anion Gap 10.0 (5-15) BUN 56 H (7-18) mg/dL Creatinine 1.9 H (0.55-1.02) mg/dL Est Cr Clr Drug Dosing TNP Estimated GFR (MDRD) 26 (>60) mL/min BUN/Creatinine Ratio 29.5 H (14-18) Glucose 119 H (70-99) mg/dL Lactic Acid 0.9 (0.4-2.0) mmol/L Calcium 9.0 (8.5-10.1) mg/dL Total Bilirubin 0.5 (0.2-1.0) mg/dL AST 25 (15-37) U/L ALT 24 (14-59) U/L Alkaline Phosphatase 132 H (46-116) U/L Troponin I (0.00-0.056) ng/mL C-Reactive Protein 0.9 (<1.0) mg/dL NT-Pro-B Natriuret Pep (0-125) pg/mL Total Protein 7.7 (6.4-8.2) g/dl Albumin 3.4 (3.4-5.0) g/dl Globulin 4.3 gm/dL Albumin/Globulin Ratio 0.8 L (1-2) Digoxin (0.9-2.0) ng/mL Influenza Type A RNA (NEGATIVE) Influenza Type B RNA (NEGATIVE) SARS-CoV-2 RNA (RADHIKA) (NEGATIVE) 10/09/21 10/09/21 10/09/21 Range/Units 13:55 15:10 16:05 WBC (3.98-10.04) K/mm3 RBC (3.98-5.22) M/mm3 Hgb (11.2-15.7) gm/dl Hct (34.1-44.9) % MCV (79.4-94.8) fl MCH (25.6-32.2) pg MCHC (32.2-35.5) g/dl RDW Std Deviation (36.4-46.3) fL Plt Count (182-369) K/mm3 MPV (9.4-12.3) fl Neutrophils % (Manual) (40-60) % Band Neutrophils % (0-10) % Lymphocytes % (Manual) (20-40) % Atypical Lymphs % % Monocytes % (Manual) (2-10) % Eosinophils % (Manual) (0.7-5.8) % Basophils % (Manual) (0.1-1.2) Platelet Estimate RBC Morph Comment PT (9.7-12.0) SECONDS INR APTT (21.7-31.4) SECONDS D-Dimer, Quantitative (0.19-0.50) mg/L Puncture Site Lt radial Lt radial ABG pH 7.27 L 7.30 L (7.35-7.45) ABG pCO2 83.0 H* 76.0 H* (35.0-45.0) mmHg ABG pO2 80.0 95.0 (80.0-100.0) mmHg ABG HCO3 36.8 H 36.5 H (22.0-26.0) meq/L ABG O2 Saturation 88.8 L 94.8 L (96.0-97.0) % ABG Base Excess 6.9 H 7.3 H (-2-2.0) Parveen Test Positive Positive O2 Delivery Device Bipap Bipap Oxygen Flow Rate PEEP 6.0 8.0 cmH20 Pressure Support 12.0 18.0 cmH2O Sodium (136-145) mEq/L Potassium (3.5-5.1) mEq/L Chloride (98-107) mEq/L Carbon Dioxide (21-32) mEq/L Anion Gap (5-15) BUN (7-18) mg/dL Creatinine (0.55-1.02) mg/dL Est Cr Clr Drug Dosing Estimated GFR (MDRD) (>60) mL/min BUN/Creatinine Ratio (14-18) Glucose (70-99) mg/dL Lactic Acid (0.4-2.0) mmol/L Calcium (8.5-10.1) mg/dL Total Bilirubin (0.2-1.0) mg/dL AST (15-37) U/L ALT (14-59) U/L Alkaline Phosphatase (46-116) U/L Troponin I (0.00-0.056) ng/mL C-Reactive Protein (<1.0) mg/dL NT-Pro-B Natriuret Pep (0-125) pg/mL Total Protein (6.4-8.2) g/dl Albumin (3.4-5.0) g/dl Globulin gm/dL Albumin/Globulin Ratio (1-2) Digoxin < 0.2 L (0.9-2.0) ng/mL Influenza Type A RNA (NEGATIVE) Influenza Type B RNA (NEGATIVE) SARS-CoV-2 RNA (RADHIKA) (NEGATIVE) 10/09/21 Range/Units 18:09 WBC (3.98-10.04) K/mm3 RBC (3.98-5.22) M/mm3 Hgb (11.2-15.7) gm/dl Hct (34.1-44.9) % MCV (79.4-94.8) fl MCH (25.6-32.2) pg MCHC (32.2-35.5) g/dl RDW Std Deviation (36.4-46.3) fL Plt Count (182-369) K/mm3 MPV (9.4-12.3) fl Neutrophils % (Manual) (40-60) % Band Neutrophils % (0-10) % Lymphocytes % (Manual) (20-40) % Atypical Lymphs % % Monocytes % (Manual) (2-10) % Eosinophils % (Manual) (0.7-5.8) % Basophils % (Manual) (0.1-1.2) Platelet Estimate RBC Morph Comment PT (9.7-12.0) SECONDS INR APTT (21.7-31.4) SECONDS D-Dimer, Quantitative (0.19-0.50) mg/L Puncture Site Lt radial ABG pH 7.30 L (7.35-7.45) ABG pCO2 76.9 H* (35.0-45.0) mmHg ABG pO2 85.0 (80.0-100.0) mmHg ABG HCO3 36.9 H (22.0-26.0) meq/L ABG O2 Saturation 92.6 L (96.0-97.0) % ABG Base Excess 7.7 H (-2-2.0) Parveen Test Positive O2 Delivery Device Bipap Oxygen Flow Rate PEEP 8.0 cmH20 Pressure Support 18.0 cmH2O Sodium (136-145) mEq/L Potassium (3.5-5.1) mEq/L Chloride (98-107) mEq/L Carbon Dioxide (21-32) mEq/L Anion Gap (5-15) BUN (7-18) mg/dL Creatinine (0.55-1.02) mg/dL Est Cr Clr Drug Dosing Estimated GFR (MDRD) (>60) mL/min BUN/Creatinine Ratio (14-18) Glucose (70-99) mg/dL Lactic Acid (0.4-2.0) mmol/L Calcium (8.5-10.1) mg/dL Total Bilirubin (0.2-1.0) mg/dL AST (15-37) U/L ALT (14-59) U/L Alkaline Phosphatase (46-116) U/L Troponin I (0.00-0.056) ng/mL C-Reactive Protein (<1.0) mg/dL NT-Pro-B Natriuret Pep (0-125) pg/mL Total Protein (6.4-8.2) g/dl Albumin (3.4-5.0) g/dl Globulin gm/dL Albumin/Globulin Ratio (1-2) Digoxin (0.9-2.0) ng/mL Influenza Type A RNA (NEGATIVE) Influenza Type B RNA (NEGATIVE) SARS-CoV-2 RNA (RADHIKA) (NEGATIVE) Meds: Medications Generic Name Dose Route Start Last Admin Trade Name Freq PRN Reason Stop Dose Admin Sodium Chloride 10 ml 10/09/21 12:53 10/09/21 13:36 Sodium Chloride 0.9% 10 Ml Syringe FLUSH 10 ml ASDIRECTED PRN Administration Keep Vein Open Discontinued Medications Generic Name Dose Route Start Last Admin Trade Name Freq PRN Reason Stop Dose Admin Albuterol/Ipratropium 3 ml 10/09/21 12:53 10/09/21 13:16 Albuterol/Ipratropium 3.0-0.5 Mg/3 Ml Neb Soln NEB 10/09/21 12:54 3 ml ONETIME ONE Administration Albuterol/Ipratropium 3 ml 10/09/21 18:48 10/09/21 18:59 Albuterol/Ipratropium 3.0-0.5 Mg/3 Ml Neb Soln NEB 10/09/21 18:49 3 ml ONETIME ONE Administration Furosemide 40 mg 10/09/21 13:58 10/09/21 14:43 Furosemide 20 Mg/2 Ml Vial IVPUSH 10/09/21 13:59 40 mg ONETIME ONE Administration Methylprednisolone Sodium Succinate 125 mg 10/09/21 18:48 10/09/21 19:21 Methylprednisolone Sodium Succinate 125 Mg/2 Ml Sdv IVPUSH 10/09/21 18:49 125 mg ONETIME ONE Administration Nystatin 0 gm 10/09/21 18:16 Nystatin Topical Powder 15 Gm Bottle TOP 10/09/21 18:17 NOW ONE - Re-Assessments/Exams Free Text/Narrative Re-Assessment/Exam: 10/09/21 14:08 Blood gases show a pH of 7.26 PCO2 of 84.7 PO2 of 103 O2 saturation 95.2% on supplemental oxygen bicarb 36.[address] the patient on BiPAP see if we can lower her PCO2 10/09/21 18:47 We will check a head CT Case reviewed with Dr. Moore, our hospitalist anticipating he will assume care and admit I had a discussion with the patient, in the presence of her spouse, about her CODE STATUS she does not want to be intubated and she does not want chest compressions if her heart stops. 10/09/21 19:[address] is negative for acute change. There is some artifact from her hearing aids Updated Dr. Moore who would like the patient sent over. Departure - Departure Time of Disposition: 18:47 Disposition: Admitted As Inpatient 68 Clinical Impression: Hypoxia, Hypoventilation associated with obesity syndrome CHF (congestive heart failure) Qualifiers: Heart failure type: combined systolic and diastolic Heart failure chronicity: acute on chronic Qualified Code(s): I50.43 - Acute on chronic combined systolic (congestive) and diastolic (congestive) heart failure Atrial fibrillation Qualifiers: Atrial fibrillation type: chronic Qualified Code(s): I48.2 - Chronic atrial fibrillation - Discharge Information Referrals: Owen Aguilar [employer] [Primary Care Provider] - Forms: ED Department Discharge Sepsis Event Note (ED) - Focused Exam Vital Signs: Vital Signs Temp Pulse Resp BP Pulse Ox Pulse Ox Pulse Ox 10/09/21 18:49 92 L 10/09/21 13:16 93 L 10/09/21 12:56 35.6 C L 92 22 H 136/107 H 97 - My Orders Last 24 Hours: My Active Orders 10/09/21 12:52 Oxygen Therapy [RC] ASDIRECTED 10/09/21 12:53 Oxygen Therapy [RC] ASDIRECTED Sodium Chloride 0.9% [Saline Flush] 10 ml FLUSH ASDIRECTED PRN Blood Culture x2 Reflex Set [OM.PC] Stat Peripheral IV Insertion Adult [OM.PC] Stat 10/09/21 12:54 Peripheral IV Care [RC] . DIRECTED 10/09/21 13:25 BLOOD CULTURE [MREF] Stat 10/09/21 13:53 BIPAP Adult [RT BiPAP/CPAP] [RC] ASDIRECTED 10/09/21 13:55 BLOOD CULTURE [MREF] Stat 10/09/21 13:58 RT BiPAP/CPAP [RC] ASDIRECTED 10/09/21 17:30 Atkins Catheter Insertion [Insert Urinary Catheter] [OM.PC] Q24H 10/09/21 18:49 RT Aerosol Therapy [RC] ASDIRECTED 10/09/21 19:27 Urinary Catheter Assessment [RC] ASDIRECTED - Assessment/Plan Last 24 Hours: My Active Orders 10/09/21 12:52 Oxygen Therapy [RC] ASDIRECTED 10/09/21 12:53 Oxygen Therapy [RC] ASDIRECTED Sodium Chloride 0.9% [Saline Flush] 10 ml FLUSH ASDIRECTED PRN Blood Culture x2 Reflex Set [OM.PC] Stat Peripheral IV Insertion Adult [OM.PC] Stat 10/09/21 12:54 Peripheral IV Care [RC] . DIRECTED 10/09/21 13:25 BLOOD CULTURE [MREF] Stat 10/09/21 13:53 BIPAP Adult [RT BiPAP/CPAP] [RC] ASDIRECTED 10/09/21 13:55 BLOOD CULTURE [MREF] Stat 10/09/21 13:58 RT BiPAP/CPAP [RC] ASDIRECTED 10/09/21 17:30 Atkins Catheter Insertion [Insert Urinary Catheter] [OM.PC] Q24H 10/09/21 18:49 RT Aerosol Therapy [RC] ASDIRECTED 10/09/21 19:27 Urinary Catheter Assessment [RC] ASDIRECTED
[2021-10-09] MEDS ORDERED: Albuterol/Ipratropium 3.0-0.5 MG/3 ML Neb Soln NEB ONE ×2 (12:53→18:48)
[2021-10-09] MEDS ORDERED: Sodium Chloride 0.9% 10 ML Syringe FLUSH PRN (12:53)
[2021-10-09 13:42] LABS: CORONAVIRUS COVID-19 NAA NEGATIVE (NEGATIVE)
[2021-10-09] MEDS ORDERED: Furosemide 20 MG/2 ML VIAL IVPUSH ONE (13:58)
--- NOTE | 2021-10-09 14:19 | CR ---
Chest: Frontal view of the chest was obtained. Comparison: Prior chest x-rays of 10/09/20 and 01/18/19. Heart is enlarged. Pulmonary vessels are minimally increased. Slightly prominent right hilum is seen which appears to be chronic. Mild degenerative change is seen within the spine as well as mild scoliosis. Impression: 1. Findings suspicious for mild CHF. 2. Other findings which are felt to be stable as described above. Diagnostic code #3
[2021-10-09] MEDS ORDERED: Nystatin Topical Powder 15 GM Bottle TOP ONE (18:16)
[2021-10-09] MEDS: methylPREDNISolone Sodium Succinate 125 MG/2 ML SDV IVPUSH ONE (19:21)
--- NOTE | 2021-10-09 19:32 | CT ---
Head CT Technique: Multiple axial sections through the brain were obtained. Intravenous contrast was not utilized. Reconstructed coronal and sagittal images were obtained. Comparison: Prior head CT study of 01/02/17. Findings: Ventricles along with basal cisterns and sulci over the convexities appear within normal limits. There is some artifact noted from ear hardware. Within this limitation, no abnormal parenchymal densities are seen. No evidence of intracranial hemorrhage. No midline shift or mass-effect is seen. Bone window settings were reviewed. Visualized calvarium appears intact. Visualized mastoid and paranasal sinuses show nothing acute. Impression: 1. Artifact from ear hardware. Within this limitation, nothing acute is definitely appreciated on noncontrast head CT study. Diagnostic code #2
[2021-10-09] MEDS ORDERED: Acetaminophen 325 MG Tab PO PRN (20:46)
[2021-10-09] MEDS ORDERED: Albuterol 0.083% 2.5 MG/3 ML Neb Soln NEB PRN (20:46)
[2021-10-09] MEDS ORDERED: Ondansetron 4 MG/2 ML SDV IV PRN (20:46)
[2021-10-09] MEDS ORDERED: Sucralfate 1 GM Tab PO PRN (20:54)
--- NOTE | 2021-10-09 20:54 | PCM.HP.2 ---
H&P History of Present Illness - General Date of Service: 10/09/21 Admit Problem/Dx: Admission Diagnosis/Problem Admission Diagnosis/Problem CHF, Congestive heart failure History Limitations: Reports: Respiratory Distress (Patient on BiPAP. History obtained through ) - History of Present Illness Initial Comments - Free Text/Narative: 76-year-old female with history of CHF and atrial fibrillation presents to the emergency department when her states that she was having more difficulty breathing. Over the last week or 2 she has been more fatigued and having more dyspnea on exertion. He states that she generally sleeps on a wedge pillow, but over the last few days has had to sleep in the recliner. Today her oxygen saturations were in the 80s and her fingers were blue. She was brought to the emergency department because of severe shortness of breath and on arrival was in the low 90s. Patient's initial blood gases: pH 7.26, PCO2 84.7, PO2 103, bicarb 36.9, this was on 3 L nasal cannula. She was placed on BiPAP and most recent ABG shows: pH 7.30, PCO2 77, PO2 85, bicarb 36.9, on 25/06. WBC 12.2, hemoglobin 14.3, platelet 208, sodium 145, potassium 4.0, bicarb 38, BUN 56, creatinine 1.9, glucose 119 troponin less than 0.017, proBNP 7137. INR 4.86 Chest x-ray shows enlarged heart with increased vascular congestion CT of the head showed no acute changes. She denies smoking or drinking. EKG: A. fib ventricular rate around 107. Right axis deviation. Intraventricul ar conduction delay. - Related Data Allergies/Adverse Reactions: Allergies Allergy/AdvReac Type Severity Reaction Status Date / Time Penicillins Allergy Rash Verified 10/09/21 20:24 codeine AdvReac Nausea Verified 10/09/21 20:24 Home Medications: Home Meds Brinzolamide [Azopt 1% Ophth Susp] 1 drop EYEBOTH BID 10/09/21 [History] Calcium Carbonate [Calcium] 600 mg PO TID 10/09/21 [History] Cholecalciferol (Vitamin D3) [Vitamin D3] 25 mcg PO DAILY 10/09/21 [History] Levothyroxine 25 mcg PO ACBREAKFAST 10/09/21 [History] Metoprolol Tartrate 25 mg PO BID 10/09/21 [History] Multivit,Calc,Mins/Iron/Folic [Thera-M] 1 tab PO QPM 10/09/21 [History] Rosuvastatin [Crestor] 20 mg PO DAILY 10/09/21 [History] Sertraline [Zoloft] 100 mg PO 0800,1200 10/09/21 [History] SitaGLIPtin [Januvia] 100 mg PO DAILY 10/09/21 [History] Spironolactone [Aldactone] 100 mg PO DAILY 10/09/21 [History] Sucralfate 1 gm PO TID PRN 10/09/21 [History] Torsemide 20 mg PO DAILY 10/09/21 [History] Warfarin [Coumadin] 5 mg PO ASDIRECTED 10/09/21 [History] allopurinoL [Zyloprim] 100 mg PO BID 10/09/21 [History] Past Medical History HEENT History: Reports: Cataract Cardiovascular History: Reports: Afib, Arrhythmia, High Cholesterol, Hypertension Respiratory History: Reports: SOB Other Respiratory History: Suspected sleep apnea Gastrointestinal History: Reports: GERD Genitourinary History: Reports: Acute Renal Failure, Renal Disease [employer] History: Reports: Dysfunctional Uterine Bleeding, , Other (See Below) Other OB/BYN History: 2 c sections Musculoskeletal History: Reports: Arthritis Psychiatric History: Reports: Anxiety, Depression Endocrine/Metabolic History: Reports: Obesity/BMI 30+ - Infectious Disease History Infectious Disease History: Reports: Chicken Pox, Measles, Mumps - Past Surgical History HEENT Surgical History: Reports: Cataract Surgery Cardiovascular Surgical History: Reports: None GI Surgical History: Reports: Appendectomy, Cholecystectomy Social & Family History - Family History Family Medical History: No Pertinent Family History Cardiac: Reports: High Cholesterol, Hypertension - Tobacco Use Tobacco Use Status *Q: Never Tobacco User - Caffeine Use Caffeine Use: Reports: None - Living Situation & Occupation Living situation: Reports: with Spouse Occupation: Unemployed H&P Review of Systems - Review of Systems: Review Of Systems: Comprehensive ROS is negative, except as noted in HPI. Exam - Exam Exam: See Below - Vital Signs Vital Signs: Last Vital Signs Temp 96.1 F L 10/09/21 12:56 Pulse 92 10/09/21 12:56 Resp 22 H 10/09/21 12:56 BP 136/107 H 10/09/21 12:56 Pulse Ox 92 L 10/09/21 18:49 - Exam Quality Assessment: Supplemental Oxygen General: Alert HEENT: Conjunctiva Clear, Hearing Intact, Mucosa Moist & [place], Normal Nasal Septum Neck: Supple, Trachea Midline, 2 Lungs: Rales (Throughout both lung cheung). No: Normal Respiratory Effort (Increased respiratory rate) Cardiovascular: Irregular Rhythm (Irregular rhythm and rate), Other (Difficult to hear secondary to BiPAP) GI/Abdominal Exam: Normal Bowel Sounds, Soft, Non-Tender, No Organomegaly, No Distention, Other (Morbidly obese) Extremities: Normal Inspection, Non-Tender, Normal Capillary Refill, Pedal Edema (3+ pitting edema) Skin: Warm, Dry, Intact Neuro Extensive - Mental Status: Alert - Patient Data Lab Results Last 24 hrs: Laboratory Results - last 24 hr 10/09/21 10/09/21 10/09/21 Range/Units 12:27 12:53 13:55 WBC 12.17 H (3.98-10.04) K/mm3 RBC 4.85 (3.98-5.22) M/mm3 Hgb 14.3 (11.2-15.7) gm/dl Hct 47.3 H (34.1-44.9) % MCV 97.5 H (79.4-94.8) fl MCH 29.5 (25.6-32.2) pg MCHC 30.2 L (32.2-35.5) g/dl RDW Std Deviation 55.4 H (36.4-46.3) fL Plt Count 208 (182-369) K/mm3 MPV 11.8 (9.4-12.3) fl Neutrophils % (Manual) 80 H (40-60) % Band Neutrophils % 0 (0-10) % Lymphocytes % (Manual) 9 L (20-40) % Atypical Lymphs % 0 % Monocytes % (Manual) 11 H (2-10) % Eosinophils % (Manual) 0 L (0.7-5.8) % Basophils % (Manual) 0 L (0.1-1.2) Platelet Estimate Adequate RBC Morph Comment Normal PT (9.7-12.0) SECONDS INR APTT (21.7-31.4) SECONDS D-Dimer, Quantitative (0.19-0.50) mg/L Puncture Site Lt radial ABG pH 7.26 L (7.35-7.45) ABG pCO2 84.7 H* (35.0-45.0) mmHg ABG pO2 103.0 H (80.0-100.0) mmHg ABG HCO3 36.9 H (22.0-26.0) meq/L ABG O2 Saturation 95.2 L (96.0-97.0) % ABG Base Excess 6.4 H (-2-2.0) Parveen Test Positive O2 Delivery Device Nasal cannula Oxygen Flow Rate 3.0 PEEP cmH20 Pressure Support cmH2O Sodium (136-145) mEq/L Potassium (3.5-5.1) mEq/L Chloride (98-107) mEq/L Carbon Dioxide (21-32) mEq/L Anion Gap (5-15) BUN (7-18) mg/dL Creatinine (0.55-1.02) mg/dL Est Cr Clr Drug Dosing Estimated GFR (MDRD) (>60) mL/min BUN/Creatinine Ratio (14-18) Glucose (70-99) mg/dL Lactic Acid (0.4-2.0) mmol/L Calcium (8.5-10.1) mg/dL Total Bilirubin (0.2-1.0) mg/dL AST (15-37) U/L ALT (14-59) U/L Alkaline Phosphatase (46-116) U/L Troponin I (0.00-0.056) ng/mL C-Reactive Protein (<1.0) mg/dL NT-Pro-B Natriuret Pep (0-125) pg/mL Total Protein (6.4-8.2) g/dl Albumin (3.4-5.0) g/dl Globulin gm/dL Albumin/Globulin Ratio (1-2) Digoxin (0.9-2.0) ng/mL Influenza Type A RNA Negative (NEGATIVE) Influenza Type B RNA Negative (NEGATIVE) SARS-CoV-2 RNA (RADHIKA) Negative (NEGATIVE) 10/09/21 10/09/21 10/09/21 Range/Units 13:55 13:55 13:55 WBC (3.98-10.04) K/mm3 RBC (3.98-5.22) M/mm3 Hgb (11.2-15.7) gm/dl Hct (34.1-44.9) % MCV (79.4-94.8) fl MCH (25.6-32.2) pg MCHC (32.2-35.5) g/dl RDW Std Deviation (36.4-46.3) fL Plt Count (182-369) K/mm3 MPV (9.4-12.3) fl Neutrophils % (Manual) (40-60) % Band Neutrophils % (0-10) % Lymphocytes % (Manual) (20-40) % Atypical Lymphs % % Monocytes % (Manual) (2-10) % Eosinophils % (Manual) (0.7-5.8) % Basophils % (Manual) (0.1-1.2) Platelet Estimate RBC Morph Comment PT (9.7-12.0) SECONDS INR APTT (21.7-31.4) SECONDS D-Dimer, Quantitative 0.21 (0.19-0.50) mg/L Puncture Site ABG pH (7.35-7.45) ABG pCO2 (35.0-45.0) mmHg ABG pO2 (80.0-100.0) mmHg ABG HCO3 (22.0-26.0) meq/L ABG O2 Saturation (96.0-97.0) % ABG Base Excess (-2-2.0) Parveen Test O2 Delivery Device Oxygen Flow Rate PEEP cmH20 Pressure Support cmH2O Sodium (136-145) mEq/L Potassium (3.5-5.1) mEq/L Chloride (98-107) mEq/L Carbon Dioxide (21-32) mEq/L Anion Gap (5-15) BUN (7-18) mg/dL Creatinine (0.55-1.02) mg/dL Est Cr Clr Drug Dosing Estimated GFR (MDRD) (>60) mL/min BUN/Creatinine Ratio (14-18) Glucose (70-99) mg/dL Lactic Acid (0.4-2.0) mmol/L Calcium (8.5-10.1) mg/dL Total Bilirubin (0.2-1.0) mg/dL AST (15-37) U/L ALT (14-59) U/L Alkaline Phosphatase (46-116) U/L Troponin I < 0.017 (0.00-0.056) ng/mL C-Reactive Protein (<1.0) mg/dL NT-Pro-B Natriuret Pep 7137 H (0-125) pg/mL Total Protein (6.4-8.2) g/dl Albumin (3.4-5.0) g/dl Globulin gm/dL Albumin/Globulin Ratio (1-2) Digoxin (0.9-2.0) ng/mL Influenza Type A RNA (NEGATIVE) Influenza Type B RNA (NEGATIVE) SARS-CoV-2 RNA (RADHIKA) (NEGATIVE) 10/09/21 10/09/21 10/09/21 Range/Units 13:55 13:55 13:55 WBC (3.98-10.04) K/mm3 RBC (3.98-5.22) M/mm3 Hgb (11.2-15.7) gm/dl Hct (34.1-44.9) % MCV (79.4-94.8) fl MCH (25.6-32.2) pg MCHC (32.2-35.5) g/dl RDW Std Deviation (36.4-46.3) fL Plt Count (182-369) K/mm3 MPV (9.4-12.3) fl Neutrophils % (Manual) (40-60) % Band Neutrophils % (0-10) % Lymphocytes % (Manual) (20-40) % Atypical Lymphs % % Monocytes % (Manual) (2-10) % Eosinophils % (Manual) (0.7-5.8) % Basophils % (Manual) (0.1-1.2) Platelet Estimate RBC Morph Comment PT 50.8 H* D (9.7-12.0) SECONDS INR 4.86 APTT 43.4 H (21.7-31.4) SECONDS D-Dimer, Quantitative (0.19-0.50) mg/L Puncture Site ABG pH (7.35-7.45) ABG pCO2 (35.0-45.0) mmHg ABG pO2 (80.0-100.0) mmHg ABG HCO3 (22.0-26.0) meq/L ABG O2 Saturation (96.0-97.0) % ABG Base Excess (-2-2.0) Parveen Test O2 Delivery Device Oxygen Flow Rate PEEP cmH20 Pressure Support cmH2O Sodium 145 (136-145) mEq/L Potassium 4.0 (3.5-5.1) mEq/L Chloride 101 (98-107) mEq/L Carbon Dioxide 38 H (21-32) mEq/L Anion Gap 10.0 (5-15) BUN 56 H (7-18) mg/dL Creatinine 1.9 H (0.55-1.02) mg/dL Est Cr Clr Drug Dosing TNP Estimated GFR (MDRD) 26 (>60) mL/min BUN/Creatinine Ratio 29.5 H (14-18) Glucose 119 H (70-99) mg/dL Lactic Acid 0.9 (0.4-2.0) mmol/L Calcium 9.0 (8.5-10.1) mg/dL Total Bilirubin 0.5 (0.2-1.0) mg/dL AST 25 (15-37) U/L ALT 24 (14-59) U/L Alkaline Phosphatase 132 H (46-116) U/L Troponin I (0.00-0.056) ng/mL C-Reactive Protein 0.9 (<1.0) mg/dL NT-Pro-B Natriuret Pep (0-125) pg/mL Total Protein 7.7 (6.4-8.2) g/dl Albumin 3.4 (3.4-5.0) g/dl Globulin 4.3 gm/dL Albumin/Globulin Ratio 0.8 L (1-2) Digoxin (0.9-2.0) ng/mL Influenza Type A RNA (NEGATIVE) Influenza Type B RNA (NEGATIVE) SARS-CoV-2 RNA (RADHIKA) (NEGATIVE) 10/09/21 10/09/21 10/09/21 Range/Units 13:55 15:10 16:05 WBC (3.98-10.04) K/mm3 RBC (3.98-5.22) M/mm3 Hgb (11.2-15.7) gm/dl Hct (34.1-44.9) % MCV (79.4-94.8) fl MCH (25.6-32.2) pg MCHC (32.2-35.5) g/dl RDW Std Deviation (36.4-46.3) fL Plt Count (182-369) K/mm3 MPV (9.4-12.3) fl Neutrophils % (Manual) (40-60) % Band Neutrophils % (0-10) % Lymphocytes % (Manual) (20-40) % Atypical Lymphs % % Monocytes % (Manual) (2-10) % Eosinophils % (Manual) (0.7-5.8) % Basophils % (Manual) (0.1-1.2) Platelet Estimate RBC Morph Comment PT (9.7-12.0) SECONDS INR APTT (21.7-31.4) SECONDS D-Dimer, Quantitative (0.19-0.50) mg/L Puncture Site Lt radial Lt radial ABG pH 7.27 L 7.30 L (7.35-7.45) ABG pCO2 83.0 H* 76.0 H* (35.0-45.0) mmHg ABG pO2 80.0 95.0 (80.0-100.0) mmHg ABG HCO3 36.8 H 36.5 H (22.0-26.0) meq/L ABG O2 Saturation 88.8 L 94.8 L (96.0-97.0) % ABG Base Excess 6.9 H 7.3 H (-2-2.0) Parveen Test Positive Positive O2 Delivery Device Bipap Bipap Oxygen Flow Rate PEEP 6.0 8.0 cmH20 Pressure Support 12.0 18.0 cmH2O Sodium (136-145) mEq/L Potassium (3.5-5.1) mEq/L Chloride (98-107) mEq/L Carbon Dioxide (21-32) mEq/L Anion Gap (5-15) BUN (7-18) mg/dL Creatinine (0.55-1.02) mg/dL Est Cr Clr Drug Dosing Estimated GFR (MDRD) (>60) mL/min BUN/Creatinine Ratio (14-18) Glucose (70-99) mg/dL Lactic Acid (0.4-2.0) mmol/L Calcium (8.5-10.1) mg/dL Total Bilirubin (0.2-1.0) mg/dL AST (15-37) U/L ALT (14-59) U/L Alkaline Phosphatase (46-116) U/L Troponin I (0.00-0.056) ng/mL C-Reactive Protein (<1.0) mg/dL NT-Pro-B Natriuret Pep (0-125) pg/mL Total Protein (6.4-8.2) g/dl Albumin (3.4-5.0) g/dl Globulin gm/dL Albumin/Globulin Ratio (1-2) Digoxin < 0.2 L (0.9-2.0) ng/mL Influenza Type A RNA (NEGATIVE) Influenza Type B RNA (NEGATIVE) SARS-CoV-2 RNA (RADHIKA) (NEGATIVE) 10/09/21 Range/Units 18:09 WBC (3.98-10.04) K/mm3 RBC (3.98-5.22) M/mm3 Hgb (11.2-15.7) gm/dl Hct (34.1-44.9) % MCV (79.4-94.8) fl MCH (25.6-32.2) pg MCHC (32.2-35.5) g/dl RDW Std Deviation (36.4-46.3) fL Plt Count (182-369) K/mm3 MPV (9.4-12.3) fl Neutrophils % (Manual) (40-60) % Band Neutrophils % (0-10) % Lymphocytes % (Manual) (20-40) % Atypical Lymphs % % Monocytes % (Manual) (2-10) % Eosinophils % (Manual) (0.7-5.8) % Basophils % (Manual) (0.1-1.2) Platelet Estimate RBC Morph Comment PT (9.7-12.0) SECONDS INR APTT (21.7-31.4) SECONDS D-Dimer, Quantitative (0.19-0.50) mg/L Puncture Site Lt radial ABG pH 7.30 L (7.35-7.45) ABG pCO2 76.9 H* (35.0-45.0) mmHg ABG pO2 85.0 (80.0-100.0) mmHg ABG HCO3 36.9 H (22.0-26.0) meq/L ABG O2 Saturation 92.6 L (96.0-97.0) % ABG Base Excess 7.7 H (-2-2.0) Parveen Test Positive O2 Delivery Device Bipap Oxygen Flow Rate PEEP 8.0 cmH20 Pressure Support 18.0 cmH2O Sodium (136-145) mEq/L Potassium (3.5-5.1) mEq/L Chloride (98-107) mEq/L Carbon Dioxide (21-32) mEq/L Anion Gap (5-15) BUN (7-18) mg/dL Creatinine (0.55-1.02) mg/dL Est Cr Clr Drug Dosing Estimated GFR (MDRD) (>60) mL/min BUN/Creatinine Ratio (14-18) Glucose (70-99) mg/dL Lactic Acid (0.4-2.0) mmol/L Calcium (8.5-10.1) mg/dL Total Bilirubin (0.2-1.0) mg/dL AST (15-37) U/L ALT (14-59) U/L Alkaline Phosphatase (46-116) U/L Troponin I (0.00-0.056) ng/mL C-Reactive Protein (<1.0) mg/dL NT-Pro-B Natriuret Pep (0-125) pg/mL Total Protein (6.4-8.2) g/dl Albumin (3.4-5.0) g/dl Globulin gm/dL Albumin/Globulin Ratio (1-2) Digoxin (0.9-2.0) ng/mL Influenza Type A RNA (NEGATIVE) Influenza Type B RNA (NEGATIVE) SARS-CoV-2 RNA (RADHIKA) (NEGATIVE) Result Diagrams: 10/10/21 06:02 10/10/21 06:02 Sepsis Event Note - Focused Exam Vital Signs: Vital Signs Temp Pulse Resp BP Pulse Ox Pulse Ox Pulse Ox 10/09/21 18:49 92 L 10/09/21 13:16 93 L 10/09/21 12:56 96.1 F L 92 22 H 136/107 H 97 - Problem List (1) Congestive heart failure SNOMED Code(s): 21618906 ICD Code: I50.9 - HEART FAILURE, UNSPECIFIED Status: Acute Current Visit: Yes Qualifiers: Heart failure type: combined systolic and diastolic Heart failure chronicity: acute on chronic Qualified Code(s): I50.43 - Acute on chronic combined systolic (congestive) and diastolic (congestive) heart failure (2) Hypoxia SNOMED Code(s): 897029919 ICD Code: R09.02 - HYPOXEMIA Status: Acute Current Visit: Yes (3) Hypoventilation associated with obesity syndrome SNOMED Code(s): 759208943 ICD Code: E66.2 - MORBID (SEVERE) OBESITY WITH ALVEOLAR HYPOVENTILATION Status: Chronic Current Visit: Yes (4) Atrial fibrillation with RVR SNOMED Code(s): 005684398666154 ICD Code: I48.91 - UNSPECIFIED ATRIAL FIBRILLATION Status: Acute Current Visit: No (5) DM2 (diabetes mellitus, type 2) SNOMED Code(s): 20425769 ICD Code: E11.9 - TYPE 2 DIABETES MELLITUS WITHOUT COMPLICATIONS Status: Acute Current Visit: No Qualifiers: Diabetes mellitus [facility] insulin use: without [facility] use Diabetes mellitus complication status: without complication Qualified Code(s): E11.9 - Type 2 diabetes mellitus without complications (6) Elevated INR SNOMED Code(s): 667181984 ICD Code: R79.1 - ABNORMAL COAGULATION PROFILE Status: Acute Current Visit: Yes (7) Respiratory failure with hypoxia and hypercapnia SNOMED Code(s): 13297439 ICD Code: J96.91 - RESPIRATORY FAILURE, UNSPECIFIED WITH HYPOXIA; J96.92 - RESPIRATORY FAILURE, UNSPECIFIED WITH HYPERCAPNIA Status: Acute Current Visit: Yes Problem List Initiated/Reviewed/Updated: Yes Orders Last 24hrs: Active Orders 24 hr Category Date Time Status Patient Status [ADT] Routine ADT 10/09/21 20:08 Active Antiembolic Devices [RC] PER UNIT ROUTINE Care 10/09/21 20:48 Ordered BIPAP Adult [RT BiPAP/CPAP] [RC] ASDIRECTED Care 10/09/21 13:53 Active Atkins Catheter Insertion [Insert Urinary Catheter] [OM. Care 10/09/21 17:30 Ordered PC] Q24H Oxygen Therapy [RC] ASDIRECTED Care 10/09/21 12:52 Active Oxygen Therapy [RC] ASDIRECTED Care 10/09/21 12:53 Active Oxygen Therapy [RC] PRN Care 10/09/21 20:46 Ordered Peripheral IV Care [RC] . DIRECTED Care 10/09/21 12:54 Active RT Aerosol Therapy [RC] ASDIRECTED Care 10/09/21 18:49 Active RT Aerosol Therapy [RC] ASDIRECTED Care 10/09/21 20:48 Ordered RT BiPAP/CPAP [RC] ASDIRECTED Care 10/09/21 13:58 Active Up With Assistance [RC] ASDIRECTED Care 10/09/21 20:46 Ordered Urinary Catheter Assessment [RC] ASDIRECTED Care 10/09/21 19:27 Active VTE/DVT Education [RC] PER UNIT ROUTINE Care 10/09/21 20:46 Ordered Vital Signs [RC] Q4H Care 10/09/21 20:46 Ordered Respiratory Care Assess and Treatment [CONS] Routine Cons 10/09/21 20:46 Ordered Consistent Carbohydrate Diet [DIET] Diet 10/10/21 Breakfast Ordered BLOOD CULTURE [MREF] Stat Lab 10/09/21 13:25 Received BLOOD CULTURE [MREF] Stat Lab 10/09/21 13:55 Received Acetaminophen [TylenoL] Med 10/09/21 20:46 Ordered 650 mg PO Q4H PRN Albuterol [Proventil Neb Soln] Med 10/09/21 20:46 Ordered 2.5 mg NEB Q2H PRN Albuterol/Ipratropium [DuoNeb 3.0-0.5 MG/3 ML] Med 10/09/21 20:46 Ordered 3 ml NEB Q4H PRN Furosemide [Lasix] Med 10/09/21 21:00 Ordered 60 mg IVPUSH BID Ondansetron [Zofran] Med 10/09/21 20:46 Ordered 4 mg IV Q6H PRN Sodium Chloride 0.9% [Saline Flush] Med 10/09/21 12:53 Active 10 ml FLUSH ASDIRECTED PRN Blood Culture x2 Reflex Set [OM.PC] Stat Oth 10/09/21 12:53 Ordered Peripheral IV Insertion Adult [OM.PC] Stat Oth 10/09/21 12:53 Ordered Sequential Compression Device [OM.PC] Per Unit Routine Oth 10/09/21 20:47 Ordered Resuscitation Status Routine Resus Stat 10/09/21 20:46 Ordered Medication Orders Acetaminophen (Acetaminophen 325 Mg Tab) 650 mg PO Q4H PRN PRN Reason: Pain (Mild 1-3)/fever Albuterol (Albuterol 0.083% 2.5 Mg/3 Ml Neb Soln) 2.5 mg NEB Q2H PRN PRN Reason: Shortness Of Breath/wheezing Albuterol/Ipratropium (Albuterol/Ipratropium 3.0-0.5 Mg/3 Ml Neb Soln) 3 ml NEB Q4H PRN PRN Reason: Shortness Of Breath/wheezing Furosemide (Furosemide 40 Mg/4 Ml Vial) 60 mg IVPUSH BID MIRNA Ondansetron HCl (Ondansetron 4 Mg/2 Ml Sdv) 4 mg IV Q6H PRN PRN Reason: Nausea/Vomiting Sodium Chloride (Sodium Chloride 0.9% 10 Ml Syringe) 10 ml FLUSH ASDIRECTED PRN PRN Reason: Keep Vein Open Last Admin: 10/09/21 13:36 Dose: 10 ml Documented by: SANDIE Assessment/Plan Comment:: 76-year-old female with history of atrial fibrillation, congestive heart failure, diabetes, morbid obesity, cor pulmonale, severe pulmonary artery systolic hypertension presents to the emergency department with hypercapnic, hypoxemic respiratory failure secondary to exacerbation of CHF. Exacerbation CHF Hypercapnic, hypoxemic respiratory failure History of cor pulmonale * Echocardiogram from October 2020 showed a left ejection fraction of 50 to 55%. Normal right ventricular systolic function. Right ventricular systolic pressure is moderately elevated at 49.5 mmHg PFO or small ASD is present with left to right shunt. Severe biatrial dilatation * Chest x-ray shows mild CHF * proBNP 7137 * Initial pH 7.27 with PCO2 of 83 * Currently on BiPAP with an improving pH and PCO2 * Patient had some altered mental status and a CT scan was negative * Improved altered mental status with improving PCO2. * Home diuretics include torsemide 20 mg daily and spironolactone 100 mg daily Atrial fibrillation Elevated INR * INR 4.86 * Metoprolol 25 mg twice daily for rate control * Warfarin 5 mg take as directed Acute on chronic renal sufficiency * Baseline creatinine of 1.4 creatinine 1.9, BUN 56 * Estimated GFR of 26 * Patient does not appear to be on an KATHY or an ARB Diabetes * Home medications include sitagliptin * Unknown hemoglobin A1c Hypothyroidism * Unknown TSH * Levothyroxine 25 mcg daily Gout * Allopurinol 100 mg twice daily Plan * Admit to ICU * Strict I's and O's and daily weights * 1500 mL fluid restriction * Adjust BiPAP to improve oxygenation and lower carbon dioxide. * Lasix 60 mg every 12 hours * Hold metoprolol until at least tomorrow * TSH and hemoglobin A1c * Sliding-scale insulin and blood sugars before every meal/nightly * Hold warfarin and follow INR, pharmacy to follow. * Reconcile home meds * Follow renal function closely * VTE prophylaxis: Patient has elevated INR and will also use SCDs * CODE STATUS: DNR/DNI - Mortality Measure Prognosis:: Good
[2021-10-09] MEDS: Furosemide 40 MG/4 ML VIAL IVPUSH SCH (22:23)
[2021-10-09] MEDS: Dorzolamide 2% Ophth Soln 10 ML Bottle EYEBOTH SCH (22:25)
[2021-10-09] MEDS: Allopurinol 100 MG Tab PO SCH (22:28)
[2021-10-10] MEDS: Levothyroxine 25 MCG Tab PO SCH (06:16)
[2021-10-10] MEDS: Rosuvastatin 10 MG Tab PO SCH (08:51)
[2021-10-10] MEDS: Furosemide 40 MG/4 ML VIAL IVPUSH SCH (08:51)
[2021-10-10] MEDS: Allopurinol 100 MG Tab PO SCH ×2 (08:51→19:59)
[2021-10-10] MEDS: Spironolactone 100 MG Tab PO SCH (08:51)
[2021-10-10] MEDS: Cholecalciferol (Vitamin D3) 25 MCG Tab PO SCH (08:51)
[2021-10-10] MEDS: Sertraline 50 MG Tab PO SCH ×2 (08:51→12:54)
[2021-10-10] MEDS: Albuterol/Ipratropium 3.0-0.5 MG/3 ML Neb Soln NEB PRN (09:29)
[2021-10-10] MEDS: Dorzolamide 2% Ophth Soln 10 ML Bottle EYEBOTH SCH ×2 (09:58→20:08)
[2021-10-10] MEDS: Nystatin Topical Powder 15 GM Bottle TOP SCH ×3 (09:59→19:59)
[2021-10-10] MEDS: Metoprolol Tartrate 25 MG Tab PO SCH ×2 (10:24→20:00)
--- NOTE | 2021-10-10 13:46 | PCM.PN ---
- General Info Date of Service: 10/10/21 Admission Dx/Problem (Free Text): Admission Diagnosis/Problem Admission Diagnosis/Problem CHF, Congestive heart failure Subjective Update: Patient is doing much better this morning. She is on 4 L nasal cannula and blood gases significantly improved. She is much more awake and alert. Functional Status: Reports: Pain Controlled - Review of Systems General: Reports: No Symptoms HEENT: Reports: No Symptoms Pulmonary: Reports: No Symptoms Cardiovascular: Reports: Edema Gastrointestinal: Reports: No Symptoms - Patient Data Vitals - Most Recent: Last Vital Signs Temp 96.3 F L 10/10/21 12:00 Pulse 116 H 10/10/21 12:00 Resp 22 H 10/10/21 12:00 BP 96/61 10/10/21 12:00 Pulse Ox 97 10/10/21 12:00 Weight - Most Recent: 331 lb 14.4 oz I&O - Last 24 Hours: Intake & Output 10/09/21 10/10/21 10/10/21 22:59 06:59 14:59 Output Total 1000 469 173 Balance -1000 -515 -896 Lab Results Last 24 Hours: Laboratory Results - last 24 hr 10/09/21 10/09/21 10/09/21 Range/Units 13:55 13:55 13:55 WBC 12.17 H (3.98-10.04) K/mm3 RBC 4.85 (3.98-5.22) M/mm3 Hgb 14.3 (11.2-15.7) gm/dl Hct 47.3 H (34.1-44.9) % MCV 97.5 H (79.4-94.8) fl MCH 29.5 (25.6-32.2) pg MCHC 30.2 L (32.2-35.5) g/dl RDW Std Deviation 55.4 H (36.4-46.3) fL Plt Count 208 (182-369) K/mm3 MPV 11.8 (9.4-12.3) fl Neut % (Auto) (34.0-71.1) % Lymph % (Auto) (19.3-51.7) % [place] % (Auto) (4.7-12.5) % Eos % (Auto) (0.7-5.8) Baso % (Auto) (0.1-1.2) % Neut # (Auto) (1.56-6.13) K/mm3 Lymph # (Auto) (1.18-3.74) K/mm3 [place] # (Auto) (0.24-0.36) K/mm3 Eos # (Auto) (0.04-0.36) K/mm3 Baso # (Auto) (0.01-0.08) K/mm3 Neutrophils % (Manual) 80 H (40-60) % Band Neutrophils % 0 (0-10) % Lymphocytes % (Manual) 9 L (20-40) % Atypical Lymphs % 0 % Monocytes % (Manual) 11 H (2-10) % Eosinophils % (Manual) 0 L (0.7-5.8) % Basophils % (Manual) 0 L (0.1-1.2) Manual Slide Review Platelet Estimate Adequate RBC Morph Comment Normal PT (9.7-12.0) SECONDS INR APTT (21.7-31.4) SECONDS D-Dimer, Quantitative 0.21 (0.19-0.50) mg/L Puncture Site ABG pH (7.35-7.45) ABG pCO2 (35.0-45.0) mmHg ABG pO2 (80.0-100.0) mmHg ABG HCO3 (22.0-26.0) meq/L ABG O2 Saturation (96.0-97.0) % ABG Base Excess (-2-2.0) Parveen Test O2 Delivery Device FiO2 (21.00-100.00) % PEEP cmH20 Pressure Support cmH2O Sodium (136-145) mEq/L Potassium (3.5-5.1) mEq/L Chloride (98-107) mEq/L Carbon Dioxide (21-32) mEq/L Anion Gap (5-15) BUN (7-18) mg/dL Creatinine (0.55-1.02) mg/dL Est Cr Clr Drug Dosing Estimated GFR (MDRD) (>60) mL/min BUN/Creatinine Ratio (14-18) Glucose (70-99) mg/dL Lactic Acid (0.4-2.0) mmol/L Calcium (8.5-10.1) mg/dL Phosphorus (2.6-4.7) mg/dL Magnesium (1.8-2.4) mg/dL Total Bilirubin (0.2-1.0) mg/dL AST (15-37) U/L ALT (14-59) U/L Alkaline Phosphatase (46-116) U/L Troponin I (0.00-0.056) ng/mL C-Reactive Protein (<1.0) mg/dL NT-Pro-B Natriuret Pep 7137 H (0-125) pg/mL Total Protein (6.4-8.2) g/dl Albumin (3.4-5.0) g/dl Globulin gm/dL Albumin/Globulin Ratio (1-2) TSH 3rd Generation (0.358-3.74) uIU/mL Digoxin (0.9-2.0) ng/mL 10/09/21 10/09/21 10/09/21 Range/Units 13:55 13:55 13:55 WBC (3.98-10.04) K/mm3 RBC (3.98-5.22) M/mm3 Hgb (11.2-15.7) gm/dl Hct (34.1-44.9) % MCV (79.4-94.8) fl MCH (25.6-32.2) pg MCHC (32.2-35.5) g/dl RDW Std Deviation (36.4-46.3) fL Plt Count (182-369) K/mm3 MPV (9.4-12.3) fl Neut % (Auto) (34.0-71.1) % Lymph % (Auto) (19.3-51.7) % [place] % (Auto) (4.7-12.5) % Eos % (Auto) (0.7-5.8) Baso % (Auto) (0.1-1.2) % Neut # (Auto) (1.56-6.13) K/mm3 Lymph # (Auto) (1.18-3.74) K/mm3 [place] # (Auto) (0.24-0.36) K/mm3 Eos # (Auto) (0.04-0.36) K/mm3 Baso # (Auto) (0.01-0.08) K/mm3 Neutrophils % (Manual) (40-60) % Band Neutrophils % (0-10) % Lymphocytes % (Manual) (20-40) % Atypical Lymphs % % Monocytes % (Manual) (2-10) % Eosinophils % (Manual) (0.7-5.8) % Basophils % (Manual) (0.1-1.2) Manual Slide Review Platelet Estimate RBC Morph Comment PT (9.7-12.0) SECONDS INR APTT (21.7-31.4) SECONDS D-Dimer, Quantitative (0.19-0.50) mg/L Puncture Site ABG pH (7.35-7.45) ABG pCO2 (35.0-45.0) mmHg ABG pO2 (80.0-100.0) mmHg ABG HCO3 (22.0-26.0) meq/L ABG O2 Saturation (96.0-97.0) % ABG Base Excess (-2-2.0) Parveen Test O2 Delivery Device FiO2 (21.00-100.00) % PEEP cmH20 Pressure Support cmH2O Sodium 145 (136-145) mEq/L Potassium 4.0 (3.5-5.1) mEq/L Chloride 101 (98-107) mEq/L Carbon Dioxide 38 H (21-32) mEq/L Anion Gap 10.0 (5-15) BUN 56 H (7-18) mg/dL Creatinine 1.9 H (0.55-1.02) mg/dL Est Cr Clr Drug Dosing TNP Estimated GFR (MDRD) 26 (>60) mL/min BUN/Creatinine Ratio 29.5 H (14-18) Glucose 119 H (70-99) mg/dL Lactic Acid 0.9 (0.4-2.0) mmol/L Calcium 9.0 (8.5-10.1) mg/dL Phosphorus (2.6-4.7) mg/dL Magnesium (1.8-2.4) mg/dL Total Bilirubin 0.5 (0.2-1.0) mg/dL AST 25 (15-37) U/L ALT 24 (14-59) U/L Alkaline Phosphatase 132 H (46-116) U/L Troponin I < 0.017 (0.00-0.056) ng/mL C-Reactive Protein 0.9 (<1.0) mg/dL NT-Pro-B Natriuret Pep (0-125) pg/mL Total Protein 7.7 (6.4-8.2) g/dl Albumin 3.4 (3.4-5.0) g/dl Globulin 4.3 gm/dL Albumin/Globulin Ratio 0.8 L (1-2) TSH 3rd Generation (0.358-3.74) uIU/mL Digoxin (0.9-2.0) ng/mL 10/09/21 10/09/21 10/09/21 Range/Units 13:55 13:55 15:10 WBC (3.98-10.04) K/mm3 RBC (3.98-5.22) M/mm3 Hgb (11.2-15.7) gm/dl Hct (34.1-44.9) % MCV (79.4-94.8) fl MCH (25.6-32.2) pg MCHC (32.2-35.5) g/dl RDW Std Deviation (36.4-46.3) fL Plt Count (182-369) K/mm3 MPV (9.4-12.3) fl Neut % (Auto) (34.0-71.1) % Lymph % (Auto) (19.3-51.7) % [place] % (Auto) (4.7-12.5) % Eos % (Auto) (0.7-5.8) Baso % (Auto) (0.1-1.2) % Neut # (Auto) (1.56-6.13) K/mm3 Lymph # (Auto) (1.18-3.74) K/mm3 [place] # (Auto) (0.24-0.36) K/mm3 Eos # (Auto) (0.04-0.36) K/mm3 Baso # (Auto) (0.01-0.08) K/mm3 Neutrophils % (Manual) (40-60) % Band Neutrophils % (0-10) % Lymphocytes % (Manual) (20-40) % Atypical Lymphs % % Monocytes % (Manual) (2-10) % Eosinophils % (Manual) (0.7-5.8) % Basophils % (Manual) (0.1-1.2) Manual Slide Review Platelet Estimate RBC Morph Comment PT 50.8 H* D (9.7-12.0) SECONDS INR 4.86 APTT 43.4 H (21.7-31.4) SECONDS D-Dimer, Quantitative (0.19-0.50) mg/L Puncture Site Lt radial ABG pH 7.27 L (7.35-7.45) ABG pCO2 83.0 H* (35.0-45.0) mmHg ABG pO2 80.0 (80.0-100.0) mmHg ABG HCO3 36.8 H (22.0-26.0) meq/L ABG O2 Saturation 88.8 L (96.0-97.0) % ABG Base Excess 6.9 H (-2-2.0) Parveen Test Positive O2 Delivery Device Bipap FiO2 (21.00-100.00) % PEEP 6.0 cmH20 Pressure Support 12.0 cmH2O Sodium (136-145) mEq/L Potassium (3.5-5.1) mEq/L Chloride (98-107) mEq/L Carbon Dioxide (21-32) mEq/L Anion Gap (5-15) BUN (7-18) mg/dL Creatinine (0.55-1.02) mg/dL Est Cr Clr Drug Dosing Estimated GFR (MDRD) (>60) mL/min BUN/Creatinine Ratio (14-18) Glucose (70-99) mg/dL Lactic Acid (0.4-2.0) mmol/L Calcium (8.5-10.1) mg/dL Phosphorus (2.6-4.7) mg/dL Magnesium (1.8-2.4) mg/dL Total Bilirubin (0.2-1.0) mg/dL AST (15-37) U/L ALT (14-59) U/L Alkaline Phosphatase (46-116) U/L Troponin I (0.00-0.056) ng/mL C-Reactive Protein (<1.0) mg/dL NT-Pro-B Natriuret Pep (0-125) pg/mL Total Protein (6.4-8.2) g/dl Albumin (3.4-5.0) g/dl Globulin gm/dL Albumin/Globulin Ratio (1-2) TSH 3rd Generation (0.358-3.74) uIU/mL Digoxin < 0.2 L (0.9-2.0) ng/mL 10/09/21 10/09/21 10/10/21 Range/Units 16:05 18:09 06:00 WBC (3.98-10.04) K/mm3 RBC (3.98-5.22) M/mm3 Hgb (11.2-15.7) gm/dl Hct (34.1-44.9) % MCV (79.4-94.8) fl MCH (25.6-32.2) pg MCHC (32.2-35.5) g/dl RDW Std Deviation (36.4-46.3) fL Plt Count (182-369) K/mm3 MPV (9.4-12.3) fl Neut % (Auto) (34.0-71.1) % Lymph % (Auto) (19.3-51.7) % [place] % (Auto) (4.7-12.5) % Eos % (Auto) (0.7-5.8) Baso % (Auto) (0.1-1.2) % Neut # (Auto) (1.56-6.13) K/mm3 Lymph # (Auto) (1.18-3.74) K/mm3 [place] # (Auto) (0.24-0.36) K/mm3 Eos # (Auto) (0.04-0.36) K/mm3 Baso # (Auto) (0.01-0.08) K/mm3 Neutrophils % (Manual) (40-60) % Band Neutrophils % (0-10) % Lymphocytes % (Manual) (20-40) % Atypical Lymphs % % Monocytes % (Manual) (2-10) % Eosinophils % (Manual) (0.7-5.8) % Basophils % (Manual) (0.1-1.2) Manual Slide Review Platelet Estimate RBC Morph Comment PT (9.7-12.0) SECONDS INR APTT (21.7-31.4) SECONDS D-Dimer, Quantitative (0.19-0.50) mg/L Puncture Site Lt radial Lt radial Lt radial ABG pH 7.30 L 7.30 L 7.33 L (7.35-7.45) ABG pCO2 76.0 H* 76.9 H* 73.0 H* (35.0-45.0) mmHg ABG pO2 95.0 85.0 89.0 (80.0-100.0) mmHg ABG HCO3 36.5 H 36.9 H 37.2 H (22.0-26.0) meq/L ABG O2 Saturation 94.8 L 92.6 L 95.0 L (96.0-97.0) % ABG Base Excess 7.3 H 7.7 H 8.6 H (-2-2.0) Parveen Test Positive Positive Positive O2 Delivery Device Bipap Bipap FiO2 45.00 (21.00-100.00) % PEEP 8.0 8.0 10.0 cmH20 Pressure Support 18.0 18.0 22.0 cmH2O Sodium (136-145) mEq/L Potassium (3.5-5.1) mEq/L Chloride (98-107) mEq/L Carbon Dioxide (21-32) mEq/L Anion Gap (5-15) BUN (7-18) mg/dL Creatinine (0.55-1.02) mg/dL Est Cr Clr Drug Dosing Estimated GFR (MDRD) (>60) mL/min BUN/Creatinine Ratio (14-18) Glucose (70-99) mg/dL Lactic Acid (0.4-2.0) mmol/L Calcium (8.5-10.1) mg/dL Phosphorus (2.6-4.7) mg/dL Magnesium (1.8-2.4) mg/dL Total Bilirubin (0.2-1.0) mg/dL AST (15-37) U/L ALT (14-59) U/L Alkaline Phosphatase (46-116) U/L Troponin I (0.00-0.056) ng/mL C-Reactive Protein (<1.0) mg/dL NT-Pro-B Natriuret Pep (0-125) pg/mL Total Protein (6.4-8.2) g/dl Albumin (3.4-5.0) g/dl Globulin gm/dL Albumin/Globulin Ratio (1-2) TSH 3rd Generation (0.358-3.74) uIU/mL Digoxin (0.9-2.0) ng/mL 10/10/21 10/10/21 10/10/21 Range/Units 06:02 06:02 06:02 WBC 7.48 (3.98-10.04) K/mm3 RBC 4.79 (3.98-5.22) M/mm3 Hgb 14.0 (11.2-15.7) gm/dl Hct 47.4 H (34.1-44.9) % MCV 99.0 H (79.4-94.8) fl MCH 29.2 (25.6-32.2) pg MCHC 29.5 L (32.2-35.5) g/dl RDW Std Deviation 56.2 H (36.4-46.3) fL Plt Count 208 (182-369) K/mm3 MPV 11.8 (9.4-12.3) fl Neut % (Auto) 94.3 H (34.0-71.1) % Lymph % (Auto) 4.8 L (19.3-51.7) % [place] % (Auto) 0.8 L (4.7-12.5) % Eos % (Auto) 0 L (0.7-5.8) Baso % (Auto) 0.0 L (0.1-1.2) % Neut # (Auto) 7.05 H (1.56-6.13) K/mm3 Lymph # (Auto) 0.36 L (1.18-3.74) K/mm3 [place] # (Auto) 0.06 L (0.24-0.36) K/mm3 Eos # (Auto) 0.00 L (0.04-0.36) K/mm3 Baso # (Auto) 0.00 L (0.01-0.08) K/mm3 Neutrophils % (Manual) (40-60) % Band Neutrophils % (0-10) % Lymphocytes % (Manual) (20-40) % Atypical Lymphs % % Monocytes % (Manual) (2-10) % Eosinophils % (Manual) (0.7-5.8) % Basophils % (Manual) (0.1-1.2) Manual Slide Review Normal smear Platelet Estimate RBC Morph Comment PT 49.5 H (9.7-12.0) SECONDS INR 4.73 APTT (21.7-31.4) SECONDS D-Dimer, Quantitative (0.19-0.50) mg/L Puncture Site ABG pH (7.35-7.45) ABG pCO2 (35.0-45.0) mmHg ABG pO2 (80.0-100.0) mmHg ABG HCO3 (22.0-26.0) meq/L ABG O2 Saturation (96.0-97.0) % ABG Base Excess (-2-2.0) Parveen Test O2 Delivery Device FiO2 (21.00-100.00) % PEEP cmH20 Pressure Support cmH2O Sodium 148 H (136-145) mEq/L Potassium 4.4 (3.5-5.1) mEq/L Chloride 105 (98-107) mEq/L Carbon Dioxide 37 H (21-32) mEq/L Anion Gap 10.4 (5-15) BUN 54 H (7-18) mg/dL Creatinine 1.7 H (0.55-1.02) mg/dL Est Cr Clr Drug Dosing 24.54 Estimated GFR (MDRD) 29 (>60) mL/min BUN/Creatinine Ratio 31.8 H (14-18) Glucose 108 H (70-99) mg/dL Lactic Acid (0.4-2.0) mmol/L Calcium 8.6 (8.5-10.1) mg/dL Phosphorus 5.5 H (2.6-4.7) mg/dL Magnesium 2.1 (1.8-2.4) mg/dL Total Bilirubin 0.5 (0.2-1.0) mg/dL AST 24 (15-37) U/L ALT 19 (14-59) U/L Alkaline Phosphatase 120 H (46-116) U/L Troponin I (0.00-0.056) ng/mL C-Reactive Protein (<1.0) mg/dL NT-Pro-B Natriuret Pep (0-125) pg/mL Total Protein 6.8 (6.4-8.2) g/dl Albumin 2.9 L (3.4-5.0) g/dl Globulin 3.9 gm/dL Albumin/Globulin Ratio 0.7 L (1-2) TSH 3rd Generation 1.580 (0.358-3.74) uIU/mL Digoxin (0.9-2.0) ng/mL Med Orders - Current: Current Medications Acetaminophen (Acetaminophen 325 Mg Tab) 650 mg PO Q4H PRN PRN Reason: Pain (Mild 1-3)/fever Albuterol (Albuterol 0.083% 2.5 Mg/3 Ml Neb Soln) 2.5 mg NEB Q2H PRN PRN Reason: Shortness Of Breath/wheezing Albuterol/Ipratropium (Albuterol/Ipratropium 3.0-0.5 Mg/3 Ml Neb Soln) 3 ml NEB Q4H PRN PRN Reason: Shortness Of Breath/wheezing Last Admin: 10/10/21 09:29 Dose: 3 ml Documented by: Allopurinol (Allopurinol 100 Mg Tab) 100 mg PO BID [facility] Last Admin: 10/10/21 08:51 Dose: 100 mg Documented by: Cholecalciferol (Cholecalciferol (Vitamin D3) 25 Mcg Tab) 25 mcg PO DAILY [facility] Last Admin: 10/10/21 08:51 Dose: 25 mcg Documented by: Dorzolamide HCl (Dorzolamide 2% Ophth Soln 10 Ml Bottle) 0 ml EYEBOTH BID [facility] Last Admin: 10/10/21 09:58 Dose: 1 drop Documented by: Furosemide (Furosemide 40 Mg/4 Ml Vial) 60 mg IVPUSH BID [facility] Last Admin: 10/10/21 08:51 Dose: 60 mg Documented by: Levothyroxine Sodium (Levothyroxine 25 Mcg Tab) 25 mcg PO ACBREAKFAST [facility] Last Admin: 10/10/21 06:16 Dose: 25 mcg Documented by: Metoprolol Tartrate (Metoprolol Tartrate 25 Mg Tab) 25 mg PO BID [facility] Last Admin: 10/10/21 10:24 Dose: 25 mg Documented by: Nystatin (Nystatin Topical Powder 15 Gm Bottle) 0 gm TOP TID [facility] Last Admin: 10/10/21 09:59 Dose: 1 gm Documented by: Ondansetron HCl (Ondansetron 4 Mg/2 Ml Sdv) 4 mg IV Q6H PRN PRN Reason: Nausea/Vomiting Rosuvastatin Calcium (Rosuvastatin 10 Mg Tab) 20 mg PO DAILY [facility] Last Admin: 10/10/21 08:51 Dose: 20 mg Documented by: Sertraline HCl (Sertraline 50 Mg Tab) 100 mg PO 0800,1200 [facility] Last Admin: 10/10/21 12:54 Dose: 100 mg Documented by: Sodium Chloride (Sodium Chloride 0.9% 10 Ml Syringe) 10 ml FLUSH ASDIRECTED PRN PRN Reason: Keep Vein Open Last Admin: 10/09/21 13:36 Dose: 10 ml Documented by: Spironolactone (Spironolactone 100 Mg Tab) 100 mg PO DAILY [facility] Last Admin: 10/10/21 08:51 Dose: 100 mg Documented by: Sucralfate (Sucralfate 1 Gm Tab) 1 gm PO TID PRN PRN Reason: Dyspepsia Last Admin: 10/09/21 22:28 Dose: 1 gm Documented by: Discontinued Medications Albuterol/Ipratropium (Albuterol/Ipratropium 3.0-0.5 Mg/3 Ml Neb Soln) 3 ml NEB ONETIME ONE Stop: 10/09/21 12:54 Last Admin: 10/09/21 13:16 Dose: 3 ml Documented by: Albuterol/Ipratropium (Albuterol/Ipratropium 3.0-0.5 Mg/3 Ml Neb Soln) 3 ml NEB ONETIME ONE Stop: 10/09/21 18:49 Last Admin: 10/09/21 18:59 Dose: 3 ml Documented by: Furosemide (Furosemide 20 Mg/2 Ml Vial) 40 mg IVPUSH ONETIME ONE Stop: 10/09/21 13:59 Last Admin: 10/09/21 14:43 Dose: 40 mg Documented by: Methylprednisolone Sodium Succinate (Methylprednisolone Sodium Succinate 125 Mg/2 Ml Sdv) 125 mg IVPUSH ONETIME ONE Stop: 10/09/21 18:49 Last Admin: 10/09/21 19:21 Dose: 125 mg Documented by: Nystatin (Nystatin Topical Powder 15 Gm Bottle) 0 gm TOP NOW ONE Stop: 10/09/21 18:17 Last Admin: 10/09/21 22:20 Dose: Not Given Documented by: - Exam Urinary Catheter Total Time: 0Days 19Hours General: Alert, Oriented HEENT: Pupils Equal, Mucous Membr. Moist/[place] Neck: Supple Lungs: Normal Respiratory Effort, Rales (Bibasilar) Cardiovascular: Regular Rate, Regular Rhythm GI/Abdominal Exam: Normal Bowel Sounds, Soft, Non-Tender, No Distention Extremities: Normal Inspection, Pedal Edema (2+) Skin: Warm, Dry, Intact Psy/Mental Status: Alert, Normal Affect, Normal Mood - Patient Data Lab Results Last 24 hrs: Laboratory Results - last 24 hr 10/09/21 10/09/21 10/09/21 Range/Units 13:55 13:55 13:55 WBC 12.17 H (3.98-10.04) K/mm3 RBC 4.85 (3.98-5.22) M/mm3 Hgb 14.3 (11.2-15.7) gm/dl Hct 47.3 H (34.1-44.9) % MCV 97.5 H (79.4-94.8) fl MCH 29.5 (25.6-32.2) pg MCHC 30.2 L (32.2-35.5) g/dl RDW Std Deviation 55.4 H (36.4-46.3) fL Plt Count 208 (182-369) K/mm3 MPV 11.8 (9.4-12.3) fl Neut % (Auto) (34.0-71.1) % Lymph % (Auto) (19.3-51.7) % [place] % (Auto) (4.7-12.5) % Eos % (Auto) (0.7-5.8) Baso % (Auto) (0.1-1.2) % Neut # (Auto) (1.56-6.13) K/mm3 Lymph # (Auto) (1.18-3.74) K/mm3 [place] # (Auto) (0.24-0.36) K/mm3 Eos # (Auto) (0.04-0.36) K/mm3 Baso # (Auto) (0.01-0.08) K/mm3 Neutrophils % (Manual) 80 H (40-60) % Band Neutrophils % 0 (0-10) % Lymphocytes % (Manual) 9 L (20-40) % Atypical Lymphs % 0 % Monocytes % (Manual) 11 H (2-10) % Eosinophils % (Manual) 0 L (0.7-5.8) % Basophils % (Manual) 0 L (0.1-1.2) Manual Slide Review Platelet Estimate Adequate RBC Morph Comment Normal PT (9.7-12.0) SECONDS INR APTT (21.7-31.4) SECONDS D-Dimer, Quantitative 0.21 (0.19-0.50) mg/L Puncture Site ABG pH (7.35-7.45) ABG pCO2 (35.0-45.0) mmHg ABG pO2 (80.0-100.0) mmHg ABG HCO3 (22.0-26.0) meq/L ABG O2 Saturation (96.0-97.0) % ABG Base Excess (-2-2.0) Parveen Test O2 Delivery Device FiO2 (21.00-100.00) % PEEP cmH20 Pressure Support cmH2O Sodium (136-145) mEq/L Potassium (3.5-5.1) mEq/L Chloride (98-107) mEq/L Carbon Dioxide (21-32) mEq/L Anion Gap (5-15) BUN (7-18) mg/dL Creatinine (0.55-1.02) mg/dL Est Cr Clr Drug Dosing Estimated GFR (MDRD) (>60) mL/min BUN/Creatinine Ratio (14-18) Glucose (70-99) mg/dL Lactic Acid (0.4-2.0) mmol/L Calcium (8.5-10.1) mg/dL Phosphorus (2.6-4.7) mg/dL Magnesium (1.8-2.4) mg/dL Total Bilirubin (0.2-1.0) mg/dL AST (15-37) U/L ALT (14-59) U/L Alkaline Phosphatase (46-116) U/L Troponin I (0.00-0.056) ng/mL C-Reactive Protein (<1.0) mg/dL NT-Pro-B Natriuret Pep 7137 H (0-125) pg/mL Total Protein (6.4-8.2) g/dl Albumin (3.4-5.0) g/dl Globulin gm/dL Albumin/Globulin Ratio (1-2) TSH 3rd Generation (0.358-3.74) uIU/mL Digoxin (0.9-2.0) ng/mL 10/09/21 10/09/21 10/09/21 Range/Units 13:55 13:55 13:55 WBC (3.98-10.04) K/mm3 RBC (3.98-5.22) M/mm3 Hgb (11.2-15.7) gm/dl Hct (34.1-44.9) % MCV (79.4-94.8) fl MCH (25.6-32.2) pg MCHC (32.2-35.5) g/dl RDW Std Deviation (36.4-46.3) fL Plt Count (182-369) K/mm3 MPV (9.4-12.3) fl Neut % (Auto) (34.0-71.1) % Lymph % (Auto) (19.3-51.7) % [place] % (Auto) (4.7-12.5) % Eos % (Auto) (0.7-5.8) Baso % (Auto) (0.1-1.2) % Neut # (Auto) (1.56-6.13) K/mm3 Lymph # (Auto) (1.18-3.74) K/mm3 [place] # (Auto) (0.24-0.36) K/mm3 Eos # (Auto) (0.04-0.36) K/mm3 Baso # (Auto) (0.01-0.08) K/mm3 Neutrophils % (Manual) (40-60) % Band Neutrophils % (0-10) % Lymphocytes % (Manual) (20-40) % Atypical Lymphs % % Monocytes % (Manual) (2-10) % Eosinophils % (Manual) (0.7-5.8) % Basophils % (Manual) (0.1-1.2) Manual Slide Review Platelet Estimate RBC Morph Comment PT (9.7-12.0) SECONDS INR APTT (21.7-31.4) SECONDS D-Dimer, Quantitative (0.19-0.50) mg/L Puncture Site ABG pH (7.35-7.45) ABG pCO2 (35.0-45.0) mmHg ABG pO2 (80.0-100.0) mmHg ABG HCO3 (22.0-26.0) meq/L ABG O2 Saturation (96.0-97.0) % ABG Base Excess (-2-2.0) Parveen Test O2 Delivery Device FiO2 (21.00-100.00) % PEEP cmH20 Pressure Support cmH2O Sodium 145 (136-145) mEq/L Potassium 4.0 (3.5-5.1) mEq/L Chloride 101 (98-107) mEq/L Carbon Dioxide 38 H (21-32) mEq/L Anion Gap 10.0 (5-15) BUN 56 H (7-18) mg/dL Creatinine 1.9 H (0.55-1.02) mg/dL Est Cr Clr Drug Dosing TNP Estimated GFR (MDRD) 26 (>60) mL/min BUN/Creatinine Ratio 29.5 H (14-18) Glucose 119 H (70-99) mg/dL Lactic Acid 0.9 (0.4-2.0) mmol/L Calcium 9.0 (8.5-10.1) mg/dL Phosphorus (2.6-4.7) mg/dL Magnesium (1.8-2.4) mg/dL Total Bilirubin 0.5 (0.2-1.0) mg/dL AST 25 (15-37) U/L ALT 24 (14-59) U/L Alkaline Phosphatase 132 H (46-116) U/L Troponin I < 0.017 (0.00-0.056) ng/mL C-Reactive Protein 0.9 (<1.0) mg/dL NT-Pro-B Natriuret Pep (0-125) pg/mL Total Protein 7.7 (6.4-8.2) g/dl Albumin 3.4 (3.4-5.0) g/dl Globulin 4.3 gm/dL Albumin/Globulin Ratio 0.8 L (1-2) TSH 3rd Generation (0.358-3.74) uIU/mL Digoxin (0.9-2.0) ng/mL 10/09/21 10/09/21 10/09/21 Range/Units 13:55 13:55 15:10 WBC (3.98-10.04) K/mm3 RBC (3.98-5.22) M/mm3 Hgb (11.2-15.7) gm/dl Hct (34.1-44.9) % MCV (79.4-94.8) fl MCH (25.6-32.2) pg MCHC (32.2-35.5) g/dl RDW Std Deviation (36.4-46.3) fL Plt Count (182-369) K/mm3 MPV (9.4-12.3) fl Neut % (Auto) (34.0-71.1) % Lymph % (Auto) (19.3-51.7) % [place] % (Auto) (4.7-12.5) % Eos % (Auto) (0.7-5.8) Baso % (Auto) (0.1-1.2) % Neut # (Auto) (1.56-6.13) K/mm3 Lymph # (Auto) (1.18-3.74) K/mm3 [place] # (Auto) (0.24-0.36) K/mm3 Eos # (Auto) (0.04-0.36) K/mm3 Baso # (Auto) (0.01-0.08) K/mm3 Neutrophils % (Manual) (40-60) % Band Neutrophils % (0-10) % Lymphocytes % (Manual) (20-40) % Atypical Lymphs % % Monocytes % (Manual) (2-10) % Eosinophils % (Manual) (0.7-5.8) % Basophils % (Manual) (0.1-1.2) Manual Slide Review Platelet Estimate RBC Morph Comment PT 50.8 H* D (9.7-12.0) SECONDS INR 4.86 APTT 43.4 H (21.7-31.4) SECONDS D-Dimer, Quantitative (0.19-0.50) mg/L Puncture Site Lt radial ABG pH 7.27 L (7.35-7.45) ABG pCO2 83.0 H* (35.0-45.0) mmHg ABG pO2 80.0 (80.0-100.0) mmHg ABG HCO3 36.8 H (22.0-26.0) meq/L ABG O2 Saturation 88.8 L (96.0-97.0) % ABG Base Excess 6.9 H (-2-2.0) Parveen Test Positive O2 Delivery Device Bipap FiO2 (21.00-100.00) % PEEP 6.0 cmH20 Pressure Support 12.0 cmH2O Sodium (136-145) mEq/L Potassium (3.5-5.1) mEq/L Chloride (98-107) mEq/L Carbon Dioxide (21-32) mEq/L Anion Gap (5-15) BUN (7-18) mg/dL Creatinine (0.55-1.02) mg/dL Est Cr Clr Drug Dosing Estimated GFR (MDRD) (>60) mL/min BUN/Creatinine Ratio (14-18) Glucose (70-99) mg/dL Lactic Acid (0.4-2.0) mmol/L Calcium (8.5-10.1) mg/dL Phosphorus (2.6-4.7) mg/dL Magnesium (1.8-2.4) mg/dL Total Bilirubin (0.2-1.0) mg/dL AST (15-37) U/L ALT (14-59) U/L Alkaline Phosphatase (46-116) U/L Troponin I (0.00-0.056) ng/mL C-Reactive Protein (<1.0) mg/dL NT-Pro-B Natriuret Pep (0-125) pg/mL Total Protein (6.4-8.2) g/dl Albumin (3.4-5.0) g/dl Globulin gm/dL Albumin/Globulin Ratio (1-2) TSH 3rd Generation (0.358-3.74) uIU/mL Digoxin < 0.2 L (0.9-2.0) ng/mL 10/09/21 10/09/21 10/10/21 Range/Units 16:05 18:09 06:00 WBC (3.98-10.04) K/mm3 RBC (3.98-5.22) M/mm3 Hgb (11.2-15.7) gm/dl Hct (34.1-44.9) % MCV (79.4-94.8) fl MCH (25.6-32.2) pg MCHC (32.2-35.5) g/dl RDW Std Deviation (36.4-46.3) fL Plt Count (182-369) K/mm3 MPV (9.4-12.3) fl Neut % (Auto) (34.0-71.1) % Lymph % (Auto) (19.3-51.7) % [place] % (Auto) (4.7-12.5) % Eos % (Auto) (0.7-5.8) Baso % (Auto) (0.1-1.2) % Neut # (Auto) (1.56-6.13) K/mm3 Lymph # (Auto) (1.18-3.74) K/mm3 [place] # (Auto) (0.24-0.36) K/mm3 Eos # (Auto) (0.04-0.36) K/mm3 Baso # (Auto) (0.01-0.08) K/mm3 Neutrophils % (Manual) (40-60) % Band Neutrophils % (0-10) % Lymphocytes % (Manual) (20-40) % Atypical Lymphs % % Monocytes % (Manual) (2-10) % Eosinophils % (Manual) (0.7-5.8) % Basophils % (Manual) (0.1-1.2) Manual Slide Review Platelet Estimate RBC Morph Comment PT (9.7-12.0) SECONDS INR APTT (21.7-31.4) SECONDS D-Dimer, Quantitative (0.19-0.50) mg/L Puncture Site Lt radial Lt radial Lt radial ABG pH 7.30 L 7.30 L 7.33 L (7.35-7.45) ABG pCO2 76.0 H* 76.9 H* 73.0 H* (35.0-45.0) mmHg ABG pO2 95.0 85.0 89.0 (80.0-100.0) mmHg ABG HCO3 36.5 H 36.9 H 37.2 H (22.0-26.0) meq/L ABG O2 Saturation 94.8 L 92.6 L 95.0 L (96.0-97.0) % ABG Base Excess 7.3 H 7.7 H 8.6 H (-2-2.0) Parveen Test Positive Positive Positive O2 Delivery Device Bipap Bipap FiO2 45.00 (21.00-100.00) % PEEP 8.0 8.0 10.0 cmH20 Pressure Support 18.0 18.0 22.0 cmH2O Sodium (136-145) mEq/L Potassium (3.5-5.1) mEq/L Chloride (98-107) mEq/L Carbon Dioxide (21-32) mEq/L Anion Gap (5-15) BUN (7-18) mg/dL Creatinine (0.55-1.02) mg/dL Est Cr Clr Drug Dosing Estimated GFR (MDRD) (>60) mL/min BUN/Creatinine Ratio (14-18) Glucose (70-99) mg/dL Lactic Acid (0.4-2.0) mmol/L Calcium (8.5-10.1) mg/dL Phosphorus (2.6-4.7) mg/dL Magnesium (1.8-2.4) mg/dL Total Bilirubin (0.2-1.0) mg/dL AST (15-37) U/L ALT (14-59) U/L Alkaline Phosphatase (46-116) U/L Troponin I (0.00-0.056) ng/mL C-Reactive Protein (<1.0) mg/dL NT-Pro-B Natriuret Pep (0-125) pg/mL Total Protein (6.4-8.2) g/dl Albumin (3.4-5.0) g/dl Globulin gm/dL Albumin/Globulin Ratio (1-2) TSH 3rd Generation (0.358-3.74) uIU/mL Digoxin (0.9-2.0) ng/mL 10/10/21 10/10/21 10/10/21 Range/Units 06:02 06:02 06:02 WBC 7.48 (3.98-10.04) K/mm3 RBC 4.79 (3.98-5.22) M/mm3 Hgb 14.0 (11.2-15.7) gm/dl Hct 47.4 H (34.1-44.9) % MCV 99.0 H (79.4-94.8) fl MCH 29.2 (25.6-32.2) pg MCHC 29.5 L (32.2-35.5) g/dl RDW Std Deviation 56.2 H (36.4-46.3) fL Plt Count 208 (182-369) K/mm3 MPV 11.8 (9.4-12.3) fl Neut % (Auto) 94.3 H (34.0-71.1) % Lymph % (Auto) 4.8 L (19.3-51.7) % [place] % (Auto) 0.8 L (4.7-12.5) % Eos % (Auto) 0 L (0.7-5.8) Baso % (Auto) 0.0 L (0.1-1.2) % Neut # (Auto) 7.05 H (1.56-6.13) K/mm3 Lymph # (Auto) 0.36 L (1.18-3.74) K/mm3 [place] # (Auto) 0.06 L (0.24-0.36) K/mm3 Eos # (Auto) 0.00 L (0.04-0.36) K/mm3 Baso # (Auto) 0.00 L (0.01-0.08) K/mm3 Neutrophils % (Manual) (40-60) % Band Neutrophils % (0-10) % Lymphocytes % (Manual) (20-40) % Atypical Lymphs % % Monocytes % (Manual) (2-10) % Eosinophils % (Manual) (0.7-5.8) % Basophils % (Manual) (0.1-1.2) Manual Slide Review Normal smear Platelet Estimate RBC Morph Comment PT 49.5 H (9.7-12.0) SECONDS INR 4.73 APTT (21.7-31.4) SECONDS D-Dimer, Quantitative (0.19-0.50) mg/L Puncture Site ABG pH (7.35-7.45) ABG pCO2 (35.0-45.0) mmHg ABG pO2 (80.0-100.0) mmHg ABG HCO3 (22.0-26.0) meq/L ABG O2 Saturation (96.0-97.0) % ABG Base Excess (-2-2.0) Parveen Test O2 Delivery Device FiO2 (21.00-100.00) % PEEP cmH20 Pressure Support cmH2O Sodium 148 H (136-145) mEq/L Potassium 4.4 (3.5-5.1) mEq/L Chloride 105 (98-107) mEq/L Carbon Dioxide 37 H (21-32) mEq/L Anion Gap 10.4 (5-15) BUN 54 H (7-18) mg/dL Creatinine 1.7 H (0.55-1.02) mg/dL Est Cr Clr Drug Dosing 24.54 Estimated GFR (MDRD) 29 (>60) mL/min BUN/Creatinine Ratio 31.8 H (14-18) Glucose 108 H (70-99) mg/dL Lactic Acid (0.4-2.0) mmol/L Calcium 8.6 (8.5-10.1) mg/dL Phosphorus 5.5 H (2.6-4.7) mg/dL Magnesium 2.1 (1.8-2.4) mg/dL Total Bilirubin 0.5 (0.2-1.0) mg/dL AST 24 (15-37) U/L ALT 19 (14-59) U/L Alkaline Phosphatase 120 H (46-116) U/L Troponin I (0.00-0.056) ng/mL C-Reactive Protein (<1.0) mg/dL NT-Pro-B Natriuret Pep (0-125) pg/mL Total Protein 6.8 (6.4-8.2) g/dl Albumin 2.9 L (3.4-5.0) g/dl Globulin 3.9 gm/dL Albumin/Globulin Ratio 0.7 L (1-2) TSH 3rd Generation 1.580 (0.358-3.74) uIU/mL Digoxin (0.9-2.0) ng/mL Result Diagrams: 10/10/21 06:02 10/10/21 06:02 Sepsis Event Note - Evaluation Sepsis Screening Result: No Definite Risk - Focused Exam Vital Signs: Vital Signs Temp Pulse Resp BP BP Pulse Ox Pulse Ox 10/10/21 12:00 96.3 F L 116 H 22 H 96/61 97 10/10/21 11:24 10/10/21 10:24 124 H 157/113 H 10/10/21 05:42 97 10/10/21 04:00 96.8 F L 85 20 114/46 L 97 Pulse Ox 10/10/21 12:00 10/10/21 11:24 96 10/10/21 10:24 10/10/21 05:42 10/10/21 04:00 - Problem List & Annotations (1) Congestive heart failure SNOMED Code(s): 50876419 Code(s): I50.9 - HEART FAILURE, UNSPECIFIED Status: Acute Current Visit: Yes Qualifiers: Heart failure type: combined systolic and diastolic Heart failure chronicity: acute on chronic Qualified Code(s): I50.43 - Acute on chronic combined systolic (congestive) and diastolic (congestive) heart failure (2) Hypoxia SNOMED Code(s): 117123973 Code(s): R09.02 - HYPOXEMIA Status: Acute Current Visit: Yes (3) Hypoventilation associated with obesity syndrome SNOMED Code(s): 436738991 Code(s): E66.2 - MORBID (SEVERE) OBESITY WITH ALVEOLAR HYPOVENTILATION Status: Chronic Current Visit: Yes (4) Atrial fibrillation with RVR SNOMED Code(s): 031442376959041 Code(s): I48.91 - UNSPECIFIED ATRIAL FIBRILLATION Status: Acute Current Visit: No (5) DM2 (diabetes mellitus, type 2) SNOMED Code(s): 42978752 Code(s): E11.9 - TYPE 2 DIABETES MELLITUS WITHOUT COMPLICATIONS Status: Acute Current Visit: No Qualifiers: Diabetes mellitus senior care insulin use: without laborer marine terminal use Diabetes mellitus complication status: without complication Qualified Code(s): E11.9 - Type 2 diabetes mellitus without complications (6) Elevated INR SNOMED Code(s): 466153677 Code(s): R79.1 - ABNORMAL COAGULATION PROFILE Status: Acute Current Visit: Yes (7) Respiratory failure with hypoxia and hypercapnia SNOMED Code(s): 63133804 Code(s): J96.91 - RESPIRATORY FAILURE, UNSPECIFIED WITH HYPOXIA; J96.92 - RESPIRATORY FAILURE, UNSPECIFIED WITH HYPERCAPNIA Status: Acute Current Visit: Yes - Problem List Review Problem List Initiated/Reviewed/Updated: Yes - My Orders Last 24 Hours: My Active Orders 10/09/21 20:46 Oxygen Therapy [RC] PRN Up With Assistance [RC] BID VTE/DVT Education [RC] BID Respiratory Care Assess and Treatment [CONS] Routine Acetaminophen [TylenoL] 650 mg PO Q4H PRN Albuterol [Proventil Neb Soln] 2.5 mg NEB Q2H PRN Albuterol/Ipratropium [DuoNeb 3.0-0.5 MG/3 ML] 3 ml NEB Q4H PRN Ondansetron [Zofran] 4 mg IV Q6H PRN Resuscitation Status Routine 10/09/21 20:47 Sequential Compression Device [OM.PC] Per Unit Routine 10/09/21 20:48 RT Aerosol Therapy [RC] ASDIRECTED 10/09/21 20:54 Sucralfate [Carafate] 1 gm PO TID PRN 10/09/21 21:00 Dorzolamide [Trusopt 2% Ophth Soln] 0 ml EYEBOTH BID Furosemide [Lasix] 60 mg IVPUSH BID allopurinoL [Zyloprim] 100 mg PO BID 10/09/21 21:09 PROCALCITONIN [REF] Routine 10/10/21 06:00 Levothyroxine 25 mcg PO ACBREAKFAST 10/10/21 Breakfast Consistent Carbohydrate Diet [DIET] Fluid Restriction [DIET] Echo Comp wo Cont [US] Routine 10/10/21 08:00 Sertraline [Zoloft] 100 mg PO 0800,1200 10/10/21 09:00 Cholecalciferol (Vitamin D3) [Vitamin D3] 25 mcg PO DAILY Nystatin [Nystop] See Dose Instructions TOP TID Rosuvastatin [Crestor] 20 mg PO DAILY Spironolactone [Aldactone] 100 mg PO DAILY 10/10/21 10:00 Metoprolol Tartrate [Lopressor] 25 mg PO BID 10/11/21 05:11 CBC WITH AUTO DIFF [HEME] AM CMP [COMPREHENSIVE METABOLIC PN,CMP] [CHEM] AM INR,PT,PROTHROMBIN TIME [COAG] AM MAGNESIUM [CHEM] AM 10/12/21 05:11 INR,PT,PROTHROMBIN TIME [COAG] AM 10/13/21 05:11 INR,PT,PROTHROMBIN TIME [COAG] AM 10/14/21 05:11 INR,PT,PROTHROMBIN TIME [COAG] AM 10/15/21 05:11 INR,PT,PROTHROMBIN TIME [COAG] AM - Plan Plan:: 76-year-old female with history of atrial fibrillation, congestive heart failure, diabetes, morbid obesity, cor pulmonale, severe pulmonary artery systolic hypertension presents to the emergency department with hypercapnic, hypoxemic respiratory failure secondary to exacerbation of CHF. Exacerbation CHF Hypercapnic, hypoxemic respiratory failure History of cor pulmonale * Echocardiogram from October 2020 showed a left ejection fraction of 50 to 55%. Normal right ventricular systolic function. Right ventricular systolic pressure is moderately elevated at 49.5 mmHg PFO or small ASD is present with left to right shunt. Severe biatrial dilatation * Chest x-ray shows mild CHF * proBNP 7137 * Initial pH 7.27 with PCO2 of 83 * Currently on BiPAP with an improving pH and PCO2 * Patient had some altered mental status and a CT scan was negative * Improved altered mental status with improving PCO2. * Home diuretics include torsemide 20 mg daily and spironolactone 100 mg daily Atrial fibrillation Elevated INR * INR 4.86 * Metoprolol 25 mg twice daily for rate control * Warfarin 5 mg take as directed Acute on chronic renal sufficiency * Baseline creatinine of 1.4 creatinine 1.9, BUN 56 * Estimated GFR of 26 * Patient does not appear to be on an KATHY or an ARB Diabetes * Home medications include sitagliptin * Unknown hemoglobin A1c Hypothyroidism * Unknown TSH * Levothyroxine 25 mcg daily Gout * Allopurinol 100 mg twice daily 10/10/2021 Patient has had significant improvement overnight. She has decreased PCO2 and improved oxygenation. Echocardiogram is pending for this morning. patient does have some hypernatremia with sodium of 148. This suggests that she is having some volume contraction. Creatinine actually improved and went down to 1.7 with estimated GFR of 29. TSH was 1.58. INR today is 4.73 and warfarin is still being held. Restart metoprolol for blood pressure and rate control. Plan * Admit to ICU * Echocardiogram * Strict I's and O's and daily weights * 1500 mL fluid restriction * Adjust BiPAP to improve oxygenation and lower carbon dioxide. * Lasix 60 mg every 12 hours * Restart metoprolol hold metoprolol until at least tomorrow * Hemoglobin A1c * Sliding-scale insulin and blood sugars before every meal/nightly * Hold warfarin and follow INR, pharmacy to follow. * Follow renal function closely * VTE prophylaxis: Patient has elevated INR and will also use SCDs * CODE STATUS: DNR/DNI
[2021-10-10] MEDS ORDERED: Furosemide 40 MG/4 ML VIAL IVPUSH ONE (16:00)
[2021-10-10] MEDS ORDERED: Furosemide 100 MG in Sodium Chloride 0.9% 90 ML IV SCH (16:00)
[2021-10-10] MEDS ORDERED: Sodium Chloride 0.9% 500 ML ONE (16:13)
[2021-10-11] MEDS: Levothyroxine 25 MCG Tab PO SCH (06:21)
[2021-10-11 08:00] LABS: HEMOGLOBIN A1C 6.8 %
[2021-10-11] MEDS: Albuterol/Ipratropium 3.0-0.5 MG/3 ML Neb Soln NEB PRN (08:41)
[2021-10-11] MEDS: Metoprolol Tartrate 25 MG Tab PO SCH ×2 (09:06→20:19)
[2021-10-11] MEDS: Rosuvastatin 10 MG Tab PO SCH (09:06)
[2021-10-11] MEDS: Spironolactone 100 MG Tab PO SCH (09:06)
[2021-10-11] MEDS: Nystatin Topical Powder 15 GM Bottle TOP SCH ×3 (09:07→20:20)
[2021-10-11] MEDS: Cholecalciferol (Vitamin D3) 25 MCG Tab PO SCH (09:07)
[2021-10-11] MEDS: Dorzolamide 2% Ophth Soln 10 ML Bottle EYEBOTH SCH ×2 (09:07→20:21)
[2021-10-11] MEDS: Allopurinol 100 MG Tab PO SCH ×2 (09:07→20:20)
[2021-10-11] MEDS: Sertraline 50 MG Tab PO SCH ×2 (09:07→11:53)
--- NOTE | 2021-10-11 13:07 | PCM.PN ---
- General Info Date of Service: 10/11/21 Admission Dx/Problem (Free Text): Admission Diagnosis/Problem Admission Diagnosis/Problem CHF, Congestive heart failure Subjective Update: Patient has had decrease in urine output and bloody urine. Last night we stopped her Lasix secondary to worsening urine output and concerns about her being overly diuresed. Patient's continues to be fatigued and tired. She is not using her BiPAP consistently. Functional Status: Reports: Pain Controlled - Review of Systems General: Reports: Fatigue HEENT: Reports: No Symptoms Pulmonary: Reports: No Symptoms Cardiovascular: Reports: No Symptoms Gastrointestinal: Reports: No Symptoms Musculoskeletal: Reports: No Symptoms - Patient Data Vitals - Most Recent: Last Vital Signs Temp 97 F 10/11/21 12:00 Pulse 120 H 10/11/21 09:06 Resp 21 H 10/11/21 12:00 BP 87/65 L 10/11/21 12:00 Pulse Ox 93 L 10/11/21 12:00 Weight - Most Recent: 333 lb I&O - Last 24 Hours: Intake & Output 10/10/21 10/11/21 10/11/21 22:59 06:59 14:59 Intake Total 200 652 Output Total 335 5 120 Balance -135 647 -120 Lab Results Last 24 Hours: Laboratory Results - last 24 hr 10/10/21 10/11/21 10/11/21 Range/Units 06:02 00:30 07:23 WBC (3.98-10.04) K/mm3 RBC (3.98-5.22) M/mm3 Hgb (11.2-15.7) gm/dl Hct (34.1-44.9) % MCV (79.4-94.8) fl MCH (25.6-32.2) pg MCHC (32.2-35.5) g/dl RDW Std Deviation (36.4-46.3) fL Plt Count (182-369) K/mm3 MPV (9.4-12.3) fl Neut % (Auto) (34.0-71.1) % Lymph % (Auto) (19.3-51.7) % [place] % (Auto) (4.7-12.5) % Eos % (Auto) (0.7-5.8) Baso % (Auto) (0.1-1.2) % Neut # (Auto) (1.56-6.13) K/mm3 Lymph # (Auto) (1.18-3.74) K/mm3 [place] # (Auto) (0.24-0.36) K/mm3 Eos # (Auto) (0.04-0.36) K/mm3 Baso # (Auto) (0.01-0.08) K/mm3 Manual Slide Review PT 45.7 H (9.7-12.0) SECONDS INR 4.36 VBG pH (7.30-7.40) VBG pCO2 (41-51) mmHg VBG pO2 (40-80) mmHG VBG HCO3 (22-26) meq/L VBG O2 Saturation VBG Base Excess (-4.0-2.0) O2 Delivery Device Oxygen Flow Rate Sodium 149 H (136-145) mEq/L Potassium 4.1 (3.5-5.1) mEq/L Chloride 107 (98-107) mEq/L Carbon Dioxide 37 H (21-32) mEq/L Anion Gap 9.1 (5-15) BUN 62 H (7-18) mg/dL Creatinine 1.8 H (0.55-1.02) mg/dL Est Cr Clr Drug Dosing 23.18 mL/min Estimated GFR (MDRD) 28 (>60) mL/min BUN/Creatinine Ratio 34.4 H (14-18) Glucose 114 H (70-99) mg/dL Hemoglobin A1c ( - 5.6) % Calcium 8.5 (8.5-10.1) mg/dL Magnesium (1.8-2.4) mg/dL Total Bilirubin (0.2-1.0) mg/dL AST (15-37) U/L ALT (14-59) U/L Alkaline Phosphatase (46-116) U/L Total Protein (6.4-8.2) g/dl Albumin (3.4-5.0) g/dl Globulin gm/dL Albumin/Globulin Ratio (1-2) Procalcitonin 0.07 ng/mL Urine Color (Yellow) Urine Appearance (Clear) Urine pH (5.0-8.0) Ur Specific [place] (1.005-1.030) Urine Protein (Negative) Urine Glucose (UA) (Negative) Urine Ketones (Negative) Urine Occult Blood (Negative) Urine Nitrite (Negative) Urine Bilirubin (Negative) Urine Urobilinogen (0.2-1.0) Ur Leukocyte Esterase (Negative) Urine RBC (0-5) /hpf Urine WBC (0-5) /hpf Urine WBC Clumps (NOT SEEN) /hpf Ur Epithelial Cells (0-5) /hpf Amorphous Sediment (NOT SEEN) /hpf Urine Bacteria (FEW) /hpf Urine Mucus (FEW) /hpf 10/11/21 10/11/21 10/11/21 Range/Units 07:23 07:23 07:23 WBC 13.91 H (3.98-10.04) K/mm3 RBC 4.53 (3.98-5.22) M/mm3 Hgb 13.4 (11.2-15.7) gm/dl Hct 44.1 (34.1-44.9) % MCV 97.4 H (79.4-94.8) fl MCH 29.6 (25.6-32.2) pg MCHC 30.4 L (32.2-35.5) g/dl RDW Std Deviation 55.8 H (36.4-46.3) fL Plt Count 237 (182-369) K/mm3 MPV 11.2 (9.4-12.3) fl Neut % (Auto) 79.5 H (34.0-71.1) % Lymph % (Auto) 5.3 L (19.3-51.7) % [place] % (Auto) 14.9 H (4.7-12.5) % Eos % (Auto) 0 L (0.7-5.8) Baso % (Auto) 0.1 (0.1-1.2) % Neut # (Auto) 11.06 H (1.56-6.13) K/mm3 Lymph # (Auto) 0.74 L (1.18-3.74) K/mm3 [place] # (Auto) 2.07 H (0.24-0.36) K/mm3 Eos # (Auto) 0.00 L (0.04-0.36) K/mm3 Baso # (Auto) 0.01 (0.01-0.08) K/mm3 Manual Slide Review Abnormal smear PT (9.7-12.0) SECONDS INR VBG pH (7.30-7.40) VBG pCO2 (41-51) mmHg VBG pO2 (40-80) mmHG VBG HCO3 (22-26) meq/L VBG O2 Saturation VBG Base Excess (-4.0-2.0) O2 Delivery Device Oxygen Flow Rate Sodium 146 H (136-145) mEq/L Potassium 4.0 (3.5-5.1) mEq/L Chloride 103 (98-107) mEq/L Carbon Dioxide 39 H (21-32) mEq/L Anion Gap 8.0 (5-15) BUN 62 H (7-18) mg/dL Creatinine 1.9 H (0.55-1.02) mg/dL Est Cr Clr Drug Dosing 21.96 mL/min Estimated GFR (MDRD) 26 (>60) mL/min BUN/Creatinine Ratio 32.6 H (14-18) Glucose 109 H (70-99) mg/dL Hemoglobin A1c 6.8 H ( - 5.6) % Calcium 8.4 L (8.5-10.1) mg/dL Magnesium 2.2 (1.8-2.4) mg/dL Total Bilirubin 0.5 (0.2-1.0) mg/dL AST 24 (15-37) U/L ALT 25 (14-59) U/L Alkaline Phosphatase 113 (46-116) U/L Total Protein 6.3 L (6.4-8.2) g/dl Albumin 3.1 L (3.4-5.0) g/dl Globulin 3.2 gm/dL Albumin/Globulin Ratio 1.0 (1-2) Procalcitonin ng/mL Urine Color (Yellow) Urine Appearance (Clear) Urine pH (5.0-8.0) Ur Specific [place] (1.005-1.030) Urine Protein (Negative) Urine Glucose (UA) (Negative) Urine Ketones (Negative) Urine Occult Blood (Negative) Urine Nitrite (Negative) Urine Bilirubin (Negative) Urine Urobilinogen (0.2-1.0) Ur Leukocyte Esterase (Negative) Urine RBC (0-5) /hpf Urine WBC (0-5) /hpf Urine WBC Clumps (NOT SEEN) /hpf Ur Epithelial Cells (0-5) /hpf Amorphous Sediment (NOT SEEN) /hpf Urine Bacteria (FEW) /hpf Urine Mucus (FEW) /hpf 10/11/21 10/11/21 Range/Units 08:30 11:13 WBC (3.98-10.04) K/mm3 RBC (3.98-5.22) M/mm3 Hgb (11.2-15.7) gm/dl Hct (34.1-44.9) % MCV (79.4-94.8) fl MCH (25.6-32.2) pg MCHC (32.2-35.5) g/dl RDW Std Deviation (36.4-46.3) fL Plt Count (182-369) K/mm3 MPV (9.4-12.3) fl Neut % (Auto) (34.0-71.1) % Lymph % (Auto) (19.3-51.7) % [place] % (Auto) (4.7-12.5) % Eos % (Auto) (0.7-5.8) Baso % (Auto) (0.1-1.2) % Neut # (Auto) (1.56-6.13) K/mm3 Lymph # (Auto) (1.18-3.74) K/mm3 [place] # (Auto) (0.24-0.36) K/mm3 Eos # (Auto) (0.04-0.36) K/mm3 Baso # (Auto) (0.01-0.08) K/mm3 Manual Slide Review PT (9.7-12.0) SECONDS INR VBG pH 7.26 L (7.30-7.40) VBG pCO2 90.1 H (41-51) mmHg VBG pO2 50.0 (40-80) mmHG VBG HCO3 38.9 H (22-26) meq/L VBG O2 Saturation 77.1 VBG Base Excess 8.5 H (-4.0-2.0) O2 Delivery Device Nasal cannula Oxygen Flow Rate 3.0 Sodium (136-145) mEq/L Potassium (3.5-5.1) mEq/L Chloride (98-107) mEq/L Carbon Dioxide (21-32) mEq/L Anion Gap (5-15) BUN (7-18) mg/dL Creatinine (0.55-1.02) mg/dL Est Cr Clr Drug Dosing mL/min Estimated GFR (MDRD) (>60) mL/min BUN/Creatinine Ratio (14-18) Glucose (70-99) mg/dL Hemoglobin A1c ( - 5.6) % Calcium (8.5-10.1) mg/dL Magnesium (1.8-2.4) mg/dL Total Bilirubin (0.2-1.0) mg/dL AST (15-37) U/L ALT (14-59) U/L Alkaline Phosphatase (46-116) U/L Total Protein (6.4-8.2) g/dl Albumin (3.4-5.0) g/dl Globulin gm/dL Albumin/Globulin Ratio (1-2) Procalcitonin ng/mL Urine Color Brown H (Yellow) Urine Appearance Cloudy H (Clear) Urine pH 5.5 (5.0-8.0) Ur Specific [place] 1.025 (1.005-1.030) Urine Protein 2+ H (Negative) Urine Glucose (UA) Negative (Negative) Urine Ketones Negative (Negative) Urine Occult Blood 3+ H (Negative) Urine Nitrite Negative (Negative) Urine Bilirubin 2+ H (Negative) Urine Urobilinogen 1.0 (0.2-1.0) Ur Leukocyte Esterase 1+ H (Negative) Urine RBC Too numerous to cnt H (0-5) /hpf Urine WBC 50-75 H (0-5) /hpf Urine WBC Clumps Few (NOT SEEN) /hpf Ur Epithelial Cells 0-5 (0-5) /hpf Amorphous Sediment Moderate H (NOT SEEN) /hpf Urine Bacteria Moderate H (FEW) /hpf Urine Mucus Not seen (FEW) /hpf Charly Results Last 24 Hours: Microbiology 10/09/21 13:55 Blood Culture - Preliminary Blood - Venous - Lab Draw Med Orders - Current: Current Medications Acetaminophen (Acetaminophen 325 Mg Tab) 650 mg PO Q4H PRN PRN Reason: Pain (Mild 1-3)/fever Albuterol (Albuterol 0.083% 2.5 Mg/3 Ml Neb Soln) 2.5 mg NEB Q2H PRN PRN Reason: Shortness Of Breath/wheezing Albuterol/Ipratropium (Albuterol/Ipratropium 3.0-0.5 Mg/3 Ml Neb Soln) 3 ml NEB Q4H PRN PRN Reason: Shortness Of Breath/wheezing Last Admin: 10/11/21 08:41 Dose: 3 ml Documented by: Allopurinol (Allopurinol 100 Mg Tab) 100 mg PO BID [facility] Last Admin: 10/11/21 09:07 Dose: 100 mg Documented by: Cholecalciferol (Cholecalciferol (Vitamin D3) 25 Mcg Tab) 25 mcg PO DAILY [facility] Last Admin: 10/11/21 09:07 Dose: 25 mcg Documented by: Dorzolamide HCl (Dorzolamide 2% Ophth Soln 10 Ml Bottle) 0 ml EYEBOTH BID [facility] Last Admin: 10/11/21 09:07 Dose: 1 drop Documented by: Ceftriaxone Sodium 2 gm/ (Sodium Chloride) 100 mls @ 200 mls/hr IV Q24H [facility] Levothyroxine Sodium (Levothyroxine 25 Mcg Tab) 25 mcg PO ACBREAKFAST [facility] Last Admin: 10/11/21 06:21 Dose: 25 mcg Documented by: Metoprolol Tartrate (Metoprolol Tartrate 25 Mg Tab) 25 mg PO BID [facility] Last Admin: 10/11/21 09:06 Dose: 25 mg Documented by: Nystatin (Nystatin Topical Powder 15 Gm Bottle) 0 gm TOP TID [facility] Last Admin: 10/11/21 09:07 Dose: 1 applic Documented by: Ondansetron HCl (Ondansetron 4 Mg/2 Ml Sdv) 4 mg IV Q6H PRN PRN Reason: Nausea/Vomiting Rosuvastatin Calcium (Rosuvastatin 10 Mg Tab) 20 mg PO DAILY [facility] Last Admin: 10/11/21 09:06 Dose: 20 mg Documented by: Sertraline HCl (Sertraline 50 Mg Tab) 100 mg PO 0800,1200 [facility] Last Admin: 10/11/21 11:53 Dose: 100 mg Documented by: Sodium Chloride (Sodium Chloride 0.9% 10 Ml Syringe) 10 ml FLUSH ASDIRECTED PRN PRN Reason: Keep Vein Open Last Admin: 10/09/21 13:36 Dose: 10 ml Documented by: Spironolactone (Spironolactone 100 Mg Tab) 100 mg PO DAILY [facility] Last Admin: 10/11/21 09:06 Dose: 100 mg Documented by: Sucralfate (Sucralfate 1 Gm Tab) 1 gm PO TID PRN PRN Reason: Dyspepsia Last Admin: 10/09/21 22:28 Dose: 1 gm Documented by: Discontinued Medications Albuterol/Ipratropium (Albuterol/Ipratropium 3.0-0.5 Mg/3 Ml Neb Soln) 3 ml NEB ONETIME ONE Stop: 10/09/21 12:54 Last Admin: 10/09/21 13:16 Dose: 3 ml Documented by: Albuterol/Ipratropium (Albuterol/Ipratropium 3.0-0.5 Mg/3 Ml Neb Soln) 3 ml NEB ONETIME ONE Stop: 10/09/21 18:49 Last Admin: 10/09/21 18:59 Dose: 3 ml Documented by: Furosemide (Furosemide 20 Mg/2 Ml Vial) 40 mg IVPUSH ONETIME ONE Stop: 10/09/21 13:59 Last Admin: 10/09/21 14:43 Dose: 40 mg Documented by: Furosemide (Furosemide 40 Mg/4 Ml Vial) 60 mg IVPUSH BID [facility] Last Admin: 10/10/21 08:51 Dose: 60 mg Documented by: Furosemide (Furosemide 40 Mg/4 Ml Vial) 40 mg IVPUSH NOW ONE Stop: 10/10/21 16:01 Last Admin: 10/10/21 18:08 Dose: 40 mg Documented by: Furosemide 100 mg/ Sodium (Chloride) 100 mls @ 10 mls/hr IV TITRATE [facility]; Protocol Last Titration: 10/11/21 00:25 Dose: 0 mg/hr, 0 mls/hr Documented by: Sodium Chloride (Normal Saline) Confirm Administered Dose 500 mls @ as directed .ROUTE .STK-MED ONE Stop: 10/10/21 16:14 Last Admin: 10/10/21 18:35 Dose: Not Given Documented by: Methylprednisolone Sodium Succinate (Methylprednisolone Sodium Succinate 125 Mg/2 Ml Sdv) 125 mg IVPUSH ONETIME ONE Stop: 10/09/21 18:49 Last Admin: 10/09/21 19:21 Dose: 125 mg Documented by: Nystatin (Nystatin Topical Powder 15 Gm Bottle) 0 gm TOP NOW ONE Stop: 10/09/21 18:17 Last Admin: 10/09/21 22:20 Dose: Not Given Documented by: - Exam Quality Assessment: Supplemental Oxygen Urinary Catheter Total Time: 0Days 0Hours General: Mild Distress, Other (Fatigued) HEENT: Pupils Equal, Mucous Membr. Moist/[place] Neck: Supple Lungs: Normal Respiratory Effort, Crackles (Bibasilar) Cardiovascular: Irregular Rhythm (Irregular rate and rhythm) GI/Abdominal Exam: Normal Bowel Sounds, Soft, Non-Tender, No Distention Extremities: Normal Inspection, Pedal Edema, Redness (Small areas of excoriation and lower extremity redness) Skin: Warm, Dry, Intact Psy/Mental Status: Normal Affect, Normal Mood - Patient Data Lab Results Last 24 hrs: Laboratory Results - last 24 hr 10/10/21 10/11/21 10/11/21 Range/Units 06:02 00:30 07:23 WBC (3.98-10.04) K/mm3 RBC (3.98-5.22) M/mm3 Hgb (11.2-15.7) gm/dl Hct (34.1-44.9) % MCV (79.4-94.8) fl MCH (25.6-32.2) pg MCHC (32.2-35.5) g/dl RDW Std Deviation (36.4-46.3) fL Plt Count (182-369) K/mm3 MPV (9.4-12.3) fl Neut % (Auto) (34.0-71.1) % Lymph % (Auto) (19.3-51.7) % [place] % (Auto) (4.7-12.5) % Eos % (Auto) (0.7-5.8) Baso % (Auto) (0.1-1.2) % Neut # (Auto) (1.56-6.13) K/mm3 Lymph # (Auto) (1.18-3.74) K/mm3 [place] # (Auto) (0.24-0.36) K/mm3 Eos # (Auto) (0.04-0.36) K/mm3 Baso # (Auto) (0.01-0.08) K/mm3 Manual Slide Review PT 45.7 H (9.7-12.0) SECONDS INR 4.36 VBG pH (7.30-7.40) VBG pCO2 (41-51) mmHg VBG pO2 (40-80) mmHG VBG HCO3 (22-26) meq/L VBG O2 Saturation VBG Base Excess (-4.0-2.0) O2 Delivery Device Oxygen Flow Rate Sodium 149 H (136-145) mEq/L Potassium 4.1 (3.5-5.1) mEq/L Chloride 107 (98-107) mEq/L Carbon Dioxide 37 H (21-32) mEq/L Anion Gap 9.1 (5-15) BUN 62 H (7-18) mg/dL Creatinine 1.8 H (0.55-1.02) mg/dL Est Cr Clr Drug Dosing 23.18 mL/min Estimated GFR (MDRD) 28 (>60) mL/min BUN/Creatinine Ratio 34.4 H (14-18) Glucose 114 H (70-99) mg/dL Hemoglobin A1c ( - 5.6) % Calcium 8.5 (8.5-10.1) mg/dL Magnesium (1.8-2.4) mg/dL Total Bilirubin (0.2-1.0) mg/dL AST (15-37) U/L ALT (14-59) U/L Alkaline Phosphatase (46-116) U/L Total Protein (6.4-8.2) g/dl Albumin (3.4-5.0) g/dl Globulin gm/dL Albumin/Globulin Ratio (1-2) Procalcitonin 0.07 ng/mL Urine Color (Yellow) Urine Appearance (Clear) Urine pH (5.0-8.0) Ur Specific [place] (1.005-1.030) Urine Protein (Negative) Urine Glucose (UA) (Negative) Urine Ketones (Negative) Urine Occult Blood (Negative) Urine Nitrite (Negative) Urine Bilirubin (Negative) Urine Urobilinogen (0.2-1.0) Ur Leukocyte Esterase (Negative) Urine RBC (0-5) /hpf Urine WBC (0-5) /hpf Urine WBC Clumps (NOT SEEN) /hpf Ur Epithelial Cells (0-5) /hpf Amorphous Sediment (NOT SEEN) /hpf Urine Bacteria (FEW) /hpf Urine Mucus (FEW) /hpf 10/11/21 10/11/21 10/11/21 Range/Units 07:23 07:23 07:23 WBC 13.91 H (3.98-10.04) K/mm3 RBC 4.53 (3.98-5.22) M/mm3 Hgb 13.4 (11.2-15.7) gm/dl Hct 44.1 (34.1-44.9) % MCV 97.4 H (79.4-94.8) fl MCH 29.6 (25.6-32.2) pg MCHC 30.4 L (32.2-35.5) g/dl RDW Std Deviation 55.8 H (36.4-46.3) fL Plt Count 237 (182-369) K/mm3 MPV 11.2 (9.4-12.3) fl Neut % (Auto) 79.5 H (34.0-71.1) % Lymph % (Auto) 5.3 L (19.3-51.7) % [place] % (Auto) 14.9 H (4.7-12.5) % Eos % (Auto) 0 L (0.7-5.8) Baso % (Auto) 0.1 (0.1-1.2) % Neut # (Auto) 11.06 H (1.56-6.13) K/mm3 Lymph # (Auto) 0.74 L (1.18-3.74) K/mm3 [place] # (Auto) 2.07 H (0.24-0.36) K/mm3 Eos # (Auto) 0.00 L (0.04-0.36) K/mm3 Baso # (Auto) 0.01 (0.01-0.08) K/mm3 Manual Slide Review Abnormal smear PT (9.7-12.0) SECONDS INR VBG pH (7.30-7.40) VBG pCO2 (41-51) mmHg VBG pO2 (40-80) mmHG VBG HCO3 (22-26) meq/L VBG O2 Saturation VBG Base Excess (-4.0-2.0) O2 Delivery Device Oxygen Flow Rate Sodium 146 H (136-145) mEq/L Potassium 4.0 (3.5-5.1) mEq/L Chloride 103 (98-107) mEq/L Carbon Dioxide 39 H (21-32) mEq/L Anion Gap 8.0 (5-15) BUN 62 H (7-18) mg/dL Creatinine 1.9 H (0.55-1.02) mg/dL Est Cr Clr Drug Dosing 21.96 mL/min Estimated GFR (MDRD) 26 (>60) mL/min BUN/Creatinine Ratio 32.6 H (14-18) Glucose 109 H (70-99) mg/dL Hemoglobin A1c 6.8 H ( - 5.6) % Calcium 8.4 L (8.5-10.1) mg/dL Magnesium 2.2 (1.8-2.4) mg/dL Total Bilirubin 0.5 (0.2-1.0) mg/dL AST 24 (15-37) U/L ALT 25 (14-59) U/L Alkaline Phosphatase 113 (46-116) U/L Total Protein 6.3 L (6.4-8.2) g/dl Albumin 3.1 L (3.4-5.0) g/dl Globulin 3.2 gm/dL Albumin/Globulin Ratio 1.0 (1-2) Procalcitonin ng/mL Urine Color (Yellow) Urine Appearance (Clear) Urine pH (5.0-8.0) Ur Specific [place] (1.005-1.030) Urine Protein (Negative) Urine Glucose (UA) (Negative) Urine Ketones (Negative) Urine Occult Blood (Negative) Urine Nitrite (Negative) Urine Bilirubin (Negative) Urine Urobilinogen (0.2-1.0) Ur Leukocyte Esterase (Negative) Urine RBC (0-5) /hpf Urine WBC (0-5) /hpf Urine WBC Clumps (NOT SEEN) /hpf Ur Epithelial Cells (0-5) /hpf Amorphous Sediment (NOT SEEN) /hpf Urine Bacteria (FEW) /hpf Urine Mucus (FEW) /hpf 10/11/21 10/11/21 Range/Units 08:30 11:13 WBC (3.98-10.04) K/mm3 RBC (3.98-5.22) M/mm3 Hgb (11.2-15.7) gm/dl Hct (34.1-44.9) % MCV (79.4-94.8) fl MCH (25.6-32.2) pg MCHC (32.2-35.5) g/dl RDW Std Deviation (36.4-46.3) fL Plt Count (182-369) K/mm3 MPV (9.4-12.3) fl Neut % (Auto) (34.0-71.1) % Lymph % (Auto) (19.3-51.7) % [place] % (Auto) (4.7-12.5) % Eos % (Auto) (0.7-5.8) Baso % (Auto) (0.1-1.2) % Neut # (Auto) (1.56-6.13) K/mm3 Lymph # (Auto) (1.18-3.74) K/mm3 [place] # (Auto) (0.24-0.36) K/mm3 Eos # (Auto) (0.04-0.36) K/mm3 Baso # (Auto) (0.01-0.08) K/mm3 Manual Slide Review PT (9.7-12.0) SECONDS INR VBG pH 7.26 L (7.30-7.40) VBG pCO2 90.1 H (41-51) mmHg VBG pO2 50.0 (40-80) mmHG VBG HCO3 38.9 H (22-26) meq/L VBG O2 Saturation 77.1 VBG Base Excess 8.5 H (-4.0-2.0) O2 Delivery Device Nasal cannula Oxygen Flow Rate 3.0 Sodium (136-145) mEq/L Potassium (3.5-5.1) mEq/L Chloride (98-107) mEq/L Carbon Dioxide (21-32) mEq/L Anion Gap (5-15) BUN (7-18) mg/dL Creatinine (0.55-1.02) mg/dL Est Cr Clr Drug Dosing mL/min Estimated GFR (MDRD) (>60) mL/min BUN/Creatinine Ratio (14-18) Glucose (70-99) mg/dL Hemoglobin A1c ( - 5.6) % Calcium (8.5-10.1) mg/dL Magnesium (1.8-2.4) mg/dL Total Bilirubin (0.2-1.0) mg/dL AST (15-37) U/L ALT (14-59) U/L Alkaline Phosphatase (46-116) U/L Total Protein (6.4-8.2) g/dl Albumin (3.4-5.0) g/dl Globulin gm/dL Albumin/Globulin Ratio (1-2) Procalcitonin ng/mL Urine Color Brown H (Yellow) Urine Appearance Cloudy H (Clear) Urine pH 5.5 (5.0-8.0) Ur Specific [place] 1.025 (1.005-1.030) Urine Protein 2+ H (Negative) Urine Glucose (UA) Negative (Negative) Urine Ketones Negative (Negative) Urine Occult Blood 3+ H (Negative) Urine Nitrite Negative (Negative) Urine Bilirubin 2+ H (Negative) Urine Urobilinogen 1.0 (0.2-1.0) Ur Leukocyte Esterase 1+ H (Negative) Urine RBC Too numerous to cnt H (0-5) /hpf Urine WBC 50-75 H (0-5) /hpf Urine WBC Clumps Few (NOT SEEN) /hpf Ur Epithelial Cells 0-5 (0-5) /hpf Amorphous Sediment Moderate H (NOT SEEN) /hpf Urine Bacteria Moderate H (FEW) /hpf Urine Mucus Not seen (FEW) /hpf Result Diagrams: 10/11/21 07:23 10/11/21 07:23 Charly Results Last 24 hrs: Microbiology 10/09/21 13:55 Blood Culture - Preliminary Blood - Venous - Lab Draw Sepsis Event Note - Evaluation Sepsis Screening Result: No Definite Risk - Focused Exam Vital Signs: Vital Signs Temp Pulse Resp BP BP Pulse Ox Pulse Ox 10/11/21 12:00 97 F 21 H 87/65 L 93 L 10/11/21 09:06 120 H 92/61 10/11/21 09:00 30 H 90 L 10/11/21 08:42 92 L 10/11/21 08:15 97 F 92/61 10/11/21 04:00 97.2 F 29 H 99/73 89 L - Problem List & Annotations (1) Congestive heart failure SNOMED Code(s): 59746456 Code(s): I50.9 - HEART FAILURE, UNSPECIFIED Status: Acute Current Visit: Yes Qualifiers: Heart failure type: combined systolic and diastolic Heart failure chronicity: acute on chronic Qualified Code(s): I50.43 - Acute on chronic combined systolic (congestive) and diastolic (congestive) heart failure (2) Hypoxia SNOMED Code(s): 607997519 Code(s): R09.02 - HYPOXEMIA Status: Acute Current Visit: Yes (3) Hypoventilation associated with obesity syndrome SNOMED Code(s): 848358715 Code(s): E66.2 - MORBID (SEVERE) OBESITY WITH ALVEOLAR HYPOVENTILATION Status: Chronic Current Visit: Yes (4) Atrial fibrillation with RVR SNOMED Code(s): 888179631591120 Code(s): I48.91 - UNSPECIFIED ATRIAL FIBRILLATION Status: Acute Current Visit: No (5) DM2 (diabetes mellitus, type 2) SNOMED Code(s): 50617482 Code(s): E11.9 - TYPE 2 DIABETES MELLITUS WITHOUT COMPLICATIONS Status: Acute Current Visit: No Qualifiers: Diabetes mellitus termination clerk insulin use: without fpc use Diabetes mellitus complication status: without complication Qualified Code(s): E11.9 - Type 2 diabetes mellitus without complications (6) Elevated INR SNOMED Code(s): 317312866 Code(s): R79.1 - ABNORMAL COAGULATION PROFILE Status: Acute Current Visit: Yes (7) Respiratory failure with hypoxia and hypercapnia SNOMED Code(s): 88209473 Code(s): J96.91 - RESPIRATORY FAILURE, UNSPECIFIED WITH HYPOXIA; J96.92 - RESPIRATORY FAILURE, UNSPECIFIED WITH HYPERCAPNIA Status: Acute Current Visit: Yes - Problem List Review Problem List Initiated/Reviewed/Updated: Yes - My Orders Last 24 Hours: My Active Orders 10/10/21 15:49 Arterial Line Insertion [OM.PC] Routine Arterial Line Management [OM.PC] Routine 10/11/21 10:20 Arterial Blood Gas [RT Arterial Blood Gases, ABG] [RC] Click to Edit 10/11/21 13:15 [email or web address] [Rocephin] 2 gm Sodium Chloride 0.9% [Normal Saline AdvBag] 100 ml IV Q24H 10/12/21 05:11 INR,PT,PROTHROMBIN TIME [COAG] AM 10/13/21 05:11 INR,PT,PROTHROMBIN TIME [COAG] AM 10/14/21 05:11 INR,PT,PROTHROMBIN TIME [COAG] AM 10/15/21 05:11 INR,PT,PROTHROMBIN TIME [COAG] AM - Plan Plan:: 76-year-old female with history of atrial fibrillation, congestive heart failure, diabetes, morbid obesity, cor pulmonale, severe pulmonary artery systolic hypertension presents to the emergency department with hypercapnic, hypoxemic respiratory failure secondary to exacerbation of CHF. Exacerbation CHF Hypercapnic, hypoxemic respiratory failure History of cor pulmonale * Echocardiogram from October 2020 showed a left ejection fraction of 50 to 55%. Normal right ventricular systolic function. Right ventricular systolic pressure is moderately elevated at 49.5 mmHg PFO or small ASD is present with left to right shunt. Severe biatrial dilatation * Chest x-ray shows mild CHF * proBNP 7137 * Initial pH 7.27 with PCO2 of 83 * Currently on BiPAP with an improving pH and PCO2 * Patient had some altered mental status and a CT scan was negative * Improved altered mental status with improving PCO2. * Home diuretics include torsemide 20 mg daily and spironolactone 100 mg daily Atrial fibrillation Elevated INR * INR 4.86 * Metoprolol 25 mg twice daily for rate control * Warfarin 5 mg take as directed Acute on chronic renal sufficiency * Baseline creatinine of 1.4 creatinine 1.9, BUN 56 * Estimated GFR of 26 * Patient does not appear to be on an KATHY or an ARB Diabetes * Home medications include sitagliptin * Unknown hemoglobin A1c Hypothyroidism * Unknown TSH * Levothyroxine 25 mcg daily Gout * Allopurinol 100 mg twice daily 10/10/2021 Patient has had significant improvement overnight. She has decreased PCO2 and improved oxygenation. Echocardiogram is pending for this morning. patient does have some hypernatremia with sodium of 148. This suggests that she is having some volume contraction. Creatinine actually improved and went down to 1.7 with estimated GFR of 29. TSH was 1.58. INR today is 4.73 and warfarin is still being held. Restart metoprolol for blood pressure and rate control. 10/11/2021 Patient has decreased urine output and sodium is increased and BUN to creatinine ratio is elevated today consistent with hypovolemia. Patient also continues to have an elevated INR at 4.36. Patient's hemoglobin is stable. She does have some blood in her urine. Hemoglobin A1c is 6.8. Heart rate has been in the low 100s. Creatinine is up to 1.9 and BUN is 62. Patient will get 500 mL of normal saline over 5 hours. Continue to monitor and consider half-normal saline and this does not improve sodium. Continue to follow in the ICU. Patient is demonstrating hypoventilatory syndrome. This will be difficult to treat with the addition of her A. fib, CHF, elevated INR, and renal insufficiency. Patient's prognosis now is guarded. is aware. Plan * Admit to ICU * Awaiting echocardiogram results * Strict I's and O's and daily weights * Stop fluid restriction * 500 mL of normal saline * Adjust BiPAP to improve oxygenation and lower carbon dioxide. * Lasix 60 mg every 12 hours * Restart metoprolol hold metoprolol until at least tomorrow * Sliding-scale insulin and blood sugars before every meal/nightly * Hold warfarin and follow INR, pharmacy to follow. * Follow BMP closely * VTE prophylaxis: Patient has elevated INR and will also use SCDs * CODE STATUS: DNR/DNI
--- NOTE | 2021-10-11 13:53 | PCM.SN.2 ---
- Free Text/Narrative Note: Attempted Arterial line placement Per Dr Moore request I have attempted to place an arterial line. Noted extensive bruising on left wrist and antecubital area bilaterally, as well as significant edema. No radial pulse or brachial pulse was palpable. I attempted placement using US probe at left antecubital area (x2), right antecubital area (x2) . All attempts unsuccessful. Further attempts aborted. Times: 16:30-17:20
[2021-10-11] MEDS: cefTRIAXone 2 GM in Sodium Chloride 0.9% 100 ML IV SCH (14:00)
[2021-10-11] MEDS ORDERED: Sodium Chloride 0.9% 500 ML IV ONE (15:30)
[2021-10-11] MEDS: Sodium Chloride 0.45% 1,000 ML IV SCH (21:12)
[2021-10-12] MEDS: Levothyroxine 25 MCG Tab PO SCH (06:24)
[2021-10-12] MEDS: Spironolactone 100 MG Tab PO SCH (08:34)
[2021-10-12] MEDS: Sertraline 50 MG Tab PO SCH ×2 (08:34→11:19)
[2021-10-12] MEDS: Allopurinol 100 MG Tab PO SCH ×2 (08:34→21:36)
[2021-10-12] MEDS: Metoprolol Tartrate 25 MG Tab PO SCH ×2 (08:35→21:36)
[2021-10-12] MEDS: Rosuvastatin 10 MG Tab PO SCH (08:37)
[2021-10-12] MEDS: Cholecalciferol (Vitamin D3) 25 MCG Tab PO SCH (08:37)
[2021-10-12] MEDS: Nystatin Topical Powder 15 GM Bottle TOP SCH ×3 (08:37→21:37)
[2021-10-12] MEDS: Dorzolamide 2% Ophth Soln 10 ML Bottle EYEBOTH SCH ×2 (08:38→21:37)
--- NOTE | 2021-10-12 10:04 | PCM.PN ---
- General Info Date of Service: 10/12/21 Admission Dx/Problem (Free Text): Admission Diagnosis/Problem Admission Diagnosis/Problem CHF, Congestive heart failure Subjective Update: Patient had a good night overall. Blood gases this morning were much better with a normal pH and dropping PCO2. She is more awake and in a chair this morning. Appetite is improving. Functional Status: Reports: Pain Controlled - Review of Systems General: Reports: No Symptoms HEENT: Reports: No Symptoms Pulmonary: Reports: No Symptoms Cardiovascular: Reports: No Symptoms Gastrointestinal: Reports: No Symptoms - Patient Data Vitals - Most Recent: Last Vital Signs Temp 97.2 F 10/12/21 08:39 Pulse 97 10/12/21 08:35 Resp 30 H 10/12/21 08:39 BP 96/73 10/12/21 08:39 Pulse Ox 95 10/12/21 08:39 Weight - Most Recent: 335 lb I&O - Last 24 Hours: Intake & Output 10/11/21 10/12/21 10/12/21 22:59 06:59 14:59 Intake Total 1100 805 Output Total 320 230 Balance 780 575 Lab Results Last 24 Hours: Laboratory Results - last 24 hr 10/11/21 10/11/21 10/12/21 Range/Units 08:30 11:13 04:25 WBC (3.98-10.04) K/mm3 RBC (3.98-5.22) M/mm3 Hgb (11.2-15.7) gm/dl Hct (34.1-44.9) % MCV (79.4-94.8) fl MCH (25.6-32.2) pg MCHC (32.2-35.5) g/dl RDW Std Deviation (36.4-46.3) fL Plt Count (182-369) K/mm3 MPV (9.4-12.3) fl Neut % (Auto) (34.0-71.1) % Lymph % (Auto) (19.3-51.7) % [place] % (Auto) (4.7-12.5) % Eos % (Auto) (0.7-5.8) Baso % (Auto) (0.1-1.2) % Neut # (Auto) (1.56-6.13) K/mm3 Lymph # (Auto) (1.18-3.74) K/mm3 [place] # (Auto) (0.24-0.36) K/mm3 Eos # (Auto) (0.04-0.36) K/mm3 Baso # (Auto) (0.01-0.08) K/mm3 PT 43.4 H (9.7-12.0) SECONDS INR 4.13 VBG pH 7.26 L (7.30-7.40) VBG pCO2 90.1 H (41-51) mmHg VBG pO2 50.0 (40-80) mmHG VBG HCO3 38.9 H (22-26) meq/L VBG O2 Saturation 77.1 VBG Base Excess 8.5 H (-4.0-2.0) O2 Delivery Device Nasal cannula Oxygen Flow Rate 3.0 Sodium (136-145) mEq/L Potassium (3.5-5.1) mEq/L Chloride (98-107) mEq/L Carbon Dioxide (21-32) mEq/L Anion Gap (5-15) BUN (7-18) mg/dL Creatinine (0.55-1.02) mg/dL Est Cr Clr Drug Dosing mL/min Estimated GFR (MDRD) (>60) mL/min BUN/Creatinine Ratio (14-18) Glucose (70-99) mg/dL Calcium (8.5-10.1) mg/dL Phosphorus (2.6-4.7) mg/dL Magnesium (1.8-2.4) mg/dL Total Bilirubin (0.2-1.0) mg/dL AST (15-37) U/L ALT (14-59) U/L Alkaline Phosphatase (46-116) U/L Total Protein (6.4-8.2) g/dl Albumin (3.4-5.0) g/dl Globulin gm/dL Albumin/Globulin Ratio (1-2) Urine RBC Too numerous to cnt H (0-5) /hpf Urine WBC 50-75 H (0-5) /hpf Urine WBC Clumps Few (NOT SEEN) /hpf Ur Epithelial Cells 0-5 (0-5) /hpf Amorphous Sediment Moderate H (NOT SEEN) /hpf Urine Bacteria Moderate H (FEW) /hpf Urine Mucus Not seen (FEW) /hpf 10/12/21 10/12/21 10/12/21 Range/Units 04:25 04:25 04:25 WBC 11.01 H (3.98-10.04) K/mm3 RBC 4.57 (3.98-5.22) M/mm3 Hgb 13.3 (11.2-15.7) gm/dl Hct 45.5 H (34.1-44.9) % MCV 99.6 H (79.4-94.8) fl MCH 29.1 (25.6-32.2) pg MCHC 29.2 L (32.2-35.5) g/dl RDW Std Deviation 56.4 H (36.4-46.3) fL Plt Count 175 L (182-369) K/mm3 MPV 11.7 (9.4-12.3) fl Neut % (Auto) 83.5 H (34.0-71.1) % Lymph % (Auto) 4.9 L (19.3-51.7) % [place] % (Auto) 11.2 (4.7-12.5) % Eos % (Auto) 0.2 L (0.7-5.8) Baso % (Auto) 0.0 L (0.1-1.2) % Neut # (Auto) 9.20 H (1.56-6.13) K/mm3 Lymph # (Auto) 0.54 L (1.18-3.74) K/mm3 [place] # (Auto) 1.23 H (0.24-0.36) K/mm3 Eos # (Auto) 0.02 L (0.04-0.36) K/mm3 Baso # (Auto) 0.00 L (0.01-0.08) K/mm3 PT (9.7-12.0) SECONDS INR VBG pH 7.34 (7.30-7.40) VBG pCO2 73.2 H (41-51) mmHg VBG pO2 59.0 (40-80) mmHG VBG HCO3 38.3 H (22-26) meq/L VBG O2 Saturation 88.0 VBG Base Excess 9.8 H (-4.0-2.0) O2 Delivery Device Bipap Oxygen Flow Rate 40.0 Sodium 145 (136-145) mEq/L Potassium 4.1 (3.5-5.1) mEq/L Chloride 104 (98-107) mEq/L Carbon Dioxide 37 H (21-32) mEq/L Anion Gap 8.1 (5-15) BUN 61 H (7-18) mg/dL Creatinine 1.6 H (0.55-1.02) mg/dL Est Cr Clr Drug Dosing 26.08 mL/min Estimated GFR (MDRD) 32 (>60) mL/min BUN/Creatinine Ratio 38.1 H (14-18) Glucose 104 H (70-99) mg/dL Calcium 8.5 (8.5-10.1) mg/dL Phosphorus 3.7 (2.6-4.7) mg/dL Magnesium 2.2 (1.8-2.4) mg/dL Total Bilirubin 0.4 (0.2-1.0) mg/dL AST 25 (15-37) U/L ALT 21 (14-59) U/L Alkaline Phosphatase 104 (46-116) U/L Total Protein 6.7 (6.4-8.2) g/dl Albumin 2.9 L (3.4-5.0) g/dl Globulin 3.8 gm/dL Albumin/Globulin Ratio 0.8 L (1-2) Urine RBC (0-5) /hpf Urine WBC (0-5) /hpf Urine WBC Clumps (NOT SEEN) /hpf Ur Epithelial Cells (0-5) /hpf Amorphous Sediment (NOT SEEN) /hpf Urine Bacteria (FEW) /hpf Urine Mucus (FEW) /hpf Med Orders - Current: Current Medications Acetaminophen (Acetaminophen 325 Mg Tab) 650 mg PO Q4H PRN PRN Reason: Pain (Mild 1-3)/fever Albuterol (Albuterol 0.083% 2.5 Mg/3 Ml Neb Soln) 2.5 mg NEB Q2H PRN PRN Reason: Shortness Of Breath/wheezing Albuterol/Ipratropium (Albuterol/Ipratropium 3.0-0.5 Mg/3 Ml Neb Soln) 3 ml NEB Q4H PRN PRN Reason: Shortness Of Breath/wheezing Last Admin: 10/11/21 08:41 Dose: 3 ml Documented by: Allopurinol (Allopurinol 100 Mg Tab) 100 mg PO BID MIRNA Last Admin: 10/12/21 08:34 Dose: 100 mg Documented by: Cholecalciferol (Cholecalciferol (Vitamin D3) 25 Mcg Tab) 25 mcg PO DAILY [facility] Last Admin: 10/12/21 08:37 Dose: 25 mcg Documented by: Dorzolamide HCl (Dorzolamide 2% Ophth Soln 10 Ml Bottle) 0 ml EYEBOTH BID [facility] Last Admin: 10/12/21 08:38 Dose: 1 drop Documented by: Ceftriaxone Sodium 2 gm/ (Sodium Chloride) 100 mls @ 200 mls/hr IV Q24H [facility] Last Admin: 10/11/21 14:00 Dose: 200 mls/hr Documented by: Sodium Chloride (Sodium Chloride 0.45%) 1,000 mls @ 75 mls/hr IV ASDIRECTED [facility] Last Admin: 10/11/21 21:12 Dose: 75 mls/hr Documented by: Levothyroxine Sodium (Levothyroxine 25 Mcg Tab) 25 mcg PO ACBREAKFAST [facility] Last Admin: 10/12/21 06:24 Dose: 25 mcg Documented by: Metoprolol Tartrate (Metoprolol Tartrate 25 Mg Tab) 25 mg PO BID [facility] Last Admin: 10/12/21 08:35 Dose: 25 mg Documented by: Nystatin (Nystatin Topical Powder 15 Gm Bottle) 0 gm TOP TID [facility] Last Admin: 10/12/21 08:37 Dose: 1 applic Documented by: Ondansetron HCl (Ondansetron 4 Mg/2 Ml Sdv) 4 mg IV Q6H PRN PRN Reason: Nausea/Vomiting Rosuvastatin Calcium (Rosuvastatin 10 Mg Tab) 20 mg PO DAILY [facility] Last Admin: 10/12/21 08:37 Dose: 20 mg Documented by: Sertraline HCl (Sertraline 50 Mg Tab) 100 mg PO 0800,1200 [facility] Last Admin: 10/12/21 08:34 Dose: 100 mg Documented by: Sodium Chloride (Sodium Chloride 0.9% 10 Ml Syringe) 10 ml FLUSH ASDIRECTED PRN PRN Reason: Keep Vein Open Last Admin: 10/09/21 13:36 Dose: 10 ml Documented by: Spironolactone (Spironolactone 100 Mg Tab) 100 mg PO DAILY [facility] Last Admin: 10/12/21 08:34 Dose: 100 mg Documented by: Sucralfate (Sucralfate 1 Gm Tab) 1 gm PO TID PRN PRN Reason: Dyspepsia Last Admin: 10/09/21 22:28 Dose: 1 gm Documented by: Discontinued Medications Albuterol/Ipratropium (Albuterol/Ipratropium 3.0-0.5 Mg/3 Ml Neb Soln) 3 ml NEB ONETIME ONE Stop: 10/09/21 12:54 Last Admin: 10/09/21 13:16 Dose: 3 ml Documented by: Albuterol/Ipratropium (Albuterol/Ipratropium 3.0-0.5 Mg/3 Ml Neb Soln) 3 ml NEB ONETIME ONE Stop: 10/09/21 18:49 Last Admin: 10/09/21 18:59 Dose: 3 ml Documented by: Furosemide (Furosemide 20 Mg/2 Ml Vial) 40 mg IVPUSH ONETIME ONE Stop: 10/09/21 13:59 Last Admin: 10/09/21 14:43 Dose: 40 mg Documented by: Furosemide (Furosemide 40 Mg/4 Ml Vial) 60 mg IVPUSH BID [facility]IR[facility] Last Admin: 10/10/21 08:51 Dose: 60 mg Documented by: Furosemide (Furosemide 40 Mg/4 Ml Vial) 40 mg IVPUSH NOW ONE Stop: 10/10/21 16:01 Last Admin: 10/10/21 18:08 Dose: 40 mg Documented by: Furosemide 100 mg/ Sodium (Chloride) 100 mls @ 10 mls/hr IV TITRATE MIRNA; Protocol Last Titration: 10/11/21 00:25 Dose: 0 mg/hr, 0 mls/hr Documented by: Sodium Chloride (Normal Saline) Confirm Administered Dose 500 mls @ as directed .ROUTE .STK-MED ONE Stop: 10/10/21 16:14 Last Admin: 10/10/21 18:35 Dose: Not Given Documented by: Sodium Chloride (Normal Saline) 500 mls @ 100 mls/hr IV ONETIME ONE Stop: 10/11/21 20:29 Last Admin: 10/11/21 15:10 Dose: 100 mls/hr Documented by: Methylprednisolone Sodium Succinate (Methylprednisolone Sodium Succinate 125 Mg/2 Ml Sdv) 125 mg IVPUSH ONETIME ONE Stop: 10/09/21 18:49 Last Admin: 10/09/21 19:21 Dose: 125 mg Documented by: Nystatin (Nystatin Topical Powder 15 Gm Bottle) 0 gm TOP NOW ONE Stop: 10/09/21 18:17 Last Admin: 10/09/21 22:20 Dose: Not Given Documented by: - Exam Quality Assessment: Supplemental Oxygen Urinary Catheter Total Time: 0Days 19Hours General: Alert, Oriented HEENT: Pupils Equal, Mucous Membr. Moist/[place] Neck: Supple Lungs: Clear to Auscultation, Normal Respiratory Effort Cardiovascular: Irregular Rhythm GI/Abdominal Exam: Normal Bowel Sounds, Soft, Non-Tender, No Organomegaly, No Distention, No Abnormal Bruit, No Mass Extremities: Non-Tender, Normal Capillary Refill, Pedal Edema (2+) Skin: Other (Decreased lower extremity erythema with several open sores.) - Patient Data Lab Results Last 24 hrs: Laboratory Results - last 24 hr 10/11/21 10/11/21 10/12/21 Range/Units 08:30 11:13 04:25 WBC (3.98-10.04) K/mm3 RBC (3.98-5.22) M/mm3 Hgb (11.2-15.7) gm/dl Hct (34.1-44.9) % MCV (79.4-94.8) fl MCH (25.6-32.2) pg MCHC (32.2-35.5) g/dl RDW Std Deviation (36.4-46.3) fL Plt Count (182-369) K/mm3 MPV (9.4-12.3) fl Neut % (Auto) (34.0-71.1) % Lymph % (Auto) (19.3-51.7) % [place] % (Auto) (4.7-12.5) % Eos % (Auto) (0.7-5.8) Baso % (Auto) (0.1-1.2) % Neut # (Auto) (1.56-6.13) K/mm3 Lymph # (Auto) (1.18-3.74) K/mm3 [place] # (Auto) (0.24-0.36) K/mm3 Eos # (Auto) (0.04-0.36) K/mm3 Baso # (Auto) (0.01-0.08) K/mm3 PT 43.4 H (9.7-12.0) SECONDS INR 4.13 VBG pH 7.26 L (7.30-7.40) VBG pCO2 90.1 H (41-51) mmHg VBG pO2 50.0 (40-80) mmHG VBG HCO3 38.9 H (22-26) meq/L VBG O2 Saturation 77.1 VBG Base Excess 8.5 H (-4.0-2.0) O2 Delivery Device Nasal cannula Oxygen Flow Rate 3.0 Sodium (136-145) mEq/L Potassium (3.5-5.1) mEq/L Chloride (98-107) mEq/L Carbon Dioxide (21-32) mEq/L Anion Gap (5-15) BUN (7-18) mg/dL Creatinine (0.55-1.02) mg/dL Est Cr Clr Drug Dosing mL/min Estimated GFR (MDRD) (>60) mL/min BUN/Creatinine Ratio (14-18) Glucose (70-99) mg/dL Calcium (8.5-10.1) mg/dL Phosphorus (2.6-4.7) mg/dL Magnesium (1.8-2.4) mg/dL Total Bilirubin (0.2-1.0) mg/dL AST (15-37) U/L ALT (14-59) U/L Alkaline Phosphatase (46-116) U/L Total Protein (6.4-8.2) g/dl Albumin (3.4-5.0) g/dl Globulin gm/dL Albumin/Globulin Ratio (1-2) Urine RBC Too numerous to cnt H (0-5) /hpf Urine WBC 50-75 H (0-5) /hpf Urine WBC Clumps Few (NOT SEEN) /hpf Ur Epithelial Cells 0-5 (0-5) /hpf Amorphous Sediment Moderate H (NOT SEEN) /hpf Urine Bacteria Moderate H (FEW) /hpf Urine Mucus Not seen (FEW) /hpf 10/12/21 10/12/21 10/12/21 Range/Units 04:25 04:25 04:25 WBC 11.01 H (3.98-10.04) K/mm3 RBC 4.57 (3.98-5.22) M/mm3 Hgb 13.3 (11.2-15.7) gm/dl Hct 45.5 H (34.1-44.9) % MCV 99.6 H (79.4-94.8) fl MCH 29.1 (25.6-32.2) pg MCHC 29.2 L (32.2-35.5) g/dl RDW Std Deviation 56.4 H (36.4-46.3) fL Plt Count 175 L (182-369) K/mm3 MPV 11.7 (9.4-12.3) fl Neut % (Auto) 83.5 H (34.0-71.1) % Lymph % (Auto) 4.9 L (19.3-51.7) % [place] % (Auto) 11.2 (4.7-12.5) % Eos % (Auto) 0.2 L (0.7-5.8) Baso % (Auto) 0.0 L (0.1-1.2) % Neut # (Auto) 9.20 H (1.56-6.13) K/mm3 Lymph # (Auto) 0.54 L (1.18-3.74) K/mm3 [place] # (Auto) 1.23 H (0.24-0.36) K/mm3 Eos # (Auto) 0.02 L (0.04-0.36) K/mm3 Baso # (Auto) 0.00 L (0.01-0.08) K/mm3 PT (9.7-12.0) SECONDS INR VBG pH 7.34 (7.30-7.40) VBG pCO2 73.2 H (41-51) mmHg VBG pO2 59.0 (40-80) mmHG VBG HCO3 38.3 H (22-26) meq/L VBG O2 Saturation 88.0 VBG Base Excess 9.8 H (-4.0-2.0) O2 Delivery Device Bipap Oxygen Flow Rate 40.0 Sodium 145 (136-145) mEq/L Potassium 4.1 (3.5-5.1) mEq/L Chloride 104 (98-107) mEq/L Carbon Dioxide 37 H (21-32) mEq/L Anion Gap 8.1 (5-15) BUN 61 H (7-18) mg/dL Creatinine 1.6 H (0.55-1.02) mg/dL Est Cr Clr Drug Dosing 26.08 mL/min Estimated GFR (MDRD) 32 (>60) mL/min BUN/Creatinine Ratio 38.1 H (14-18) Glucose 104 H (70-99) mg/dL Calcium 8.5 (8.5-10.1) mg/dL Phosphorus 3.7 (2.6-4.7) mg/dL Magnesium 2.2 (1.8-2.4) mg/dL Total Bilirubin 0.4 (0.2-1.0) mg/dL AST 25 (15-37) U/L ALT 21 (14-59) U/L Alkaline Phosphatase 104 (46-116) U/L Total Protein 6.7 (6.4-8.2) g/dl Albumin 2.9 L (3.4-5.0) g/dl Globulin 3.8 gm/dL Albumin/Globulin Ratio 0.8 L (1-2) Urine RBC (0-5) /hpf Urine WBC (0-5) /hpf Urine WBC Clumps (NOT SEEN) /hpf Ur Epithelial Cells (0-5) /hpf Amorphous Sediment (NOT SEEN) /hpf Urine Bacteria (FEW) /hpf Urine Mucus (FEW) /hpf Result Diagrams: 10/12/21 04:25 10/12/21 04:25 Sepsis Event Note - Evaluation Sepsis Screening Result: Severe Sepsis Risk - Focused Exam Vital Signs: Vital Signs Temp Pulse Resp BP BP Pulse Ox Pulse Ox 10/12/21 08:39 97.2 F 30 H 96/73 95 10/12/21 08:35 97 96/73 10/12/21 05:30 97 10/12/21 04:50 26 H 94/68 99 10/12/21 04:00 97.5 F 20 87/51 L 95 10/12/21 00:00 97.4 F 20 91/60 97 - Problem List & Annotations (1) Congestive heart failure SNOMED Code(s): 19060114 Code(s): I50.9 - HEART FAILURE, UNSPECIFIED Status: Acute Current Visit: Yes Qualifiers: Heart failure type: combined systolic and diastolic Heart failure chronicity: acute on chronic Qualified Code(s): I50.43 - Acute on chronic combined systolic (congestive) and diastolic (congestive) heart failure (2) Hypoxia SNOMED Code(s): 875620016 Code(s): R09.02 - HYPOXEMIA Status: Acute Current Visit: Yes (3) Hypoventilation associated with obesity syndrome SNOMED Code(s): 797397487 Code(s): E66.2 - MORBID (SEVERE) OBESITY WITH ALVEOLAR HYPOVENTILATION Status: Chronic Current Visit: Yes (4) Atrial fibrillation with RVR SNOMED Code(s): 713310434172147 Code(s): I48.91 - UNSPECIFIED ATRIAL FIBRILLATION Status: Acute Current Visit: No (5) DM2 (diabetes mellitus, type 2) SNOMED Code(s): 33769378 Code(s): E11.9 - TYPE 2 DIABETES MELLITUS WITHOUT COMPLICATIONS Status: Acute Current Visit: No Qualifiers: Diabetes mellitus salvage determiner insulin use: without group home use Diabetes mellitus complication status: without complication Qualified Code(s): E11.9 - Type 2 diabetes mellitus without complications (6) Elevated INR SNOMED Code(s): 638370940 Code(s): R79.1 - ABNORMAL COAGULATION PROFILE Status: Acute Current Visit: Yes (7) Respiratory failure with hypoxia and hypercapnia SNOMED Code(s): 76692298 Code(s): J96.91 - RESPIRATORY FAILURE, UNSPECIFIED WITH HYPOXIA; J96.92 - RESPIRATORY FAILURE, UNSPECIFIED WITH HYPERCAPNIA Status: Acute Current Visit: Yes (8) UTI (urinary tract infection) SNOMED Code(s): 74809066 Code(s): N39.0 - URINARY TRACT INFECTION, SITE NOT SPECIFIED Status: Acute Current Visit: Yes (9) Cellulitis, leg SNOMED Code(s): 662898812 Code(s): L03.119 - CELLULITIS OF UNSPECIFIED PART OF LIMB Status: Acute Current Visit: Yes - Problem List Review Problem List Initiated/Reviewed/Updated: Yes - My Orders Last 24 Hours: My Active Orders 10/11/21 14:00 cefTRIAXone [Rocephin] 2 gm Sodium Chloride 0.9% [Normal Saline AdvBag] 100 ml IV Q24H 10/11/21 21:00 Sodium Chloride 0.45% 1,000 ml IV ASDIRECTED 10/13/21 05:11 INR,PT,PROTHROMBIN TIME [COAG] AM INR,PT,PROTHROMBIN TIME [COAG] AM 10/14/21 05:11 INR,PT,PROTHROMBIN TIME [COAG] AM INR,PT,PROTHROMBIN TIME [COAG] AM 10/15/21 05:11 INR,PT,PROTHROMBIN TIME [COAG] AM INR,PT,PROTHROMBIN TIME [COAG] AM 10/16/21 05:11 INR,PT,PROTHROMBIN TIME [COAG] AM 10/17/21 05:11 INR,PT,PROTHROMBIN TIME [COAG] AM - Plan Plan:: 76-year-old female with history of atrial fibrillation, congestive heart failure, diabetes, morbid obesity, cor pulmonale, severe pulmonary artery systolic hypertension presents to the emergency department with hypercapnic, hypoxemic respiratory failure secondary to exacerbation of CHF. Exacerbation CHF Hypercapnic, hypoxemic respiratory failure History of cor pulmonale * Echocardiogram from October 2020 showed a left ejection fraction of 50 to 55%. Normal right ventricular systolic function. Right ventricular systolic pressure is moderately elevated at 49.5 mmHg PFO or small ASD is present with left to right shunt. Severe biatrial dilatation * Chest x-ray shows mild CHF * proBNP 7137 * Initial pH 7.27 with PCO2 of 83 * Currently on BiPAP with an improving pH and PCO2 * Patient had some altered mental status and a CT scan was negative * Improved altered mental status with improving PCO2. * Home diuretics include torsemide 20 mg daily and spironolactone 100 mg daily Atrial fibrillation Elevated INR * INR 4.86 * Metoprolol 25 mg twice daily for rate control * Warfarin 5 mg take as directed Acute on chronic renal sufficiency * Baseline creatinine of 1.4 creatinine 1.9, BUN 56 * Estimated GFR of 26 * Patient does not appear to be on an KATHY or an ARB Diabetes * Home medications include sitagliptin * Unknown hemoglobin A1c Hypothyroidism * Unknown TSH * Levothyroxine 25 mcg daily Gout * Allopurinol 100 mg twice daily 10/10/2021 Patient has had significant improvement overnight. She has decreased PCO2 and improved oxygenation. Echocardiogram is pending for this morning. patient does have some hypernatremia with sodium of 148. This suggests that she is having some volume contraction. Creatinine actually improved and went down to 1.7 with estimated GFR of 29. TSH was 1.58. INR today is 4.73 and warfarin is still being held. Restart metoprolol for blood pressure and rate control. 10/11/2021 Patient has decreased urine output and sodium is increased and BUN to creatinine ratio is elevated today consistent with hypovolemia. Patient also continues to have an elevated INR at 4.36. Patient's hemoglobin is stable. She does have some blood in her urine. Hemoglobin A1c is 6.8. Heart rate has been in the low 100s. Creatinine is up to 1.9 and BUN is 62. Patient will get 500 mL of normal saline over 5 hours. Continue to monitor and consider half-normal saline and this does not improve sodium. Continue to follow in the ICU. Patient is demonstrating hypoventilatory syndrome. This will be difficult to treat with the addition of her A. fib, CHF, elevated INR, and renal insufficiency. Patient's prognosis now is guarded. is aware. 10/12/2021 Patient had a improved evening. She wore her BiPAP overnight and her pH came down to normal. Her venous blood gas: 7.3/73.2/59/38. PCO2 is still elevated but it is corrected. She is currently on only 2 L nasal cannula. We restarted fluids last night secondary to poor urine output and her BMP suggesting prerenal disease. She was hypernatremic yesterday and that has come down to 145. BUN is still elevated at 61, but creatinine has decreased to baseline at 1.6. She has cellulitis of the lower extremities with open wound. These are much less red after starting Rocephin. She also has a UTI based on urinalysis yesterday. Urine culture is requested, but it may be too late to culture. White count is 11 which is down from yesterday. Procalcitonin was 0.07. INR is still elevated at 4.13. This has been a very slow decrease in her INR. Bilirubin is normal as well as liver enzymes. Plan * Admit to ICU * Awaiting echocardiogram results * Strict I's and O's and daily weights * Stop fluid restriction * One half normal saline at 75 mL/h * Continue BiPAP * Hold diuretics * Continue metoprolol * Rocephin 2 g daily * Sliding-scale insulin and blood sugars before every meal/nightly * Hold warfarin and follow INR, pharmacy to follow. * Follow BMP closely * VTE prophylaxis: Patient has elevated INR and will also use SCDs * CODE STATUS: DNR/DNI * Patient would benefit from BiPAP at night at home. She currently has a CPAP, but this is not giving her adequate ventilation. Length of stay greater than 96 hours secondary to slow resolution and physical deconditioning requiring physical therapy.
[2021-10-12] MEDS: Sodium Chloride 0.45% 1,000 ML IV SCH (10:45)
[2021-10-12] MEDS: cefTRIAXone 2 GM in Sodium Chloride 0.9% 100 ML IV SCH (13:42)
[2021-10-13] MEDS: Levothyroxine 25 MCG Tab PO SCH (05:48)
[2021-10-13] MEDS: Cholecalciferol (Vitamin D3) 25 MCG Tab PO SCH (08:22)
[2021-10-13] MEDS: Rosuvastatin 10 MG Tab PO SCH (08:22)
[2021-10-13] MEDS: Spironolactone 100 MG Tab PO SCH (08:22)
[2021-10-13] MEDS: Sertraline 50 MG Tab PO SCH ×2 (08:22→12:11)
[2021-10-13] MEDS: Allopurinol 100 MG Tab PO SCH ×2 (08:23→20:02)
[2021-10-13] MEDS: Dorzolamide 2% Ophth Soln 10 ML Bottle EYEBOTH SCH ×2 (08:23→20:00)
[2021-10-13] MEDS: Metoprolol Tartrate 25 MG Tab PO SCH (08:23)
[2021-10-13] MEDS: Nystatin Topical Powder 15 GM Bottle TOP SCH ×3 (08:24→20:02)
[2021-10-13] MEDS: Albuterol/Ipratropium 3.0-0.5 MG/3 ML Neb Soln NEB PRN (08:32)
[2021-10-13] MEDS: cefTRIAXone 2 GM in Sodium Chloride 0.9% 100 ML IV SCH (14:08)
--- NOTE | 2021-10-13 15:55 | PCM.PN ---
- General Info Date of Service: 10/13/21 Admission Dx/Problem (Free Text): Admission Diagnosis/Problem Admission Diagnosis/Problem CHF, Congestive heart failure Subjective Update: Patient seems to be improving. Her agrees that she is getting better. She continues to be a 2 assist making it difficult for her to go home. Functional Status: Reports: Pain Controlled - Review of Systems General: Reports: No Symptoms HEENT: Reports: No Symptoms Pulmonary: Reports: No Symptoms Cardiovascular: Reports: No Symptoms Gastrointestinal: Reports: No Symptoms Musculoskeletal: Reports: No Symptoms - Patient Data Vitals - Most Recent: Last Vital Signs Temp 98.1 F 10/13/21 12:10 Pulse 100 10/13/21 12:10 Resp 26 H 10/13/21 12:10 BP 122/89 10/13/21 12:10 Pulse Ox 96 10/13/21 12:10 Weight - Most Recent: 329 lb 9.6 oz I&O - Last 24 Hours: Intake & Output 10/13/21 10/13/21 10/13/21 06:59 14:59 22:59 Intake Total 300 650 Output Total 400 200 Balance -100 450 Lab Results Last 24 Hours: Laboratory Results - last 24 hr 10/13/21 10/13/21 10/13/21 Range/Units 06:18 08:45 08:45 WBC 10.92 H (3.98-10.04) K/mm3 RBC 4.77 (3.98-5.22) M/mm3 Hgb 13.9 (11.2-15.7) gm/dl Hct 47.6 H (34.1-44.9) % MCV 99.8 H (79.4-94.8) fl MCH 29.1 (25.6-32.2) pg MCHC 29.2 L (32.2-35.5) g/dl RDW Std Deviation 56.6 H (36.4-46.3) fL Plt Count 178 L (182-369) K/mm3 MPV 11.8 (9.4-12.3) fl Neut % (Auto) 83.2 H (34.0-71.1) % Lymph % (Auto) 5.8 L (19.3-51.7) % Esmeralda % (Auto) 10.6 (4.7-12.5) % Eos % (Auto) 0.1 L (0.7-5.8) Baso % (Auto) 0.1 (0.1-1.2) % Neut # (Auto) 9.09 H (1.56-6.13) K/mm3 Lymph # (Auto) 0.63 L (1.18-3.74) K/mm3 Esmeralda # (Auto) 1.16 H (0.24-0.36) K/mm3 Eos # (Auto) 0.01 L (0.04-0.36) K/mm3 Baso # (Auto) 0.01 (0.01-0.08) K/mm3 PT 25.1 H D (9.7-12.0) SECONDS INR 2.34 VBG pH (7.30-7.40) VBG pCO2 (41-51) mmHg VBG pO2 (40-80) mmHG VBG HCO3 (22-26) meq/L VBG O2 Saturation VBG Base Excess (-4.0-2.0) O2 Delivery Device Oxygen Flow Rate Sodium 144 (136-145) mEq/L Potassium 4.4 (3.5-5.1) mEq/L Chloride 103 (98-107) mEq/L Carbon Dioxide 37 H (21-32) mEq/L Anion Gap 8.4 (5-15) BUN 65 H (7-18) mg/dL Creatinine 1.4 H (0.55-1.02) mg/dL Est Cr Clr Drug Dosing 29.80 mL/min Estimated GFR (MDRD) 37 (>60) mL/min BUN/Creatinine Ratio 46.4 H (14-18) Glucose 119 H (70-99) mg/dL Calcium 8.7 (8.5-10.1) mg/dL Phosphorus 3.1 (2.6-4.7) mg/dL Magnesium 2.7 H (1.8-2.4) mg/dL Total Bilirubin 0.5 (0.2-1.0) mg/dL AST 26 (15-37) U/L ALT 19 (14-59) U/L Alkaline Phosphatase 110 (46-116) U/L Total Protein 7.1 (6.4-8.2) g/dl Albumin 2.9 L (3.4-5.0) g/dl Globulin 4.2 gm/dL Albumin/Globulin Ratio 0.7 L (1-2) 12/06/21 Range/Units 08:48 WBC (3.98-10.04) K/mm3 RBC (3.98-5.22) M/mm3 Hgb (11.2-15.7) gm/dl Hct (34.1-44.9) % MCV (79.4-94.8) fl MCH (25.6-32.2) pg MCHC (32.2-35.5) g/dl RDW Std Deviation (36.4-46.3) fL Plt Count (182-369) K/mm3 MPV (9.4-12.3) fl Neut % (Auto) (34.0-71.1) % Lymph % (Auto) (19.3-51.7) % Esmeralda % (Auto) (4.7-12.5) % Eos % (Auto) (0.7-5.8) Baso % (Auto) (0.1-1.2) % Neut # (Auto) (1.56-6.13) K/mm3 Lymph # (Auto) (1.18-3.74) K/mm3 Esmeralda # (Auto) (0.24-0.36) K/mm3 Eos # (Auto) (0.04-0.36) K/mm3 Baso # (Auto) (0.01-0.08) K/mm3 PT (9.7-12.0) SECONDS INR VBG pH 7.30 (7.30-7.40) VBG pCO2 82.9 H (41-51) mmHg VBG pO2 44.0 (40-80) mmHG VBG HCO3 39.1 H (22-26) meq/L VBG O2 Saturation 71.7 VBG Base Excess 9.2 H (-4.0-2.0) O2 Delivery Device Nasal cannula Oxygen Flow Rate 2.0 Sodium (136-145) mEq/L Potassium (3.5-5.1) mEq/L Chloride (98-107) mEq/L Carbon Dioxide (21-32) mEq/L Anion Gap (5-15) BUN (7-18) mg/dL Creatinine (0.55-1.02) mg/dL Est Cr Clr Drug Dosing mL/min Estimated GFR (MDRD) (>60) mL/min BUN/Creatinine Ratio (14-18) Glucose (70-99) mg/dL Calcium (8.5-10.1) mg/dL Phosphorus (2.6-4.7) mg/dL Magnesium (1.8-2.4) mg/dL Total Bilirubin (0.2-1.0) mg/dL AST (15-37) U/L ALT (14-59) U/L Alkaline Phosphatase (46-116) U/L Total Protein (6.4-8.2) g/dl Albumin (3.4-5.0) g/dl Globulin gm/dL Albumin/Globulin Ratio (1-2) Med Orders - Current: Current Medications Acetaminophen (Acetaminophen 325 Mg Tab) 650 mg PO Q4H PRN PRN Reason: Pain (Mild 1-3)/fever Albuterol (Albuterol 0.083% 2.5 Mg/3 Ml Neb Soln) 2.5 mg NEB Q2H PRN PRN Reason: Shortness Of Breath/wheezing Albuterol/Ipratropium (Albuterol/Ipratropium 3.0-0.5 Mg/3 Ml Neb Soln) 3 ml NEB Q4H PRN PRN Reason: Shortness Of Breath/wheezing Last Admin: 10/13/21 08:32 Dose: 3 ml Documented by: Allopurinol (Allopurinol 100 Mg Tab) 100 mg PO BID [facility] Last Admin: 10/13/21 08:23 Dose: 100 mg Documented by: Cholecalciferol (Cholecalciferol (Vitamin D3) 25 Mcg Tab) 25 mcg PO DAILY [facility] Last Admin: 10/13/21 08:22 Dose: 25 mcg Documented by: Dorzolamide HCl (Dorzolamide 2% Ophth Soln 10 Ml Bottle) 0 ml EYEBOTH BID [facility] Last Admin: 10/13/21 08:23 Dose: 1 drop Documented by: Ceftriaxone Sodium 2 gm/ (Sodium Chloride) 100 mls @ 200 mls/hr IV Q24H [facility] Last Admin: 10/13/21 14:08 Dose: 200 mls/hr Documented by: Levothyroxine Sodium (Levothyroxine 25 Mcg Tab) 25 mcg PO ACBREAKFAST [facility] Last Admin: 10/13/21 05:48 Dose: 25 mcg Documented by: Metoprolol Tartrate (Metoprolol Tartrate 25 Mg Tab) 25 mg PO BID [facility] Last Admin: 10/13/21 08:23 Dose: 25 mg Documented by: Nystatin (Nystatin Topical Powder 15 Gm Bottle) 0 gm TOP TID [facility] Last Admin: 10/13/21 14:08 Dose: 1 applic Documented by: Ondansetron HCl (Ondansetron 4 Mg/2 Ml Sdv) 4 mg IV Q6H PRN PRN Reason: Nausea/Vomiting Rosuvastatin Calcium (Rosuvastatin 10 Mg Tab) 20 mg PO DAILY [facility] Last Admin: 10/13/21 08:22 Dose: 20 mg Documented by: Sertraline HCl (Sertraline 50 Mg Tab) 100 mg PO 0800,1200 [facility] Last Admin: 10/13/21 12:11 Dose: 100 mg Documented by: Sodium Chloride (Sodium Chloride 0.9% 10 Ml Syringe) 10 ml FLUSH ASDIRECTED PRN PRN Reason: Keep Vein Open Last Admin: 10/09/21 13:36 Dose: 10 ml Documented by: Spironolactone (Spironolactone 100 Mg Tab) 100 mg PO DAILY [facility] Last Admin: 10/13/21 08:22 Dose: 100 mg Documented by: Sucralfate (Sucralfate 1 Gm Tab) 1 gm PO TID PRN PRN Reason: Dyspepsia Last Admin: 10/09/21 22:28 Dose: 1 gm Documented by: Warfarin Sodium (Pharmacy To Dose - Warfarin) 1 dose .XX ASDIRECTED PRN PRN Reason: RX TO DOSE WARFARIN Warfarin Sodium (Warfarin 4 Mg Tab) 4 mg PO QPM [facility] Stop: 10/13/21 18:01 Discontinued Medications Albuterol/Ipratropium (Albuterol/Ipratropium 3.0-0.5 Mg/3 Ml Neb Soln) 3 ml NEB ONETIME ONE Stop: 10/09/21 12:54 Last Admin: 10/09/21 13:16 Dose: 3 ml Documented by: Albuterol/Ipratropium (Albuterol/Ipratropium 3.0-0.5 Mg/3 Ml Neb Soln) 3 ml NEB ONETIME ONE Stop: 10/09/21 18:49 Last Admin: 10/09/21 18:59 Dose: 3 ml Documented by: Furosemide (Furosemide 20 Mg/2 Ml Vial) 40 mg IVPUSH ONETIME ONE Stop: 10/09/21 13:59 Last Admin: 10/09/21 14:43 Dose: 40 mg Documented by: Furosemide (Furosemide 40 Mg/4 Ml Vial) 60 mg IVPUSH BID MIRNA Last Admin: 10/10/21 08:51 Dose: 60 mg Documented by: Furosemide (Furosemide 40 Mg/4 Ml Vial) 40 mg IVPUSH NOW ONE Stop: 10/10/21 16:01 Last Admin: 10/10/21 18:08 Dose: 40 mg Documented by: Furosemide 100 mg/ Sodium (Chloride) 100 mls @ 10 mls/hr IV TITRATE MIRNA; Protocol Last Titration: 10/11/21 00:25 Dose: 0 mg/hr, 0 mls/hr Documented by: Sodium Chloride (Normal Saline) Confirm Administered Dose 500 mls @ as directed .ROUTE .STK-MED ONE Stop: 10/10/21 16:14 Last Admin: 10/10/21 18:35 Dose: Not Given Documented by: Sodium Chloride (Normal Saline) 500 mls @ 100 mls/hr IV ONETIME ONE Stop: 10/11/21 20:29 Last Admin: 10/11/21 15:10 Dose: 100 mls/hr Documented by: Sodium Chloride (Sodium Chloride 0.45%) 1,000 mls @ 75 mls/hr IV ASDIRECTED MIRNA Last Admin: 10/12/21 10:45 Dose: 75 mls/hr Documented by: Methylprednisolone Sodium Succinate (Methylprednisolone Sodium Succinate 125 Mg/2 Ml Sdv) 125 mg IVPUSH ONETIME ONE Stop: 10/09/21 18:49 Last Admin: 10/09/21 19:21 Dose: 125 mg Documented by: Nystatin (Nystatin Topical Powder 15 Gm Bottle) 0 gm TOP NOW ONE Stop: 10/09/21 18:17 Last Admin: 10/09/21 22:20 Dose: Not Given Documented by: - Exam Quality Assessment: Supplemental Oxygen Urinary Catheter Total Time: 2Days 3Hours General: Alert, Oriented HEENT: Pupils Equal, Mucous Membr. Moist/[place] Neck: Supple Lungs: Normal Respiratory Effort, Crackles Cardiovascular: Irregular Rhythm, Tachycardia GI/Abdominal Exam: Normal Bowel Sounds, Soft, Non-Tender, No Distention, Other ( Morbidly obese) Extremities: Normal Inspection, Normal Capillary Refill Skin: Warm, Dry, Intact Neurological: No New Focal Deficit Psy/Mental Status: Alert - Patient Data Lab Results Last 24 hrs: Laboratory Results - last 24 hr 10/13/21 10/13/21 10/13/21 Range/Units 06:18 08:45 08:45 WBC 10.92 H (3.98-10.04) K/mm3 RBC 4.77 (3.98-5.22) M/mm3 Hgb 13.9 (11.2-15.7) gm/dl Hct 47.6 H (34.1-44.9) % MCV 99.8 H (79.4-94.8) fl MCH 29.1 (25.6-32.2) pg MCHC 29.2 L (32.2-35.5) g/dl RDW Std Deviation 56.6 H (36.4-46.3) fL Plt Count 178 L (182-369) K/mm3 MPV 11.8 (9.4-12.3) fl Neut % (Auto) 83.2 H (34.0-71.1) % Lymph % (Auto) 5.8 L (19.3-51.7) % Esmeralda % (Auto) 10.6 (4.7-12.5) % Eos % (Auto) 0.1 L (0.7-5.8) Baso % (Auto) 0.1 (0.1-1.2) % Neut # (Auto) 9.09 H (1.56-6.13) K/mm3 Lymph # (Auto) 0.63 L (1.18-3.74) K/mm3 Esmeralda # (Auto) 1.16 H (0.24-0.36) K/mm3 Eos # (Auto) 0.01 L (0.04-0.36) K/mm3 Baso # (Auto) 0.01 (0.01-0.08) K/mm3 PT 25.1 H D (9.7-12.0) SECONDS INR 2.34 VBG pH (7.30-7.40) VBG pCO2 (41-51) mmHg VBG pO2 (40-80) mmHG VBG HCO3 (22-26) meq/L VBG O2 Saturation VBG Base Excess (-4.0-2.0) O2 Delivery Device Oxygen Flow Rate Sodium 144 (136-145) mEq/L Potassium 4.4 (3.5-5.1) mEq/L Chloride 103 (98-107) mEq/L Carbon Dioxide 37 H (21-32) mEq/L Anion Gap 8.4 (5-15) BUN 65 H (7-18) mg/dL Creatinine 1.4 H (0.55-1.02) mg/dL Est Cr Clr Drug Dosing 29.80 mL/min Estimated GFR (MDRD) 37 (>60) mL/min BUN/Creatinine Ratio 46.4 H (14-18) Glucose 119 H (70-99) mg/dL Calcium 8.7 (8.5-10.1) mg/dL Phosphorus 3.1 (2.6-4.7) mg/dL Magnesium 2.7 H (1.8-2.4) mg/dL Total Bilirubin 0.5 (0.2-1.0) mg/dL AST 26 (15-37) U/L ALT 19 (14-59) U/L Alkaline Phosphatase 110 (46-116) U/L Total Protein 7.1 (6.4-8.2) g/dl Albumin 2.9 L (3.4-5.0) g/dl Globulin 4.2 gm/dL Albumin/Globulin Ratio 0.7 L (1-2) 10/13/21 Range/Units 08:48 WBC (3.98-10.04) K/mm3 RBC (3.98-5.22) M/mm3 Hgb (11.2-15.7) gm/dl Hct (34.1-44.9) % MCV (79.4-94.8) fl MCH (25.6-32.2) pg MCHC (32.2-35.5) g/dl RDW Std Deviation (36.4-46.3) fL Plt Count (182-369) K/mm3 MPV (9.4-12.3) fl Neut % (Auto) (34.0-71.1) % Lymph % (Auto) (19.3-51.7) % Esmeralda % (Auto) (4.7-12.5) % Eos % (Auto) (0.7-5.8) Baso % (Auto) (0.1-1.2) % Neut # (Auto) (1.56-6.13) K/mm3 Lymph # (Auto) (1.18-3.74) K/mm3 Esmeralda # (Auto) (0.24-0.36) K/mm3 Eos # (Auto) (0.04-0.36) K/mm3 Baso # (Auto) (0.01-0.08) K/mm3 PT (9.7-12.0) SECONDS INR VBG pH 7.30 (7.30-7.40) VBG pCO2 82.9 H (41-51) mmHg VBG pO2 44.0 (40-80) mmHG VBG HCO3 39.1 H (22-26) meq/L VBG O2 Saturation 71.7 VBG Base Excess 9.2 H (-4.0-2.0) O2 Delivery Device Nasal cannula Oxygen Flow Rate 2.0 Sodium (136-145) mEq/L Potassium (3.5-5.1) mEq/L Chloride (98-107) mEq/L Carbon Dioxide (21-32) mEq/L Anion Gap (5-15) BUN (7-18) mg/dL Creatinine (0.55-1.02) mg/dL Est Cr Clr Drug Dosing mL/min Estimated GFR (MDRD) (>60) mL/min BUN/Creatinine Ratio (14-18) Glucose (70-99) mg/dL Calcium (8.5-10.1) mg/dL Phosphorus (2.6-4.7) mg/dL Magnesium (1.8-2.4) mg/dL Total Bilirubin (0.2-1.0) mg/dL AST (15-37) U/L ALT (14-59) U/L Alkaline Phosphatase (46-116) U/L Total Protein (6.4-8.2) g/dl Albumin (3.4-5.0) g/dl Globulin gm/dL Albumin/Globulin Ratio (1-2) Result Diagrams: 10/13/21 08:45 10/13/21 08:45 Sepsis Event Note - Evaluation Sepsis Screening Result: Sepsis Risk - Focused Exam Vital Signs: Vital Signs Temp Pulse Resp BP Pulse Ox Pulse Ox Pulse Ox 10/13/21 12:10 98.1 F 100 26 H 122/89 96 10/13/21 08:33 96 10/13/21 08:23 93 114/74 10/13/21 07:34 97.5 F 93 22 H 114/74 97 10/13/21 06:29 92 L 10/13/21 05:25 92 L 10/13/21 05:13 97.5 F 93 20 103/65 97 - Problem List & Annotations (1) Congestive heart failure SNOMED Code(s): 53825812 Code(s): I50.9 - HEART FAILURE, UNSPECIFIED Status: Acute Current Visit: Yes Qualifiers: Heart failure type: combined systolic and diastolic Heart failure chronicity: acute on chronic Qualified Code(s): I50.43 - Acute on chronic combined systolic (congestive) and diastolic (congestive) heart failure (2) Hypoxia SNOMED Code(s): 179360784 Code(s): R09.02 - HYPOXEMIA Status: Acute Current Visit: Yes (3) Hypoventilation associated with obesity syndrome SNOMED Code(s): 676373354 Code(s): E66.2 - MORBID (SEVERE) OBESITY WITH ALVEOLAR HYPOVENTILATION Status: Chronic Current Visit: Yes (4) Atrial fibrillation with RVR SNOMED Code(s): 236441394759351 Code(s): I48.91 - UNSPECIFIED ATRIAL FIBRILLATION Status: Acute Current Visit: No (5) DM2 (diabetes mellitus, type 2) SNOMED Code(s): 00776502 Code(s): E11.9 - TYPE 2 DIABETES MELLITUS WITHOUT COMPLICATIONS Status: Acute Current Visit: No Qualifiers: Diabetes mellitus residential insulin use: without predatory animal exterminator use Diabetes mellitus complication status: without complication Qualified Code(s): E11.9 - Type 2 diabetes mellitus without complications (6) Elevated INR SNOMED Code(s): 223633695 Code(s): R79.1 - ABNORMAL COAGULATION PROFILE Status: Acute Current Visit: Yes (7) Respiratory failure with hypoxia and hypercapnia SNOMED Code(s): 16364565 Code(s): J96.91 - RESPIRATORY FAILURE, UNSPECIFIED WITH HYPOXIA; J96.92 - RE SPIRATORY FAILURE, UNSPECIFIED WITH HYPERCAPNIA Status: Acute Current Visit: Yes (8) UTI (urinary tract infection) SNOMED Code(s): 70193750 Code(s): N39.0 - URINARY TRACT INFECTION, SITE NOT SPECIFIED Status: Acute Current Visit: Yes (9) Cellulitis, leg SNOMED Code(s): 548341851 Code(s): L03.119 - CELLULITIS OF UNSPECIFIED PART OF LIMB Status: Acute Current Visit: Yes - Problem List Review Problem List Initiated/Reviewed/Updated: Yes - My Orders Last 24 Hours: My Active Orders 10/12/21 17:00 Pulse Oximetry Continuous Monitoring [OM.PC] Routine 10/12/21 19:13 Wound Care [RC] DAILY ERIC Bandage [Elastic Wrap] [OM.PC] Routine 10/12/21 19:41 Intake and Output Strict [RC] Q2HR 10/13/21 07:00 PT Evaluation and Treatment [CONS] DAILY 10/13/21 07:54 PROCALCITONIN [REF] Routine 10/13/21 08:00 Pharmacy to Dose - Warfarin 1 dose .XX ASDIRECTED PRN 10/13/21 18:00 Warfarin [Coumadin] 4 mg PO QPM 10/14/21 05:11 INR,PT,PROTHROMBIN TIME [COAG] AM INR,PT,PROTHROMBIN TIME [COAG] AM 10/15/21 05:11 INR,PT,PROTHROMBIN TIME [COAG] AM INR,PT,PROTHROMBIN TIME [COAG] AM 10/16/21 05:11 INR,PT,PROTHROMBIN TIME [COAG] AM 10/17/21 05:11 INR,PT,PROTHROMBIN TIME [COAG] AM - Plan Plan:: 76-year-old female with history of atrial fibrillation, congestive heart failure, diabetes, morbid obesity, cor pulmonale, severe pulmonary artery systolic hypertension presents to the emergency department with hypercapnic, hypoxemic respiratory failure secondary to exacerbation of CHF. Exacerbation CHF Hypercapnic, hypoxemic respiratory failure History of cor pulmonale * Echocardiogram from October 2020 showed a left ejection fraction of 50 to 55%. Normal right ventricular systolic function. Right ventricular systolic pressure is moderately elevated at 49.5 mmHg PFO or small ASD is present with left to right shunt. Severe biatrial dilatation * Chest x-ray shows mild CHF * proBNP 7137 * Initial pH 7.27 with PCO2 of 83 * Currently on BiPAP with an improving pH and PCO2 * Patient had some altered mental status and a CT scan was negative * Improved altered mental status with improving PCO2. * Home diuretics include torsemide 20 mg daily and spironolactone 100 mg daily Atrial fibrillation Elevated INR * INR 4.86 * Metoprolol 25 mg twice daily for rate control * Warfarin 5 mg take as directed Acute on chronic renal sufficiency * Baseline creatinine of 1.4 creatinine 1.9, BUN 56 * Estimated GFR of 26 * Patient does not appear to be on an ERIC or an ARB Diabetes * Home medications include sitagliptin * Unknown hemoglobin A1c Hypothyroidism * Unknown TSH * Levothyroxine 25 mcg daily Gout * Allopurinol 100 mg twice daily 10/10/2021 Patient has had significant improvement overnight. She has decreased PCO2 and improved oxygenation. Echocardiogram is pending for this morning. patient does have some hypernatremia with sodium of 148. This suggests that she is having some volume contraction. Creatinine actually improved and went down to 1.7 with estimated GFR of 29. TSH was 1.58. INR today is 4.73 and warfarin is still being held. Restart metoprolol for blood pressure and rate control. 10/11/2021 Patient has decreased urine output and sodium is increased and BUN to creatinine ratio is elevated today consistent with hypovolemia. Patient also continues to have an elevated INR at 4.36. Patient's hemoglobin is stable. She does have some blood in her urine. Hemoglobin A1c is 6.8. Heart rate has been in the low 100s. Creatinine is up to 1.9 and BUN is 62. Patient will get 500 mL of normal saline over 5 hours. Continue to monitor and consider half-normal saline and this does not improve sodium. Continue to follow in the ICU. Patient is demonstrating hypoventilatory syndrome. This will be difficult to treat with the addition of her A. fib, CHF, elevated INR, and renal insufficiency. Patient's prognosis now is guarded. is aware. 10/12/2021 Patient had a improved evening. She wore her BiPAP overnight and her pH came down to normal. Her venous blood gas: 7.3/73.2/59/38. PCO2 is still elevated but it is corrected. She is currently on only 2 L nasal cannula. We restarted fluids last night secondary to poor urine output and her BMP suggesting prerenal disease. She was hypernatremic yesterday and that has come down to 145. BUN is still elevated at 61, but creatinine has decreased to baseline at 1.6. She has cellulitis of the lower extremities with open wound. These are much less red after starting Rocephin. She also has a UTI based on urinalysis yesterday. Urine culture is requested, but it may be too late to culture. White count is 11 which is down from yesterday. Procalcitonin was 0.07. INR is still elevated at 4.13. This has been a very slow decrease in her INR. Bilirubin is normal as well as liver enzymes. 10/13/2021 76-year-old female with hypoventilatory syndrome certainly better on BiPAP. VBG this morning was a little worse than yesterday with a pH of 7.30 and PCO2 of 83. Bicarb is 39. MICHAEL is not the primary contributing factor to the hyp oventilation or hypercapnia. Reportedly patient is on BiPAP at home, but she does not have a rate. Patient clearly needs increased pressures and a rate to keep her PCO2 even close to normal. It appears obesity and poor respiratory drive are the major contributing factors to her hypoventilation. Patient's lower extremity cellulitis and UTI are being treated with ceftriaxone. Both are improving. She did have her legs wrapped with Eric wraps yesterday and there is significant improvement. Patient's creatinine has improved since she is been off Lasix and torsemide, but BUN is still elevated. She continues on spironolactone. Patient will need to be sent home on BiPAP preferably with increased pressures and backup rate. Without this I am greatly concerned that she will develop worsening hypercapnia and respiratory failure. Echocardiogram 1. Unable to assess LV function secondary to inability to obtain adequate and images. The left internal cavity size is normal. 2. Mild to moderate mitral valve regurgitation. 3. Moderate to severe tricuspid valve regurgitation. 4. At least moderate elevation in RVSP. 5. Atrial septal aneurysm. 6. Interatrial septum appears mobile. 7. There is severe biatrial dilatation. Plan * Managed on medical floor * Strict I's and O's and daily weights * Stop fluid restriction * Continue BiPAP * Hold diuretics * Stop spironolactone * Increase metoprolol to 50 mg twice daily secondary to poor rate control metoprolol * Rocephin 2 g daily * Sliding-scale insulin and blood sugars before every meal/nightly * Pharmacy to dose warfarin * Follow BMP closely * VTE prophylaxis: Patient has elevated INR and will also use SCDs * CODE STATUS: DNR/DNI * Patient would benefit from BiPAP increased pressures and backup rate at home. Length of stay greater than 96 hours secondary to slow resolution and physical deconditioning requiring physical therapy.
[2021-10-13] MEDS ORDERED: Warfarin 4 MG Tab PO SCH (18:00)
[2021-10-13] MEDS: Metoprolol Tartrate 50 MG Tab PO SCH (20:02)
[2021-10-14] MEDS ORDERED: Magnesium Hydroxide 400 MG/5 ML Susp 30 ML Cup PO ONE (06:00)
[2021-10-14] MEDS: Levothyroxine 25 MCG Tab PO SCH (06:15)
[2021-10-14] MEDS: Rosuvastatin 10 MG Tab PO SCH (08:24)
[2021-10-14] MEDS: Allopurinol 100 MG Tab PO SCH ×2 (08:25→20:44)
[2021-10-14] MEDS: Nystatin Topical Powder 15 GM Bottle TOP SCH ×3 (08:25→20:43)
[2021-10-14] MEDS: Metoprolol Tartrate 50 MG Tab PO SCH (08:25)
[2021-10-14] MEDS: Sertraline 50 MG Tab PO SCH ×2 (08:25→11:11)
[2021-10-14] MEDS: Cholecalciferol (Vitamin D3) 25 MCG Tab PO SCH (08:25)
[2021-10-14] MEDS: Dorzolamide 2% Ophth Soln 10 ML Bottle EYEBOTH SCH ×2 (08:26→20:43)
[2021-10-14] MEDS ORDERED: Furosemide 40 MG/4 ML VIAL IVPUSH ONE (10:50)
--- NOTE | 2021-10-14 12:40 | PCM.PN ---
- General Info Date of Service: 10/14/21 Admission Dx/Problem (Free Text): Admission Diagnosis/Problem Admission Diagnosis/Problem CHF, Congestive heart failure Subjective Update: 76-year-old female with end-stage respiratory failure now BiPAP dependent. Review of patient's blood gases shows that she becomes very acidotic and retains more CO2 when she is not on her BiPAP. Patient is also very deconditioned and is having increasing difficulty moving air or ventilating. Physical therapy is working with her, but today family realizes that they will not be able to take her home and she will need to go to a SNF. also understands the grave nature of her illness and that at some point in the very near future she will likely pass away in her sleep even with BiPAP treatment. Patient is awake but drowsy today. For BiPAP at home they did try pulmonary function test which she was unable to complete. Functional Status: Reports: Other (Logan lift) - Review of Systems General: Reports: Fatigue, Other (Unable to give a good review of systems) - Patient Data Vitals - Most Recent: Last Vital Signs Temp 97.5 F 10/14/21 11:37 Pulse 98 10/14/21 11:37 Resp 24 H 10/14/21 11:37 BP 124/60 10/14/21 11:37 Pulse Ox 94 L 10/14/21 11:37 Weight - Most Recent: 334 lb 6.4 oz I&O - Last 24 Hours: Intake & Output 10/13/21 10/14/21 10/14/21 22:59 06:59 14:59 Intake Total 960 200 340 Output Total 670 260 Balance 290 -60 340 Lab Results Last 24 Hours: Laboratory Results - last 24 hr 10/13/21 10/13/21 10/13/21 Range/Units 07:54 19:17 21:37 WBC (3.98-10.04) K/mm3 RBC (3.98-5.22) M/mm3 Hgb (11.2-15.7) gm/dl Hct (34.1-44.9) % MCV (79.4-94.8) fl MCH (25.6-32.2) pg MCHC (32.2-35.5) g/dl RDW Std Deviation (36.4-46.3) fL Plt Count (182-369) K/mm3 MPV (9.4-12.3) fl Neut % (Auto) (34.0-71.1) % Lymph % (Auto) (19.3-51.7) % [place] % (Auto) (4.7-12.5) % Eos % (Auto) (0.7-5.8) Baso % (Auto) (0.1-1.2) % Neut # (Auto) (1.56-6.13) K/mm3 Lymph # (Auto) (1.18-3.74) K/mm3 [place] # (Auto) (0.24-0.36) K/mm3 Eos # (Auto) (0.04-0.36) K/mm3 Baso # (Auto) (0.01-0.08) K/mm3 PT (9.7-12.0) SECONDS INR Puncture Site Lt radial ABG pH 7.28 L (7.35-7.45) ABG pCO2 87.2 H* (35.0-45.0) mmHg ABG pO2 85.0 (80.0-100.0) mmHg ABG HCO3 40.1 H (22.0-26.0) meq/L ABG O2 Saturation 95.7 L (96.0-97.0) % ABG Base Excess 10.0 H (-2-2.0) Parveen Test Positive VBG pH 7.32 (7.30-7.40) VBG pCO2 77.6 H (41-51) mmHg VBG pO2 37.0 L (40-80) mmHG VBG HCO3 38.8 H (22-26) meq/L VBG O2 Saturation 55.1 VBG Base Excess 9.6 H (-4.0-2.0) A-a Gradient 5 mmHg O2 Delivery Device Nasal cannula Bipap Oxygen Flow Rate 2.0 FiO2 (21.00-100.00) % PEEP cmH20 Pressure Support cmH2O Sodium (136-145) mEq/L Potassium (3.5-5.1) mEq/L Chloride (98-107) mEq/L Carbon Dioxide (21-32) mEq/L Anion Gap (5-15) BUN (7-18) mg/dL Creatinine (0.55-1.02) mg/dL Est Cr Clr Drug Dosing mL/min Estimated GFR (MDRD) (>60) mL/min BUN/Creatinine Ratio (14-18) Glucose (70-99) mg/dL Calcium (8.5-10.1) mg/dL Magnesium (1.8-2.4) mg/dL Total Bilirubin (0.2-1.0) mg/dL AST (15-37) U/L ALT (14-59) U/L Alkaline Phosphatase (46-116) U/L C-Reactive Protein (<1.0) mg/dL Total Protein (6.4-8.2) g/dl Albumin (3.4-5.0) g/dl Globulin gm/dL Albumin/Globulin Ratio (1-2) Procalcitonin 0.06 ng/mL 10/14/21 10/14/21 10/14/21 Range/Units 05:05 05:05 05:05 WBC 9.03 (3.98-10.04) K/mm3 RBC 4.50 (3.98-5.22) M/mm3 Hgb 13.0 (11.2-15.7) gm/dl Hct 44.5 (34.1-44.9) % MCV 98.9 H (79.4-94.8) fl MCH 28.9 (25.6-32.2) pg MCHC 29.2 L (32.2-35.5) g/dl RDW Std Deviation 54.9 H (36.4-46.3) fL Plt Count 162 L (182-369) K/mm3 MPV 11.8 (9.4-12.3) fl Neut % (Auto) 82.3 H (34.0-71.1) % Lymph % (Auto) 5.3 L (19.3-51.7) % [place] % (Auto) 11.4 (4.7-12.5) % Eos % (Auto) 0.7 (0.7-5.8) Baso % (Auto) 0.1 (0.1-1.2) % Neut # (Auto) 7.43 H (1.56-6.13) K/mm3 Lymph # (Auto) 0.48 L (1.18-3.74) K/mm3 [place] # (Auto) 1.03 H (0.24-0.36) K/mm3 Eos # (Auto) 0.06 (0.04-0.36) K/mm3 Baso # (Auto) 0.01 (0.01-0.08) K/mm3 PT 16.7 H D (9.7-12.0) SECONDS INR 1.53 Puncture Site ABG pH (7.35-7.45) ABG pCO2 (35.0-45.0) mmHg ABG pO2 (80.0-100.0) mmHg ABG HCO3 (22.0-26.0) meq/L ABG O2 Saturation (96.0-97.0) % ABG Base Excess (-2-2.0) Parveen Test VBG pH (7.30-7.40) VBG pCO2 (41-51) mmHg VBG pO2 (40-80) mmHG VBG HCO3 (22-26) meq/L VBG O2 Saturation VBG Base Excess (-4.0-2.0) A-a Gradient mmHg O2 Delivery Device Oxygen Flow Rate FiO2 (21.00-100.00) % PEEP cmH20 Pressure Support cmH2O Sodium 147 H (136-145) mEq/L Potassium 3.9 (3.5-5.1) mEq/L Chloride 105 (98-107) mEq/L Carbon Dioxide 39 H (21-32) mEq/L Anion Gap 6.9 (5-15) BUN 61 H (7-18) mg/dL Creatinine 1.2 H (0.55-1.02) mg/dL Est Cr Clr Drug Dosing 34.77 mL/min Estimated GFR (MDRD) 44 (>60) mL/min BUN/Creatinine Ratio 50.8 H (14-18) Glucose 114 H (70-99) mg/dL Calcium 8.4 L (8.5-10.1) mg/dL Magnesium 2.7 H (1.8-2.4) mg/dL Total Bilirubin 0.3 (0.2-1.0) mg/dL AST 22 (15-37) U/L ALT 24 (14-59) U/L Alkaline Phosphatase 102 (46-116) U/L C-Reactive Protein 1.3 H* (<1.0) mg/dL Total Protein 5.8 L (6.4-8.2) g/dl Albumin 2.7 L (3.4-5.0) g/dl Globulin 3.1 gm/dL Albumin/Globulin Ratio 0.9 L (1-2) Procalcitonin ng/mL 10/14/21 10/14/21 10/14/21 Range/Units 05:06 05:53 09:52 WBC (3.98-10.04) K/mm3 RBC (3.98-5.22) M/mm3 Hgb (11.2-15.7) gm/dl Hct (34.1-44.9) % MCV (79.4-94.8) fl MCH (25.6-32.2) pg MCHC (32.2-35.5) g/dl RDW Std Deviation (36.4-46.3) fL Plt Count (182-369) K/mm3 MPV (9.4-12.3) fl Neut % (Auto) (34.0-71.1) % Lymph % (Auto) (19.3-51.7) % [place] % (Auto) (4.7-12.5) % Eos % (Auto) (0.7-5.8) Baso % (Auto) (0.1-1.2) % Neut # (Auto) (1.56-6.13) K/mm3 Lymph # (Auto) (1.18-3.74) K/mm3 [place] # (Auto) (0.24-0.36) K/mm3 Eos # (Auto) (0.04-0.36) K/mm3 Baso # (Auto) (0.01-0.08) K/mm3 PT (9.7-12.0) SECONDS INR Puncture Site Lt radial Rt radial ABG pH 7.35 7.30 L (7.35-7.45) ABG pCO2 74.3 H* 85.4 H* (35.0-45.0) mmHg ABG pO2 74.0 L 113.0 H (80.0-100.0) mmHg ABG HCO3 39.6 H 40.3 H (22.0-26.0) meq/L ABG O2 Saturation 94.5 L 98.0 H (96.0-97.0) % ABG Base Excess 11.1 H 10.5 H (-2-2.0) Parveen Test Positive Positive VBG pH 7.38 (7.30-7.40) VBG pCO2 66.9 H (41-51) mmHg VBG pO2 68.0 (40-80) mmHG VBG HCO3 38.4 H (22-26) meq/L VBG O2 Saturation 93.0 VBG Base Excess 10.9 H (-4.0-2.0) A-a Gradient 119 mmHg O2 Delivery Device Bipap Bipap Nasal cannula Oxygen Flow Rate 5.0 5.0 5.0 FiO2 40.00 (21.00-100.00) % PEEP 9.0 cmH20 Pressure Support 13.0 cmH2O Sodium (136-145) mEq/L Potassium (3.5-5.1) mEq/L Chloride (98-107) mEq/L Carbon Dioxide (21-32) mEq/L Anion Gap (5-15) BUN (7-18) mg/dL Creatinine (0.55-1.02) mg/dL Est Cr Clr Drug Dosing mL/min Estimated GFR (MDRD) (>60) mL/min BUN/Creatinine Ratio (14-18) Glucose (70-99) mg/dL Calcium (8.5-10.1) mg/dL Magnesium (1.8-2.4) mg/dL Total Bilirubin (0.2-1.0) mg/dL AST (15-37) U/L ALT (14-59) U/L Alkaline Phosphatase (46-116) U/L C-Reactive Protein (<1.0) mg/dL Total Protein (6.4-8.2) g/dl Albumin (3.4-5.0) g/dl Globulin gm/dL Albumin/Globulin Ratio (1-2) Procalcitonin ng/mL Charly Results Last 24 Hours: Microbiology 10/11/21 08:10 Urine Culture - Preliminary Urine Gram Negative Rods Med Orders - Current: Current Medications Acetaminophen (Acetaminophen 325 Mg Tab) 650 mg PO Q4H PRN PRN Reason: Pain (Mild 1-3)/fever Albuterol (Albuterol 0.083% 2.5 Mg/3 Ml Neb Soln) 2.5 mg NEB Q2H PRN PRN Reason: Shortness Of Breath/wheezing Albuterol/Ipratropium (Albuterol/Ipratropium 3.0-0.5 Mg/3 Ml Neb Soln) 3 ml NEB Q4H PRN PRN Reason: Shortness Of Breath/wheezing Last Admin: 10/13/21 08:32 Dose: 3 ml Documented by: Allopurinol (Allopurinol 100 Mg Tab) 100 mg PO BID [facility] Last Admin: 10/14/21 08:25 Dose: 100 mg Documented by: Cholecalciferol (Cholecalciferol (Vitamin D3) 25 Mcg Tab) 25 mcg PO DAILY [facility] Last Admin: 10/14/21 08:25 Dose: 25 mcg Documented by: Dorzolamide HCl (Dorzolamide 2% Ophth Soln 10 Ml Bottle) 0 ml EYEBOTH BID [facility] Last Admin: 10/14/21 08:26 Dose: 1 drop Documented by: Ceftriaxone Sodium 2 gm/ (Sodium Chloride) 100 mls @ 200 mls/hr IV Q24H [facility] Last Admin: 10/13/21 14:08 Dose: 200 mls/hr Documented by: Levothyroxine Sodium (Levothyroxine 25 Mcg Tab) 25 mcg PO ACBREAKFAST [facility] Last Admin: 10/14/21 06:15 Dose: 25 mcg Documented by: Metoprolol Tartrate (Metoprolol Tartrate 50 Mg Tab) 50 mg PO BID [facility] Last Admin: 10/14/21 08:25 Dose: 50 mg Documented by: Nystatin (Nystatin Topical Powder 15 Gm Bottle) 0 gm TOP TID [facility] Last Admin: 10/14/21 08:25 Dose: 1 applic Documented by: Ondansetron HCl (Ondansetron 4 Mg/2 Ml Sdv) 4 mg IV Q6H PRN PRN Reason: Nausea/Vomiting Rosuvastatin Calcium (Rosuvastatin 10 Mg Tab) 20 mg PO DAILY [facility] Last Admin: 10/14/21 08:24 Dose: 20 mg Documented by: Sertraline HCl (Sertraline 50 Mg Tab) 100 mg PO 0800,1200 [facility] Last Admin: 10/14/21 11:11 Dose: 100 mg Documented by: Sodium Chloride (Sodium Chloride 0.9% 10 Ml Syringe) 10 ml FLUSH ASDIRECTED PRN PRN Reason: Keep Vein Open Last Admin: 10/09/21 13:36 Dose: 10 ml Documented by: Sucralfate (Sucralfate 1 Gm Tab) 1 gm PO TID PRN PRN Reason: Dyspepsia Last Admin: 10/09/21 22:28 Dose: 1 gm Documented by: Torsemide (Torsemide 20 Mg Tab) 20 mg PO DAILY [facility] Warfarin Sodium (Pharmacy To Dose - Warfarin) 1 dose .XX ASDIRECTED PRN PRN Reason: RX TO DOSE WARFARIN Warfarin Sodium (Warfarin 4 Mg Tab) 4 mg PO QPM [facility] Stop: 10/14/21 18:01 Discontinued Medications Albuterol/Ipratropium (Albuterol/Ipratropium 3.0-0.5 Mg/3 Ml Neb Soln) 3 ml NEB ONETIME ONE Stop: 10/09/21 12:54 Last Admin: 10/09/21 13:16 Dose: 3 ml Documented by: Albuterol/Ipratropium (Albuterol/Ipratropium 3.0-0.5 Mg/3 Ml Neb Soln) 3 ml NEB ONETIME ONE Stop: 10/09/21 18:49 Last Admin: 10/09/21 18:59 Dose: 3 ml Documented by: Furosemide (Furosemide 20 Mg/2 Ml Vial) 40 mg IVPUSH ONETIME ONE Stop: 10/09/21 13:59 Last Admin: 10/09/21 14:43 Dose: 40 mg Documented by: Furosemide (Furosemide 40 Mg/4 Ml Vial) 60 mg IVPUSH BID [facility] Last Admin: 10/10/21 08:51 Dose: 60 mg Documented by: Furosemide (Furosemide 40 Mg/4 Ml Vial) 40 mg IVPUSH NOW ONE Stop: 10/10/21 16:01 Last Admin: 10/10/21 18:08 Dose: 40 mg Documented by: Furosemide (Furosemide 40 Mg/4 Ml Vial) 40 mg IVPUSH NOW ONE Stop: 10/14/21 10:51 Last Admin: 10/14/21 11:11 Dose: 40 mg Documented by: Furosemide 100 mg/ Sodium (Chloride) 100 mls @ 10 mls/hr IV TITRATE [facility]; Protocol Last Titration: 10/11/21 00:25 Dose: 0 mg/hr, 0 mls/hr Documented by: Sodium Chloride (Normal Saline) Confirm Administered Dose 500 mls @ as directed .ROUTE .STK-MED ONE Stop: 10/10/21 16:14 Last Admin: 10/10/21 18:35 Dose: Not Given Documented by: Sodium Chloride (Normal Saline) 500 mls @ 100 mls/hr IV ONETIME ONE Stop: 10/11/21 20:29 Last Admin: 10/11/21 15:10 Dose: 100 mls/hr Documented by: Sodium Chloride (Sodium Chloride 0.45%) 1,000 mls @ 75 mls/hr IV ASDIRECTED [facility] Last Admin: 10/12/21 10:45 Dose: 75 mls/hr Documented by: Magnesium Hydroxide (Magnesium Hydroxide 400 Mg/5 Ml Susp 30 Ml Cup) 30 ml PO ONETIME ONE Stop: 10/14/21 06:01 Last Admin: 10/14/21 06:15 Dose: 30 ml Documented by: Methylprednisolone Sodium Succinate (Methylprednisolone Sodium Succinate 125 Mg/2 Ml Sdv) 125 mg IVPUSH ONETIME ONE Stop: 10/09/21 18:49 Last Admin: 10/09/21 19:21 Dose: 125 mg Documented by: Metoprolol Tartrate (Metoprolol Tartrate 25 Mg Tab) 25 mg PO BID [facility] Last Admin: 10/13/21 08:23 Dose: 25 mg Documented by: Nystatin (Nystatin Topical Powder 15 Gm Bottle) 0 gm TOP NOW ONE Stop: 10/09/21 18:17 Last Admin: 10/09/21 22:20 Dose: Not Given Documented by: Spironolactone (Spironolactone 100 Mg Tab) 100 mg PO DAILY [facility] Last Admin: 10/13/21 08:22 Dose: 100 mg Documented by: Warfarin Sodium (Warfarin 4 Mg Tab) 4 mg PO QPM [facility] Stop: 10/13/21 18:01 Last Admin: 10/13/21 18:04 Dose: 4 mg Documented by: - Exam Quality Assessment: Supplemental Oxygen Urinary Catheter Total Time: 2Days 13Hours General: Lethargic HEENT: Pupils Equal, Mucous Membr. Moist/[place] Neck: Supple Lungs: Crackles (Mild bibasilar). No: Normal Respiratory Effort (Increased respiratory rate) Cardiovascular: Irregular Rhythm, Tachycardia GI/Abdominal Exam: Normal Bowel Sounds, Soft, No Distention, Distended (Morbidly obese) Extremities: Non-Tender, Normal Capillary Refill, Pedal Edema (1+) Skin: Warm, Dry, Intact, Other (Decreased erythema. Improving lesions on her leg) - Patient Data Lab Results Last 24 hrs: Laboratory Results - last 24 hr 10/13/21 10/13/21 10/13/21 Range/Units 07:54 19:17 21:37 WBC (3.98-10.04) K/mm3 RBC (3.98-5.22) M/mm3 Hgb (11.2-15.7) gm/dl Hct (34.1-44.9) % MCV (79.4-94.8) fl MCH (25.6-32.2) pg MCHC (32.2-35.5) g/dl RDW Std Deviation (36.4-46.3) fL Plt Count (182-369) K/mm3 MPV (9.4-12.3) fl Neut % (Auto) (34.0-71.1) % Lymph % (Auto) (19.3-51.7) % [place] % (Auto) (4.7-12.5) % Eos % (Auto) (0.7-5.8) Baso % (Auto) (0.1-1.2) % Neut # (Auto) (1.56-6.13) K/mm3 Lymph # (Auto) (1.18-3.74) K/mm3 [place] # (Auto) (0.24-0.36) K/mm3 Eos # (Auto) (0.04-0.36) K/mm3 Baso # (Auto) (0.01-0.08) K/mm3 PT (9.7-12.0) SECONDS INR Puncture Site Lt radial ABG pH 7.28 L (7.35-7.45) ABG pCO2 87.2 H* (35.0-45.0) mmHg ABG pO2 85.0 (80.0-100.0) mmHg ABG HCO3 40.1 H (22.0-26.0) meq/L ABG O2 Saturation 95.7 L (96.0-97.0) % ABG Base Excess 10.0 H (-2-2.0) Parveen Test Positive VBG pH 7.32 (7.30-7.40) VBG pCO2 77.6 H (41-51) mmHg VBG pO2 37.0 L (40-80) mmHG VBG HCO3 38.8 H (22-26) meq/L VBG O2 Saturation 55.1 VBG Base Excess 9.6 H (-4.0-2.0) A-a Gradient 5 mmHg O2 Delivery Device Nasal cannula Bipap Oxygen Flow Rate 2.0 FiO2 (21.00-100.00) % PEEP cmH20 Pressure Support cmH2O Sodium (136-145) mEq/L Potassium (3.5-5.1) mEq/L Chloride (98-107) mEq/L Carbon Dioxide (21-32) mEq/L Anion Gap (5-15) BUN (7-18) mg/dL Creatinine (0.55-1.02) mg/dL Est Cr Clr Drug Dosing mL/min Estimated GFR (MDRD) (>60) mL/min BUN/Creatinine Ratio (14-18) Glucose (70-99) mg/dL Calcium (8.5-10.1) mg/dL Magnesium (1.8-2.4) mg/dL Total Bilirubin (0.2-1.0) mg/dL AST (15-37) U/L ALT (14-59) U/L Alkaline Phosphatase (46-116) U/L C-Reactive Protein (<1.0) mg/dL Total Protein (6.4-8.2) g/dl Albumin (3.4-5.0) g/dl Globulin gm/dL Albumin/Globulin Ratio (1-2) Procalcitonin 0.06 ng/mL 10/14/21 10/14/21 10/14/21 Range/Units 05:05 05:05 05:05 WBC 9.03 (3.98-10.04) K/mm3 RBC 4.50 (3.98-5.22) M/mm3 Hgb 13.0 (11.2-15.7) gm/dl Hct 44.5 (34.1-44.9) % MCV 98.9 H (79.4-94.8) fl MCH 28.9 (25.6-32.2) pg MCHC 29.2 L (32.2-35.5) g/dl RDW Std Deviation 54.9 H (36.4-46.3) fL Plt Count 162 L (182-369) K/mm3 MPV 11.8 (9.4-12.3) fl Neut % (Auto) 82.3 H (34.0-71.1) % Lymph % (Auto) 5.3 L (19.3-51.7) % [place] % (Auto) 11.4 (4.7-12.5) % Eos % (Auto) 0.7 (0.7-5.8) Baso % (Auto) 0.1 (0.1-1.2) % Neut # (Auto) 7.43 H (1.56-6.13) K/mm3 Lymph # (Auto) 0.48 L (1.18-3.74) K/mm3 [place] # (Auto) 1.03 H (0.24-0.36) K/mm3 Eos # (Auto) 0.06 (0.04-0.36) K/mm3 Baso # (Auto) 0.01 (0.01-0.08) K/mm3 PT 16.7 H D (9.7-12.0) SECONDS INR 1.53 Puncture Site ABG pH (7.35-7.45) ABG pCO2 (35.0-45.0) mmHg ABG pO2 (80.0-100.0) mmHg ABG HCO3 (22.0-26.0) meq/L ABG O2 Saturation (96.0-97.0) % ABG Base Excess (-2-2.0) Parveen Test VBG pH (7.30-7.40) VBG pCO2 (41-51) mmHg VBG pO2 (40-80) mmHG VBG HCO3 (22-26) meq/L VBG O2 Saturation VBG Base Excess (-4.0-2.0) A-a Gradient mmHg O2 Delivery Device Oxygen Flow Rate FiO2 (21.00-100.00) % PEEP cmH20 Pressure Support cmH2O Sodium 147 H (136-145) mEq/L Potassium 3.9 (3.5-5.1) mEq/L Chloride 105 (98-107) mEq/L Carbon Dioxide 39 H (21-32) mEq/L Anion Gap 6.9 (5-15) BUN 61 H (7-18) mg/dL Creatinine 1.2 H (0.55-1.02) mg/dL Est Cr Clr Drug Dosing 34.77 mL/min Estimated GFR (MDRD) 44 (>60) mL/min BUN/Creatinine Ratio 50.8 H (14-18) Glucose 114 H (70-99) mg/dL Calcium 8.4 L (8.5-10.1) mg/dL Magnesium 2.7 H (1.8-2.4) mg/dL Total Bilirubin 0.3 (0.2-1.0) mg/dL AST 22 (15-37) U/L ALT 24 (14-59) U/L Alkaline Phosphatase 102 (46-116) U/L C-Reactive Protein 1.3 H* (<1.0) mg/dL Total Protein 5.8 L (6.4-8.2) g/dl Albumin 2.7 L (3.4-5.0) g/dl Globulin 3.1 gm/dL Albumin/Globulin Ratio 0.9 L (1-2) Procalcitonin ng/mL 10/14/21 10/14/21 10/14/21 Range/Units 05:06 05:53 09:52 WBC (3.98-10.04) K/mm3 RBC (3.98-5.22) M/mm3 Hgb (11.2-15.7) gm/dl Hct (34.1-44.9) % MCV (79.4-94.8) fl MCH (25.6-32.2) pg MCHC (32.2-35.5) g/dl RDW Std Deviation (36.4-46.3) fL Plt Count (182-369) K/mm3 MPV (9.4-12.3) fl Neut % (Auto) (34.0-71.1) % Lymph % (Auto) (19.3-51.7) % [place] % (Auto) (4.7-12.5) % Eos % (Auto) (0.7-5.8) Baso % (Auto) (0.1-1.2) % Neut # (Auto) (1.56-6.13) K/mm3 Lymph # (Auto) (1.18-3.74) K/mm3 [place] # (Auto) (0.24-0.36) K/mm3 Eos # (Auto) (0.04-0.36) K/mm3 Baso # (Auto) (0.01-0.08) K/mm3 PT (9.7-12.0) SECONDS INR Puncture Site Lt radial Rt radial ABG pH 7.35 7.30 L (7.35-7.45) ABG pCO2 74.3 H* 85.4 H* (35.0-45.0) mmHg ABG pO2 74.0 L 113.0 H (80.0-100.0) mmHg ABG HCO3 39.6 H 40.3 H (22.0-26.0) meq/L ABG O2 Saturation 94.5 L 98.0 H (96.0-97.0) % ABG Base Excess 11.1 H 10.5 H (-2-2.0) Parveen Test Positive Positive VBG pH 7.38 (7.30-7.40) VBG pCO2 66.9 H (41-51) mmHg VBG pO2 68.0 (40-80) mmHG VBG HCO3 38.4 H (22-26) meq/L VBG O2 Saturation 93.0 VBG Base Excess 10.9 H (-4.0-2.0) A-a Gradient 119 mmHg O2 Delivery Device Bipap Bipap Nasal cannula Oxygen Flow Rate 5.0 5.0 5.0 FiO2 40.00 (21.00-100.00) % PEEP 9.0 cmH20 Pressure Support 13.0 cmH2O Sodium (136-145) mEq/L Potassium (3.5-5.1) mEq/L Chloride (98-107) mEq/L Carbon Dioxide (21-32) mEq/L Anion Gap (5-15) BUN (7-18) mg/dL Creatinine (0.55-1.02) mg/dL Est Cr Clr Drug Dosing mL/min Estimated GFR (MDRD) (>60) mL/min BUN/Creatinine Ratio (14-18) Glucose (70-99) mg/dL Calcium (8.5-10.1) mg/dL Magnesium (1.8-2.4) mg/dL Total Bilirubin (0.2-1.0) mg/dL AST (15-37) U/L ALT (14-59) U/L Alkaline Phosphatase (46-116) U/L C-Reactive Protein (<1.0) mg/dL Total Protein (6.4-8.2) g/dl Albumin (3.4-5.0) g/dl Globulin gm/dL Albumin/Globulin Ratio (1-2) Procalcitonin ng/mL Result Diagrams: 10/14/21 05:05 10/14/21 05:05 Charly Results Last 24 hrs: Microbiology 10/11/21 08:10 Urine Culture - Preliminary Urine Gram Negative Rods Sepsis Event Note - Evaluation Sepsis Screening Result: Sepsis Risk - Focused Exam Vital Signs: Vital Signs Temp Pulse Resp BP Pulse Ox Pulse Ox 10/14/21 11:37 97.5 F 98 24 H 124/60 94 L 10/14/21 08:25 112 H 129/85 10/14/21 08:09 97.9 F 76 22 H 129/85 95 10/14/21 04:00 97.5 F 85 18 103/68 95 10/14/21 02:57 91 L 10/14/21 02:51 91 L 10/14/21 02:49 83 L - Problem List & Annotations (1) Congestive heart failure SNOMED Code(s): 53100169 Code(s): I50.9 - HEART FAILURE, UNSPECIFIED Status: Acute Current Visit: Yes Qualifiers: Heart failure type: combined systolic and diastolic Heart failure chronicity: acute on chronic Qualified Code(s): I50.43 - Acute on chronic combined systolic (congestive) and diastolic (congestive) heart failure (2) Hypoxia SNOMED Code(s): 800340487 Code(s): R09.02 - HYPOXEMIA Status: Acute Current Visit: Yes (3) Hypoventilation associated with obesity syndrome SNOMED Code(s): 451746873 Code(s): E66.2 - MORBID (SEVERE) OBESITY WITH ALVEOLAR HYPOVENTILATION St atus: Chronic Current Visit: Yes (4) Atrial fibrillation with RVR SNOMED Code(s): 532639097260127 Code(s): I48.91 - UNSPECIFIED ATRIAL FIBRILLATION Status: Acute Current Visit: No (5) DM2 (diabetes mellitus, type 2) SNOMED Code(s): 00431912 Code(s): E11.9 - TYPE 2 DIABETES MELLITUS WITHOUT COMPLICATIONS Status: Acute Current Visit: No Qualifiers: Diabetes mellitus termite treater helper insulin use: without termite treater helper use Diabetes mellitus complication status: without complication Qualified Code(s): E11.9 - Type 2 diabetes mellitus without complications (6) Elevated INR SNOMED Code(s): 970420970 Code(s): R79.1 - ABNORMAL COAGULATION PROFILE Status: Acute Current Visit: Yes (7) Respiratory failure with hypoxia and hypercapnia SNOMED Code(s): 66254182 Code(s): J96.91 - RESPIRATORY FAILURE, UNSPECIFIED WITH HYPOXIA; J96.92 - RESPIRATORY FAILURE, UNSPECIFIED WITH HYPERCAPNIA Status: Acute Current Visit: Yes (8) UTI (urinary tract infection) SNOMED Code(s): 30640439 Code(s): N39.0 - URINARY TRACT INFECTION, SITE NOT SPECIFIED Status: Acute Current Visit: Yes (9) Cellulitis, leg SNOMED Code(s): 929220803 Code(s): L03.119 - CELLULITIS OF UNSPECIFIED PART OF LIMB Status: Acute Current Visit: Yes - Problem List Review Problem List Initiated/Reviewed/Updated: Yes - My Orders Last 24 Hours: My Active Orders 10/13/21 16:09 Overnight Pulse Oximetry [RC] Click to Edit 10/13/21 18:37 Renew/Continue Urinary Catheter [OM.PC] Routine 10/13/21 21:00 Metoprolol Tartrate [Lopressor] 50 mg PO BID 10/14/21 09:52 RT PFT Bedside Parameters [RC] Click to Edit 10/14/21 18:00 Warfarin [Coumadin] 4 mg PO QPM 10/15/21 05:11 INR,PT,PROTHROMBIN TIME [COAG] AM INR,PT,PROTHROMBIN TIME [COAG] AM 10/15/21 09:00 Torsemide [Demadex] 20 mg PO DAILY 10/16/21 05:11 INR,PT,PROTHROMBIN TIME [COAG] AM 10/17/21 05:11 INR,PT,PROTHROMBIN TIME [COAG] AM - Plan Plan:: 76-year-old female with history of atrial fibrillation, congestive heart failure, diabetes, morbid obesity, cor pulmonale, severe pulmonary artery systolic hypertension presents to the emergency department with hypercapnic, hypoxemic respiratory failure secondary to exacerbation of CHF. Exacerbation CHF Hypercapnic, hypoxemic respiratory failure History of cor pulmonale * Echocardiogram from October 2020 showed a left ejection fraction of 50 to 55%. Normal right ventricular systolic function. Right ventricular systolic pressure is moderately elevated at 49.5 mmHg PFO or small ASD is present with left to right shunt. Severe biatrial dilatation * Chest x-ray shows mild CHF * proBNP 7137 * Initial pH 7.27 with PCO2 of 83 * Currently on BiPAP with an improving pH and PCO2 * Patient had some altered mental status and a CT scan was negative * Improved altered mental status with improving PCO2. * Home diuretics include torsemide 20 mg daily and spironolactone 100 mg daily Atrial fibrillation Elevated INR * INR 4.86 * Metoprolol 25 mg twice daily for rate control * Warfarin 5 mg take as directed Acute on chronic renal sufficiency * Baseline creatinine of 1.4 creatinine 1.9, BUN 56 * Estimated GFR of 26 * Patient does not appear to be on an ERIC or an ARB Diabetes * Home medications include sitagliptin * Unknown hemoglobin A1c Hypothyroidism * Unknown TSH * Levothyroxine 25 mcg daily Gout * Allopurinol 100 mg twice daily 10/10/2021 Patient has had significant improvement overnight. She has decreased PCO2 and improved oxygenation. Echocardiogram is pending for this morning. patient does have some hypernatremia with sodium of 148. This suggests that she is having some volume contraction. Creatinine actually improved and went down to 1.7 with estimated GFR of 29. TSH was 1.58. INR today is 4.73 and warfarin is still being held. Restart metoprolol for blood pressure and rate control. 10/11/2021 Patient has decreased urine output and sodium is increased and BUN to creatinine ratio is elevated today consistent with hypovolemia. Patient also continues to have an elevated INR at 4.36. Patient's hemoglobin is stable. She does have some blood in her urine. Hemoglobin A1c is 6.8. Heart rate has been in the low 100s. Creatinine is up to 1.9 and BUN is 62. Patient will get 500 mL of normal saline over 5 hours. Continue to monitor and consider half-normal saline and this does not improve sodium. Continue to follow in the ICU. Patient is demonstrating hypoventilatory syndrome. This will be difficult to treat with the addition of her A. fib, CHF, elevated INR, and renal insufficiency. Patient's prognosis now is guarded. is aware. 10/12/2021 Patient had a improved evening. She wore her BiPAP overnight and her pH came down to normal. Her venous blood gas: 7.3/73.2/59/38. PCO2 is still elevated but it is corrected. She is currently on only 2 L nasal cannula. We restarted fluids last night secondary to poor urine output and her BMP suggesting prerenal disease. She was hypernatremic yesterday and that has come down to 145. BUN is still elevated at 61, but creatinine has decreased to baseline at 1.6. She has cellulitis of the lower extremities with open wound. These are much less red after starting Rocephin. She also has a UTI based on urinalysis yesterday. Urine culture is requested, but it may be too late to culture. White count is 11 which is down from yesterday. Procalcitonin was 0.07. INR is still elevated at 4.13. This has been a very slow decrease in her INR. Bilirubin is normal as well as liver enzymes. 10/13/2021 76-year-old female with hypoventilatory syndrome certainly better on BiPAP. VBG this morning was a little worse than yesterday with a pH of 7.30 and PCO2 of 83. Bicarb is 39. MICHAEL is not the primary contributing factor to the hypoventilation or hypercapnia. Reportedly patient is on BiPAP at home, but she does not have a rate. Patient clearly needs increased pressures and a rate to keep her PCO2 even close to normal. It appears obesity and poor respiratory drive are the major contributing factors to her hypoventilation. Patient's lower extremity cellulitis and UTI are being treated with ceftriaxone. Both are improving. She did have her legs wrapped with Eric wraps yesterday and there is significant improvement. Patient's creatinine has improved since she is been off Lasix and torsemide, but BUN is still elevated. She continues on spironolactone. Patient will need to be sent home on BiPAP preferably with increased pressures and backup rate. Without this I am greatly concerned that she will develop worsening hypercapnia and respiratory failure. Echocardiogram 1. Unable to assess LV function secondary to inability to obtain adequate and images. The left internal cavity size is normal. 2. Mild to moderate mitral valve regurgitation. 3. Moderate to severe tricuspid valve regurgitation. 4. At least moderate elevation in RVSP. 5. Atrial septal aneurysm. 6. Interatrial septum appears mobile. 7. There is severe biatrial dilatation. 10/14/2021 76-year-old female with end-stage respiratory failure now BiPAP dependent. Review of patient's blood gases shows that she becomes acidotic and retains more CO2 when she is not on her BiPAP. Patient is also very deconditioned and is having increasing difficulty moving air or ventilating. Physical therapy is working with her, but today family realizes that they will not be able to take her home and she will need to go to a SNF. also understands the grave nature of her illness and that at some point in the very near future she will likely pass away in her sleep even with BiPAP treatment. Patient was given Lasix 40 mg IV today and will need to be evaluated daily for diuresis. BUN to c reatinine ratio is still significantly elevated at 50.8 with BUN of 61 and creatinine of 1.2. Hemoglobin is a little lower at 13.0 and white count is 9.03. INR today was low at 1.53. She no longer has blood in her catheter. Sodium is elevated at 147 also suggesting hypovolemia. CRP is down to 1.3. Urine cultures did grow out gram-negative rods and she is on Rocephin both for her UTI and for her lower extremity cellulitis which has pretty much resolved. Patient has a very poor prognosis at this time. We will continue to diurese as appropriate, continue physical therapy and encourage incentive spirometry, and use BiPAP when not active or eating. Plan * Managed on medical floor * Strict I's and O's and daily weights * Lasix 40 mg IV x1 * Continue BiPAP when asleep and when not actively doing physical therapy, eating, or respiratory therapy. * Evaluate need of diuretics daily * Stop spironolactone * Increase metoprolol to 50 mg twice daily secondary to poor rate control metoprolol * Rocephin 2 g daily for 5 to 7 days or until urine cultures narrow spectrum of antibiotics * Sliding-scale insulin and blood sugars before every meal/nightly * Pharmacy to dose warfarin * Follow BMP and blood gases closely * VTE prophylaxis: Patient has elevated INR and will also use SCDs * CODE STATUS: DNR/DNI * Patient would benefit from BiPAP increased pressures and backup rate at home. Length of stay greater than 96 hours secondary to slow resolution and physical deconditioning requiring physical therapy.
[2021-10-14] MEDS: cefTRIAXone 2 GM in Sodium Chloride 0.9% 100 ML IV SCH (14:43)
[2021-10-14] MEDS ORDERED: Warfarin 4 MG Tab PO SCH (18:00)
[2021-10-14] MEDS: Metoprolol Tartrate 25 MG Tab PO SCH (20:42)
[2021-10-15] MEDS: Levothyroxine 25 MCG Tab PO SCH (06:08)
--- NOTE | 2021-10-15 08:17 | PCM.PN ---
- General Info Date of Service: 10/15/21 Admission Dx/Problem (Free Text): Admission Diagnosis/Problem Admission Diagnosis/Problem acute hypercapnic respiratory failure. Subjective Update: Patient seen and examined at bedside. No overnight events. No new nursing concerns. Patient now completely BiPAP dependent. Patient answering questions somewhat appropriately. Is fidgeting with objects from her tray table appearing slightly encephalopathic. No distress. Is not endorsing any specific complaints. - Patient Data Vitals - Most Recent: Last Vital Signs Temp 96.8 F L 10/15/21 04:34 Pulse 83 10/15/21 04:34 Resp 24 H 10/15/21 04:34 BP 123/75 10/15/21 04:34 Pulse Ox 95 10/15/21 04:34 Weight - Most Recent: 335 lb 11.2 oz I&O - Last 24 Hours: Intake & Output 10/14/21 10/15/21 10/15/21 22:59 06:59 14:59 Intake Total 320 75 Output Total 700 630 Balance -380 -555 Lab Results Last 24 Hours: Laboratory Results - last 24 hr 10/14/21 Range/Units 09:52 Puncture Site Rt radial ABG pH 7.30 L (7.35-7.45) ABG pCO2 85.4 H* (35.0-45.0) mmHg ABG pO2 113.0 H (80.0-100.0) mmHg ABG HCO3 40.3 H (22.0-26.0) meq/L ABG O2 Saturation 98.0 H (96.0-97.0) % ABG Base Excess 10.5 H (-2-2.0) Parveen Test Positive O2 Delivery Device Nasal cannula Oxygen Flow Rate 5.0 Charly Results Last 24 Hours: Microbiology 10/09/21 13:55 Blood Culture - Final Blood - Venous - Lab Draw 10/09/21 13:25 Blood Culture - Final Blood - Venous 10/11/21 08:10 Urine Culture - Preliminary Urine Gram Negative Rods Med Orders - Current: Current Medications Acetaminophen (Acetaminophen 325 Mg Tab) 650 mg PO Q4H PRN PRN Reason: Pain (Mild 1-3)/fever Albuterol (Albuterol 0.083% 2.5 Mg/3 Ml Neb Soln) 2.5 mg NEB Q2H PRN PRN Reason: Shortness Of Breath/wheezing Albuterol/Ipratropium (Albuterol/Ipratropium 3.0-0.5 Mg/3 Ml Neb Soln) 3 ml NEB Q4H PRN PRN Reason: Shortness Of Breath/wheezing Last Admin: 10/13/21 08:32 Dose: 3 ml Documented by: Allopurinol (Allopurinol 100 Mg Tab) 100 mg PO BID [facility] Last Admin: 10/14/21 20:44 Dose: 100 mg Documented by: Cholecalciferol (Cholecalciferol (Vitamin D3) 25 Mcg Tab) 25 mcg PO DAILY [facility] Last Admin: 10/14/21 08:25 Dose: 25 mcg Documented by: Dorzolamide HCl (Dorzolamide 2% Ophth Soln 10 Ml Bottle) 0 ml EYEBOTH BID [facility] Last Admin: 10/14/21 20:43 Dose: 1 drop Documented by: Ceftriaxone Sodium 2 gm/ (Sodium Chloride) 100 mls @ 200 mls/hr IV Q24H [facility] Last Admin: 10/14/21 14:43 Dose: 200 mls/hr Documented by: Levothyroxine Sodium (Levothyroxine 25 Mcg Tab) 25 mcg PO ACBREAKFAST [facility] Last Admin: 10/15/21 06:08 Dose: 25 mcg Documented by: Metoprolol Tartrate (Metoprolol Tartrate 25 Mg Tab) 75 mg PO Q12H [facility] Last Admin: 10/14/21 20:42 Dose: 75 mg Documented by: Nystatin (Nystatin Topical Powder 15 Gm Bottle) 0 gm TOP TID [facility] Last Admin: 10/14/21 20:43 Dose: 1 applic Documented by: Ondansetron HCl (Ondansetron 4 Mg/2 Ml Sdv) 4 mg IV Q6H PRN PRN Reason: Nausea/Vomiting Rosuvastatin Calcium (Rosuvastatin 10 Mg Tab) 20 mg PO DAILY [facility] Last Admin: 10/14/21 08:24 Dose: 20 mg Documented by: Sertraline HCl (Sertraline 50 Mg Tab) 100 mg PO 0800,1200 [facility] Last Admin: 10/14/21 11:11 Dose: 100 mg Documented by: Sodium Chloride (Sodium Chloride 0.9% 10 Ml Syringe) 10 ml FLUSH ASDIRECTED PRN PRN Reason: Keep Vein Open Last Admin: 10/09/21 13:36 Dose: 10 ml Documented by: Sucralfate (Sucralfate 1 Gm Tab) 1 gm PO TID PRN PRN Reason: Dyspepsia Last Admin: 10/09/21 22:28 Dose: 1 gm Documented by: Torsemide (Torsemide 20 Mg Tab) 20 mg PO DAILY [facility] Warfarin Sodium (Pharmacy To Dose - Warfarin) 1 dose .XX ASDIRECTED PRN PRN Reason: RX TO DOSE WARFARIN Discontinued Medications Albuterol/Ipratropium (Albuterol/Ipratropium 3.0-0.5 Mg/3 Ml Neb Soln) 3 ml NEB ONETIME ONE Stop: 10/09/21 12:54 Last Admin: 10/09/21 13:16 Dose: 3 ml Documented by: Albuterol/Ipratropium (Albuterol/Ipratropium 3.0-0.5 Mg/3 Ml Neb Soln) 3 ml NEB ONETIME ONE Stop: 10/09/21 18:49 Last Admin: 10/09/21 18:59 Dose: 3 ml Documented by: Furosemide (Furosemide 20 Mg/2 Ml Vial) 40 mg IVPUSH ONETIME ONE Stop: 10/09/21 13:59 Last Admin: 10/09/21 14:43 Dose: 40 mg Documented by: Furosemide (Furosemide 40 Mg/4 Ml Vial) 60 mg IVPUSH BID [facility] Last Admin: 10/10/21 08:51 Dose: 60 mg Documented by: Furosemide (Furosemide 40 Mg/4 Ml Vial) 40 mg IVPUSH NOW ONE Stop: 10/10/21 16:01 Last Admin: 10/10/21 18:08 Dose: 40 mg Documented by: Furosemide (Furosemide 40 Mg/4 Ml Vial) 40 mg IVPUSH NOW ONE Stop: 10/14/21 10:51 Last Admin: 10/14/21 11:11 Dose: 40 mg Documented by: Furosemide 100 mg/ Sodium (Chloride) 100 mls @ 10 mls/hr IV TITRATE [facility]; Protocol Last Titration: 10/11/21 00:25 Dose: 0 mg/hr, 0 mls/hr Documented by: Sodium Chloride (Normal Saline) Confirm Administered Dose 500 mls @ as directed .ROUTE .STK-MED ONE Stop: 10/10/21 16:14 Last Admin: 10/10/21 18:35 Dose: Not Given Documented by: Sodium Chloride (Normal Saline) 500 mls @ 100 mls/hr IV ONETIME ONE Stop: 10/11/21 20:29 Last Admin: 10/11/21 15:10 Dose: 100 mls/hr Documented by: Sodium Chloride (Sodium Chloride 0.45%) 1,000 mls @ 75 mls/hr IV ASDIRECTED [facility] Last Admin: 10/12/21 10:45 Dose: 75 mls/hr Documented by: Magnesium Hydroxide (Magnesium Hydroxide 400 Mg/5 Ml Susp 30 Ml Cup) 30 ml PO ONETIME ONE Stop: 10/14/21 06:01 Last Admin: 10/14/21 06:15 Dose: 30 ml Documented by: Methylprednisolone Sodium Succinate (Methylprednisolone Sodium Succinate 125 Mg/2 Ml Sdv) 125 mg IVPUSH ONETIME ONE Stop: 10/09/21 18:49 Last Admin: 10/09/21 19:21 Dose: 125 mg Documented by: Metoprolol Tartrate (Metoprolol Tartrate 25 Mg Tab) 25 mg PO BID [facility] Last Admin: 10/13/21 08:23 Dose: 25 mg Documented by: Metoprolol Tartrate (Metoprolol Tartrate 50 Mg Tab) 50 mg PO BID [facility] Last Admin: 10/14/21 08:25 Dose: 50 mg Documented by: Nystatin (Nystatin Topical Powder 15 Gm Bottle) 0 gm TOP NOW ONE Stop: 10/09/21 18:17 Last Admin: 10/09/21 22:20 Dose: Not Given Documented by: Spironolactone (Spironolactone 100 Mg Tab) 100 mg PO DAILY [facility] Last Admin: 10/13/21 08:22 Dose: 100 mg Documented by: Warfarin Sodium (Warfarin 4 Mg Tab) 4 mg PO QPM [facility] Stop: 10/13/21 18:01 Last Admin: 10/13/21 18:04 Dose: 4 mg Documented by: Warfarin Sodium (Warfarin 4 Mg Tab) 4 mg PO QPM [facility] Stop: 10/14/21 18:01 Last Admin: 10/14/21 18:09 Dose: 4 mg Documented by: - Exam Quality Assessment: Supplemental Oxygen (I BiPAP), DVT Prophylaxis Urinary Catheter Total Time: 3Days 17Hours General: Alert, Cooperative, No Acute Distress Neck: Supple, No JVD Lungs: Normal Respiratory Effort, Decreased Breath Sounds. No: Rales, Rhonchi, Wheezing Cardiovascular: No Murmurs, Other (Normal rate) GI/Abdominal Exam: Normal Bowel Sounds, Soft, Non-Tender, Other (Morbidly obese) Extremities: Normal Inspection Skin: Warm, Dry Neurological: No New Focal Deficit - Patient Data Lab Results Last 24 hrs: Laboratory Results - last 24 hr 10/14/21 Range/Units 09:52 Puncture Site Rt radial ABG pH 7.30 L (7.35-7.45) ABG pCO2 85.4 H* (35.0-45.0) mmHg ABG pO2 113.0 H (80.0-100.0) mmHg ABG HCO3 40.3 H (22.0-26.0) meq/L ABG O2 Saturation 98.0 H (96.0-97.0) % ABG Base Excess 10.5 H (-2-2.0) Parveen Test Positive O2 Delivery Device Nasal cannula Oxygen Flow Rate 5.0 Result Diagrams: 10/14/21 05:05 10/14/21 05:05 Charly Results Last 24 hrs: Microbiology 10/09/21 13:55 Blood Culture - Final Blood - Venous - Lab Draw 10/09/21 13:25 Blood Culture - Final Blood - Venous 10/11/21 08:10 Urine Culture - Preliminary Urine Gram Negative Rods Sepsis Event Note - Evaluation Sepsis Screening Result: No Definite Risk - Focused Exam Vital Signs: Vital Signs Temp Pulse Resp BP Pulse Ox Pulse Ox 10/15/21 04:34 96.8 F L 83 24 H 123/75 95 10/15/21 00:57 97.0 F 93 24 H 126/95 H 97 10/14/21 20:42 99 118/76 10/14/21 20:38 99 118/76 99 10/14/21 20:28 97.5 F 71 20 94/58 L 100 10/14/21 20:24 90 L - Problem List Review Problem List Initiated/Reviewed/Updated: Yes - Plan Plan:: 76-year-old female with history of atrial fibrillation, congestive heart failure, diabetes, morbid obesity, cor pulmonale, severe pulmonary artery systolic hypertension presents to the emergency department with hypercapnic, hy poxemic respiratory failure secondary to exacerbation of CHF. Exacerbation CHF Hypercapnic, hypoxemic respiratory failure History of cor pulmonale * Echocardiogram from October 2020 showed a left ejection fraction of 50 to 55%. Normal right ventricular systolic function. Right ventricular systolic pressure is moderately elevated at 49.5 mmHg PFO or small ASD is present with left to right shunt. Severe biatrial dilatation * Chest x-ray shows mild CHF * proBNP 7137 * Initial pH 7.27 with PCO2 of 83 * Currently on BiPAP with an improving pH and PCO2 * Patient had some altered mental status and a CT scan was negative * Improved altered mental status with improving PCO2. * Home diuretics include torsemide 20 mg daily and spironolactone 100 mg daily Atrial fibrillation Elevated INR * INR 4.86 * Metoprolol 25 mg twice daily for rate control * Warfarin 5 mg take as directed Acute on chronic renal sufficiency * Baseline creatinine of 1.4 creatinine 1.9, BUN 56 * Estimated GFR of 26 * Patient does not appear to be on an ERIC or an ARB Diabetes * Home medications include sitagliptin * Unknown hemoglobin A1c Hypothyroidism * Unknown TSH * Levothyroxine 25 mcg daily Gout * Allopurinol 100 mg twice daily 10/10/2021 Patient has had significant improvement overnight. She has decreased PCO2 and improved oxygenation. Echocardiogram is pending for this morning. patient does have some hypernatremia with sodium of 148. This suggests that she is having some volume contraction. Creatinine actually improved and went down to 1.7 with estimated GFR of 29. TSH was 1.58. INR today is 4.73 and warfarin is still being held. Restart metoprolol for blood pressure and rate control. 10/11/2021 Patient has decreased urine output and sodium is increased and BUN to creatinine ratio is elevated today consistent with hypovolemia. Patient also continues to have an elevated INR at 4.36. Patient's hemoglobin is stable. She does have some blood in her urine. Hemoglobin A1c is 6.8. Heart rate has been in the low 100s. Creatinine is up to 1.9 and BUN is 62. Patient will get 500 mL of normal saline over 5 hours. Continue to monitor and consider half-normal saline and this does not improve sodium. Continue to follow in the ICU. Patient is demonstrating hypoventilatory syndrome. This will be difficult to treat with the addition of her A. fib, CHF, elevated INR, and renal insufficiency. Patient's prognosis now is guarded. is aware. 10/12/2021 Patient had a improved evening. She wore her BiPAP overnight and her pH came down to normal. Her venous blood gas: 7.3/73.2/59/38. PCO2 is still elevated but it is corrected. She is currently on only 2 L nasal cannula. We restarted fluids last night secondary to poor urine output and her BMP suggesting prerenal disease. She was hypernatremic yesterday and that has come down to 145. BUN is still elevated at 61, but creatinine has decreased to baseline at 1.6. She has cellulitis of the lower extremities with open wound. These are much less red after starting Rocephin. She also has a UTI based on urinalysis yesterday. Urine culture is requested, but it may be too late to culture. White count is 11 which is down from yesterday. Procalcitonin was 0.07. INR is still elevated at 4.13. This has been a very slow decrease in her INR. Bilirubin is normal as well as liver enzymes. 10/13/2021 76-year-old female with hypoventilatory syndrome certainly better on BiPAP. VBG this morning was a little worse than yesterday with a pH of 7.30 and PCO2 of 83. Bicarb is 39. MICHAEL is not the primary contributing factor to the hypoventilation or hypercapnia. Reportedly patient is on BiPAP at home, but she does not have a rate. Patient clearly needs increased pressures and a rate to keep her PCO2 even close to normal. It appears obesity and poor respiratory drive are the major contributing factors to her hypoventilation. Patient's lower extremity cellulitis and UTI are being treated with ceftriaxone. Both are improving. She did have her legs wrapped with Eric wraps yesterday and there is significant improvement. Patient's creatinine has improved since she is been off Lasix and torsemide, but BUN is still elevated. She continues on spironolactone. Patient will need to be sent home on BiPAP preferably with increased pressures and backup rate. Without this I am greatly concerned that she will develop worsening hypercapnia and respiratory failure. Echocardiogram 1. Unable to assess LV function secondary to inability to obtain adequate and images. The left internal cavity size is normal. 2. Mild to moderate mitral valve regurgitation. 3. Moderate to severe tricuspid valve regurgitation. 4. At least moderate elevation in RVSP. 5. Atrial septal aneurysm. 6. Interatrial septum appears mobile. 7. There is severe biatrial dilatation. 10/14/2021 76-year-old female with end-stage respiratory failure now BiPAP dependent. Review of patient's blood gases shows that she becomes acidotic and retains more CO2 when she is not on her BiPAP. Patient is also very deconditioned and is having increasing difficulty moving air or ventilating. Physical therapy is working with her, but today family realizes that they will not be able to take her home and she will need to go to a SNF. also understands the grave nature of her illness and that at some point in the very near future she will likely pass away in her sleep even with BiPAP treatment. Patient was given Lasix 40 mg IV today and will need to be evaluated daily for diuresis. BUN to creatinine ratio is still significantly elevated at 50.8 with BUN of 61 and creatinine of 1.2. Hemoglobin is a little lower at 13.0 and white count is 9.03. INR today was low at 1.53. She no longer has blood in her catheter. Sodium is elevated at 147 also suggesting hypovolemia. CRP is down to 1.3. Urine cultures did grow out gram-negative rods and she is on Rocephin both for her UTI and for her lower extremity cellulitis which has pretty much resolved. Patient has a very poor prognosis at this time. We will continue to diurese as appropriate, continue physical therapy and encourage incentive spirometry, and use BiPAP when not active or eating. 10/15/2021 Remains BiPAP dependent. Slightly encephalopathic due to chronic hypercapnia. Remains comfortable on current BiPAP settings. Awaiting labs from this morning. White count was trending down after antibiotics were started for gram-negative bacteriuria. Awaiting results of speciation and sensitivities, will tailor antibiotics as appropriate. Intermittent trending of PT/INR with pharmacy to dose. Cardiac regimen seems appropriate at current time. Patient and family should entertain palliative care consult if they wish to have her home on BiPAP at all times. It is unlikely that a facility would take her, as she is completely BiPAP dependent at this point. Plan * Managed on medical floor * Strict I's and O's and daily weights * Continue BiPAP when asleep and when not actively doing physical therapy, eating, or respiratory therapy. * Evaluate need of diuretics daily * Increase metoprolol to 50 mg twice daily secondary to poor rate control metoprolol * Rocephin 2 g daily for 5 to 7 days or until urine cultures narrow spectrum of antibiotics * Sliding-scale insulin and blood sugars before every meal/nightly * Pharmacy to dose warfarin * VTE prophylaxis: Patient has elevated INR and will also use SCDs * CODE STATUS: DNR/DNI
[2021-10-15] MEDS: Sertraline 50 MG Tab PO SCH ×2 (09:06→13:45)
[2021-10-15] MEDS: Rosuvastatin 10 MG Tab PO SCH (09:06)
[2021-10-15] MEDS: Allopurinol 100 MG Tab PO SCH ×2 (09:06→20:58)
[2021-10-15] MEDS: Cholecalciferol (Vitamin D3) 25 MCG Tab PO SCH (09:07)
[2021-10-15] MEDS: Metoprolol Tartrate 25 MG Tab PO SCH ×2 (09:07→20:56)
[2021-10-15] MEDS: Torsemide 20 MG Tab PO SCH (09:07)
[2021-10-15] MEDS: Nystatin Topical Powder 15 GM Bottle TOP SCH ×3 (09:07→20:56)
[2021-10-15] MEDS: Dorzolamide 2% Ophth Soln 10 ML Bottle EYEBOTH SCH ×2 (09:08→20:55)
[2021-10-15] MEDS: cefTRIAXone 2 GM in Sodium Chloride 0.9% 100 ML IV SCH (13:45)
[2021-10-15] MEDS ORDERED: Warfarin 3 MG Tab PO SCH (18:00)
[2021-10-16] MEDS: Levothyroxine 25 MCG Tab PO SCH (06:43)
[2021-10-16 06:47] VITALS: PULSE 64
[2021-10-16 08:22] VITALS: BP 112/65
--- NOTE | 2021-10-16 09:00 | PCM.PN ---
- General Info Date of Service: 10/16/21 Admission Dx/Problem (Free Text): Admission Diagnosis/Problem Admission Diagnosis/Problem acute hypercapnic respiratory failure. Subjective Update: Patient seen and examined at bedside. Patient is end-stage hypercapnic and hypoxic respiratory failure which is multifactorial. Patient's poor prognosis discussed with multiple family members including her and 2 sons yesterday. Unfortunately due to lack of resources the patient cannot be placed on hospice and receive care outside of the hospital for end-of-life purposes. Discussions have resulted in the likely transition to comfort measures only care wants family is able to come and see her. Plan regarding CLINICAL SECRETARY protocol has been discussed with the patient's in complete detail along with the patient's primary nurse who was assigned to her today. All are in agreement regarding initiation of CLINICAL SECRETARY protocol which will involve scopolamine, conventional as needed medications, scheduled IV push Ativan, and the initiation of a titratable morphine infusion. When the patient's is ready to do so he will instruct staff to remove the BiPAP mask which is providing her current support for life. Patient currently somnolent. - Patient Data Vitals - Most Recent: Last Vital Signs Temp 95.2 F L 10/16/21 07:39 Pulse 64 10/16/21 07:39 Resp 27 H 10/16/21 07:39 BP 112/65 10/16/21 07:39 Pulse Ox 96 10/16/21 07:39 Weight - Most Recent: 335 lb 8 oz I&O - Last 24 Hours: Intake & Output 10/15/21 10/16/21 10/16/21 22:59 06:59 14:59 Intake Total 600 950 180 Output Total 1150 350 Balance -550 600 180 Lab Results Last 24 Hours: Laboratory Results - last 24 hr 10/15/21 10/16/21 Range/Units 07:50 06:10 PT 20.0 H 23.0 H (9.7-12.0) SECONDS INR 1.84 2.13 Charly Results Last 24 Hours: Microbiology 10/11/21 08:10 Urine Culture - Final Urine Escherichia Coli Mixed Gram Negative Bacilli Ad Med Orders - Current: Current Medications Acetaminophen (Acetaminophen 325 Mg Tab) 650 mg PO Q4H PRN PRN Reason: Pain (Mild 1-3)/fever Albuterol (Albuterol 0.083% 2.5 Mg/3 Ml Neb Soln) 2.5 mg NEB Q2H PRN PRN Reason: Shortness Of Breath/wheezing Albuterol/Ipratropium (Albuterol/Ipratropium 3.0-0.5 Mg/3 Ml Neb Soln) 3 ml NEB Q4H PRN PRN Reason: Shortness Of Breath/wheezing Last Admin: 10/13/21 08:32 Dose: 3 ml Documented by: Allopurinol (Allopurinol 100 Mg Tab) 100 mg PO BID [facility] Last Admin: 10/15/21 20:58 Dose: 100 mg Documented by: Cholecalciferol (Cholecalciferol (Vitamin D3) 25 Mcg Tab) 25 mcg PO DAILY [facility] Last Admin: 10/15/21 09:07 Dose: 25 mcg Documented by: Dorzolamide HCl (Dorzolamide 2% Ophth Soln 10 Ml Bottle) 0 ml EYEBOTH BID [facility] Last Admin: 10/15/21 20:55 Dose: 1 drop Documented by: Ceftriaxone Sodium 2 gm/ (Sodium Chloride) 100 mls @ 200 mls/hr IV Q24H [facility] Last Admin: 10/15/21 13:45 Dose: 200 mls/hr Documented by: Levothyroxine Sodium (Levothyroxine 25 Mcg Tab) 25 mcg PO ACBREAKFAST [facility] Last Admin: 10/16/21 06:43 Dose: 25 mcg Documented by: Metoprolol Tartrate (Metoprolol Tartrate 25 Mg Tab) 75 mg PO Q12H [facility] Last Admin: 10/15/21 20:56 Dose: 75 mg Documented by: Nystatin (Nystatin Topical Powder 15 Gm Bottle) 0 gm TOP TID [facility] Last Admin: 10/15/21 20:56 Dose: 1 applic Documented by: Ondansetron HCl (Ondansetron 4 Mg/2 Ml Sdv) 4 mg IV Q6H PRN PRN Reason: Nausea/Vomiting Rosuvastatin Calcium (Rosuvastatin 10 Mg Tab) 20 mg PO DAILY [facility] Last Admin: 10/15/21 09:06 Dose: 20 mg Documented by: Sertraline HCl (Sertraline 50 Mg Tab) 100 mg PO 0800,1200 [facility] Last Admin: 10/15/21 13:45 Dose: 100 mg Documented by: Sodium Chloride (Sodium Chloride 0.9% 10 Ml Syringe) 10 ml FLUSH ASDIRECTED PRN PRN Reason: Keep Vein Open Last Admin: 10/09/21 13:36 Dose: 10 ml Documented by: Sucralfate (Sucralfate 1 Gm Tab) 1 gm PO TID PRN PRN Reason: Dyspepsia Last Admin: 10/09/21 22:28 Dose: 1 gm Documented by: Torsemide (Torsemide 20 Mg Tab) 20 mg PO DAILY [facility] Last Admin: 10/15/21 09:07 Dose: 20 mg Documented by: Warfarin Sodium (Pharmacy To Dose - Warfarin) 1 dose .XX ASDIRECTED PRN PRN Reason: RX TO DOSE WARFARIN Warfarin Sodium (Warfarin 3 Mg Tab) 3 mg PO QPM [facility] Stop: 10/16/21 18:01 Discontinued Medications Albuterol/Ipratropium (Albuterol/Ipratropium 3.0-0.5 Mg/3 Ml Neb Soln) 3 ml NEB ONETIME ONE Stop: 10/09/21 12:54 Last Admin: 10/09/21 13:16 Dose: 3 ml Documented by: Albuterol/Ipratropium (Albuterol/Ipratropium 3.0-0.5 Mg/3 Ml Neb Soln) 3 ml NEB ONETIME ONE Stop: 10/09/21 18:49 Last Admin: 10/09/21 18:59 Dose: 3 ml Documented by: Furosemide (Furosemide 20 Mg/2 Ml Vial) 40 mg IVPUSH ONETIME ONE Stop: 10/09/21 13:59 Last Admin: 10/09/21 14:43 Dose: 40 mg Documented by: Furosemide (Furosemide 40 Mg/4 Ml Vial) 60 mg IVPUSH BID [facility] Last Admin: 10/10/21 08:51 Dose: 60 mg Documented by: Furosemide (Furosemide 40 Mg/4 Ml Vial) 40 mg IVPUSH NOW ONE Stop: 10/10/21 16:01 Last Admin: 10/10/21 18:08 Dose: 40 mg Documented by: Furosemide (Furosemide 40 Mg/4 Ml Vial) 40 mg IVPUSH NOW ONE Stop: 10/14/21 10:51 Last Admin: 10/14/21 11:11 Dose: 40 mg Documented by: Furosemide 100 mg/ Sodium (Chloride) 100 mls @ 10 mls/hr IV TITRATE [facility]; Protocol Last Titration: 10/11/21 00:25 Dose: 0 mg/hr, 0 mls/hr Documented by: Sodium Chloride (Normal Saline) Confirm Administered Dose 500 mls @ as directed .ROUTE .STK-MED ONE Stop: 10/10/21 16:14 Last Admin: 10/10/21 18:35 Dose: Not Given Documented by: Sodium Chloride (Normal Saline) 500 mls @ 100 mls/hr IV ONETIME ONE Stop: 10/11/21 20:29 Last Admin: 10/11/21 15:10 Dose: 100 mls/hr Documented by: Sodium Chloride (Sodium Chloride 0.45%) 1,000 mls @ 75 mls/hr IV ASDIRECTED [facility] Last Admin: 10/12/21 10:45 Dose: 75 mls/hr Documented by: Magnesium Hydroxide (Magnesium Hydroxide 400 Mg/5 Ml Susp 30 Ml Cup) 30 ml PO ONETIME ONE Stop: 10/14/21 06:01 Last Admin: 10/14/21 06:15 Dose: 30 ml Documented by: Methylprednisolone Sodium Succinate (Methylprednisolone Sodium Succinate 125 Mg/2 Ml Sdv) 125 mg IVPUSH ONETIME ONE Stop: 10/09/21 18:49 Last Admin: 10/09/21 19:21 Dose: 125 mg Documented by: Metoprolol Tartrate (Metoprolol Tartrate 25 Mg Tab) 25 mg PO BID [facility] Last Admin: 10/13/21 08:23 Dose: 25 mg Documented by: Metoprolol Tartrate (Metoprolol Tartrate 50 Mg Tab) 50 mg PO BID [facility] Last Admin: 10/14/21 08:25 Dose: 50 mg Documented by: Nystatin (Nystatin Topical Powder 15 Gm Bottle) 0 gm TOP NOW ONE Stop: 10/09/21 18:17 Last Admin: 10/09/21 22:20 Dose: Not Given Documented by: Spironolactone (Spironolactone 100 Mg Tab) 100 mg PO DAILY [facility] Last Admin: 10/13/21 08:22 Dose: 100 mg Documented by: Warfarin Sodium (Warfarin 4 Mg Tab) 4 mg PO QPM [facility] Stop: 10/13/21 18:01 Last Admin: 10/13/21 18:04 Dose: 4 mg Documented by: Warfarin Sodium (Warfarin 4 Mg Tab) 4 mg PO QPM [facility] Stop: 10/14/21 18:01 Last Admin: 10/14/21 18:09 Dose: 4 mg Documented by: Warfarin Sodium (Warfarin 3 Mg Tab) 3 mg PO QPM [facility] Stop: 10/15/21 18:01 Last Admin: 10/15/21 18:47 Dose: Not Given Documented by: - Exam Quality Assessment: Supplemental Oxygen (Via BiPAP) Urinary Catheter Total Time: 4Days 14Hours General: Lethargic Lungs: Decreased Breath Sounds Cardiovascular: Irregular Rhythm GI/Abdominal Exam: Soft Extremities: Normal Inspection Skin: Warm, Dry - Patient Data Lab Results Last 24 hrs: Laboratory Results - last 24 hr 10/15/21 10/16/21 Range/Units 07:50 06:10 PT 20.0 H 23.0 H (9.7-12.0) SECONDS INR 1.84 2.13 Result Diagrams: 10/14/21 05:05 10/14/21 05:05 Charly Results Last 24 hrs: Microbiology 10/11/21 08:10 Urine Culture - Final Urine Escherichia Coli Mixed Gram Negative Bacilli Ad Sepsis Event Note - Evaluation Sepsis Screening Result: No Definite Risk - Focused Exam Vital Signs: Vital Signs Temp Pulse Resp BP Pulse Ox 10/16/21 07:39 95.2 F L 64 27 H 112/65 96 10/16/21 04:53 97.2 F 64 24 H 115/60 95 10/16/21 00:31 96.6 F L 90 22 H 115/88 100 10/15/21 21:05 98.4 F 98 24 H 98 10/15/21 21:03 71 10/15/21 20:56 98 137/97 H - Problem List Review Problem List Initiated/Reviewed/Updated: Yes - My Orders Last 24 Hours: My Active Orders 10/15/21 14:14 Renew/Continue Urinary Catheter [OM.PC] Routine - Plan Plan:: 76-year-old female with history of atrial fibrillation, congestive heart failure, diabetes, morbid obesity, cor pulmonale, severe pulmonary artery systolic hypertension presents to the emergency department with hypercapnic, hypoxemic respiratory failure secondary to exacerbation of CHF. Exacerbation CHF Hypercapnic, hypoxemic respiratory failure History of cor pulmonale * Echocardiogram from October 2020 showed a left ejection fraction of 50 to 55%. Normal right ventricular systolic function. Right ventricular systolic pressure is moderately elevated at 49.5 mmHg PFO or small ASD is present with left to right shunt. Severe biatrial dilatation * Chest x-ray shows mild CHF * proBNP 7137 * Initial pH 7.27 with PCO2 of 83 * Currently on BiPAP with an improving pH and PCO2 * Patient had some altered mental status and a CT scan was negative * Improved altered mental status with improving PCO2. * Home diuretics include torsemide 20 mg daily and spironolactone 100 mg daily Atrial fibrillation Elevated INR * INR 4.86 * Metoprolol 25 mg twice daily for rate control * Warfarin 5 mg take as directed Acute on chronic renal sufficiency * Baseline creatinine of 1.4 creatinine 1.9, BUN 56 * Estimated GFR of 26 * Patient does not appear to be on an KATHY or an ARB Diabetes * Home medications include sitagliptin * Unknown hemoglobin A1c Hypothyroidism * Unknown TSH * Levothyroxine 25 mcg daily Gout * Allopurinol 100 mg twice daily Due to end-stage hypercapnic and hypoxemic respiratory failure in combination with morbid obesity, and cor pulmonale, the patient is likely to be transition to CLINICAL SECRETARY measures here in the hospital and to pursue end-of-life care. Please see above. Protocol has been discussed with family and we are all in agreement along with primary nurse regarding how we will be proceeding. All questions answered. Patient is an organ donor, when the patient expires, the organ bank will be notified. Awaiting further postmortem plans. When the patient's family is ready to begin CLINICAL SECRETARY, all medications will be discontinued and replaced with CLINICAL SECRETARY protocol.
[2021-10-16] MEDS: Sertraline 50 MG Tab PO SCH ×2 (11:42→11:45)
[2021-10-16] MEDS: Cholecalciferol (Vitamin D3) 25 MCG Tab PO SCH (11:43)
[2021-10-16] MEDS: Metoprolol Tartrate 25 MG Tab PO SCH (11:43)
[2021-10-16] MEDS: Rosuvastatin 10 MG Tab PO SCH (11:43)
[2021-10-16] MEDS: Dorzolamide 2% Ophth Soln 10 ML Bottle EYEBOTH SCH (11:43)
[2021-10-16] MEDS: Nystatin Topical Powder 15 GM Bottle TOP SCH (11:43)
[2021-10-16] MEDS: Torsemide 20 MG Tab PO SCH (11:43)
[2021-10-16] MEDS: Allopurinol 100 MG Tab PO SCH (11:43)
[2021-10-16] MEDS ORDERED: Sodium Chloride 0.9% 10 ML Syringe FLUSH PRN (12:31)
[2021-10-16] MEDS ORDERED: Scopolamine 1.5 MG Transdermal Patch TRDERM PRN (12:34)
[2021-10-16] MEDS ORDERED: Morphine 4 MG/ML Syringe IVPUSH PRN (12:38)
[2021-10-16] MEDS ORDERED: Morphine 100 MG in Sodium Chloride 0.9% 90 ML IV SCH (12:45)
[2021-10-16] MEDS: LORazepam 2 MG/ML SDV IV PRN ×2 (13:56→17:52)
[2021-10-16] MEDS ORDERED: Warfarin 3 MG Tab PO SCH (18:00)
--- NOTE | 2021-10-16 19:42 | PCM.DCSUM1 ---
Discharge Summary - Hospital Course Free Text/Narrative:: 76-year-old female with history of atrial fibrillation, congestive heart failure, diabetes, morbid obesity, cor pulmonale, severe pulmonary artery systolic hypertension presents to the emergency department with hypercapnic, hypoxemic respiratory failure secondary to exacerbation of CHF. Exacerbation CHF Hypercapnic, hypoxemic respiratory failure History of cor pulmonale Atrial fibrillation Elevated INR Acute on chronic renal sufficiency Diabetes Hypothyroidism Gout For more in-depth details regarding her daily assessments and plans please see prior progress notes. In short, the patient was admitted to the general medical floor for CHF exacerbation, hypercapnic and hypoxemic respiratory failure complicated by cor pulmonale and atrial fibrillation. Patient was diuresed to the fullest extent. Patient was requiring BiPAP at high settings in order to counteract her chronic hypercapnia and remain with a decent oxygen saturation. Despite treatment for acute CHF, patient was deemed end-stage cor pulmonale with a poor prognosis. This was discussed with the patient's and 2 sons who are present. As the patient had no meaningful chance of recovery, end-of-life care and hospice care was discussed. Considering options at the time regarding disposition, the patient's family elected for end-of-life care and MACHINE APPLICATOR CEMENTER measures here in the hospital. The plan was discussed regarding her end-of-life care on the morning of 10/16/2021 after preliminary discussions the prior 2 days. MACHINE APPLICATOR CEMENTER was invoked around noon on 10/16. Patient peacefully at 1859 on 10/16. Her was present with her at the time. He wishes for her disposition to be to [facility]. Autopsy has been deferred. They do not wish for organ donation. examination performed by nursing staff HPI Initial Comments: 6-year-old female with history of CHF and atrial fibrillation presents to the emergency department when her states that she was having more difficulty breathing. Over the last week or 2 she has been more fatigued and having more dyspnea on exertion. He states that she generally sleeps on a wedge pillow, but over the last few days has had to sleep in the recliner. Today her oxygen saturations were in the 80s and her fingers were blue. She was brought to the emergency department because of severe shortness of breath and on arrival was in the low 90s. Patient's initial blood gases: pH 7.26, PCO2 84.7, PO2 103, bicarb 36.9, this was on 3 L nasal cannula. She was placed on BiPAP and most recent ABG shows: pH 7.30, PCO2 77, PO2 85, bicarb 36.9, on 25/06. WBC 12.2, hemoglobin 14.3, platelet 208, sodium 145, potassium 4.0, bicarb 38, BUN 56, creatinine 1.9, glucose 119 troponin less than 0.017, proBNP 7137. INR 4.86 Chest x-ray shows enlarged heart with increased vascular congestion CT of the head showed no acute changes. She denies smoking or drinking. EKG: A. fib ventricular rate around 107. Right axis deviation. Intraventricular conduction delay. - Related Data Allergies/Adverse Reactions: Allergies Allergy/AdvReac Type Severity Reaction Status Date / Time Penicillins Allergy Rash Verified 10/09/21 20:24 codeine AdvReac Nausea Verified 10/09/21 20:24 Home Medications: Home Meds Brinzolamide [Azopt 1% Ophth Susp] 1 drop EYEBOTH BID 10/09/21 [History] Calcium Carbonate [Calcium] 600 mg PO TID 10/09/21 [History] Cholecalciferol (Vitamin D3) [Vitamin D3] 25 mcg PO DAILY 10/09/21 [History] Levothyroxine 25 mcg PO ACBREAKFAST 10/09/21 [History] Metoprolol Tartrate 25 mg PO BID 10/09/21 [History] Multivit,Calc,Mins/Iron/Folic [Thera-M] 1 tab PO QPM 10/09/21 [History] Rosuvastatin [Crestor] 20 mg PO DAILY 10/09/21 [History] Sertraline [Zoloft] 100 mg PO 0800,1200 10/09/21 [History] SitaGLIPtin [Januvia] 100 mg PO DAILY 10/09/21 [History] Spironolactone [Aldactone] 100 mg PO DAILY 10/09/21 [History] Sucralfate 1 gm PO TID PRN 10/09/21 [History] Torsemide 20 mg PO DAILY 10/09/21 [History] Warfarin [Coumadin] 5 mg PO ASDIRECTED 10/09/21 [History] allopurinoL [Zyloprim] 100 mg PO BID 10/09/21 [History] Past Medical History HEENT History: Reports: Cataract Cardiovascular History: Reports: Afib, Arrhythmia, High Cholesterol, H ypertension Respiratory History: Reports: SOB Other Respiratory History: Suspected sleep apnea Gastrointestinal History: Reports: GERD Genitourinary History: Reports: Acute Renal Failure, Renal Disease 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[employer]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: Reports: Dysfunctional Uterine Bleeding, , Other (See Below) Other OB/BYN History: 2 c sections Musculoskeletal History: Reports: Arthritis Psychiatric History: Reports: Anxiety, Depression Endocrine/Metabolic History: Reports: Obesity/BMI 30+ - Infectious Disease History Infectious Disease History: Reports: Chicken Pox, Measles, Mumps - Past Surgical History HEENT Surgical History: Reports: Cataract Surgery Cardiovascular Surgical History: Reports: None GI Surgical History: Reports: Appendectomy, Cholecystectomy Social & Family History - Family History Family Medical History: No Pertinent Family History Cardiac: Reports: High Cholesterol, Hypertension - Tobacco Use Tobacco Use Status *Q: Never Tobacco User - Caffeine Use Caffeine Use: Reports: None - Living Situation & Occupation Living situation: Reports: with Spouse Occupation: Unemployed H&P Review of Systems - Review of Systems: Review Of Systems: Comprehensive ROS is negative, except as noted in HPI. Exam - Exam Exam: See Below - Vital Signs Vital Signs: Last Vital Signs Temp 96.1 F L 10/09/21 12:56 Pulse 92 10/09/21 12:56 Resp 22 H 10/09/21 12:56 BP 136/107 H 10/09/21 12:56 Pulse Ox 92 L 10/09/21 18:49 - Exam Quality Assessment: Supplemental Oxygen General: Alert HEENT: Conjunctiva Clear, Hearing Intact, Mucosa Moist & [place], Normal Nasal Septum Neck: Supple, Trachea Midline, 2 Lungs: Rales (Throughout both lung cheung). No: Normal Respiratory Effort (Increased respiratory rate) Cardiovascular: Irregular Rhythm (Irregular rhythm and rate), Other (Difficult to hear secondary to BiPAP) GI/Abdominal Exam: Normal Bowel Sounds, Soft, Non-Tender, No Organomegaly, No Distention, Other (Morbidly obese) Extremities: Normal Inspection, Non-Tender, Normal Capillary Refill, Pedal Edema (3+ pitting edema) Skin: Warm, Dry, Intact Neuro Extensive - Mental Status: Alert - Discharge Data Discharge Date: 10/16/21 Discharge Disposition: 20 Condition: Good - Referral to Home Health Primary Care Physician: Owen Aguilar NP - Patient Summary/Data Consults: Consultations 10/09/21 20:46 Respiratory Care Assess and Treatment [CONS] Routine 10/13/21 07:00 PT Evaluation and Treatment [CONS] DAILY - Discharge Plan Home Medications: Home Meds Brinzolamide [Azopt 1% Ophth Susp] 1 drop EYEBOTH BID 10/09/21 [History] Calcium Carbonate [Calcium] 600 mg PO TID 10/09/21 [History] Cholecalciferol (Vitamin D3) [Vitamin D3] 25 mcg PO DAILY 10/09/21 [History] Levothyroxine 25 mcg PO ACBREAKFAST 10/09/21 [History] Metoprolol Tartrate 25 mg PO BID 10/09/21 [History] Multivit,Calc,Mins/Iron/Folic [Thera-M] 1 tab PO QPM 10/09/21 [History] Rosuvastatin [Crestor] 20 mg PO DAILY 10/09/21 [History] Sertraline [Zoloft] 100 mg PO 0800,1200 10/09/21 [History] SitaGLIPtin [Januvia] 100 mg PO DAILY 10/09/21 [History] Spironolactone [Aldactone] 100 mg PO DAILY 10/09/21 [History] Sucralfate 1 gm PO TID PRN 10/09/21 [History] Torsemide 20 mg PO DAILY 10/09/21 [History] Warfarin [Coumadin] 5 mg PO ASDIRECTED 10/09/21 [History] allopurinoL [Zyloprim] 100 mg PO BID 10/09/21 [History] Patient Handouts: Heart Failure, Self-Care, [id number], Home Oxygen Use, Adult, Living With Heart Failure, Heart Failure and Exercise, Heart Failure Eating Plan Forms: ED Department Discharge Referrals: Owen Aguilar NP [Primary Care Provider] - James De Santiago MD [Physician] - - Discharge Summary/Plan Comment DC Time >30 min.: No Total # of Minutes for Discharge Time: 25 minutes - General Info Date of Service: 10/16/21 Admission Dx/Problem (Free Text: Admission Diagnosis/Problem Admission Diagnosis/Problem acute hypercapnic respiratory failure. Subjective Update: - Patient Data Vitals - Most Recent: Last Vital Signs Temp 95.2 F L 10/16/21 07:39 Pulse 64 10/16/21 07:39 Resp 27 H 10/16/21 07:39 BP 112/65 10/16/21 07:39 Pulse Ox 96 10/16/21 07:39 Weight - Most Recent: 335 lb 8 oz I&O - Last 24 hours: Intake & Output 10/16/21 10/16/21 10/16/21 06:59 14:59 22:59 Intake Total 950 270 Output Total 350 Balance 600 270 Lab Results - Last 24 hrs: Laboratory Results - last 24 hr 10/16/21 Range/Units 06:10 PT 23.0 H (9.7-12.0) SECONDS INR 2.13 Med Orders - Current: Current Medications Acetaminophen (Acetaminophen 325 Mg Tab) 650 mg PO Q4H PRN PRN Reason: Pain (Mild 1-3)/fever Morphine Sulfate 100 mg/ (Sodium Chloride) 100 mls @ 3 mls/hr IV TITRATE MIRNA; Protocol Last Titration: 10/16/21 17:54 Dose: 5 mg/hr, 5 mls/hr Documented by: Lorazepam (Lorazepam 2 Mg/Ml Sdv) 2 mg IV Q2H PRN PRN Reason: Agitation Last Admin: 10/16/21 17:52 Dose: 2 mg Documented by: Morphine Sulfate (Morphine 4 Mg/Ml Syringe) 4 mg IVPUSH Q2H PRN PRN Reason: Dyspnea Last Admin: 10/16/21 13:54 Dose: 4 mg Documented by: Ondansetron HCl (Ondansetron 4 Mg/2 Ml Sdv) 4 mg IV Q6H PRN PRN Reason: Nausea/Vomiting Scopolamine (Scopolamine 1.5 Mg Transdermal Patch) 1.5 mg TRDERM Q72H PRN PRN Reason: Congestion Last Admin: 10/16/21 18:41 Dose: 1.5 mg Documented by: Sodium Chloride (Sodium Chloride 0.9% 10 Ml Syringe) 10 ml FLUSH ASDIRECTED PRN PRN Reason: Keep Vein Open Discontinued Medications Albuterol (Albuterol 0.083% 2.5 Mg/3 Ml Neb Soln) 2.5 mg NEB Q2H PRN PRN Reason: Shortness Of Breath/wheezing Albuterol/Ipratropium (Albuterol/Ipratropium 3.0-0.5 Mg/3 Ml Neb Soln) 3 ml NEB ONETIME ONE Stop: 12/02/21 12:54 Last Admin: 10/09/21 13:16 Dose: 3 ml Documented by: Albuterol/Ipratropium (Albuterol/Ipratropium 3.0-0.5 Mg/3 Ml Neb Soln) 3 ml NEB ONETIME ONE Stop: 10/09/21 18:49 Last Admin: 10/09/21 18:59 Dose: 3 ml Documented by: Albuterol/Ipratropium (Albuterol/Ipratropium 3.0-0.5 Mg/3 Ml Neb Soln) 3 ml NEB Q4H PRN PRN Reason: Shortness Of Breath/wheezing Last Admin: 10/13/21 08:32 Dose: 3 ml Documented by: Allopurinol (Allopurinol 100 Mg Tab) 100 mg PO BID [facility] Last Admin: 10/16/21 11:43 Dose: Not Given Documented by: Cholecalciferol (Cholecalciferol (Vitamin D3) 25 Mcg Tab) 25 mcg PO DAILY [facility] Last Admin: 10/16/21 11:43 Dose: Not Given Documented by: Dorzolamide HCl (Dorzolamide 2% Ophth Soln 10 Ml Bottle) 0 ml EYEBOTH BID [facility] Last Admin: 10/16/21 11:43 Dose: Not Given Documented by: Furosemide (Furosemide 20 Mg/2 Ml Vial) 40 mg IVPUSH ONETIME ONE Stop: 10/09/21 13:59 Last Admin: 10/09/21 14:43 Dose: 40 mg Documented by: Furosemide (Furosemide 40 Mg/4 Ml Vial) 60 mg IVPUSH BID [facility] Last Admin: 10/10/21 08:51 Dose: 60 mg Documented by: Furosemide (Furosemide 40 Mg/4 Ml Vial) 40 mg IVPUSH NOW ONE Stop: 10/10/21 16:01 Last Admin: 10/10/21 18:08 Dose: 40 mg Documented by: Furosemide (Furosemide 40 Mg/4 Ml Vial) 40 mg IVPUSH NOW ONE Stop: 10/14/21 10:51 Last Admin: 10/14/21 11:11 Dose: 40 mg Documented by: Furosemide 100 mg/ Sodium (Chloride) 100 mls @ 10 mls/hr IV TITRATE [facility]; Protocol Last Titration: 10/11/21 00:25 Dose: 0 mg/hr, 0 mls/hr Documented by: Sodium Chloride (Normal Saline) Confirm Administered Dose 500 mls @ as directed .ROUTE .STK-MED ONE Stop: 10/10/21 16:14 Last Admin: 10/10/21 18:35 Dose: Not Given Documented by: Ceftriaxone Sodium 2 gm/ (Sodium Chloride) 100 mls @ 200 mls/hr IV Q24H [facility] Last Admin: 10/15/21 13:45 Dose: 200 mls/hr Documented by: Sodium Chloride (Normal Saline) 500 mls @ 100 mls/hr IV ONETIME ONE Stop: 10/11/21 20:29 Last Admin: 10/11/21 15:10 Dose: 100 mls/hr Documented by: Sodium Chloride (Sodium Chloride 0.45%) 1,000 mls @ 75 mls/hr IV ASDIRECTED [facility] Last Admin: 10/12/21 10:45 Dose: 75 mls/hr Documented by: Levothyroxine Sodium (Levothyroxine 25 Mcg Tab) 25 mcg PO ACBREAKFAST [facility] Last Admin: 10/16/21 06:43 Dose: 25 mcg Documented by: Magnesium Hydroxide (Magnesium Hydroxide 400 Mg/5 Ml Susp 30 Ml Cup) 30 ml PO ONETIME ONE Stop: 10/14/21 06:01 Last Admin: 10/14/21 06:15 Dose: 30 ml Documented by: Methylprednisolone Sodium Succinate (Methylprednisolone Sodium Succinate 125 Mg/2 Ml Sdv) 125 mg IVPUSH ONETIME ONE Stop: 10/09/21 18:49 Last Admin: 10/09/21 19:21 Dose: 125 mg Documented by: Metoprolol Tartrate (Metoprolol Tartrate 25 Mg Tab) 25 mg PO BID [facility] Last Admin: 10/13/21 08:23 Dose: 25 mg Documented by: Metoprolol Tartrate (Metoprolol Tartrate 50 Mg Tab) 50 mg PO BID [facility] Last Admin: 10/14/21 08:25 Dose: 50 mg Documented by: Metoprolol Tartrate (Metoprolol Tartrate 25 Mg Tab) 75 mg PO Q12H [facility] Last Admin: 10/16/21 11:43 Dose: Not Given Documented by: Nystatin (Nystatin Topical Powder 15 Gm Bottle) 0 gm TOP NOW ONE Stop: 10/09/21 18:17 Last Admin: 10/09/21 22:20 Dose: Not Given Documented by: Nystatin (Nystatin Topical Powder 15 Gm Bottle) 0 gm TOP TID [facility] Last Admin: 10/16/21 11:43 Dose: Not Given Documented by: Rosuvastatin Calcium (Rosuvastatin 10 Mg Tab) 20 mg PO DAILY [facility] Last Admin: 10/16/21 11:43 Dose: Not Given Documented by: Sertraline HCl (Sertraline 50 Mg Tab) 100 mg PO 0800,1200 [facility] Last Admin: 10/16/21 11:45 Dose: Not Given Documented by: Sodium Chloride (Sodium Chloride 0.9% 10 Ml Syringe) 10 ml FLUSH ASDIRECTED PRN PRN Reason: Keep Vein Open Last Admin: 10/09/21 13:36 Dose: 10 ml Documented by: Spironolactone (Spironolactone 100 Mg Tab) 100 mg PO DAILY [facility] Last Admin: 10/13/21 08:22 Dose: 100 mg Documented by: Sucralfate (Sucralfate 1 Gm Tab) 1 gm PO TID PRN PRN Reason: Dyspepsia Last Admin: 10/09/21 22:28 Dose: 1 gm Documented by: Torsemide (Torsemide 20 Mg Tab) 20 mg PO DAILY [facility] Last Admin: 10/16/21 11:43 Dose: Not Given Documented by: Warfarin Sodium (Pharmacy To Dose - Warfarin) 1 dose .XX ASDIRECTED PRN PRN Reason: RX TO DOSE WARFARIN Warfarin Sodium (Warfarin 4 Mg Tab) 4 mg PO QPM [facility] Stop: 10/13/21 18:01 Last Admin: 10/13/21 18:04 Dose: 4 mg Documented by: Warfarin Sodium (Warfarin 4 Mg Tab) 4 mg PO QPM [facility] Stop: 10/14/21 18:01 Last Admin: 10/14/21 18:09 Dose: 4 mg Documented by: Warfarin Sodium (Warfarin 3 Mg Tab) 3 mg PO QPM [facility] Stop: 10/15/21 18:01 Last Admin: 10/15/21 18:47 Dose: Not Given Documented by: Warfarin Sodium (Warfarin 3 Mg Tab) 3 mg PO QPM [facility] Stop: 10/16/21 18:01 - Exam Physical Findings Comments::
== END 2021-10-16 21:09 | disposition expired | DRG 291 ==
LOC: JD.ED 12:25 → JD.ICU 20:08 → JD.MS 10-12 15:50
PROVIDERS: ADMIT Family Medicine; ATTEND Family Medicine
PROC: 5A09457 Assistance with Respiratory Ventilation, 24-96 Consecutive Hours, Continuous Positive Airway Pressure (ICD-10-PCS; principal; 2021-10-09)
PROC: 03JY3ZZ Inspection of Upper Artery, Percutaneous Approach (ICD-10-PCS; 2021-10-11)
DX: I13.0 Hypertensive heart and chronic kidney disease with heart failure and stage 1 through stage 4 chronic kidney disease, or unspecified chronic kidney disease (principal); I50.43 Acute on chronic combined systolic (congestive) and diastolic (congestive) heart failure; R09.02 Hypoxemia; J96.01 Acute respiratory failure with hypoxia; J96.02 Acute respiratory failure with hypercapnia; I11.0 Hypertensive heart disease with heart failure; E66.2 Morbid (severe) obesity with alveolar hypoventilation; N28.9 Disorder of kidney and ureter, unspecified; I48.20 Chronic atrial fibrillation, unspecified; E87.0 Hyperosmolality and hypernatremia; L03.116 Cellulitis of left lower limb; L03.115 Cellulitis of right lower limb; N39.0 Urinary tract infection, site not specified; E87.2 Acidosis; G93.49 Other encephalopathy; Z68.43 Body mass index [BMI] 50.0-59.9, adult; N17.9 Acute kidney failure, unspecified; Z51.5 Encounter for palliative care; Z66 Do not resuscitate; I27.21 Secondary pulmonary arterial hypertension; E03.9 Hypothyroidism, unspecified; N18.9 Chronic kidney disease, unspecified; E11.22 Type 2 diabetes mellitus with diabetic chronic kidney disease; M10.9 Gout, unspecified; I27.81 Cor pulmonale (chronic); H91.90 Unspecified hearing loss, unspecified ear; E78.00 Pure hypercholesterolemia, unspecified; R79.1 Abnormal coagulation profile; K21.9 Gastro-esophageal reflux disease without esophagitis; Z20.822 Contact with and (suspected) exposure to COVID-19; M19.90 Unspecified osteoarthritis, unspecified site; F41.9 Anxiety disorder, unspecified; F32.A Depression, unspecified; Z86.19 Personal history of other infectious and parasitic diseases; Z98.49 Cataract extraction status, unspecified eye; Z88.0 Allergy status to penicillin; Z88.5 Allergy status to narcotic agent; Z79.899 Other long term (current) drug therapy; Z79.890 Hormone replacement therapy; Z79.01 Long term (current) use of anticoagulants; Z90.49 Acquired absence of other specified parts of digestive tract; Z82.49 Family history of ischemic heart disease and other diseases of the circulatory system; Z83.42 Family history of familial hypercholesterolemia
CPT/HCPCS: 0240U; 36415; 36600; 51702; 70450; 71045; 80048; 80053; 80162; 81001; 82803; 83036; 83605; 83735; 83880; 84100; 84145; 84443; 84484; 85007; 85025; 85027; 85379; 85610; 85730; 86140; 87040; 87086; 87088; 87186; 93005; 93306; 94640; 94660; 94762; 96374; 96375; 97162; 97530; 99285; 93010; A9270-GY; J0696; J1940; J2060; J2270; J2930; J7030; J7620-GY